=== PATIENT | female | born 1985 | race Caucasian/White ===

== ENCOUNTER 2018-06-17 18:39 | Outpatient (REF) | payer MEDICAID, SELFPAY ==
[2018-06-17 20:00] LABS: Bilirubin Small (Negative); Blood Trace-lysed (Negative); Clarity Cloudy; Glucose Negative (Negative); Ketones 15 mg/dL (Negative); Leukocyte Esterase Negative (Negative); Nitrite Positive (Negative)
[2018-06-17 20:15] LABS: Bacteria Many HPF (Negative); C & S Indicated? Yes; Casts Negative LPF (Negative); Crystals Negative HPF (Negative); Epithelial Cells Few HPF (Negative); Mucus Heavy (Negative); Other Cells Negative (Negative)
== END 2018-06-17 18:59 ==
LOC: NCHCN 18:39
PROVIDERS: PCP Nurse Practitioner Family; Visit Provider Nurse Practitioner Family
DX: R10.9 Unspecified abdominal pain (principal)
CPT/HCPCS: 87077; 81003; 81015; 87086; 87186

== ENCOUNTER 2018-08-18 10:01 | Emergency (ER) | payer MEDICAID, SELFPAY ==
--- NOTE | 2018-08-18 10:04 | W.ED.GENAD ---
Discharge Plan Disposition Patient Disposition: HOME Condition: Stable Discharge Details Chief Complaint: EarProblem Clinical Impression: Bilateral otitis externa Primary Care Provider: Petra Riley ED Provider: Kaleb Pino Home Meds and New Rx's Prescriptions: No Action ranitidine HCl 75 mg tablet 75 mg PO DAILY RF: 0 Lyrica 100 mg capsule 100 mg PO TID RF: 0 psyllium husk 0.52 gram capsule 0.52 gm PO DAILY RF: 0 cyclobenzaprine 10 mg tablet 10 mg PO ONCE PRNRF: 0 Discharge Instructions Instructions: Otitis Externa (ED) Medical Decision Making 32 yo female comes in with bilateral ear pain since yesterday, denies any trauma or swimming or fevers. HAs normal tm's bilateral and exsternal mastoid exam but both ear canals are swollen and inflammed on exam, no discharge on exam. Suspect otitis externa, will start abx drop and advised f/u with pcp Differential Diagnosis aom, otitis externa HPI General Mode of arrival: ambulatory. Date/Time Provider Initiated Documentation: 08/18/18 10:03. Limitations to Documentation: no limitations. Information obtained by: patient. History of Present Illness 32 year old F presents to the emergency department with the chief complaint of bilateral ear pain, described as moderate, with intensity rated at 5. Quality is described as aching, Patient reports no radiation. Patient started experiencing this day(s) (1) and it has been constant. No relieving factors improve symptom(s), No exacerbating factors reported . Patient did receive the following treatments prior to arrival, none Related Data Home Medications Medication Instructions Recorded Confirmed cyclobenzaprine 10 mg tablet 10 mg PO ONCE PRN tab 08/11/18 08/11/18 pregabalin 100 mg capsule 100 mg PO TID 08/11/18 08/11/18 psyllium husk 0.52 gram capsule 0.52 gm PO DAILY 08/11/18 08/11/18 ranitidine 75 mg tablet 75 mg PO DAILY tab 08/11/18 08/18/18 Allergies Allergy/AdvReac Type Severity Reaction Status Date / Time lidocaine Allergy Intermediate Swelling/Ed Verified 08/18/18 10:16 rome procaine HCl [From Novocain] Allergy Intermediate Swelling/Ed Verified 08/18/18 10:16 rome Penicillins AdvReac Unknown Nausea Verified 08/18/18 10:16 control pills Allergy Severe hospitalize Uncoded 08/18/18 10:16 d Review of Systems Review of Systems All systems reviewed & are unremarkable except as noted in HPI and below Constitutional Denies chills and Denies fever(s) ENT Denies change in voice Cardiovascular Denies chest pain and Denies dyspnea Respiratory Denies dyspnea Gastrointestinal Denies abdominal pain, Denies nausea and Denies vomiting Psychiatric Denies depression PFS Medical History IV drug abuse (Acute) Polysubstance abuse (Acute) Substance abuse (Acute) Chronic back pain Chronic pelvic pain in female GERD (gastroesophageal reflux disease) Irritable bowel syndrome SVT (supraventricular tachycardia) Tobacco user Surgical History section Cholecystectomy (03/30/15) Colonoscopy - MAC (01/29/17) Diagnostic Laproscopy (09/14/13) Endoscopy (12/14/13) Excision, Cervicle Lymph Nodes Hysterectomy, Laproscopic (04/15/13) Pacemaker Tonsillectomy and adenoidectomy (07/05/11) Family History Father Neoplasm Social History Smoking/Tobacco Use Status: Current every day Exam Const General: no acute distress Orientation: alert HENMT Head: normal to inspection Ears: external ears normal General nose exam: external nose normal Mouth: moist mucous membranes Eyes General: appearance normal, both eyes and all related structures Neck Neck: normal visual inspection Resp Effort & Inspection: normal respiratory effort and able to speak in complete sentences Cardio Rate: regular rate Skin General skin exam: no rashes or lesions noted Neuro General: alert and oriented x3 Extrem General: normal to inspection Psych Mental Status: mental status grossly normal
[2018-08-18 10:08] VITALS: BP 106/69; PULSE 71; RESP 14; TEMP 37.5; O2SAT 96
--- NOTE | 2018-08-18 10:21 | ED.GENADUL_ITS ---
Discharge Plan Disposition Patient Disposition: HOME Condition: Stable Discharge Details Chief Complaint: EarProblem Clinical Impression: Bilateral otitis externa Primary Care Provider: Petra Riley ED Provider: Kaleb Pino Home Meds and New Rx's Prescriptions: No Action ranitidine HCl 75 mg tablet 75 mg PO DAILY RF: 0 Lyrica 100 mg capsule 100 mg PO TID RF: 0 psyllium husk 0.52 gram capsule 0.52 gm PO DAILY RF: 0 cyclobenzaprine 10 mg tablet 10 mg PO ONCE PRNRF: 0 Discharge Instructions Instructions: Otitis Externa (ED) Medical Decision Making 32 yo female comes in with bilateral ear pain since yesterday, denies any trauma or swimming or fevers. HAs normal tm's bilateral and exsternal mastoid exam but both ear canals are swollen and inflammed on exam, no discharge on exam. Suspect otitis externa, will start abx drop and advised f/u with pcp Differential Diagnosis aom, otitis externa HPI General Mode of arrival: ambulatory . Date/Time Provider Initiated Documentation: 08/18/18 10:03 . Limitations to Documentation: no limitations . Information obtained by: patient . History of Present Illness 32 year old F presents to the emergency department with the chief complaint of bilateral ear pain, described as moderate, with intensity rated at 5. Quality is described as aching, Patient reports no radiation. Patient started experiencing this day(s) (1) and it has been constant. No relieving factors improve symptom(s), No exacerbating factors reported . Patient did receive the following treatments prior to arrival, none Related Data Home Medications Medication Instructions Recorded Confirmed cyclobenzaprine 10 mg tablet 10 mg PO ONCE PRN tab 08/11/18 08/11/18 pregabalin 100 mg capsule 100 mg PO TID 08/11/18 08/11/18 psyllium husk 0.52 gram capsule 0.52 gm PO DAILY 08/11/18 08/11/18 ranitidine 75 mg tablet 75 mg PO DAILY tab 08/11/18 08/18/18 Allergies Allergy/AdvReac Type Severity Reaction Status Date / Time lidocaine Allergy Intermediate Swelling/Ed Verified 08/18/18 10:16 rome procaine HCl [From Novocain] Allergy Intermediate Swelling/Ed Verified 08/18/18 10:16 rome Penicillins AdvReac Unknown Nausea Verified 08/18/18 10:16 control pills Allergy Severe hospitalize Uncoded 08/18/18 10:16 d Review of Systems Review of Systems All systems reviewed & are unremarkable except as noted in HPI and below Constitutional Denies chills and Denies fever(s) ENT Denies change in voice Cardiovascular Denies chest pain and Denies dyspnea Respiratory Denies dyspnea Gastrointestinal Denies abdominal pain, Denies nausea and Denies vomiting Psychiatric Denies depression PFS Medical History IV drug abuse (Acute) Polysubstance abuse (Acute) Substance abuse (Acute) Chronic back pain Chronic pelvic pain in female GERD (gastroesophageal reflux disease) Irritable bowel syndrome SVT (supraventricular tachycardia) Tobacco user Surgical History section Cholecystectomy (03/30/15) Colonoscopy - MAC (01/29/17) Diagnostic Laproscopy (09/14/13) Endoscopy (12/14/13) Excision, Cervicle Lymph Nodes Hysterectomy, Laproscopic (04/15/13) Pacemaker Tonsillectomy and adenoidectomy (07/05/11) Family History Father Neoplasm Social History Smoking/Tobacco Use Status: Current every day Exam Const General: no acute distress Orientation: alert HENMT Head: normal to inspection Ears: external ears normal General nose exam: external nose normal Mouth: moist mucous membranes Eyes General: appearance normal, both eyes and all related structures Neck Neck: normal visual inspection Resp Effort & Inspection: normal respiratory effort and able to speak in complete sentences Cardio Rate: regular rate Skin General skin exam: no rashes or lesions noted Neuro General: alert and oriented x3 Extrem General: normal to inspection Psych Mental Status: mental status grossly normal
[2018-08-18] MEDS: Ciprofloxacin/Dexameth. 7.5 ML BTL AU (10:45)
== END 2018-08-18 10:46 | disposition home or self-care (01) ==
PROVIDERS: Emergency Provider Emergency Medicine; PCP Nurse Practitioner Family
DX: H60.503 Unspecified acute noninfective otitis externa, bilateral (principal)
CPT/HCPCS: 99283

== ENCOUNTER 2018-09-07 07:41 | Emergency (ER) | payer MEDICAID, SELFPAY ==
[2018-09-07 07:54] VITALS: BP 112/77; PULSE 103; RESP 16; TEMP 36.7; O2SAT 97
--- NOTE | 2018-09-07 08:03 | W.ED.GENAD ---
Discharge Plan Disposition Patient Disposition: HOME Condition: Stable Discharge Details Chief Complaint: Orthopedic Clinical Impression: Chronic pain in right foot Primary Care Provider: Petra Riley ED Provider: Jesús Pang Home Meds and New Rx's Prescriptions: Continued ranitidine HCl 75 mg tablet 75 mg PO DAILY RF: 0 Lyrica 100 mg capsule 100 mg PO TID RF: 0 psyllium husk 0.52 gram capsule 0.52 gm PO DAILY RF: 0 cyclobenzaprine 10 mg tablet 10 mg PO ONCE PRNRF: 0 Discharge Instructions Additional Instructions: Follow-up with [facility] as planned. Return for any acute concerns or if you develop a fever, redness, worsening of the discomfort in your foot. Medical Decision Making 32-year-old female with chronic right foot pain for which she is to see a specialist at [facility] in 2 weeks for repair which she says is bone and tendon injury. No recurrent injury. She is not had a fever, warmth, rash. She states she lost her walking boot and needs another boot. Vital signs stable although mild anxiety and slightly high pulse. Exam of the foot is reassuring. She declines x-ray. I do not appreciate any evidence of osteomyelitis. She is given a walking boot stable for discharge to home. Follow-up with [facility] as planned. Return for any concerns HPI General Mode of arrival: ambulatory. Date/Time Provider Initiated Documentation: 09/07/18 07:58. Limitations to Documentation: no limitations. Information obtained by: patient. History of Present Illness 32 year old F presents to the emergency department with the chief complaint of Right foot swelling and pain, [facility] follow-up in 2 weeks. Needs boot, described as moderate, Quality is described as aching, and is localized to the right and lower extremity. Patient reports no radiation. Patient started experiencing this week(s) and it has been constant. Rest improves symptom(s), Movement worsens symptoms . Patient notes no other symptoms.. Patient did receive the following treatments prior to arrival, none Related Data Home Medications Medication Instructions Recorded Confirmed cyclobenzaprine 10 mg tablet 10 mg PO ONCE PRN tab 08/11/18 08/18/18 pregabalin 100 mg capsule 100 mg PO TID 08/11/18 08/18/18 psyllium husk 0.52 gram capsule 0.52 gm PO DAILY 08/11/18 08/18/18 ranitidine 75 mg tablet 75 mg PO DAILY tab 08/11/18 08/18/18 Allergies Allergy/AdvReac Type Severity Reaction Status Date / Time lidocaine Allergy Intermediate Swelling/Ed Verified 08/18/18 10:16 rome procaine HCl [From Novocain] Allergy Intermediate Swelling/Ed Verified 08/18/18 10:16 rome Penicillins AdvReac Unknown Nausea Verified 08/18/18 10:16 control pills Allergy Severe hospitalize Uncoded 08/18/18 10:16 d General Stated Complaint: Orthopedic THONG: 4 Review of Systems Review of Systems For systems reviewed and otherwise neg [facility] Medical History IV drug abuse (Acute) Polysubstance abuse (Acute) Substance abuse (Acute) Chronic back pain Chronic pelvic pain in female GERD (gastroesophageal reflux disease) Irritable bowel syndrome SVT (supraventricular tachycardia) Tobacco user Surgical History section Cholecystectomy (03/30/15) Colonoscopy - MAC (01/29/17) Diagnostic Laproscopy (09/14/13) Endoscopy (12/14/13) Excision, Cervicle Lymph Nodes Hysterectomy, Laproscopic (04/15/13) Pacemaker Tonsillectomy and adenoidectomy (07/05/11) Family History Father Neoplasm Social History Smoking/Tobacco Use Status: Current every day Exam Narrative Exam Narrative: GEN: awake, alert, oriented 3. Pleasant, well groomed, interactive. HEAD: Normocephalic, atraumatic ENT: Mucous membranes moist, oropharynx unremarkable, External ear exam unremarkable EYES: PERRL, EOMI NECK: Full ROM, no AVERY, no menigismus EXT: Full ROM, trace edema right lateral dorsum of foot, no rash/erythema/warmth. 2+ DP bilaterally. Motor 5 out of 5. Sensation intact throughout Neuro: Grossly normal neurologic exam, conversant, interactive. Psych: Speech fluent, thoughts congruent, affect anxious Course Vital Signs Temperature 36.7 C 09/07/18 07:54 Pulse 103 H 09/07/18 07:54 Respiratory Rate 16 09/07/18 07:54 Blood Pressure 112/77 09/07/18 07:54 Pulse Oximetry 97 09/07/18 07:54 Temperature 36.7 C 09/07/18 07:54 Temperature Source Temporal Artery Scan 09/07/18 07:54 Pulse 103 H 09/07/18 07:54 Respiratory Rate 16 09/07/18 07:54 Respiratory Effort 09/07/18 08:01 Blood Pressure 112/77 09/07/18 07:54 Pulse Oximetry 97 09/07/18 07:54 Oxygen Delivery Method Room Air 09/07/18 07:54 Oxygen Flow Rate 0 09/07/18 07:54 Pain Level 7 09/07/18 07:54
--- NOTE | 2018-09-07 08:06 | ED.GENADUL_ITS ---
Discharge Plan Disposition Patient Disposition: HOME Condition: Stable Discharge Details Chief Complaint: Orthopedic Clinical Impression: Chronic pain in right foot Primary Care Provider: Petra Riley ED Provider: Jesús Pang Home Meds and New Rx's Prescriptions: Continued ranitidine HCl 75 mg tablet 75 mg PO DAILY RF: 0 Lyrica 100 mg capsule 100 mg PO TID RF: 0 psyllium husk 0.52 gram capsule 0.52 gm PO DAILY RF: 0 cyclobenzaprine 10 mg tablet 10 mg PO ONCE PRNRF: 0 Discharge Instructions Additional Instructions: Follow-up with [facility] as planned. Return for any acute concerns or if you develop a fever, redness, worsening of the discomfort in your foot. Medical Decision Making 32-year-old female with chronic right foot pain for which she is to see a specialist at [facility] in 2 weeks for repair which she says is bone and tendon injury. No recurrent injury. She is not had a fever, warmth, rash. She states she lost her walking boot and needs another boot. Vital signs stable although mild anxiety and slightly high pulse. Exam of the foot is reassuring. She declines x-ray. I do not appreciate any evidence of osteomyelitis. She is given a walking boot stable for discharge to home. Follow-up with [facility] as planned. Return for any concerns HPI General Mode of arrival: ambulatory . Date/Time Provider Initiated Documentation: 09/07/18 07:58 . Limitations to Documentation: no limitations . Information obtained by: patient . History of Present Illness 32 year old F presents to the emergency department with the chief complaint of Right foot swelling and pain, [facility] follow-up in 2 weeks. Needs boot, described as moderate, Quality is described as aching, and is localized to the right and lower extremity. Patient reports no radiation. Patient started experiencing this week(s) and it has been constant. Rest improves symptom(s), Movement worsens symptoms . Patient notes no other symptoms.. Patient did receive the following treatments prior to arrival, none Related Data Home Medications Medication Instructions Recorded Confirmed cyclobenzaprine 10 mg tablet 10 mg PO ONCE PRN tab 08/11/18 08/18/18 pregabalin 100 mg capsule 100 mg PO TID 08/11/18 08/18/18 psyllium husk 0.52 gram capsule 0.52 gm PO DAILY 08/11/18 08/18/18 ranitidine 75 mg tablet 75 mg PO DAILY tab 08/11/18 08/18/18 Allergies Allergy/AdvReac Type Severity Reaction Status Date / Time lidocaine Allergy Intermediate Swelling/Ed Verified 08/18/18 10:16 rome procaine HCl [From Novocain] Allergy Intermediate Swelling/Ed Verified 08/18/18 10:16 rome Penicillins AdvReac Unknown Nausea Verified 08/18/18 10:16 control pills Allergy Severe hospitalize Uncoded 08/18/18 10:16 d General Stated Complaint: Orthopedic THONG: 4 Review of Systems Review of Systems For systems reviewed and otherwise neg [facility] Medical History IV drug abuse (Acute) Polysubstance abuse (Acute) Substance abuse (Acute) Chronic back pain Chronic pelvic pain in female GERD (gastroesophageal reflux disease) Irritable bowel syndrome SVT (supraventricular tachycardia) Tobacco user Surgical History section Cholecystectomy (03/30/15) Colonoscopy - MAC (01/29/17) Diagnostic Laproscopy (09/14/13) Endoscopy (12/14/13) Excision, Cervicle Lymph Nodes Hysterectomy, Laproscopic (04/15/13) Pacemaker Tonsillectomy and adenoidectomy (07/05/11) Family History Father Neoplasm Social History Smoking/Tobacco Use Status: Current every day Exam Narrative Exam Narrative: GEN: awake, alert, oriented 3. Pleasant, well groomed, interactive. HEAD: Normocephalic, atraumatic ENT: Mucous membranes moist, oropharynx unremarkable, External ear exam unremarkable EYES: PERRL, EOMI NECK: Full ROM, no AVERY, no menigismus EXT: Full ROM, trace edema right lateral dorsum of foot, no rash/erythema/warmth. 2+ DP bilaterally. Motor 5 out of 5. Sensation intact throughout Neuro: Grossly normal neurologic exam, conversant, interactive. Psych: Speech fluent, thoughts congruent, affect anxious Course Vital Signs Temperature 36.7 C 09/07/18 07:54 Pulse 103 H 09/07/18 07:54 Respiratory Rate 16 09/07/18 07:54 Blood Pressure 112/77 09/07/18 07:54 Pulse Oximetry 97 09/07/18 07:54 Temperature 36.7 C 09/07/18 07:54 Temperature Source Temporal Artery Scan 09/07/18 07:54 Pulse 103 H 09/07/18 07:54 Respiratory Rate 16 09/07/18 07:54 Respiratory Effort 09/07/18 08:01 Blood Pressure 112/77 09/07/18 07:54 Pulse Oximetry 97 09/07/18 07:54 Oxygen Delivery Method Room Air 09/07/18 07:54 Oxygen Flow Rate 0 09/07/18 07:54 Pain Level 7 09/07/18 07:54
[2018-09-07 18:14] VITALS: BP 112/77; PULSE 103; RESP 16; TEMP 36.7; O2SAT 97
== END 2018-09-07 08:50 | disposition home or self-care (01) ==
PROVIDERS: Emergency Provider Emergency Medicine; PCP Nurse Practitioner Family
DX: M79.671 Pain in right foot (principal); G89.29 Other chronic pain; Z46.89 Encounter for fitting and adjustment of other specified devices
CPT/HCPCS: 29515; 99283; 99281; L4361

== ENCOUNTER 2018-10-14 13:18 | Outpatient (CLI) | payer MEDICAID, SELFPAY ==
--- NOTE | 2018-10-14 10:49 | DI.RAD_ITS ---
SYMPTOMS/DIAGNOSIS: RT ANKLE PAIN RIGHT ANKLE: Three views. No bone or joint abnormality is identified. If there is concern for internal derangement, an MRI should be considered for further evaluation.
== END 2018-10-14 13:38 ==
PROVIDERS: PCP Nurse Practitioner Family; Visit Provider Orthopaedic Surgery
DX: M25.571 Pain in right ankle and joints of right foot (principal); G89.29 Other chronic pain
CPT/HCPCS: 73610

== ENCOUNTER 2018-11-03 08:53 | Emergency (ER) | payer MEDICAID, SELFPAY ==
[2018-11-03 08:55] VITALS: BP 99/66; PULSE 88; RESP 16; TEMP 37; O2SAT 100
[2018-11-03 09:09] VITALS: RESP 16
--- NOTE | 2018-11-03 09:41 | ED.GENADUL_ITS ---
Discharge Plan Disposition Patient Disposition: HOME Condition: Stable Discharge Details Chief Complaint: Vascular Clinical Impression: Peripheral edema, Elevated brain natriuretic peptide (BNP) level Primary Care Provider: Petra Riley ED Provider: Lou Valdes Home Meds and New Rx's Prescriptions: Continued albuterol sulfate [ProAir HFA] 90 mcg/actuation HFA aerosol inhaler 2 puff IH Q6H PRNRF: 0 bupropion HCl [Wellbutrin XL] 150 mg tablet extended release 24 hr 150 mg PO QAM RF: 0 trazodone 50 mg tablet 50 mg PO QHS PRNRF: 0 ondansetron HCl [Zofran] 4 mg tablet 4 mg PO QID PRNRF: 0 omeprazole 40 mg capsule,delayed release(DR/EC) 40 mg PO DAILY RF: 0 ketorolac 10 mg tablet 10 mg PO Q6H PRNRF: 0 hydroxyzine HCl 25 mg tablet 25 mg PO TID-QID PRNRF: 0 Flovent HFA 110 mcg/actuation HFA aerosol inhaler 1 puff IH Q12H RF: 0 clonidine HCl 0.1 mg tablet 0.1 mg PO TID RF: 0 citalopram 40 mg tablet 40 mg PO DAILY RF: 0 ranitidine HCl 75 mg tablet 75 mg PO DAILY RF: 0 Lyrica 100 mg capsule 100 mg PO TID RF: 0 psyllium husk 0.52 gram capsule 0.52 gm PO DAILY RF: 0 cyclobenzaprine 10 mg tablet 10 mg PO ONCE PRNRF: 0 methadone [Methadose] 10 mg/mL Concentrate 105 mg PO DAILY RF: 0 Discharge Instructions Instructions: Leg Edema (ED) Additional Instructions: Please return immediately to the emergency department if you develop any new or worsening symptoms or if you become otherwise concerned. It is extremely important that you make an appointment to be seen in follow-up this visit as soon as possible by your primary care doctor. Referrals: Petra Riley [Primary Care Provider] - Discharge Data Discharge Date/Time-TO BE ENTERED AT DEPARTURE: 11/03/18 15:55 Medical Decision Making Ludy Trinidad is a 33-year-old woman with history of IV drug use now on methadone, asthma, GERD, SVT who presented to the emergency department with 5 days of bilateral leg swelling without pain or rash, worse in the evenings. On exam patient is well and nontoxic appearing. She has symmetric +1 pitting edema to bilateral feet, ankles to mid calf. DP pulses are intact and symmetric. No skin changes. No posterior calf tenderness. Concern for likely venous insufficiency, possible metabolic/light disturbance. Doubt cardiac etiology, low risk for DVT. Exam/history is not consistent with sepsis, fracture, PE, cellulitis, other acute emergent life-threatening process. Plan for screening labs. Patient with mildly elevated BNP, concerning given patient's history of IV drug use. Patient without respiratory symptoms, no chest pain. Plan for echo for further evaluation. We will send troponin x2 and obtain EKG with repeat at time of the repeat troponin. Troponin and EKG negative x2. Awaiting echo results. Patient continues to have no change in her symptoms. Patient reports that she needs to leave to catch the bus. She has capacity and verbalizes the risks of leaving prior to echo results. Plan for compression stockings. I had a lengthy discussion with the patient regarding return to emergency department precautions, risks of leaving prior to full evaluation, and importance of outpatient follow-up with her PCP. Patient verbalizes understanding of the plan and is amenable. All questions were answered. Medical Records Medical records reviewed: Yes I reviewed the patient's medical records. Lab Data Lab results reviewed: Yes I reviewed the patient's lab results. Laboratory Tests Range/Units 11/03/18 11/03/18 11/03/18 10:15 10:15 10:15 D-Dimer (<500) ng/mlFEU 235 Sodium (136-145) mmol/L 140 Potassium (3.5-5.1) mmol/L 4.3 Chloride (98-107) mmol/L 103 Carbon Dioxide (21.0-32.0) mmol/L 27.0 Anion Gap (3-11) mmol/L 10.0 BUN (7-18) mg/dL 11 Creatinine (0.55-1.02) mg/dL 0.63 Estimated GFR/1.73 m2 (mL/min/1.73m2) >= 60.00 Glucose (70-100) mg/dL 112 H Calcium (8.5-10.1) mg/dL 8.8 Total Bilirubin (0.2-1.0) mg/dL 0.2 AST (15-37) U/L 89 H ALT (12-78) U/L 160 H Alkaline Phosphatase (46-116) U/L 152 H Troponin I (0.00-0.06) ng/mL < 0.02 NT-Pro-B Natriuret Pep ( - 299) pg/mL 444 H Total Protein (6.4-8.2) g/dL 7.4 Albumin (3.4-5.0) g/dL 3.6 TSH (0.358-3.74) uIU/mL 1.49 Range/Units 11/03/18 14:07 D-Dimer (<500) ng/mlFEU Sodium (136-145) mmol/L Potassium (3.5-5.1) mmol/L Chloride (98-107) mmol/L Carbon Dioxide (21.0-32.0) mmol/L Anion Gap (3-11) mmol/L BUN (7-18) mg/dL Creatinine (0.55-1.02) mg/dL Estimated GFR/1.73 m2 (mL/min/1.73m2) Glucose (70-100) mg/dL Calcium (8.5-10.1) mg/dL Total Bilirubin (0.2-1.0) mg/dL AST (15-37) U/L ALT (12-78) U/L Alkaline Phosphatase (46-116) U/L Troponin I (0.00-0.06) ng/mL < 0.02 NT-Pro-B Natriuret Pep ( - 299) pg/mL Total Protein (6.4-8.2) g/dL Albumin (3.4-5.0) g/dL TSH (0.358-3.74) uIU/mL ECG Data Attestation: I personally reviewed and interpreted this ECG (s) as follows: Interpretation: EKG shows normal sinus rhythm at 68, normal axis, T wave flattening V3, no ST elevation or ST depression. Nondiagnostic EKG Repeat EKG shows sinus rhythm at 66, unchanged from prior, nondiagnostic EKG HPI General Mode of arrival: ambulatory . Date/Time Provider Initiated Documentation: 11/03/18 09:17 . Limitations to Documentation: no limitations . Information obtained by: patient, RN notes reviewed and old records reviewed . HPI Narrative: Ludy Allen is a 33-year-old woman with history of IV drug use in the past now on methadone, GERD, SVT presenting to the emergency department with bilateral leg swelling. Patient reports that she has had mild chronic intermittent swelling of her feet over the past few years. Patient reports that in the past 5 days she has noticed worsening of the swelling in both of her feet and lower legs, more severe than she has ever had in the past. Patient feels that her right leg has been somewhat more swollen than the left. She has had no pain, fevers, shortness of breath, cough, vomiting, diarrhea, skin rash, weakness, numbness/tingling. No medication changes. No recent travel. Has been eating and drinking as usual. Patient reports that swelling seems to be mild or not present in the morning, and is much worse at the end of the day. Patient is not currently employed, and spends her days traveling to multiple appointments and walking quite a bit. No prolonged immobilization. Last IV drug use 1 year ago. Related Data Home Medications Medication Instructions Recorded Confirmed cyclobenzaprine 10 mg tablet 10 mg PO ONCE PRN tab 08/11/18 11/03/18 pregabalin 100 mg capsule 100 mg PO TID 08/11/18 11/03/18 psyllium husk 0.52 gram capsule 0.52 gm PO DAILY 08/11/18 11/03/18 ranitidine 75 mg tablet 75 mg PO DAILY tab 08/11/18 11/03/18 albuterol sulfate HFA 90 2 puff IH Q6H PRN 10/14/18 10/14/18 mcg/actuation aerosol inhaler bupropion HCl XL 150 mg 24 hr 150 mg PO QAM 10/14/18 11/03/18 tablet, extended release citalopram 40 mg tablet 40 mg PO DAILY 10/14/18 11/03/18 clonidine HCl 0.1 mg tablet 0.1 mg PO TID 10/14/18 11/03/18 fluticasone propionate 110 1 puff IH Q12H 10/14/18 11/03/18 mcg/actuation HFA aerosol inhaler hydroxyzine HCl 25 mg tablet 25 mg PO TID-QID PRN 10/14/18 11/03/18 ketorolac 10 mg tablet 10 mg PO Q6H PRN 10/14/18 10/14/18 omeprazole 40 mg capsule,delayed 40 mg PO DAILY 10/14/18 11/03/18 release ondansetron HCl 4 mg tablet 4 mg PO QID PRN 10/14/18 11/03/18 trazodone 50 mg tablet 50 mg PO QHS PRN 10/14/18 11/03/18 methadone [Methadose] 105 mg PO DAILY 11/03/18 11/03/18 Allergies Allergy/AdvReac Type Severity Reaction Status Date / Time lidocaine Allergy Intermediate Swelling/Ed Verified 11/03/18 09:02 rome procaine HCl [From Novocain] Allergy Intermediate Swelling/Ed Verified 11/03/18 09:02 rome Penicillins AdvReac Unknown Nausea Verified 11/03/18 09:02 control pills Allergy Severe hospitalize Uncoded 11/03/18 09:02 d General Stated Complaint: Vascular THONG: 3 Review of Systems Review of Systems Constitutional: denies fevers Eyes: denies eye pain ENT: denies facial pain, dental pain, sore throat Cardiovascular: denies chest pain, orthopnea, PND, reports edema Respiratory: denies SOB, cough GI: denies abdominal pain, vomiting, diarrhea : denies flank pain MSK: denies back pain, neck pain, arthralgias, myalgias Skin: denies rash Neuro: denies headaches, numbness, weakness PFS Medical History IV drug abuse (Acute) Polysubstance abuse (Acute) Substance abuse (Acute) Chronic back pain Chronic pelvic pain in female GERD (gastroesophageal reflux disease) Irritable bowel syndrome SVT (supraventricular tachycardia) Tobacco user Social History Smoking/Tobacco Use Status: Current every day Tobacco Type: cigarettes Drug use: Occasionally Substance use type: marijuana Do you feel safe at home: Yes Do you feel safe in your relationship?: Yes Exam Narrative Exam Narrative: Constitutional: well and [id number], pleasant, conversing normally HENT: head atraumatic/normocephalic/normal inspection, mucous membranes moist Eyes: conjunctiva normal, sclera normal, pupils 3mm b/l Neck: no stridor, normal ROM, trachea midline Chest: normal inspection Resp: normal work of breathing, LCTAB Cardio: normal rate, normal rhythm, no murmur appreciated Back: normal inspection, no rash Skin: warm, dry, normal color, no rash Neuro: alert, not altered, grossly non-focal, normal tone Ext: 1+ bilateral pitting edema feet to mid calf without apparent asymmetry, no posterior calf tenderness, no erythema or overlying skin changes. DP pulses intact and symmetric. Psych: normal mood, normal affect, normal behavior Course Vital Signs Temperature 37 C 11/03/18 08:55 Pulse 88 11/03/18 08:55 Respiratory Rate 16 11/03/18 08:55 Blood Pressure 99/66 L 11/03/18 08:55 Pulse Oximetry 100 11/03/18 08:55 Temperature 37 C 11/03/18 08:55 Temperature Source Temporal Artery Scan 11/03/18 08:55 Pulse 88 11/03/18 08:55 Respiratory Rate 16 11/03/18 09:09 Respiratory Effort Non-Labored 11/03/18 09:09 Respiratory Depth Normal 11/03/18 09:09 Respiratory Pattern Normal 11/03/18 09:09 Blood Pressure 99/66 L 11/03/18 08:55 Blood Pressure Position Sitting 11/03/18 08:55 Pulse Oximetry 100 11/03/18 08:55 Oxygen Delivery Method Room Air 11/03/18 08:55 Oxygen Flow Rate 0 11/03/18 08:55 Pain Level 8 11/03/18 08:55
[2018-11-03 10:42] LABS: ALT 160 U/L (12-78); AST 89 U/L (15-37); Albumin 3.6 g/dL (3.4-5.0); Alkaline Phosphatase 152 U/L (46-116); BUN 11 mg/dL (7-18); Bilirubin, Total 0.2 mg/dL (0.2-1.0); CREATININE 0.63 mg/dL (0.55-1.02); Calcium 8.8 mg/dL (8.5-10.1); Chloride 103 mmol/L (98-107); Glucose 112 mg/dL (70-100); NT-proBNP 444 pg/mL; Potassium 4.3 mmol/L (3.5-5.1); Sodium 140 mmol/L (136-145); TSH (W/Ref FT4) 1.49 uIU/mL (0.358-3.74); Total Protein 7.4 g/dL (6.4-8.2)
[2018-11-03 10:51] LABS: D-Dimer 235 ng/mlFEU (<500)
[2018-11-03 11:59] LABS: Troponin I < 0.02 ng/mL (0.00-0.06)
--- NOTE | 2018-11-03 12:25 | MERGE_ITS ---
*[facility]* *[facility]* [address] [place] [address] Date of study: 11/03/2018 Transthoracic Echocardiography M-mode, complete 2D, complete spectral Doppler, and color Doppler *STUDY CONCLUSIONS* Summary: 1. Left ventricle: The cavity size was normal. Systolic function was normal. The estimated ejection fraction was 60-65%. Diastolic parameters were normal. There was no evidence of elevated ventricular filling pressure by Doppler parameters. 2. Mitral valve: There was mild regurgitation. 3. Left atrium: The atrium was mildly dilated. 4. Right ventricle: The cavity size was normal. Wall thickness was normal. Systolic function was normal. 5. Atrial septum: No defect or patent foramen ovale was identified. 6. Pulmonary arteries: Pulmonary systolic pressure was in the range of 25mm Hg to 35mm Hg. 7. Inferior vena cava: The vessel was normal in size. The respirophasic diameter changes were in the normal range (greater than or equal to 50%), consistent with normal central venous pressure. *PATIENT PRESENTATION* Height: 175.3cm ((69in) ) S/D Pressure: 99 / 66 Weight: 83kg ((182.6lb) ) BSA: 2.03m^2 Test start time: 12:25 PM. Test stop time: 01:30 PM. PERFORMING Unknown PERFORMING [facility] ORDERING Lou Valdes REFERRING Lou Valdes MATERIAL INSPECTOR Jenna Neville RT (R)(CT), RDCS CONSULTING Petra Riley *PROCEDURE DATA* Procedure information: The patient was identified by two identifiers. This study was interpreted by [facility]. Pertinent images and digital data are archived for permanent storage and are available for subsequent review. No prior study was available for comparison. Study status: STAT. Transthoracic echocardiography. M-mode, complete 2D, complete spectral Doppler, and color Doppler. A Transthoracic Echocardiogram was performed. Scanning was performed from the parasternal, apical, subcostal, and suprasternal notch acoustic windows. Images were obtained using an [id number] cardiac ultrasound machine. Image quality was good. Study completion: The patient tolerated the procedure well. History: PMH: B/l lower ext edema. elevated BNP. *CARDIAC ANATOMY* Left ventricle: The cavity size was normal. Systolic function was normal. The estimated ejection fraction was 60-65%. The tissue Doppler parameters were normal. Diastolic parameters were normal. There was no evidence of elevated ventricular filling pressure by Doppler parameters. Aortic valve: Trileaflet. Doppler: There was no stenosis. There was no regurgitation. VTI ratio of LVOT to aortic valve: 0.87. Valve area (VTI): 2.8cm^2. Indexed valve area (VTI): 1.4cm^2/m^2. Peak velocity ratio of LVOT to aortic valve: 0.86. Valve area (Vmax): 2.7cm^2. Indexed valve area (Vmax): 1.3cm^2/m^2. Mean velocity ratio of LVOT to aortic valve: 0.82. Valve area (Vmean): 2.6cm^2. Indexed valve area (Vmean): 1.3cm^2/m^2. Mean gradient (S): 3.9mm Hg. Peak gradient (S): 6.3mm Hg. Aorta: Aortic root: The aortic root was normal in size. Ascending aorta: The ascending aorta was mildly dilated. Mitral valve: Doppler: There was no evidence for stenosis. There was mild regurgitation. Valve area by pressure half-time: 3.8cm^2. Indexed valve area by pressure half-time: 1.9cm^2/m^2. Peak gradient (D): 4mm Hg. Left atrium: The atrium was mildly dilated. Atrial septum: No defect or patent foramen ovale was identified. Right ventricle: The cavity size was normal. Wall thickness was normal. Systolic function was normal. Pulmonic valve: Doppler: There was no evidence for stenosis. There was mild regurgitation. Peak gradient (S): 3mm Hg. Tricuspid valve: Doppler: There was mild regurgitation. Pulmonary artery: Poorly visualized. Pulmonary systolic pressure was in the range of 25mm Hg to 35mm Hg. Right atrium: The atrium was normal in size. Pericardium: There was no pericardial effusion. Systemic veins: Inferior vena cava: The vessel was normal in size. The respirophasic diameter changes were in the normal range (greater than or equal to 50%), consistent with normal central venous pressure. Measurements Left ventricle Value Reference LV ID, ED, PLAX 4.8 cm 3.5 - 6.0 LV ID, ES, PLAX 3.3 cm 2.1 - 4.0 LV PW thickness, ED, PLAX 1.0 cm LV end-diastolic volume, 1-p A2C 146 ml LV ejection fraction, 1-p A2C 67 % LV end-diastolic volume, 1-p A4C 114 ml LV ejection fraction, 1-p A4C 63 % LV e', lateral 0.154 m/sec LV E/e', lateral 6 LV e', medial 0.112 m/sec LV E/e', medial 9 LV e', average 0.133 m/sec LV E/e', average 8 Ventricular septum Value Reference IVS thickness, ED, PLAX 0.7 cm LVOT Value Reference LVOT ID, A-P 2.0 cm LVOT area 3.2 cm^2 LVOT peak velocity, S 1.08 m/sec LVOT mean velocity, S 0.78 m/sec LVOT VTI, S 27.9 cm LVOT peak gradient, S 4.7 mm Hg LVOT mean gradient, S 2.7 mm Hg Stroke volume (SV), LVOT DP 88 ml Stroke index (SV/bsa), LVOT DP 43 ml/m^2 Aortic valve Value Reference Aortic valve peak velocity, S 1.3 m/sec Aortic valve mean velocity, S 0.95 m/sec Aortic valve VTI, S 32.0 cm Aortic mean gradient, S 3.9 mm Hg Aortic peak gradient, S 6.3 mm Hg VTI ratio, LVOT/AV 0.87 Aortic valve area, VTI 2.8 cm^2 Velocity ratio, peak, LVOT/AV 0.86 Aortic valve area, peak velocity 2.7 cm^2 Velocity ratio, mean, LVOT/AV 0.82 Aortic valve area, mean velocity 2.6 cm^2 Aortic valve area/bsa, mean velocity 1.3 cm^2/m^2 Aorta Value Reference Aortic root ID, ED 2.9 cm Ascending aorta ID, A-P, S 3.5 cm Left atrium Value Reference LA ID, A-P, ES 3.1 cm LA ID/bsa, A-P 1.5 cm/m^2 <=2.2 LA area, ES, A4C 20.2 cm^2 8.8 - 23.4 LA area, ES, A2C 23 cm^2 LA volume, ES, 2-p 69 ml LA volume/bsa, ES, 2-p 34 ml/m^2 LA/aortic root ratio 1.07 Mitral valve Value Reference Mitral E-wave peak velocity 1 m/sec Mitral A-wave peak velocity 0.38 m/sec Mitral deceleration time 199 ms 150 - 230 Mitral pressure half-time 58 ms Mitral peak gradient, D 4 mm Hg Mitral E/A ratio, peak 2.63 Mitral valve area, PHT, DP 3.8 cm^2 Pulmonary veins Value Reference Pulmonary vein peak velocity, S 0.56 m/sec Pulmonary vein peak velocity, D 0.64 m/sec Pulmonary vein velocity ratio, peak, 0.87 S/D Pulmonary vein A-wave reversal peak 0.31 m/sec velocity Tricuspid valve Value Reference Tricuspid regurg peak velocity 2.6 m/sec Tricuspid peak RV-RA gradient 26.9 mm Hg Right atrium Value Reference RA area, ES, A4C 17.1 cm^2 8.3 - 19.5 Pulmonic valve Value Reference Pulmonic peak gradient, S 3 mm Hg Legend: (L) and (H) zen values outside specified reference range. I have personally reviewed the images and have reviewed and edited the reported findings. Electronically signed by Kaleb Chicas MD 11/03/2018 18:06
[2018-11-03 13:24] VITALS: BP 125/88; PULSE 66; RESP 16; TEMP 36.7; O2SAT 97
[2018-11-03 14:42] LABS: Troponin I < 0.02 ng/mL (0.00-0.06)
[2018-11-03 15:23] VITALS: BP 106/58; PULSE 67; RESP 15; TEMP 36.7; O2SAT 96
[2018-11-03 15:55] VITALS: BP 125/82; PULSE 68; RESP 16; TEMP 36.7; O2SAT 98
--- NOTE | 2018-11-03 18:51 | NUR.NOTE ---
compression stockings given to pt.Nursing Note:
== END 2018-11-03 15:55 | disposition home or self-care (01) ==
PROVIDERS: Emergency Provider Student in an Organized Health Care Education/Training Program; PCP Nurse Practitioner Family
DX: R60.9 Edema, unspecified (principal); R79.89 Other specified abnormal findings of blood chemistry
CPT/HCPCS: 36415; 80053; 93005; 99284; 83880; 84443; 84484; 85379; 93010; 93306

== ENCOUNTER 2018-11-06 18:21 | Outpatient (REF) | payer MEDICAID, SELFPAY ==
[2018-11-06 19:00] LABS: HCT 42.2 % (36.0-46.0); HGB 14.2 g/dL (12.0-15.5); Mean Corp. HGB Concentration 33.6 g/dL (32.0-36.0); Mean Corpuscular Hemoglobin 29.5 pg (27.0-33.0); Mean Corpuscular Volume 87.7 fL (80-95); Mean Platelet Volume 12.7 fL (8.0-11.0); Platelet Count 169 x1000/uL (130-400); RBC 4.81 m/cumm (4.00-5.20); RBC Distribution Width 13.6 % (11.7-14.6); White Blood Cell Count 5.49 k/cumm (4.4-10.8)
[2018-11-08 10:27] LABS: Hepatitis C Ab w Rflx HCV PCR Reactive (NEGAT)
== END 2018-11-06 18:41 ==
LOC: NCHCN 18:21
PROVIDERS: PCP Nurse Practitioner Family; Visit Provider Nurse Practitioner Family
DX: R79.89 Other specified abnormal findings of blood chemistry (principal); Z11.59 Encounter for screening for other viral diseases
CPT/HCPCS: 85027; 86803

== ENCOUNTER 2018-11-07 12:43 | Outpatient (REF) | payer MEDICAID, SELFPAY ==
[2018-11-07 21:35] LABS: Ferritin 50 ng/mL (8-388)
[2018-11-10 10:11] LABS: HBs Antibody, Quant 120.6 mIU/mL; HIV-1/2 Ag & Ab Screen Negative (NEGAT); Hep A Total Ab w Rflx IgM Negative (NEGAT); Hep B Core Antibody Negative (NEGAT); Hepatitis B Surface Ab Positive; Hepatitis B Surface Ag Negative (NEGAT)
[2018-11-10 23:08] LABS: HCV Genotype 3 (Undetected)
[2018-11-11 10:43] LABS: ALT 143 U/L (7-45); ActiTest Grade A3; ActiTest Interpretation severe activity; ActiTest Score 0.74; Alpha-2-Macroglobulin 323 mg/dL (100 - 280); Apoliprotein A1 132 mg/dL (>=140); Bilirubin, Total 0.3 mg/dL (<=1.2); FibroTest Interpretation minimal fibrosis; FibroTest Score 0.43; FibroTest Stage F1-F2; GGT 90 U/L (5 - 36); Haptoglobin 47 mg/dL (30 - 200)
== END 2018-11-07 13:03 ==
LOC: NCHCN 12:43
PROVIDERS: PCP Nurse Practitioner Family; Visit Provider Family Medicine
DX: B19.20 Unspecified viral hepatitis C without hepatic coma (principal); R79.89 Other specified abnormal findings of blood chemistry; Z11.4 Encounter for screening for human immunodeficiency virus [HIV]
CPT/HCPCS: 82172; 82247; 82977; 83010; 83883; 84460; 86704; 86706; 86709; 87340; 87389; 82728; 87521; 87522

== ENCOUNTER 2018-11-23 16:06 | Emergency (ER) | payer MEDICAID, SELFPAY ==
[2018-11-23 16:27] VITALS: BP 121/72; PULSE 74; RESP 16; TEMP 36.8; O2SAT 100
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
[2018-11-23] MEDS: Omeprazole 20 MG CAPCR PO (17:38)
[2018-11-23] MEDS: Citalopram 20 MG TAB 40 MG PO (18:06)
[2018-11-23] MEDS: Pregabalin 100 MG CAP PO (18:06)
[2018-11-23] MEDS: Ondansetron 4 MG TAB PO ×3 (18:07)
== END 2018-11-23 18:19 | disposition home or self-care (01) ==
PROVIDERS: Emergency Provider Nurse Practitioner Family; PCP Nurse Practitioner Family
DX: F11.23 Opioid dependence with withdrawal (principal)
CPT/HCPCS: 99283; J8597

== ENCOUNTER 2018-12-18 12:11 | Outpatient (REF) | payer MEDICAID, SELFPAY ==
[2018-12-22 10:20] LABS: Prolactin 8.7 ng/ml
== END 2018-12-18 12:31 ==
LOC: NCHCN 12:11
PROVIDERS: PCP Nurse Practitioner Family; Visit Provider Nurse Practitioner Family
DX: O92.6 Galactorrhea (principal)
CPT/HCPCS: 84146

== ENCOUNTER 2019-01-23 12:12 | Outpatient (CLI) | payer MEDICAID, SELFPAY ==
[2019-01-26 13:52] LABS: Chlamydia Result Negative; GC Result Negative; Specimen Description CERVIX
== END 2019-01-23 12:32 ==
PROVIDERS: PCP Nurse Practitioner Family; Visit Provider Obstetrics & Gynecology
DX: R30.0 Dysuria (principal); N89.8 Other specified noninflammatory disorders of vagina
CPT/HCPCS: 87077; 87491; 87591; 87086; 87186

== ENCOUNTER 2019-02-10 07:19 | Emergency (ER) | payer MEDICAID, SELFPAY ==
[2019-02-10 07:24] VITALS: BP 119/67; PULSE 75; RESP 18; TEMP 36.6; O2SAT 97
[2019-02-10] MEDS: Bupivacaine 0.5% Pres-Free 30 ML VIAL (07:35)
--- NOTE | 2019-02-10 07:36 | ED.GENADUL_ITS ---
Discharge Plan Disposition Patient Disposition: HOME Condition: Good Discharge Details Chief Complaint: DentalOral Clinical Impression: Pain, dental Primary Care Provider: Petra Riley ED Provider: Miguel Nash Home Meds and New Rx's Prescriptions: New clindamycin HCl 150 mg capsule 450 mg PO TID 7 Days Qty: 63 RF: 0 acetaminophen [Mapap Extra Strength] 500 MG tablet 1,000 mg PO Q6H 5 Days Qty: 60 RF: 0 ibuprofen [Motrin IB] 200 MG tablet 600 mg PO Q6H 5 Days Qty: 60 RF: 0 No Action albuterol sulfate [ProAir HFA] 90 mcg/actuation HFA aerosol inhaler 2 puff IH Q6H PRNRF: 0 bupropion HCl [Wellbutrin XL] 150 mg tablet extended release 24 hr 150 mg PO QAM RF: 0 trazodone 50 mg tablet 50 mg PO QHS PRNRF: 0 ondansetron HCl [Zofran] 4 mg tablet 4 mg PO QID PRNRF: 0 omeprazole 40 mg capsule,delayed release(DR/EC) 40 mg PO DAILY RF: 0 ketorolac 10 mg tablet 10 mg PO Q6H PRNRF: 0 hydroxyzine HCl 25 mg tablet 25 mg PO TID-QID PRNRF: 0 Flovent HFA 110 mcg/actuation HFA aerosol inhaler 1 puff IH Q12H RF: 0 clonidine HCl 0.1 mg tablet 0.1 mg PO TID RF: 0 citalopram 40 mg tablet 40 mg PO DAILY RF: 0 aripiprazole 5 mg tablet 5 mg PO DAILY RF: 0 ranitidine HCl 75 mg tablet 75 mg PO DAILY RF: 0 Lyrica 100 mg capsule 100 mg PO TID RF: 0 psyllium husk 0.52 gram capsule 0.52 gm PO DAILY RF: 0 cyclobenzaprine 10 mg tablet 10 mg PO ONCE PRNRF: 0 methadone [Methadose] 10 mg/mL Concentrate 105 mg PO DAILY RF: 0 Discharge Instructions Instructions: Toothache (ED) Additional Instructions: Please take to the antibiotic as directed. Please take 800 mg of ibuprofen every 6 hours and 1000 mg of Tylenol every 6 hours. Please follow-up with your dentist as soon as possible for reassessment. If you notice any worsening of your symptoms, or any new symptoms such as vomiting, diarrhea, fever, chills, sh ortness of breath, chest pain, numbness, weakness, or fainting , please return immediately to the emergency department for reevaluation. Please follow up with your primary care provider as soon as possible for reassessment and reevaluation. As always, it was a pleasure participating in your medical care today. Referrals: Petra Riley [Primary Care Provider] - Medical Decision Making This is a 33-year-old female with severe dental caries, who is been pulling out her own teeth at home over the last few days secondary to inability to get in with the dentist. She presents for uncontrolled dental pain in general. She has been taking Tylenol or Motrin but this is not been helping her symptoms. Exam demonstrates severe dental caries, no evidence of dental abscess. I do suspect pulpitis in conjunction with her old fractured teeth. We did discuss dental block, she has a history of an allergy to lidocaine and procaine, however she is tolerated this multiple times in the past without incidence. We discussed the risks and benefits of utilizing this, she states that she is often fine with this, and would like to proceed with the dental block. Understanding and accepting the risks. We will give clindamycin, as well as place a care management referral to help with dental referral. Additionally we will give 50 of Benadryl prophylactically due to her history as an added safety precaution. Prolonged observation. Was had here in the emergency department, the patient demonstrates no evidence of allergic reaction, rash, or other significant abnormality. She will be discharged home with continued recommendation for clindamycin, Tylenol, Motrin, and dental follow-up. I have extensively reviewed the treatment plan and discharge instructions with the patient. I have addressed all patient concerns at this time. The patient was made aware of what symptoms to monitor for that would warrant a return to the emergency department. Discussed the plan with the patient, they demonstrate verbal understanding and agreement with our assessment and plan at this time. Time out was taken to identify the correct patient, procedure, and site. Risks and benefits were discussed with the patient and consent was obtained. Direct pressure was held over the area prior to the procedure to reduce painful injection. 5 cc?s of Lidocaine 1% and Bupivacaine 0.25% was instilled into the right posterior alveolar space, 5 cc in the left superior alveolar space over the frontal incisor, and 5 cc in the posterior upper alveolar space on the left, With a 27 gauge needle.Complete analgesia was obtained. The patient tolerated the procedure. There were no complications. HPI General Date/Time Provider Initiated Documentation: 02/10/19 07:21 . HPI Narrative: This is a 33-year-old female with a past medical history of methadone use and drug use in the past, with notably poor dentition who presents today for evaluation of dental pain. Patient states that for the last few weeks she has had worsening dental health and has been unable to get her teeth removed by dentist, it is increased to the point where she is actually pulling some of her teeth out herself. Particularly over the last 2 to 3 days she has broken off and pulled off 3 teeth, one from her upper left molar, one from her upper front incisor, and her lower right posterior molar. She denies any fever chills or discharge from her mouth. She has been taking Tylenol and Motrin this is not been improving her symptoms. She has not seen a dentist yet, and she has been having difficulty getting into see the dentist. Patient denies any other complaints modifying factors at this time. Of note she has an allergy to lidocaine and procaine in her chart, however she states that she is tolerated this multiple times in the past without incident. Her symptoms are related to mild swelling and itchiness, no history of angioedema or anaphylaxis. Related Data Home Medications Medication Instructions Recorded Confirmed cyclobenzaprine 10 mg tablet 10 mg PO ONCE PRN tab 08/11/18 02/10/19 pregabalin 100 mg capsule 100 mg PO TID 08/11/18 02/10/19 psyllium husk 0.52 gram capsule 0.52 gm PO DAILY 08/11/18 02/10/19 ranitidine 75 mg tablet 75 mg PO DAILY tab 08/11/18 02/10/19 albuterol sulfate HFA 90 2 puff IH Q6H PRN 10/14/18 02/10/19 mcg/actuation aerosol inhaler bupropion HCl XL 150 mg 24 hr 150 mg PO QAM 10/14/18 02/10/19 tablet, extended release citalopram 40 mg tablet 40 mg PO DAILY 10/14/18 02/10/19 clonidine HCl 0.1 mg tablet 0.1 mg PO TID 10/14/18 02/10/19 fluticasone propionate 110 1 puff IH Q12H 10/14/18 02/10/19 mcg/actuation HFA aerosol inhaler hydroxyzine HCl 25 mg tablet 25 mg PO TID-QID PRN 10/14/18 02/10/19 ketorolac 10 mg tablet 10 mg PO Q6H PRN 10/14/18 02/10/19 omeprazole 40 mg capsule,delayed 40 mg PO DAILY 10/14/18 02/10/19 release ondansetron HCl 4 mg tablet 4 mg PO QID PRN 10/14/18 02/10/19 trazodone 50 mg tablet 50 mg PO QHS PRN 10/14/18 02/10/19 methadone [Methadose] 105 mg PO DAILY 11/03/18 02/10/19 aripiprazole 5 mg tablet 5 mg PO DAILY 01/23/19 02/10/19 acetaminophen [Mapap Extra 1,000 mg PO Q6H 5 Days #60 tab 02/10/19 Strength] clindamycin HCl 450 mg PO TID 7 Days #63 cap 02/10/19 ibuprofen [Motrin Ib] 600 mg PO Q6H 5 Days #60 tab 02/10/19 Previous Rx's Medication Instructions Recorded acetaminophen [Mapap Extra 1,000 mg PO Q6H 5 Days #60 tab 02/10/19 Strength] clindamycin HCl 450 mg PO TID 7 Days #63 cap 02/10/19 ibuprofen [Motrin Ib] 600 mg PO Q6H 5 Days #60 tab 02/10/19 Allergies Allergy/AdvReac Type Severity Reaction Status Date / Time lidocaine Allergy Intermediate Swelling/Ed Verified 02/10/19 07:38 rome procaine HCl [From Novocain] Allergy Intermediate Swelling/Ed Verified 02/10/19 07:38 rome Penicillins AdvReac Unknown Nausea Verified 02/10/19 07:38 control pills Allergy Severe hospitalize Uncoded 02/10/19 07:38 d General Stated Complaint: DentalOral THONG: 4 Review of Systems Review of Systems All systems reviewed & are unremarkable except as noted in HPI and below PFSH Social History Smoking/Tobacco Use Status: Current every day Tobacco Type: cigarettes Drug use: Occasionally Substance use type: marijuana Details: Methadone program Do you feel safe at home: Yes Do you feel safe in your relationship?: Yes Exam Narrative Exam Narrative: 1.Const: Well-nourished, Well-developed, appearing stated age 2.Eyes: PERRL, no conjunctival injection, and symmetrical lids. 3.ENT: Atraumatic external nose and ears. Moist MM. Neck: Symmetric, trachea midline, No thyromegaly. Notably poor dentition throughout, multiple fractured teeth and severe dental caries. No evidence of dental abscess. Old fractured teeth in the posterior upper left molar, left front incisor on the upper component, and right lower molar. Patient demonstrates good movement of cervical neck. There is no nuchal rigidity, no nuchal tenderness. Patient is able to flex the neck without any difficulty or significant pain. Negative Kernig's and Brudzinski sign. 4.CVS: +S1/S2, No murmurs or gallops. Peripheral pulses 2+ and equal in all extremities. Brisk capillary refill in all extremities. 5.RESP: Unlabored respiratory effort. Clear to auscultation bilaterally. No wheezes rales or rhonchi 6.GI: Soft, Nontender/Nondistended, No hepatosplenomegaly. No guarding or rebound. 7.MSK: Normocephalic/Atraumatic, Extremities w/o deformity or ttp No cyanosis or clubbing, Normal movement of all extremities 8.Skin: Warm, Dry. No rashes or lesions. 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 Sensation grossly intact, no focal neurologic deficits. 10.Psych: (AAO) x3. Appropriate mood and affect Course Vital Signs Temperature 36.6 C 02/10/19 07:24 Pulse 75 02/10/19 07:24 Respiratory Rate 18 02/10/19 07:24 Blood Pressure 119/67 02/10/19 07:24 Pulse Oximetry 97 02/10/19 07:24 Temperature 36.6 C 02/10/19 07:24 Temperature Source Temporal Artery Scan 02/10/19 07:24 Pulse 75 02/10/19 07:24 Respiratory Rate 18 02/10/19 07:24 Blood Pressure 119/67 02/10/19 07:24 Blood Pressure Position Sitting 02/10/19 07:24 Pulse Oximetry 97 02/10/19 07:24 Oxygen Delivery Method Room Air 02/10/19 07:24 Oxygen Flow Rate 0 02/10/19 07:24 Pain Level 10 02/10/19 07:24
[2019-02-10] MEDS: diphenhydrAMINE 25 MG CAP 50 MG PO (07:45)
[2019-02-10] MEDS: Clindamycin 150 MG CAP 450 MG PO (08:00)
[2019-02-10 08:34] VITALS: BP 97/53; PULSE 71; RESP 15; TEMP 36.6; O2SAT 94
[2019-02-10 08:40] VITALS: BP 97/53; PULSE 71; RESP 15; TEMP 36.6; O2SAT 94
== END 2019-02-10 08:40 | disposition home or self-care (01) ==
PROVIDERS: Emergency Provider Student in an Organized Health Care Education/Training Program; PCP Nurse Practitioner Family
DX: K08.89 Other specified disorders of teeth and supporting structures (principal); K02.9 Dental caries, unspecified
CPT/HCPCS: 64450

== ENCOUNTER 2019-02-26 14:51 | Emergency (ER) | payer MEDICAID, SELFPAY ==
[2019-02-26 14:56] VITALS: BP 117/74; PULSE 84; RESP 16; TEMP 36.3; O2SAT 96
--- NOTE | 2019-02-26 15:54 | ED.GENADUL_ITS ---
Discharge Plan Disposition Patient Disposition: HOME Condition: Stable Discharge Details Chief Complaint: GenMedical Clinical Impression: Bilateral leg edema Primary Care Provider: Petra Riley ED Provider: Solange Dumont Home Meds and New Rx's Prescriptions: Continued albuterol sulfate [ProAir HFA] 90 mcg/actuation HFA aerosol inhaler 2 puff IH Q6H PRNRF: 0 bupropion HCl [Wellbutrin XL] 150 mg tablet extended release 24 hr 150 mg PO QAM RF: 0 trazodone 50 mg tablet 50 mg PO QHS PRNRF: 0 ondansetron HCl [Zofran] 4 mg tablet 4 mg PO QID PRNRF: 0 omeprazole 40 mg capsule,delayed release(DR/EC) 40 mg PO DAILY RF: 0 ketorolac 10 mg tablet 10 mg PO Q6H PRNRF: 0 hydroxyzine HCl 25 mg tablet 25 mg PO TID-QID PRNRF: 0 Flovent HFA 110 mcg/actuation HFA aerosol inhaler 1 puff IH Q12H RF: 0 clonidine HCl 0.1 mg tablet 0.1 mg PO TID RF: 0 citalopram 40 mg tablet 40 mg PO DAILY RF: 0 aripiprazole 5 mg tablet 5 mg PO DAILY RF: 0 nicotine 14 mg/24 hr patch 24 hour 1 patch TD DAILY RF: 0 Mavyret 100-40 mg tablet 3 tab PO DAILY RF: 0 Ciprodex 0.3-0.1 % drops,suspension 4 drp OT BID RF: 0 psyllium husk 0.52 gram capsule 0.52 gm PO DAILY RF: 0 ranitidine HCl 75 mg tablet 150 mg PO BID RF: 0 Lyrica 100 mg capsule 150 mg PO BID RF: 0 cyclobenzaprine 10 mg tablet 10 mg PO TID PRNRF: 0 methadone [Methadose] 10 mg/mL Concentrate 105 mg PO DAILY RF: 0 Discharge Instructions Instructions: Edema (ED) Additional Instructions: Please begin using compression hose once again. Elevate your lower extremities as much as possible. Please restrict the amount of salt you have in your diet. Please follow-up with primary care next week for reevaluation. If you develop increased shortness of breath, difficulty breathing, chest pain or the new/worsening symptoms please seek care urgently once again Referrals: Petra Riley [Primary Care Provider] - Discharge Data Discharge Date/Time-TO BE ENTERED AT DEPARTURE: 02/26/19 18:00 Medical Decision Making <Roger Burrell NP - Last Filed: 02/28/19 14:31> Patient presenting the emergency department for chief complaint of bilateral pedal edema. She states that this been going on the past couple days. Patient denies any injury trauma, long travel, fever chills, pain or discomfort. She states that she has been here in the past for pedal edema and was told she had a heart condition . Patient denies any chest pain, shortness of breath, difficulty breathing. Physical exam shows bilateral 1+ nonpitting edema below the ankles only. Exam is otherwise unremarkable. Given patient's history plan to check labs. <JAYME Jones - Last Filed: 02/26/19 22:53> Care was transitioned to myself from Roger Burrell NP with laboratory evaluation pending. Patient reports that she has had exacerbation of her chronic bilateral lower extremity edema over the past 2 days. Denies any increased shortness of breath or chest pain. Denies any recent travel. No change in the skin color. Patient states that she did wear compression hose yesterday but is not wearing them currently. She is unemployed and has not been standing on her feet recently. Reexamined the patient, she appears nontoxic, breathing comfortably. She is sleeping on my initial entrance to the room. She does have nonpitting edema to the bilateral lower extremities. Skin is without evidence to suggest infection. Calves are soft and nontender. Patient does have a history of IV drug use, has been for this historically. There was concern for possible mitral valve regurgitation, patient did undergo an echocardiogram which reviewed by myself. This does show borderline mitral valve prolapse but no evidence of mitral stenosis, trace mitral regurgitation present. Echo is otherwise without abnormality. She was evaluated by cardiology at [facility]. At that point, they had discussed lifestyle management changes including wearing compression hose, elevation and salt restriction. At that time, they held off on prescribing any diuretics. Patient is not hypertensive here today. Labs reviewed by myself, BMP is noted to be slightly elevated but not so from the patient's baseline. Patient slightly anemic with a hemoglobin of 11. Potassium is 3.4. BNP of 576. Otherwise without abnormality. Discussed these findings with the patient. I encouraged that she use the compression hose routinely and elevate as much as possible. Advised salt restriction. Advised prompt follow-up with primary care physician. She reports that she is currently trying to establish with family, I will ensure that our care according to help with prompt follow-up. We discussed new/worsening symptoms when to seek care urgently once again. All the concerns were addressed and she is in agreement this plan. HPI <Roger Burrell NP - Last Filed: 02/28/19 14:31> General Mode of arrival: ambulatory . Date/Time Provider Initiated Documentation: 02/26/19 14:57 . Limitations to Documentation: no limitations . Information obtained by: patient and RN notes reviewed . History of Present Illness 33 year old F presents to the emergency department with the chief complaint of Lower extremity swelling, described as similar to prior episodes, Quality is described as other (Denies pain or discomfort), and is localized to the lower extremity. Patient started experiencing this day(s) (2) and it has been constant. No relieving factors improve symptom(s), No exacerbating factors reported . Patient notes no other symptoms.. Patient did receive the following treatments prior to arrival, none Related Data Home Medications Medication Instructions Recorded Confirmed psyllium husk 0.52 gram capsule 0.52 gm PO DAILY 08/11/18 02/10/19 albuterol sulfate 90 mcg/actuation 2 puff IH Q6H PRN 10/14/18 02/11/19 aerosol inhaler bupropion HCl 150 mg 24 hr tablet, 150 mg PO QAM 10/14/18 02/11/19 extended release citalopram 40 mg tablet 40 mg PO DAILY 10/14/18 02/11/19 clonidine HCl 0.1 mg tablet 0.1 mg PO TID 10/14/18 02/11/19 fluticasone propionate 110 1 puff IH Q12H 10/14/18 02/11/19 mcg/actuation HFA aerosol inhaler hydroxyzine HCl 25 mg tablet 25 mg PO TID-QID PRN 10/14/18 02/11/19 ketorolac 10 mg tablet 10 mg PO Q6H PRN 10/14/18 02/11/19 omeprazole 40 mg capsule,delayed 40 mg PO DAILY 10/14/18 02/10/19 release ondansetron HCl 4 mg tablet 4 mg PO QID PRN 10/14/18 02/11/19 trazodone 50 mg tablet 50 mg PO QHS PRN 10/14/18 02/11/19 methadone [Methadose] 105 mg PO DAILY 11/03/18 02/11/19 aripiprazole 5 mg tablet 5 mg PO DAILY 01/23/19 02/10/19 ciprofloxacin 0.3 %-dexamethasone 4 drp OT BID 02/11/19 02/11/19 0.1 % ear drops,suspension cyclobenzaprine 10 mg tablet 10 mg PO TID PRN tab 02/11/19 02/11/19 glecaprevir 100 mg-pibrentasvir 40 3 tab PO DAILY 02/11/19 02/11/19 mg tablet nicotine 14 mg/24 hr daily 1 patch TD DAILY 02/11/19 02/11/19 transdermal patch pregabalin 100 mg capsule 150 mg PO BID cap 02/11/19 02/11/19 ranitidine HCl 75 mg tablet 150 mg PO BID tab 02/11/19 02/11/19 Allergies Allergy/AdvReac Type Severity Reaction Status Date / Time lidocaine Allergy Intermediate Swelling/Ed Verified 02/26/19 15:02 rome procaine HCl [From Novocain] Allergy Intermediate Swelling/Ed Verified 02/26/19 15:02 rome Penicillins AdvReac Unknown Nausea Verified 02/26/19 15:02 control pills Allergy Severe hospitalize Uncoded 02/26/19 15:02 d General Stated Complaint: GenMedical THONG: 3 Review of Systems <Roger Burrell NP - Last Filed: 02/28/19 14:31> Constitutional Denies fever(s) Cardiovascular Reports as per HPI, Denies chest pain, Reports pedal edema, Denies lightheadedness, Denies palpitations, Denies dyspnea, Denies dyspnea on exertion and Denies orthopnea Respiratory Denies dyspnea and Denies dyspnea on exertion Musculoskeletal Denies numbness and Denies tingling Integumentary/Breasts Denies rash and Denies wounds Neurologic Denies numbness and Denies tingling Endocrine Denies palpitations PFSH <Roger Burrell NP - Last Filed: 02/28/19 14:31> Medical History Abdominal rigidity (Acute) Anxiety (Chronic) Asthma (Chronic) 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) Cervical intraepithelial neoplasia grade 2 (Acute) Chronic back pain Chronic pelvic pain in female Daily headache (Acute) Depression (Chronic) Elevated LFTs (Acute) Galactorrhea (Acute) GERD (gastroesophageal reflux disease) H/O: hysterectomy (Chronic) Hepatitis C (Chronic) History of substance abuse (Acute) Insomnia (Acute) Irritable bowel syndrome IV drug abuse (Acute) Leg edema (Acute) Memory loss (Acute) Pelvic pain (Acute) Polysubstance abuse (Acute) Psychoactive substance abuse (Acute) Substance abuse (Acute) SVT (supraventricular tachycardia) Tobacco abuse (Acute) Tobacco user Surgical History section Cholecystectomy (03/30/15) Colonoscopy - MAC (01/29/17) Diagnostic Laproscopy (09/14/13) Endoscopy (12/14/13) Excision, Cervicle Lymph Nodes Hysterectomy, Laproscopic (04/15/13) Pacemaker Tonsillectomy and adenoidectomy (07/05/11) Family History Father Neoplasm Social History Smoking/Tobacco Use Status: Current every day Tobacco Type: cigarettes Drug use: Occasionally Substance use type: marijuana Details: Methadone program Do you feel safe at home: Yes Do you feel safe in your relationship?: Yes Exam <Roger Burrell NP - Last Filed: 02/28/19 14:31> Const General: cooperative, healthy appearing, comfortable, no acute distress, not diaphoretic and not ill appearing Nutritional Appearance: average body habitus Orientation: alert, awake and oriented x3 Limitations: mental status not altered Neck Neck: normal visual inspection, full ROM, trachea midline, supple and no anterior neck swelling Resp Effort & Inspection: normal respiratory effort and able to speak in complete sentences Auscultation: clear to auscultation bilaterally Cardio Jugular venous pressure: no JVD Palpation: normal PMI Rate: regular rate Rhythm: regular rhythm Heart Sounds: S1 normal, S2 normal, no click, no gallops, no murmurs and no rubs Bruits: no abdominal aortic bruits and no carotid bruits Pulses: radial pulses present bilaterally 2+ and dorsalis pedis pulses present bilaterally 2+ Skin General skin exam: no rashes or lesions noted Extrem General: normal exam except as noted and edema Laterality: bilateral (Only below the ankles) Course <Roger Burrell NP - Last Filed: 02/28/19 14:31> Vital Signs Temperature 36.3 C L 02/26/19 14:56 Pulse 84 02/26/19 14:56 Respiratory Rate 16 02/26/19 14:56 Blood Pressure 117/74 02/26/19 14:56 Pulse Oximetry 96 02/26/19 14:56 Temperature 36.3 C L 02/26/19 14:56 Temperature Source Skin 02/26/19 14:56 Pulse 84 02/26/19 14:56 Respiratory Rate 16 02/26/19 14:56 Respiratory Effort Non-Labored 02/26/19 15:02 Blood Pressure 117/74 02/26/19 14:56 Blood Pressure Position Sitting 02/26/19 14:56 Pulse Oximetry 96 02/26/19 14:56
[2019-02-26 15:55] VITALS: RESP 16
[2019-02-26 15:55] LABS: Absolute Basophil Count 0.01 k/cumm (0.0-0.2); Absolute Eosinophil Count 0.06 k/cumm (0.0-0.7); Absolute Lymphocyte Count 2.78 k/cumm (1.2-3.4); Absolute Monocyte Count 0.32 k/cumm (0.11-0.7); Absolute Neutrophil Count 1.92 k/cumm (1.2-6.7); Basophils % 0.2; Eosinophils % 1.2; HCT 33.3 % (36.0-46.0); HGB 11.1 g/dL (12.0-15.5); Lymphocytes % 54.6; Mean Corp. HGB Concentration 33.3 g/dL (32.0-36.0); Mean Corpuscular Hemoglobin 30.1 pg (27.0-33.0); Mean Corpuscular Volume 90.2 fL (80-95); Mean Platelet Volume 11.5 fL (8.0-11.0); Monocytes % 6.3; Neutrophils % 37.7; Platelet Count 140 x1000/uL (130-400); RBC 3.69 m/cumm (4.00-5.20); RBC Distribution Width 13.6 % (11.7-14.6); White Blood Cell Count 5.09 k/cumm (4.4-10.8)
[2019-02-26 16:24] LABS: ALT 44 U/L (12-78); AST 21 U/L (15-37); Albumin 3.6 g/dL (3.4-5.0); Alkaline Phosphatase 101 U/L (46-116); Anion Gap 7.3 mmol/L (3-11); BUN 13 mg/dL (7-18); Bilirubin, Total 0.3 mg/dL (0.2-1.0); CO2 28.7 mmol/L (21.0-32.0); CREATININE 0.58 mg/dL (0.55-1.02); Calcium 8.8 mg/dL (8.5-10.1); Chloride 107 mmol/L (98-107); Glucose 99 mg/dL (70-100); NT-proBNP 576 pg/mL; Potassium 3.4 mmol/L (3.5-5.1); Sodium 143 mmol/L (136-145); Total Protein 7.2 g/dL (6.4-8.2)
[2019-02-26 17:59] VITALS: BP 111/79; PULSE 73; RESP 16; TEMP 36.7; O2SAT 96
== END 2019-02-26 18:00 | disposition home or self-care (01) ==
PROVIDERS: Nurse Practitioner Family; Emergency Provider Physician Assistant; PCP Nurse Practitioner Family
DX: R60.0 Localized edema (principal)
CPT/HCPCS: 36415; 80053; 99283; 83880; 85025

== ENCOUNTER 2019-03-18 07:29 | Emergency (ER) | payer MEDICAID, SELFPAY ==
[2019-03-18 07:35] VITALS: BP 117/87; PULSE 78; RESP 12; TEMP 37.3; O2SAT 97
--- NOTE | 2019-03-18 07:48 | DI.CT_ITS ---
SYMPTOMS/DIAGNOSIS: CHEST PAIN, SHORTNESS OF BREATH CHEST CTA FOR PULMONARY EMBOLISM: CT angiography was performed with multi slice acquisition and multi planar and 3D reconstruction. The pulmonary arteries and aorta are well opacified with IV contrast and no pulmonary emboli or aortic dissection is seen. The heart size is normal. No pleural or pericardial effusions, mass or adenopathy is seen. The lungs are expiratory and show mild motion. There is no gross evidence of an infiltrate. No pneumothorax or thoracic spine fracture is seen. There is mild scoliosis. The patient is status post cholecystectomy. The visualized portions of the upper abdominal organs are unremarkable. IMPRESSION: Negative chest CT. No evidence of pulmonary emboli or other acute abnormality.
--- NOTE | 2019-03-18 08:06 | ED.GENADUL_ITS ---
Discharge Plan Disposition Patient Disposition: HOME Condition: Stable Discharge Details Chief Complaint: Chest Pain Clinical Impression: Chest pain Primary Care Provider: Zeyad Hall ED Provider: Kaleb Pino Home Meds and New Rx's Prescriptions: No Action albuterol sulfate [ProAir HFA] 90 mcg/actuation HFA aerosol inhaler 2 puff IH Q6H PRNRF: 0 bupropion HCl [Wellbutrin XL] 150 mg tablet extended release 24 hr 150 mg PO QAM RF: 0 trazodone 50 mg tablet 50 mg PO QHS PRNRF: 0 ondansetron HCl [Zofran] 4 mg tablet 4 mg PO QID PRNRF: 0 omeprazole 40 mg capsule,delayed release(DR/EC) 40 mg PO DAILY RF: 0 ketorolac 10 mg tablet 10 mg PO Q6H PRNRF: 0 Flovent HFA 110 mcg/actuation HFA aerosol inhaler 1 puff IH Q12H RF: 0 clonidine HCl 0.1 mg tablet 0.1 mg PO TID RF: 0 citalopram 40 mg tablet 40 mg PO DAILY RF: 0 aripiprazole 5 mg tablet 5 mg PO DAILY RF: 0 nicotine 14 mg/24 hr patch 24 hour 1 patch TD DAILY RF: 0 Mavyret 100-40 mg tablet 3 tab PO DAILY RF: 0 psyllium husk 0.52 gram capsule 0.52 gm PO DAILY RF: 0 ranitidine HCl 75 mg tablet 150 mg PO BID RF: 0 Lyrica 100 mg capsule 150 mg PO BID RF: 0 cyclobenzaprine 10 mg tablet 10 mg PO TID PRNRF: 0 methadone [Methadose] 10 mg/mL Concentrate 100 mg PO DAILY RF: 0 Discharge Instructions Instructions: Chest Pain (ED) Additional Instructions: follow up with your primary care provider within 1 week if you have severe worsening of pain or difficulty breathing return to the emergency department Medical Decision Making 33 yo female with prior hx of ivdu and states clean for over a year comes in with chest discomfort. She states for a day or two has had a discomfort in the middle chest described as a bubble sensation and worse with eating. Seems like gastritis but she also notes some shortness of breath and does have some leg swelling for over a month, wells score is moderate given PE just as likely dx so will obtain CTA. No tearing back pain so doubt dissection and normal vascular exam. Heart score is 1, ekg unchanged, will send troponin. No abdominal tenderness on exam no ruq pain or mccray's sign so doubt pancreatitis or cholecystitis or other surgical abdominal pathology. She has known mitral prolapse and murmur on exam that seems unchanged, no stigmata of endocarditis and no infectious symptoms so doubt endocarditis and pt is clear that she hasn't used in over a year. ct shows no acute findings and labs unremarkble, given days of pain do not feel delta troponin would be of benefit. Will d/c and advised f/u with pcp and return precautions given Differential Diagnosis acs, gerd, gastritis Imaging Data Radiologic Study: Attestation: I personally reviewed and interpreted this imaging study as follows: Imaging: CT Scan Radiologist's impression: no acute findings Lab Data Lab results reviewed: Yes I reviewed the patient's lab results. ECG Data Attestation: I personally reviewed and interpreted this ECG (s) as follows: Prior ECG tracings: available for review Interpretation: sinus rhythm, rate of 80, pr 140, no acute st twave ischemic changes HPI General Mode of arrival: ambulatory . Date/Time Provider Initiated Documentation: 03/18/19 07:46 . Limitations to Documentation: no limitations . Information obtained by: patient . History of Present Illness 33 year old F presents to the emergency department with the chief complaint of chest pain, described as moderate, and is localized to the chest. Patient started experiencing this day(s) (2) and it has been constant. No relieving factors improve symptom(s), Patient did receive the following treatments prior to arrival, none Related Data Home Medications Medication Instructions Recorded Confirmed psyllium husk 0.52 gram capsule 0.52 gm PO DAILY 08/11/18 03/18/19 albuterol sulfate 90 mcg/actuation 2 puff IH Q6H PRN 10/14/18 03/18/19 aerosol inhaler bupropion HCl 150 mg 24 hr tablet, 150 mg PO QAM 10/14/18 03/18/19 extended release citalopram 40 mg tablet 40 mg PO DAILY 10/14/18 03/18/19 clonidine HCl 0.1 mg tablet 0.1 mg PO TID 10/14/18 03/18/19 fluticasone propionate 110 1 puff IH Q12H 10/14/18 03/18/19 mcg/actuation HFA aerosol inhaler ketorolac 10 mg tablet 10 mg PO Q6H PRN 10/14/18 03/18/19 omeprazole 40 mg capsule,delayed 40 mg PO DAILY 10/14/18 03/18/19 release ondansetron HCl 4 mg tablet 4 mg PO QID PRN 10/14/18 03/18/19 trazodone 50 mg tablet 50 mg PO QHS PRN 10/14/18 03/18/19 methadone [Methadose] 100 mg PO DAILY 11/03/18 03/18/19 aripiprazole 5 mg tablet 5 mg PO DAILY 01/23/19 03/18/19 cyclobenzaprine 10 mg tablet 10 mg PO TID PRN tab 02/11/19 03/18/19 glecaprevir 100 mg-pibrentasvir 40 3 tab PO DAILY 02/11/19 03/18/19 mg tablet nicotine 14 mg/24 hr daily 1 patch TD DAILY 02/11/19 03/18/19 transdermal patch pregabalin 100 mg capsule 150 mg PO BID cap 02/11/19 03/18/19 ranitidine HCl 75 mg tablet 150 mg PO BID tab 02/11/19 03/18/19 Allergies Allergy/AdvReac Type Severity Reaction Status Date / Time lidocaine Allergy Intermediate Swelling/Ed Verified 03/18/19 07:40 rome procaine HCl [From Novocain] Allergy Intermediate Swelling/Ed Verified 03/18/19 07:40 rome Penicillins AdvReac Unknown Nausea Verified 03/18/19 07:40 control pills Allergy Severe hospitalize Uncoded 03/18/19 07:40 d General Stated Complaint: Chest Pain THONG: 3 Review of Systems Review of Systems All systems reviewed & are unremarkable except as noted in HPI and below Constitutional Denies chills, Denies fever(s) and Denies weakness Cardiovascular Denies dyspnea Respiratory Denies cough and Denies dyspnea Gastrointestinal Denies abdominal pain, Denies nausea and Denies vomiting Genitourinary Denies dysuria Musculoskeletal Denies joint swelling Integumentary/Breasts Denies rash Neurologic Denies weakness Psychiatric Denies depression [facility] Family History (Updated 03/02/19 @ 10:39 by Carmen Moncada) Father Hypertension Alcohol abuse Substance abuse Colon cancer Liver cancer Throat cancer Depression Diabetes Heart disease Mother Asthma Breast cancer Cervical cancer Depression Hypertension Alcohol abuse Substance abuse Sister Alcohol abuse Substance abuse Depression Sister Alcohol abuse Substance abuse Depression Sister Alcohol abuse Substance abuse Depression Social History (Updated 03/06/19 @ 09:23 by Lizette Pena LPN) Smoking/Tobacco Use Status: Current every day Tobacco Type: cigarettes Tobacco: How many years used: 25 Alcohol Intake: former Drug use: Current Sobriety Substance use type: marijuana, crack/cocaine, heroin and opiates Details: Methadone program History of IV Drug Use. Current Sobriety, 1 year 2 Months Household members: none Housing: apartment Number of Children: 3 Communication Needs: None current occupation: unemployed What type of physical activity do you participate in: none Working smoke detector in home: Yes Carbon monox detector in home: Yes Do you feel safe at home: Yes Do you feel safe in your relationship?: Yes Victim of physical abuse: No Victim of emotional abuse: No Victim of sexual abuse: No Would you like helpful sources: No Additional Social history: Goes to [facility] 2x week, counseling and womens group Exam Const General: no acute distress Orientation: alert HENMT Head: normal to inspection Ears: external ears normal General nose exam: external nose normal Mouth: moist mucous membranes Eyes General: appearance normal, both eyes and all related structures Neck Neck: normal visual inspection Resp Effort & Inspection: normal respiratory effort and able to speak in complete sentences Cardio Rate: regular rate Skin General skin exam: no rashes or lesions noted Neuro General: alert and oriented x3 Extrem General: normal to inspection Psych Mental Status: mental status grossly normal Course Vital Signs Temperature 37.3 C 03/18/19 07:35 Pulse 78 03/18/19 07:35 Respiratory Rate 12 03/18/19 07:35 Blood Pressure 117/87 03/18/19 07:35 Pulse Oximetry 97 03/18/19 07:35 Temperature 37.3 C 03/18/19 07:35 Temperature Source Temporal Artery Scan 03/18/19 07:35 Pulse 78 03/18/19 07:35 Respiratory Rate 12 03/18/19 07:35 Blood Pressure 117/87 03/18/19 07:35 Blood Pressure Position Sitting 03/18/19 07:35 Pulse Oximetry 97 03/18/19 07:35 Oxygen Delivery Method Room Air 03/18/19 07:35 Oxygen Flow Rate 0 03/18/19 07:35 Pain Level 8 03/18/19 07:35
[2019-03-18 08:16] VITALS: RESP 20
[2019-03-18 08:32] LABS: Abs Immature Grans 0.01 k/cumm (0.0-0.09); Absolute Basophil Count 0.01 k/cumm (0.0-0.2); Absolute Eosinophil Count 0.06 k/cumm (0.0-0.7); Absolute Lymphocyte Count 2.98 k/cumm (1.2-3.4); Absolute Monocyte Count 0.54 k/cumm (0.11-0.7); Absolute Neutrophil Count 3.54 k/cumm (1.2-6.7); Basophils % 0.1; Eosinophils % 0.8; HCT 34.3 % (36.0-46.0); HGB 11.5 g/dL (12.0-15.5); Immature Grans % 0.1; Lymphocytes % 41.7; Mean Corp. HGB Concentration 33.5 g/dL (32.0-36.0); Mean Corpuscular Hemoglobin 30.3 pg (27.0-33.0); Mean Corpuscular Volume 90.3 fL (80-95); Mean Platelet Volume 10.8 fL (8.0-11.0); Monocytes % 7.6; Neutrophils % 49.7; Platelet Count 197 x1000/uL (130-400); White Blood Cell Count 7.14 k/cumm (4.4-10.8)
[2019-03-18] MEDS: Omnipaque 350 MG/ML 100 ML BTL IV (08:37)
[2019-03-18 08:43] LABS: Prothrombin Time 9.9 sec (9.3-11.0)
[2019-03-18] MEDS: Normal Saline 1,000 ML 1000 ML IV (08:48)
[2019-03-18 08:53] LABS: ALT 26 U/L (12-78); AST 12 U/L (15-37); Albumin 3.5 g/dL (3.4-5.0); Alkaline Phosphatase 116 U/L (46-116); Anion Gap 7.1 mmol/L (3-11); BUN 13 mg/dL (7-18); Bilirubin, Total 0.1 mg/dL (0.2-1.0); CO2 28.9 mmol/L (21.0-32.0); Calcium 8.7 mg/dL (8.5-10.1); Chloride 105 mmol/L (98-107); Glucose 101 mg/dL (70-100); Potassium 4.1 mmol/L (3.5-5.1); Sodium 141 mmol/L (136-145); Total Protein 7.5 g/dL (6.4-8.2); Troponin I < 0.05 ng/mL (0.00-0.06)
[2019-03-18 10:01] VITALS: BP 103/63; PULSE 70; RESP 18; TEMP 37
--- NOTE | 2019-03-18 17:36 | NUR.NOTE ---
Nursing Note: Faxed referral to PCP for follow up. Vanessa Wren.
== END 2019-03-18 10:41 | disposition home or self-care (01) ==
PROVIDERS: Emergency Provider Emergency Medicine; PCP Family Medicine
DX: R07.9 Chest pain, unspecified (principal)
CPT/HCPCS: 36410; 36415; 71275; 80053; 87040; 93005; 96360; 99285; 84484; 85025; 85610; 85730; 93010; J3490

== ENCOUNTER 2019-05-01 09:20 | Emergency (ER) | payer MEDICAID, SELFPAY ==
[2019-05-01 09:25] VITALS: BP 115/46; PULSE 95; RESP 18; TEMP 36.4; O2SAT 96
--- NOTE | 2019-05-01 10:28 | DI.RAD_ITS ---
EXAM: XR KNEE RT 4V AP,LAT,ANA,PAT INDICATION: pain. COMPARISON: RIGHT KNEE 3 VIEWS from 10/02/2014 TECHNIQUE: 2D digital imaging was performed. FINDINGS: Four views were obtained. No bony or soft tissue abnormality seen. IMPRESSION:
[2019-05-01] MEDS: Acetaminophen 500 MG TAB (10:32)
--- NOTE | 2019-05-01 16:37 | W.ED.GENAD ---
Discharge Plan Disposition Patient Disposition: HOME Condition: Good Discharge Details Chief Complaint: Orthopedic Clinical Impression: Knee sprain Primary Care Provider: Zeyad Hall ED Provider: Melia Flores Home Meds and New Rx's Prescriptions: No Action albuterol sulfate [ProAir HFA] 90 mcg/actuation HFA aerosol inhaler 2 puff IH Q6H PRNRF: 0 ketorolac 10 mg tablet 10 mg PO Q6H PRNRF: 0 Flovent HFA 110 mcg/actuation HFA aerosol inhaler 1 puff IH Q12H RF: 0 aripiprazole 5 mg tablet 5 mg PO DAILY RF: 0 psyllium husk 0.52 gram capsule 0.52 gm PO DAILY RF: 0 ranitidine HCl 75 mg tablet 150 mg PO BID RF: 0 nicotine 21 mg/24 hr patch 24 hour 1 patch TD Q24H Qty: 14 RF: 0 furosemide 20 mg tablet 20 mg PO DAILY PRN (Reason: edema) Qty: 90 RF: 3 ondansetron HCl [Zofran] 4 mg tablet 4 mg PO DAILY PRN (Reason: nausea and vomiting) Qty: 30 RF: 3 Mavyret 100-40 mg tablet 3 tab PO DAILY Qty: 90 RF: 3 omeprazole 40 mg capsule,delayed release(DR/EC) 40 mg PO DAILY Qty: 90 RF: 3 citalopram 40 mg tablet 40 mg PO DAILY Qty: 90 RF: 1 bupropion HCl [Wellbutrin XL] 150 mg tablet extended release 24 hr 150 mg PO QAM Qty: 90 RF: 1 clonidine HCl 0.1 mg tablet 0.1 mg PO TID Qty: 90 RF: 2 trazodone 50 mg tablet 50 mg PO QHS Qty: 90 RF: 1 cyclobenzaprine 10 mg tablet 10 mg PO TID PRN (Reason: muscle spasm) Qty: 90 RF: 3 pregabalin 200 mg capsule 200 mg PO BID Qty: 180 RF: 3 dexmethylphenidate [Focalin XR] 20 mg capsule,ER biphasic 50-50 20 mg PO QAM MDD 20 mg Qty: 14 RF: 0 prednisone 20 mg tablet 20 mg PO DAILY Qty: 3 RF: 0 methadone [Methadose] 10 mg/mL concentrate 80 mg PO DAILY RF: 0 Discharge Instructions Instructions: Knee Sprain (ED) Additional Instructions: Crutches for 1 week. Knee brace for 1 week. Rest activities as tolerated. Ice to the knee. Tylenol for soreness if needed. Follow-up with orthopedic doctor for any persistence of pain lasting greater than 1 week. Return for any worsening or concerns sooner if needed Referrals: Ty Miramontes MD [ [facility] STAFF PHYSICIAN] - Discharge Data Discharge Date/Time-TO BE ENTERED AT DEPARTURE: 05/01/19 12:01 Medical Decision Making 33-year-old patient who injured her knee when falling in a pothole. Ultimately her x-ray reveals no obvious fracture. Patient request crutches and was provided a knee brace, hinged for support. Rice encouraged. Patient does request discharge home at this time. Usual precautions for which patient should return were discussed, instructions regarding appropriate care and management were discussed. Referral for orthopedic doctor was provided if not improved in 1 week as expected. Patient agrees with plan of care. HPI General Date/Time Provider Initiated Documentation: 05/01/19 10:28. HPI Narrative: 33-year-old patient presents to the ER for a knee injury which occurred 5 days ago when she fell in a pothole. Patient complaining of right knee pain. Patient reports worse with ambulation, mildly improved when resting. Patient is concerned due to the persistence of pain. Patient does report a knee injury several years ago which required splinting. Patient reports when she fell in the pot hole felt a pop in her right knee. She denies any locking, cracking at this time. Denies any radiating pain beyond the knee. Denies any numbness, tingling or weakness. Has tried [id number] medication and icing without relief. No other concerns or complaints reported. Denies any other sites of pain or injury. Related Data Home Medications Medication Instructions Recorded Confirmed psyllium husk 0.52 gram capsule 0.52 gm PO DAILY 08/11/18 04/13/19 albuterol sulfate 90 mcg/actuation 2 puff IH Q6H PRN 10/14/18 04/13/19 aerosol inhaler fluticasone propionate 110 1 puff IH Q12H 10/14/18 04/13/19 mcg/actuation HFA aerosol inhaler ketorolac 10 mg tablet 10 mg PO Q6H PRN 10/14/18 04/13/19 aripiprazole 5 mg tablet 5 mg PO DAILY 01/23/19 04/13/19 ranitidine HCl 75 mg tablet 150 mg PO BID tab 02/11/19 03/24/19 furosemide 20 mg tablet 20 mg PO DAILY PRN #90 tab 03/20/19 04/13/19 nicotine 21 mg/24 hr daily 1 patch TD Q24H #14 each 03/20/19 04/13/19 transdermal patch ondansetron HCl 4 mg tablet 4 mg PO DAILY PRN #30 tab 03/24/19 04/13/19 bupropion HCl 150 mg 24 hr tablet, 150 mg PO QAM #90 tab 04/13/19 04/13/19 extended release citalopram 40 mg tablet 40 mg PO DAILY #90 tab 04/13/19 04/13/19 clonidine HCl 0.1 mg tablet 0.1 mg PO TID #90 tab 04/13/19 04/13/19 cyclobenzaprine 10 mg tablet 10 mg PO TID PRN #90 tab 04/13/19 04/13/19 glecaprevir 100 mg-pibrentasvir 40 3 tab PO DAILY #90 tab 04/13/19 04/13/19 mg tablet methadone 10 mg/mL oral concentrate 80 mg PO DAILY ml 04/13/19 04/13/19 omeprazole 40 mg capsule,delayed 40 mg PO DAILY #90 cap 04/13/19 04/13/19 release pregabalin 200 mg capsule 200 mg PO BID #180 cap 04/13/19 04/13/19 trazodone 50 mg tablet 50 mg PO QHS #90 tab 04/13/19 04/13/19 dexmethylphenidate 20 mg 20 mg PO QAM #14 cap MDD 20 mg 04/27/19 04/27/19 capsule,extended release [id number] prednisone 20 mg tablet 20 mg PO DAILY #3 tab 04/27/19 04/27/19 Previous Rx's Medication Instructions Recorded furosemide 20 mg tablet 20 mg PO DAILY PRN #90 tab 03/20/19 nicotine 21 mg/24 hr daily 1 patch TD Q24H #14 each 03/20/19 transdermal patch ondansetron HCl 4 mg tablet 4 mg PO DAILY PRN #30 tab 03/24/19 bupropion HCl 150 mg 24 hr tablet, 150 mg PO QAM #90 tab 04/13/19 extended release citalopram 40 mg tablet 40 mg PO DAILY #90 tab 04/13/19 clonidine HCl 0.1 mg tablet 0.1 mg PO TID #90 tab 04/13/19 cyclobenzaprine 10 mg tablet 10 mg PO TID PRN #90 tab 04/13/19 glecaprevir 100 mg-pibrentasvir 40 3 tab PO DAILY #90 tab 04/13/19 mg tablet omeprazole 40 mg capsule,delayed 40 mg PO DAILY #90 cap 04/13/19 release pregabalin 200 mg capsule 200 mg PO BID #180 cap 04/13/19 trazodone 50 mg tablet 50 mg PO QHS #90 tab 04/13/19 dexmethylphenidate 20 mg 20 mg PO QAM #14 cap MDD 20 mg 04/27/19 capsule,extended release [id number] prednisone 20 mg tablet 20 mg PO DAILY #3 tab 04/27/19 Allergies Allergy/AdvReac Type Severity Reaction Status Date / Time lidocaine Allergy Intermediate Swelling/Ed Verified 05/01/19 09:56 rome procaine HCl [From Novocain] Allergy Intermediate Swelling/Ed Verified 05/01/19 09:56 rome Penicillins AdvReac Unknown Nausea Verified 05/01/19 09:56 control pills Allergy Severe hospitalize Uncoded 05/01/19 09:56 d General Stated Complaint: Orthopedic THONG: 4 Review of Systems Review of Systems ROS Unobtainable: All systems reviewed & are unremarkable except as noted in HPI and below Constitutional Constitutional: Denies weakness Musculoskeletal Musculoskeletal: Denies back pain, Denies deformity, Denies joint swelling, Reports limited range of motion, Denies muscle weakness, Denies numbness and Denies radiating pain into limb Integumentary/Breasts Skin/Breast: Denies erythema, Denies rash and Denies unusual bruising Neurologic Neurologic: Denies numbness, Denies paresthesias and Denies weakness [facility] Medical History Abdominal rigidity (Acute) ADHD (Acute) Anxiety (Chronic) Asthma (Chronic) 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 Pt reports chronic pelvic pain since that surgery. Daily headache (Acute) Depression (Chronic) from previous record ? bipolar Elevated LFTs (Acute) Family history of breast cancer in first degree relative (Acute) Family history of colon cancer (Acute) Family history of [place] (myocardial infarction) (Acute) Family history of ovarian cancer (Acute) Galactorrhea (Acute) Gastroesophageal reflux disease without esophagitis (Acute 11/23/16) GERD (gastroesophageal reflux disease) Hepatic cirrhosis due to chronic hepatitis C infection (Acute) Hepatitis C (Chronic) Hx of supraventricular tachycardia (Acute 11/23/16) Insomnia (Acute) Irritable bowel syndrome Manifested as constipation Q3d. With meds has improved daily functioning. IV drug abuse (Resolved) Leg edema (Acute) Memory loss (Acute) Pelvic pain (Acute) Plantar fasciitis, bilateral (Acute) Polysubstance abuse (Acute) Psychoactive substance abuse (Acute) Substance abuse (Acute) Seen in October 2017, cocaine abuse Tobacco use (Acute 11/23/16) Surgical History Colonoscopy - MAC (01/29/17) Endoscopy (12/14/13) Dx Esophagitis. Excision, Cervicle Lymph Nodes H/O laparoscopy (Chronic ~09/14/13) for LLQ pain. Has PDS suture removed (from previous hysterectomy with USLS. Nl pelvis. Pt mentions second laparoscopy for pelvic pain. [facility]. History of section (Chronic) History of cholecystectomy (Chronic) History of pacemaker (Acute) History of tonsillectomy and adenoidectomy (Acute ~07/05/11) S/P hysterectomy (Inactive 09/27/15) Status post laparoscopic hysterectomy (Acute ~04/15/13) Total laparoscopic hysterectomy & laparoscopic UteroSacral Vaginal Vault suspensionfor uterine prolapse Family History Father Alcohol abuse Substance abuse Colon cancer Liver cancer Throat cancer Depression Diabetes Heart disease Hypertension Mother Asthma Breast cancer Cervical cancer Depression Hypertension Alcohol abuse Substance abuse Sister Alcohol abuse Substance abuse Depression Sister Alcohol abuse Substance abuse Depression Sister Alcohol abuse Substance abuse Depression Social History Smoking/Tobacco Use Status: Current every day Tobacco Type: cigarettes Smoking packs per day: 2 Smoking cigarettes per day: 40.0 Years smoked: 13 Smoking pack-years: 26.00 Tobacco: How many years used: 25 Alcohol Intake: former Drug use: Current Sobriety Substance use type: marijuana, crack/cocaine, heroin and opiates Details: Methadone program History of IV Drug Use. 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 Well hydrated. Alert and alert. NECK: Normal visual inspection. FROM. Trachea midline. No Midline tenderness. MUSCULOSKELETAL: Limping gait. Patient with no hip pain with palpation, internal/external rotation of the hip intact. Patient with anterior and proximal medial knee pain with palpation. Smooth range of motion of the patella. No pain with patella shifting. Patient does have pain with mild valgus stress of the meniscus. No obvious laxity although exam is mildly limited by patient's pain. Mild pain with hyperextension. No pain beyond the knee. No pain in the tib-fib, ankle or foot. Flexion intact. Straight leg raise intact. No obvious effusion or bruising. SKIN: Normal. Dry. No rashes. NEURO: Alert and awake. Speech clear. PSYCH: Normal affect. Cooperative. Course Vital Signs Vital signs: Vital Signs Temperature 36.4 C L 05/01/19 09:25 Pulse 95 H 05/01/19 09:25 Respiratory Rate 18 05/01/19 09:25 Blood Pressure 115/46 L 05/01/19 09:25 Pulse Oximetry 96 05/01/19 09:25 Temperature 36.4 C L 05/01/19 09:25 Temperature Source Skin 05/01/19 09:25 Pulse 95 H 05/01/19 09:25 Respiratory Rate 18 05/01/19 09:25 Respiratory Effort 05/01/19 09:56 Blood Pressure 115/46 L 05/01/19 09:25 Blood Pressure Position Sitting 05/01/19 09:25 Pulse Oximetry 96 05/01/19 09:25 Oxygen Delivery Method Room Air 05/01/19 09:25 Oxygen Flow Rate 0 05/01/19 09:25 Pain Level 7 05/01/19 11:52
== END 2019-05-01 12:01 | disposition home or self-care (01) ==
PROVIDERS: Emergency Provider Physician Assistant; PCP Family Medicine
DX: S83.91XA Sprain of unspecified site of right knee, initial encounter (principal); W18.42XA Slipping, tripping and stumbling without falling due to stepping into hole or opening, initial encounter
CPT/HCPCS: 29505; 99283; 73564; 99282; E0114; L1810

== ENCOUNTER 2019-05-11 09:11 | Outpatient (REF) | payer MEDICAID, SELFPAY | END 2019-05-11 09:31 | LOC: LBN 09:11 | PROVIDERS: PCP Family Medicine; Visit Provider Family Medicine | DX: N39.0 Urinary tract infection, site not specified (principal) | CPT/HCPCS: 87077; 87086; 87186 ==

== ENCOUNTER 2019-09-23 12:09 | Emergency (ER) | payer MEDICAID, SELFPAY ==
[2019-09-23 12:14] VITALS: BP 108/59; PULSE 60; RESP 18; TEMP 36.6; O2SAT 96
--- NOTE | 2019-09-23 12:26 | W.ED.GENAD ---
Discharge Plan Disposition Patient Disposition: HOME Condition: Stable Discharge Details Chief Complaint: DentalOral Clinical Impression: Dental caries Primary Care Provider: Zeyad Hall ED Provider: Kaleb Pino [employer] [facility] Meds and New Rx's Prescriptions: New clindamycin HCl 150 mg capsule 450 mg PO TID 7 Days Qty: 63 RF: 0 Continued aripiprazole 5 mg tablet 5 mg PO DAILY RF: 0 cyclobenzaprine 10 mg tablet 10 mg PO TID PRN (Reason: muscle spasm) Qty: 90 RF: 3 nicotine 21 mg/24 hr patch 24 hour 1 patch TD Q24H Qty: 14 RF: 0 (DME) BreatheRite MDI Spacer Spacer See Rx Instructions .ROUTE .MEDSUPPLY Qty: 1 RF: 0 fluticasone propion-salmeterol [Advair Diskus] 250-50 mcg/dose blister with device 1 inh IH Q12H Qty: 60 RF: 3 Spiriva with HandiHaler 18 mcg capsule, w/inhalation device 1 cap IH DAILY Qty: 90 RF: 3 dexmethylphenidate [Focalin XR] 20 mg capsule,ER biphasic 50-50 20 mg PO BID MDD 20 mg Qty: 56 RF: 0 psyllium husk 0.52 gram capsule 0.52 gm PO DAILY RF: 0 Mavyret 100-40 mg tablet 3 tab PO DAILY Qty: 90 RF: 3 omeprazole 40 mg capsule,delayed release(DR/EC) 40 mg PO DAILY Qty: 90 RF: 3 pregabalin [Lyrica] 225 mg capsule 225 mg PO BID Qty: 180 RF: 3 clonidine HCl 0.1 mg tablet 0.1 mg PO TID Qty: 90 RF: 2 furosemide 20 mg tablet 20 mg PO DAILY PRN (Reason: edema) Qty: 90 RF: 3 citalopram 40 mg tablet 40 mg PO DAILY Qty: 90 RF: 1 meloxicam 7.5 mg tablet 7.5 mg PO DAILY RF: 0 ranitidine HCl 75 mg tablet 150 mg PO DAILY RF: 0 albuterol sulfate [ProAir HFA] 90 mcg/actuation HFA aerosol inhaler 2 puff IH Q6H PRN (Reason: shortness of breath or wheezing) Qty: 18 RF: 6 ondansetron HCl [Zofran] 4 mg tablet 4 mg PO DAILY PRN (Reason: nausea and vomiting) Qty: 30 RF: 3 hydroxyzine HCl 25 mg tablet 25 mg PO TID-QID PRN (Reason: itching) Qty: 90 RF: 3 methadone [Methadose] 10 mg/mL concentrate 20 mg PO DAILY RF: 0 No Action trazodone 50 mg tablet 50 mg PO QHS Qty: 90 RF: 1 Discharge Instructions Instructions: Dental Caries (ED) Additional Instructions: follow up with a dentist within 2 weeks if you have difficulty breathing high fevers or difficulty swallowing liquids return to the emergency department Medical Decision Making 33 yo female comes in with 2 weeks of left upper posterior molar pain. Denies any fevers, dyspnea, difficulty swallowing. Has numerous dental caries and the left posterior molar is eroded and has pain with percussion of the tooth, no abscesson exam, no evidence of ludwigs. Will start on abx and advised f/u with dentist and return precautions given Differential Diagnosis Differential Diagnosis: pulpitis, caries, abscess HPI General Mode of arrival: ambulatory. Date/Time Provider Initiated Documentation: 09/23/19 12:10. Limitations to Documentation: no limitations. Information obtained by: patient. History of Present Illness 33 year old F presents to the emergency department with the chief complaint of dental pain, described as moderate, Patient started experiencing this week(s) (2) and it has been constant. No relieving factors improve symptom(s), No exacerbating factors reported . Patient notes no other symptoms.. Related Data Home Medications Medication Instructions Recorded Confirmed psyllium husk 0.52 gram capsule 0.52 gm PO DAILY 08/11/18 08/28/19 aripiprazole 5 mg tablet 5 mg PO DAILY 01/23/19 08/28/19 glecaprevir 100 mg-pibrentasvir 40 3 tab PO DAILY #90 tab 04/13/19 08/28/19 mg tablet omeprazole 40 mg capsule,delayed 40 mg PO DAILY #90 cap 04/13/19 08/28/19 release trazodone 50 mg tablet 50 mg PO QHS #90 tab 04/13/19 09/23/19 citalopram 40 mg tablet 40 mg PO DAILY #90 tab 05/04/19 08/28/19 clonidine HCl 0.1 mg tablet 0.1 mg PO TID #90 tab 05/04/19 08/28/19 furosemide 20 mg tablet 20 mg PO DAILY PRN #90 tab 05/04/19 08/28/19 pregabalin 225 mg capsule 225 mg PO BID #180 cap 05/25/19 08/28/19 meloxicam 7.5 mg tablet 7.5 mg PO DAILY 06/03/19 08/28/19 cyclobenzaprine 10 mg tablet 10 mg PO TID PRN #90 tab 06/30/19 08/28/19 inhalational spacing device #1 each 06/30/19 08/28/19 methadone 10 mg/mL oral concentrate 20 mg PO DAILY ml 06/30/19 08/28/19 nicotine 21 mg/24 hr daily 1 patch TD Q24H #14 each 06/30/19 08/28/19 transdermal patch ranitidine HCl 75 mg tablet 150 mg PO DAILY tab 08/12/19 08/28/19 albuterol sulfate 90 mcg/actuation 2 puff IH Q6H PRN #18 gm 08/13/19 08/28/19 aerosol inhaler hydroxyzine HCl 25 mg tablet 25 mg PO TID-QID PRN #90 tab 08/13/19 08/28/19 ondansetron HCl 4 mg tablet 4 mg PO DAILY PRN #30 tab 08/13/19 08/28/19 dexmethylphenidate 20 mg 20 mg PO BID #56 cap MDD 20 mg 08/28/19 08/28/19 capsule,extended release [id number] fluticasone 250 mcg-salmeterol 50 1 inh IH Q12H #60 each 08/28/19 08/28/19 mcg/dose blistr powdr for inhalation tiotropium bromide 18 mcg capsule 1 cap IH DAILY #90 inh 08/28/19 08/28/19 with inhalation device clindamycin HCl 450 mg PO TID 7 Days #63 cap 09/23/19 Previous Rx's Medication Instructions Recorded glecaprevir 100 mg-pibrentasvir 40 3 tab PO DAILY #90 tab 04/13/19 mg tablet omeprazole 40 mg capsule,delayed 40 mg PO DAILY #90 cap 04/13/19 release trazodone 50 mg tablet 50 mg PO QHS #90 tab 04/13/19 citalopram 40 mg tablet 40 mg PO DAILY #90 tab 05/04/19 clonidine HCl 0.1 mg tablet 0.1 mg PO TID #90 tab 05/04/19 furosemide 20 mg tablet 20 mg PO DAILY PRN #90 tab 05/04/19 pregabalin 225 mg capsule 225 mg PO BID #180 cap 05/25/19 cyclobenzaprine 10 mg tablet 10 mg PO TID PRN #90 tab 06/30/19 inhalational spacing device #1 each 06/30/19 nicotine 21 mg/24 hr daily 1 patch TD Q24H #14 each 06/30/19 transdermal patch albuterol sulfate 90 mcg/actuation 2 puff IH Q6H PRN #18 gm 08/13/19 aerosol inhaler hydroxyzine HCl 25 mg tablet 25 mg PO TID-QID PRN #90 tab 08/13/19 ondansetron HCl 4 mg tablet 4 mg PO DAILY PRN #30 tab 08/13/19 dexmethylphenidate 20 mg 20 mg PO BID #56 cap MDD 20 mg 08/28/19 capsule,extended release [id number] fluticasone 250 mcg-salmeterol 50 1 inh IH Q12H #60 each 08/28/19 mcg/dose blistr powdr for inhalation tiotropium bromide 18 mcg capsule 1 cap IH DAILY #90 inh 08/28/19 with inhalation device clindamycin HCl 450 mg PO TID 7 Days #63 cap 09/23/19 Allergies Allergy/AdvReac Type Severity Reaction Status Date / Time lidocaine Allergy Intermediate Swelling/Ed Verified 09/23/19 12:17 rome procaine HCl [From Novocain] Allergy Intermediate Swelling/Ed Verified 09/23/19 12:17 rome Penicillins AdvReac Unknown Nausea Verified 09/23/19 12:17 control pills Allergy Severe hospitalize Uncoded 09/23/19 12:17 d General Stated Complaint: DentalOral THONG: 4 Review of Systems All systems reviewed & are unremarkable except as noted in HPI and below Constitutional Constitutional: Denies chills and Denies fever(s) Cardiovascular Cardiovascular: Denies chest pain and Denies dyspnea Respiratory Respiratory: Denies cough and Denies dyspnea Gastrointestinal Gastrointestinal: Denies abdominal pain, Denies nausea and Denies vomiting Musculoskeletal Musculoskeletal: Denies joint swelling Psychiatric Psychiatric: Denies depression PFSH Medical History Abdominal rigidity (Acute) ADHD (Acute) Anxiety (Chronic) Asthma (Chronic) 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 Pt reports chronic pelvic pain since that surgery. Daily headache (Acute) Depression (Chronic) from previous record ? bipolar Elevated LFTs (Acute) Family history of breast cancer in first degree relative (Acute) Family history of colon cancer (Acute) Family history of [place] (myocardial infarction) (Acute) Family history of ovarian cancer (Acute) Galactorrhea (Acute) Gastroesophageal reflux disease without esophagitis (Acute 11/23/16) GERD (gastroesophageal reflux disease) Hepatic cirrhosis due to chronic hepatitis C infection (Acute) Hepatitis C (Chronic) Hx of supraventricular tachycardia (Acute 11/23/16) Insomnia (Acute) Irritable bowel syndrome Manifested as constipation Q3d. With meds has improved daily functioning. IV drug abuse (Resolved) Leg edema (Acute) Memory loss (Acute) Pelvic pain (Acute) Plantar fasciitis, bilateral (Acute) Polysubstance abuse (Acute) Psychoactive substance abuse (Acute) Substance abuse (Acute) Seen in October 2017, cocaine abuse Tobacco use (Acute 11/23/16) Surgical History (Updated 06/16/19 @ 15:30 by Federica Appiah RN) Colonoscopy - MAC (01/29/17) Endoscopy (12/14/13) Dx Esophagitis. Excision, Cervicle Lymph Nodes H/O endoscopy (Acute) 06/11/19 [facility] Endoscopy Z line abnl 37 cm from incisors,Grade A reflux esophagitis. Normal stomach and Duodenum. H/O laparoscopy (Chronic ~09/14/13) for LLQ pain. Has PDS suture removed (from previous hysterectomy with USLS. Nl pelvis. Pt mentions second laparoscopy for pelvic pain. Not in [facility] records. History of section (Chronic) History of cholecystectomy (Chronic) History of pacemaker (Acute) History of tonsillectomy and adenoidectomy (Acute ~07/05/11) S/P hysterectomy (Inactive 09/27/15) Status post laparoscopic hysterectomy (Acute ~04/15/13) Total laparoscopic hysterectomy & laparoscopic UteroSacral Vaginal Vault suspensionfor uterine prolapse Social History (Updated 06/08/19 @ 09:22 by Lizette Pena LPN) Smoking/Tobacco Use Status: Current every day Tobacco Type: cigarettes Smoking packs per day: 2 Smoking cigarettes per day: 40.0 Years smoked: 13 Smoking pack-years: 26.00 Tobacco: How many years used: 25 Alcohol Intake: former Drug use: Current Sobriety Substance use type: marijuana, crack/cocaine, heroin and opiates Details: Methadone program History of IV Drug Use. 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 Working smoke detector in home: Yes Carbon monox detector in home: Yes Do you feel safe at home: Yes Do you feel safe in your relationship?: Yes Victim of physical abuse: No Victim of emotional abuse: No Victim of sexual abuse: No Would you like helpful sources: No Additional Social history: Goes to [facility] 2x week, counseling and womens group Exam Const General: no acute distress Orientation: alert HENMT Head: normal to inspection Ears: external ears normal General nose exam: external nose normal Mouth: moist mucous membranes Eyes General: appearance normal, both eyes and all related structures Neck Neck: normal visual inspection Resp Effort & Inspection: normal respiratory effort and able to speak in complete sentences Cardio Rate: regular rate Skin General skin exam: no rashes or lesions noted Neuro General: alert and oriented x3 Extrem General: normal to inspection Psych Mental Status: mental status grossly normal Course Vital Signs Vital signs: Vital Signs Temperature 36.6 C 09/23/19 12:14 Pulse 60 09/23/19 12:14 Respiratory Rate 18 09/23/19 12:14 Blood Pressure 108/59 L 09/23/19 12:14 Pulse Oximetry 96 09/23/19 12:14 Temperature 36.6 C 09/23/19 12:14 Temperature Source Skin 09/23/19 12:14 Pulse 60 09/23/19 12:14 Respiratory Rate 18 09/23/19 12:14 Respiratory Effort Non-Labored 09/23/19 12:16 Blood Pressure 108/59 L 09/23/19 12:14 Pulse Oximetry 96 09/23/19 12:14 Oxygen Delivery Method Room Air 09/23/19 12:14 Oxygen Flow Rate 0 09/23/19 12:14 Pain Level 5 09/23/19 12:14
== END 2019-09-23 12:36 | disposition home or self-care (01) ==
PROVIDERS: Emergency Provider Emergency Medicine; PCP Family Medicine
DX: R68.84 Jaw pain (principal); K02.9 Dental caries, unspecified
CPT/HCPCS: 99283

== ENCOUNTER 2019-09-25 18:29 | Outpatient (REF) | payer MEDICAID, SELFPAY ==
[2019-10-03 11:57] LABS: Methylphenidate NEGATIVE; Ritalinic Acid 407 ng/mL
== END 2019-09-25 18:49 ==
LOC: LBN 18:29
PROVIDERS: PCP Family Medicine; Visit Provider Family Medicine
DX: F98.8 Other specified behavioral and emotional disorders with onset usually occurring in childhood and adolescence (principal); Z51.81 Encounter for therapeutic drug level monitoring
CPT/HCPCS: 80360

== ENCOUNTER 2019-10-04 09:09 | Emergency (ER) | payer MEDICAID, SELFPAY ==
[2019-10-04 09:15] VITALS: BP 137/87; PULSE 69; RESP 16; TEMP 36.8; O2SAT 97
--- NOTE | 2019-10-04 09:47 | ED.GENADUL_ITS ---
Discharge Plan Disposition Patient Disposition: HOME Condition: Stable Discharge Details Chief Complaint: DentalOral Clinical Impression: Dental infection Primary Care Provider: Zeyad Hall ED Provider: Guille Treviño Home Meds and New Rx's Prescriptions: New ibuprofen 800 mg tablet 800 mg PO TID PRN (Reason: pain) Qty: 20 RF: 0 erythromycin 500 mg tablet 500 mg PO TID 10 Days Qty: 30 RF: 0 Continued aripiprazole 5 mg tablet 5 mg PO DAILY RF: 0 cyclobenzaprine 10 mg tablet 10 mg PO TID PRN (Reason: muscle spasm) Qty: 90 RF: 3 (DME) BreatheRite MDI Spacer Spacer See Rx Instructions .ROUTE .MEDSUPPLY Qty: 1 RF: 0 fluticasone propion-salmeterol [Advair Diskus] 250-50 mcg/dose blister with device 1 inh IH Q12H Qty: 60 RF: 3 Spiriva with HandiHaler 18 mcg capsule, w/inhalation device 1 cap IH DAILY Qty: 90 RF: 3 dexmethylphenidate [Focalin XR] 20 mg capsule,ER biphasic 50-50 20 mg PO BID MDD 20 mg Qty: 56 RF: 0 ondansetron HCl [Zofran] 4 mg tablet 4 mg PO Q8H PRN (Reason: nausea and vomiting) Qty: 90 RF: 3 psyllium husk 0.52 gram capsule 0.52 gm PO DAILY RF: 0 omeprazole 40 mg capsule,delayed release(DR/EC) 40 mg PO DAILY Qty: 90 RF: 3 trazodone 50 mg tablet 50 mg PO QHS Qty: 90 RF: 1 pregabalin [Lyrica] 225 mg capsule 225 mg PO BID Qty: 180 RF: 3 clonidine HCl 0.1 mg tablet 0.1 mg PO TID Qty: 90 RF: 2 furosemide 20 mg tablet 20 mg PO DAILY PRN (Reason: edema) Qty: 90 RF: 3 citalopram 40 mg tablet 40 mg PO DAILY Qty: 90 RF: 1 meloxicam 7.5 mg tablet 7.5 mg PO DAILY RF: 0 ranitidine HCl 75 mg tablet 150 mg PO DAILY RF: 0 albuterol sulfate [ProAir HFA] 90 mcg/actuation HFA aerosol inhaler 2 puff IH Q6H PRN (Reason: shortness of breath or wheezing) Qty: 18 RF: 6 hydroxyzine HCl 25 mg tablet 25 mg PO TID-QID PRN (Reason: itching) Qty: 90 RF: 3 methadone [Methadose] 10 mg/mL concentrate 30 mg PO DAILY RF: 0 Discharge Instructions Instructions: Dental Abscess (ED) Additional Instructions: Erythromycin and ibuprofen as directed. Warm compresses every 2 hours for 20 minutes. Please watch for new or worsening symptoms and return to the ER for any concerns. I have provided you with a list of all local dentist, I cannot stress the importance of contacting them tomorrow for next available appointment to further your outpatient dental care. Medical Decision Making 34-year-old female with overall poor dentition, no outpatient dental care. Symptoms have been going on nearly 2 weeks, improved on clindamycin but now returned after the antibiotics have been completed. She appears well, nontoxic. She is afebrile. There is no obvious pointing abscess or airway compromise. Given her penicillin allergy and recent clindamycin treatment, will give p.o. erythromycin. Will also provide prescription for ibuprofen at the request of the patient. She was given the local dental list and I explained the importance of contacting a dentist tomorrow for prompt outpatient reevaluation. Patient has no additional questions or concerns and is comfortable with this plan Medical Records Medical records reviewed: Yes I reviewed the patient's medical records. HPI General Mode of arrival: ambulatory . Date/Time Provider Initiated Documentation: 10/04/19 09:18 . Limitations to Documentation: no limitations . Information obtained by: patient . HPI Narrative: 34-year-old female who reports roughly 2-week history of intermittent dental pain on both upper aspe cts. She was seen in the ER, provided a prescription of clindamycin, has finished that prescription. Symptoms did almost completely resolved but after stopping the antibiotics symptoms returned. She does report that she continues to smoke although is trying to quit. She is attempting to be seen by a dentist but believes that she needs a referral to an oral surgeon. She denies any fever, sore throat, ear pain, difficulty speaking, breathing, swallowing. Today she has no other current questions or concerns. She reports the pain is moderate in nature. She does have an allergy to lidocaine, Novocain, and penicillins. Cannot have dental block performed Related Data Home Medications Medication Instructions Recorded Confirmed psyllium husk 0.52 gram capsule 0.52 gm PO DAILY 08/11/18 10/04/19 aripiprazole 5 mg tablet 5 mg PO DAILY 01/23/19 10/04/19 omeprazole 40 mg capsule,delayed 40 mg PO DAILY #90 cap 04/13/19 10/04/19 release trazodone 50 mg tablet 50 mg PO QHS #90 tab 04/13/19 10/04/19 citalopram 40 mg tablet 40 mg PO DAILY #90 tab 05/04/19 10/04/19 clonidine HCl 0.1 mg tablet 0.1 mg PO TID #90 tab 05/04/19 10/04/19 furosemide 20 mg tablet 20 mg PO DAILY PRN #90 tab 05/04/19 10/04/19 pregabalin 225 mg capsule 225 mg PO BID #180 cap 05/25/19 10/04/19 meloxicam 7.5 mg tablet 7.5 mg PO DAILY 06/03/19 10/04/19 cyclobenzaprine 10 mg tablet 10 mg PO TID PRN #90 tab 06/30/19 10/04/19 inhalational spacing device #1 each 06/30/19 10/04/19 ranitidine HCl 75 mg tablet 150 mg PO DAILY tab 08/12/19 10/04/19 albuterol sulfate 90 mcg/actuation 2 puff IH Q6H PRN #18 gm 08/13/19 10/04/19 aerosol inhaler hydroxyzine HCl 25 mg tablet 25 mg PO TID-QID PRN #90 tab 08/13/19 10/04/19 fluticasone 250 mcg-salmeterol 50 1 inh IH Q12H #60 each 08/28/19 10/04/19 mcg/dose blistr powdr for inhalation tiotropium bromide 18 mcg capsule 1 cap IH DAILY #90 inh 08/28/19 10/04/19 with inhalation device dexmethylphenidate 20 mg 20 mg PO BID #56 cap MDD 20 mg 09/25/19 10/04/19 capsule,extended release [id number] methadone 10 mg/mL oral concentrate 30 mg PO DAILY ml 09/25/19 10/04/19 ondansetron HCl 4 mg tablet 4 mg PO Q8H PRN #90 tab 09/25/19 10/04/19 erythromycin 500 mg PO TID 10 Days #30 tab 10/04/19 ibuprofen 800 mg PO TID PRN #20 tab 10/04/19 Previous Rx's Medication Instructions Recorded omeprazole 40 mg capsule,delayed 40 mg PO DAILY #90 cap 04/13/19 release trazodone 50 mg tablet 50 mg PO QHS #90 tab 04/13/19 citalopram 40 mg tablet 40 mg PO DAILY #90 tab 05/04/19 clonidine HCl 0.1 mg tablet 0.1 mg PO TID #90 tab 05/04/19 furosemide 20 mg tablet 20 mg PO DAILY PRN #90 tab 05/04/19 pregabalin 225 mg capsule 225 mg PO BID #180 cap 05/25/19 cyclobenzaprine 10 mg tablet 10 mg PO TID PRN #90 tab 06/30/19 inhalational spacing device #1 each 06/30/19 albuterol sulfate 90 mcg/actuation 2 puff IH Q6H PRN #18 gm 08/13/19 aerosol inhaler hydroxyzine HCl 25 mg tablet 25 mg PO TID-QID PRN #90 tab 08/13/19 fluticasone 250 mcg-salmeterol 50 1 inh IH Q12H #60 each 08/28/19 mcg/dose blistr powdr for inhalation tiotropium bromide 18 mcg capsule 1 cap IH DAILY #90 inh 08/28/19 with inhalation device dexmethylphenidate 20 mg 20 mg PO BID #56 cap MDD 20 mg 09/25/19 capsule,extended release [id number] ondansetron HCl 4 mg tablet 4 mg PO Q8H PRN #90 tab 09/25/19 erythromycin 500 mg PO TID 10 Days #30 tab 10/04/19 ibuprofen 800 mg PO TID PRN #20 tab 10/04/19 Allergies Allergy/AdvReac Type Severity Reaction Status Date / Time lidocaine Allergy Intermediate Swelling/Ed Verified 09/23/19 12:17 rome procaine HCl [From Novocain] Allergy Intermediate Swelling/Ed Verified 09/23/19 12:17 rome Penicillins AdvReac Unknown Nausea Verified 09/23/19 12:17 control pills Allergy Severe hospitalize Uncoded 09/23/19 12:17 d General Stated Complaint: DentalOral THONG: 4 Review of Systems Constitutional Constitutional: Denies fever(s) and Denies headache(s) ENT Ears, Nose, Mouth, and Throat: Denies headache(s) and Denies sore throat Respiratory Respiratory: Denies cough Gastrointestinal Gastrointestinal: Denies nausea and Denies vomiting Integumentary/Breasts Skin/Breast: Denies rash Neurologic Neurologic: Denies headache(s) [facility] Medical History Abdominal rigidity (Acute) ADHD (Acute) Anxiety (Chronic) Asthma (Chronic) 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 Pt reports chronic pelvic pain since that surgery. Daily headache (Acute) Depression (Chronic) from previous record ? bipolar Elevated LFTs (Acute) Family history of breast cancer in first degree relative (Acute) Family history of colon cancer (Acute) Family history of OK (myocardial infarction) (Acute) Family history of ovarian cancer (Acute) Galactorrhea (Acute) Gastroesophageal reflux disease without esophagitis (Acute 11/23/16) GERD (gastroesophageal reflux disease) Hepatic cirrhosis due to chronic hepatitis C infection (Acute) Hepatitis C (Chronic) Hx of supraventricular tachycardia (Acute 11/23/16) Insomnia (Acute) Irritable bowel syndrome Manifested as constipation Q3d. With meds has improved daily functioning. IV drug abuse (Resolved) Leg edema (Acute) Memory loss (Acute) Pelvic pain (Acute) Plantar fasciitis, bilateral (Acute) Polysubstance abuse (Acute) Psychoactive substance abuse (Acute) Substance abuse (Acute) Seen in October 2017, cocaine abuse Tobacco use (Acute 11/23/16) Surgical History Colonoscopy - MAC (01/29/17) Endoscopy (12/14/13) Dx Esophagitis. Excision, Cervicle Lymph Nodes H/O endoscopy (Acute) [place] [facility] [place] line abnl 37 cm from incisors,Grade A reflux esophagitis. Normal stomach and Duodenum. H/O laparoscopy (Chronic ~09/14/13) for LLQ pain. Has PDS suture removed (from previous hysterectomy with USLS. Nl pelvis. Pt mentions second laparoscopy for pelvic pain. [facility]. History of section (Chronic) History of cholecystectomy (Chronic) History of pacemaker (Acute) History of tonsillectomy and adenoidectomy (Acute ~07/05/11) S/P hysterectomy (Inactive 09/27/15) Status post laparoscopic hysterectomy (Acute ~04/15/13) Total laparoscopic hysterectomy & laparoscopic UteroSacral Vaginal Vault suspensionfor uterine prolapse Family History Father Alcohol abuse Substance abuse Colon cancer Liver cancer Throat cancer Depression Diabetes Heart disease Hypertension Mother Asthma Breast cancer Cervical cancer Depression Hypertension Alcohol abuse Substance abuse Sister Alcohol abuse Substance abuse Depression Sister Alcohol abuse Substance abuse Depression Sister Alcohol abuse Substance abuse Depression Social History Smoking/Tobacco Use Status: Current every day Tobacco Type: cigarettes Smoking packs per day: 2 Smoking cigarettes per day: 40.0 Years smoked: 13 Smoking pack- years: 26.00 Tobacco: How many years used: 25 Alcohol Intake: former Drug use: Current Sobriety Substance use type: marijuana, crack/cocaine, heroin and opiates Details: Methadone program History of IV Drug Use. Current Sobriety, 1 year 2 Months PT denies current use of cocaine, heroin, and opiates. 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 Working smoke detector in home: Yes Carbon monox detector in home: Yes Do you feel safe at home: Yes Do you feel safe in your relationship?: Yes Victim of physical abuse: No Victim of emotional abuse: No Victim of sexual abuse: No Would you like helpful sources: No Additional Social history: Goes to [facility] 2x week, counseling and womens group Exam Const General: cooperative, healthy appearing, comfortable and no acute distress Orientation: alert and awake [facility] Head: normal to inspection, normocephalic and atraumatic Ears: external ears normal, TM's normal bilaterally and EAC's normal Face and sinus: tenderness bilaterally maxilla Mouth: oral mucosae normal and moist mucous membranes Teeth and gingiva: poor dentition (Throughout, the right upper canine is decayed nearly to the gumline.) and other (No pointing abscess) Throat: posterior oropharynx normal Eyes Conjunctivae: conjunctivae normal Neck Neck: normal visual inspection, full ROM, no lymphadenopathy, trachea midline and supple Resp Effort & Inspection: normal respiratory effort and able to speak in complete sentences Auscultation: clear to auscultation bilaterally Cardio Rate: regular rate Rhythm: regular rhythm Skin General skin exam: no rashes or lesions noted Neuro General: alert, awake, moves all extremities and no focal motor deficits Sensory Exam: no sensory deficits noted Psych Appearance: grossly normal Mental Status: mental status grossly normal Course Vital Signs Vital signs: Vital Signs Temperature 36.8 C 10/04/19 09:15 Pulse 69 10/04/19 09:15 Respiratory Rate 16 10/04/19 09:15 Blood Pressure 137/87 10/04/19 09:15 Pulse Oximetry 97 10/04/19 09:15 Temperature 36.8 C 10/04/19 09:15 Temperature Source Tympanic 10/04/19 09:15 Pulse 69 10/04/19 09:15 Respiratory Rate 16 10/04/19 09:15 Respiratory Effort Non-Labored 10/04/19 09:19 Blood Pressure 137/87 10/04/19 09:15 Blood Pressure Position Sitting 10/04/19 09:15 Pulse Oximetry 97 10/04/19 09:15 Oxygen Delivery Method Room Air 10/04/19 09:15 Oxygen Flow Rate 0 10/04/19 09:15 Pain Level 6 10/04/19 09:22
== END 2019-10-04 10:13 | disposition home or self-care (01) ==
PROVIDERS: Emergency Provider Physician Assistant; PCP Family Medicine
DX: K04.7 Periapical abscess without sinus (principal)
CPT/HCPCS: 99283

== ENCOUNTER 2020-01-17 15:21 | Emergency (ER) | payer MEDICAID, SELFPAY ==
[2020-01-17 15:24] VITALS: BP 112/67; PULSE 74; RESP 16; TEMP 36.3; O2SAT 98
--- NOTE | 2020-01-17 15:42 | ED.GENADUL_ITS ---
Discharge Plan Disposition Patient Disposition: HOME Condition: Stable Discharge Details Chief Complaint: DentalOral Clinical Impression: Dental abscess, Dental caries Primary Care Provider: Zeyad Hall ED Provider: Thao Santos Home Meds and New Rx's Prescriptions: New clindamycin HCl 150 mg capsule 450 mg PO TID 7 Days Qty: 63 RF: 0 Continued aripiprazole 5 mg tablet 5 mg PO DAILY RF: 0 cyclobenzaprine 10 mg tablet 10 mg PO TID PRN (Reason: muscle spasm) Qty: 90 RF: 3 (DME) Breathe[employer] MDI Spacer Spacer See Rx Instructions .ROUTE .MEDSUPPLY Qty: 1 RF: 0 fluticasone propion-salmeterol [Advair Diskus] 250-50 mcg/dose blister with device 1 inh IH Q12H Qty: 60 RF: 3 Spiriva with HandiHaler 18 mcg capsule, w/inhalation device 1 cap IH DAILY Qty: 90 RF: 3 ondansetron HCl [Zofran] 4 mg tablet 4 mg PO Q8H PRN (Reason: nausea and vomiting) Qty: 90 RF: 3 pregabalin 300 mg capsule 300 mg PO BID Qty: 56 RF: 5 psyllium husk 0.52 gram capsule 0.52 gm PO DAILY RF: 0 omeprazole 40 mg capsule,delayed release(DR/EC) 40 mg PO DAILY Qty: 90 RF: 3 trazodone 50 mg tablet 50 mg PO QHS Qty: 90 RF: 1 dexmethylphenidate [Focalin XR] 20 mg capsule,ER biphasic 50-50 20 mg PO BID MDD 20 mg Qty: 56 RF: 0 clonidine HCl 0.1 mg tablet 0.1 mg PO TID Qty: 90 RF: 2 furosemide 20 mg tablet 20 mg PO DAILY PRN (Reason: edema) Qty: 90 RF: 3 citalopram 40 mg tablet 40 mg PO DAILY Qty: 90 RF: 1 meloxicam 7.5 mg tablet 7.5 mg PO DAILY RF: 0 ranitidine HCl 75 mg tablet 150 mg PO DAILY RF: 0 albuterol sulfate [ProAir HFA] 90 mcg/actuation HFA aerosol inhaler 2 puff IH Q6H PRN (Reason: shortness of breath or wheezing) Qty: 18 RF: 6 hydroxyzine HCl 25 mg tablet 25 mg PO TID-QID PRN (Reason: itching) Qty: 90 RF: 3 pregabalin [Lyrica] 225 mg capsule 225 mg PO BID Qty: 60 RF: 5 methadone [Methadose] 10 mg/mL concentrate 30 mg PO DAILY RF: 0 ibuprofen 800 mg tablet 800 mg PO TID PRN (Reason: pain) Qty: 20 RF: 0 Discharge Instructions Instructions: Dental Abscess (ED), Dental Caries (ED) Additional Instructions: Call your dentist at [facility] to schedule a follow-up appointment for reeva luation as soon as possible. Gargle with salt water several times daily. Drink plenty of water. Alternate tylenol and motrin as needed and directed for pain. Return to the emergency department if you develop any worsening or new concerning symptoms such as fever, worsening pain, difficulty swallowing or any other concerns. Discharge Data Discharge Date/Time-TO BE ENTERED AT DEPARTURE: 01/17/20 16:00 Discharge Physician: Thao Santos Medical Decision Making 34-year-old female with history of chronic methadone dependence and dental caries presents with multiple areas of dental pain and concern for dental abscess. She has poor dentition and multiple areas of dental caries and missing teeth throughout. There is a very small fluctuant purulent 2 x 3 mm area above #12 and 13 teeth. This may not even be a minimal to incision due to the small size, but discussed possibly puncturing with hollow needle but patient declines stating she does not want any incision or drainage and would rather start with oral antibiotics. No trismus, drooling, submandibular swelling. She has an allergy to penicillin which causes a rash. A dose of clindamycin was given here as well as tabs for home and prescription. She has a history of hysterectomy. She was advised to call her dentist at [facility] for follow-up. She was advised to return here with any worsening symptoms such as fever, worsening swelling, redness, pain, difficulty swallowing or any other concerns. Medical Records Medical records reviewed: Yes I reviewed the patient's medical records. HPI General Mode of arrival: ambulatory . Date/Time Provider Initiated Documentation: 01/17/20 15:34 . Limitations to Documentation: no limitations . Information obtained by: patient . HPI Narrative: Patient is a 34-year-old female with a history of chronic methadone dependence and dental caries who presents for dental pain over the past few days. She denies any known fever. She states she is in the process of finding a dentist at [facility] who can do oral surgery with patients on methadone. Related Data Home Medications Medication Instructions Recorded Confirmed psyllium husk 0.52 gram capsule 0.52 gm PO DAILY 08/11/18 01/17/20 aripiprazole 5 mg tablet 5 mg PO DAILY 01/23/19 01/17/20 omeprazole 40 mg capsule,delayed 40 mg PO DAILY #90 cap 04/13/19 01/17/20 release trazodone 50 mg tablet 50 mg PO QHS #90 tab 04/13/19 01/17/20 citalopram 40 mg tablet 40 mg PO DAILY #90 tab 05/04/19 01/17/20 clonidine HCl 0.1 mg tablet 0.1 mg PO TID #90 tab 05/04/19 01/17/20 furosemide 20 mg tablet 20 mg PO DAILY PRN #90 tab 05/04/19 01/17/20 meloxicam 7.5 mg tablet 7.5 mg PO DAILY 06/03/19 01/17/20 cyclobenzaprine 10 mg tablet 10 mg PO TID PRN #90 tab 06/30/19 01/17/20 inhalational spacing device #1 each 06/30/19 01/17/20 ranitidine HCl 75 mg tablet 150 mg PO DAILY tab 08/12/19 01/17/20 albuterol sulfate 90 mcg/actuation 2 puff IH Q6H PRN #18 gm 08/13/19 01/17/20 aerosol inhaler hydroxyzine HCl 25 mg tablet 25 mg PO TID-QID PRN #90 tab 08/13/19 01/17/20 fluticasone 250 mcg-salmeterol 50 1 inh IH Q12H #60 each 08/28/19 01/17/20 mcg/dose blistr powdr for inhalation tiotropium bromide 18 mcg capsule 1 cap IH DAILY #90 inh 08/28/19 01/17/20 with inhalation device ondansetron HCl 4 mg tablet 4 mg PO Q8H PRN #90 tab 09/25/19 01/17/20 ibuprofen 800 mg PO TID PRN #20 tab 10/04/19 01/17/20 pregabalin 225 mg capsule 225 mg PO BID #60 cap 11/06/19 01/17/20 pregabalin 300 mg capsule 300 mg PO BID #56 cap 12/15/19 01/17/20 methadone 10 mg/mL oral concentrate 30 mg PO DAILY ml 12/31/19 01/17/20 dexmethylphenidate 20 mg 20 mg PO BID #56 cap MDD 20 mg 01/15/20 01/17/20 capsule,extended release [id number] clindamycin HCl 450 mg PO TID 7 Days #63 cap 01/17/20 Previous Rx's Medication Instructions Recorded omeprazole 40 mg capsule,delayed 40 mg PO DAILY #90 cap 04/13/19 release trazodone 50 mg tablet 50 mg PO QHS #90 tab 04/13/19 citalopram 40 mg tablet 40 mg PO DAILY #90 tab 05/04/19 clonidine HCl 0.1 mg tablet 0.1 mg PO TID #90 tab 05/04/19 furosemide 20 mg tablet 20 mg PO DAILY PRN #90 tab 05/04/19 cyclobenzaprine 10 mg tablet 10 mg PO TID PRN #90 tab 06/30/19 inhalational spacing device #1 each 06/30/19 albuterol sulfate 90 mcg/actuation 2 puff IH Q6H PRN #18 gm 08/13/19 aerosol inhaler hydroxyzine HCl 25 mg tablet 25 mg PO TID-QID PRN #90 tab 08/13/19 fluticasone 250 mcg-salmeterol 50 1 inh IH Q12H #60 each 08/28/19 mcg/dose blistr powdr for inhalation tiotropium bromide 18 mcg capsule 1 cap IH DAILY #90 inh 08/28/19 with inhalation device ondansetron HCl 4 mg tablet 4 mg PO Q8H PRN #90 tab 09/25/19 ibuprofen 800 mg PO TID PRN #20 tab 10/04/19 pregabalin 225 mg capsule 225 mg PO BID #60 cap 11/06/19 pregabalin 300 mg capsule 300 mg PO BID #56 cap 12/15/19 dexmethylphenidate 20 mg 20 mg PO BID #56 cap MDD 20 mg 01/15/20 capsule,extended release [id number] clindamycin HCl 450 mg PO TID 7 Days #63 cap 01/17/20 Allergies Allergy/AdvReac Type Severity Reaction Status Date / Time lidocaine Allergy Intermediate Swelling/Ed Verified 01/17/20 15:30 rome procaine HCl [From Novocain] Allergy Intermediate Swelling/Ed Verified 01/17/20 15:30 rome Penicillins AdvReac Unknown Nausea Verified 01/17/20 15:30 control pills Allergy Severe hospitalize Uncoded 01/17/20 15:30 d General Stated Complaint: DentalOral THONG: 4 Review of Systems All systems reviewed & are unremarkable except as noted in HPI and below Constitutional Constitutional: Reports as per HPI, Denies chills and Denies fever(s) Eyes Eyes: Denies blurry vision ENT Ears, Nose, Mouth, and Throat: Denies dizziness, Denies sore throat and Denies throat swelling Cardiovascular Cardiovascular: Denies chest pain and Denies dyspnea Respiratory Respiratory: Denies cough and Denies dyspnea Gastrointestinal Gastrointestinal: Denies abdominal pain, Denies diarrhea and Denies vomiting Genitourinary Genitourinary: Denies hematuria and Denies dysuria Musculoskeletal Musculoskeletal: Denies back pain and Denies numbness Integumentary/Breasts Skin/Breast: Denies lesions and Denies rash Neurologic Neurologic: Denies dizziness, Denies localized weakness and Denies numbness Allergic/Immunologic Allergic/Immunologic: Denies throat swelling PFSH Medical History Abdominal rigidity (Acute) ADHD (Acute) Anxiety (Chronic) Asthma (Chronic) 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 Pt reports chronic pelvic pain since that surgery. Daily headache (Acute) Depression (Chronic) from previous record ? bipolar Elevated LFTs (Acute) Family history of breast cancer in first degree relative (Acute) Family history of colon cancer (Acute) Family history of AK (myocardial infarction) (Acute) Family history of ovarian cancer (Acute) Galactorrhea (Acute) Gastroesophageal reflux disease without esophagitis (Acute 11/23/16) GERD (gastroesophageal reflux disease) Hepatic cirrhosis due to chronic hepatitis C infection (Acute) Hepatitis C (Resolved) Hx of supraventricular tachycardia (Acute 11/23/16) Insomnia (Acute) Irritable bowel syndrome Manifested as constipation Q3d. With meds has improved daily functioning. IV drug abuse (Resolved) Leg edema (Acute) Memory loss (Acute) Pelvic pain (Acute) Plantar fasciitis, bilateral (Acute) Polysubstance abuse (Acute) Psychoactive substance abuse (Acute) Substance abuse (Acute) Seen in October 2017, cocaine abuse Tobacco use (Acute 11/23/16) Surgical History Colonoscopy - MAC (01/29/17) Endoscopy (12/14/13) Dx Esophagitis. Excision, Cervicle Lymph Nodes H/O endoscopy (Acute) [place] [facility] [place] line abnl 37 cm from incisors,Grade A reflux esophagitis. Normal stomach and Duodenum. H/O laparoscopy (Chronic ~09/14/13) for LLQ pain. Has PDS suture removed (from previous hysterectomy with USLS. Nl pelvis. Pt mentions second laparoscopy for pelvic pain. Not in [facility] records. History of section (Chronic) History of cholecystectomy (Chronic) History of pacemaker (Acute) History of tonsillectomy and adenoidectomy (Acute ~07/05/11) S/P hysterectomy (Inactive 09/27/15) Status post laparoscopic hysterectomy (Acute ~04/15/13) Total laparoscopic hysterectomy & laparoscopic UteroSacral Vaginal Vault suspensionfor uterine prolapse Social History Smoking/Tobacco Use Status: Current every day Tobacco Type: cigarettes Smoking packs per day: 2 Smoking cigarettes per day: 40.0 Years smoked: 13 Smoking pack- years: 26.00 Tobacco: How many years used: 25 Alcohol Intake: former Drug use: Current Sobriety Substance use type: marijuana, crack/cocaine, heroin and opiates Details: Methadone program History of IV Drug Use. Current Sobriety, 1 year 2 Months PT denies current use of cocaine, heroin, and opiates. Household members: none Housing: apartment Number of Children: 3 Communication Needs: None current occupation: unemployed What is your relationship status?: How often do you talk on the phone with friends or family?: three or more times per week Panel score (0-1 are the most socially isolated patients): 1 What type of physical activity do you participate in: none Seatbelt use: always Drive intox or ride w/intox driver license technician: No Working smoke detector in home: Yes Carbon monox detector in home: Yes Do you feel safe at home: Yes Do you feel safe in your relationship?: Yes Victim of physical abuse: No Victim of emotional abuse: No Victim of sexual abuse: No Would you like helpful sources: No Additional Social history: Goes to [facility] 2x week, counseling and womens group Exam Const General: cooperative, healthy appearing and no acute distress HENOR Head: normal to inspection Ears: hearing grossly normal bilaterally, external ears normal and TM's normal bilaterally General nose exam: external nose normal Face and sinus: no crepitus Mouth: oral mucosae normal, no drooling and no trismus Teeth and gingiva: caries, poor dentition and other Teeth image: 1. 2x3mm tiny fluctuant abscess noted to area above teeth # 12-13. Eyes General: appearance normal, both eyes and all related structures Neck Neck: normal visual inspection, no lymphadenopathy, no meningeal signs, trachea midline, supple and No submandibular swelling Resp Effort & Inspection: normal respiratory effort and able to speak in complete sentences Cardio Rate: regular rate Skin General skin exam: no rashes or lesions noted Neuro General: patient alert, patient awake and patient oriented x3 Motor: muscle tone normal throughout Extrem General: normal to inspection and full ROM Psych Appearance: grossly normal Affect: normal affect Course Vital Signs Vital signs: Vital Signs Temperature 97.3 F L 01/17/20 15:24 Pulse 74 01/17/20 15:24 Respiratory Rate 16 01/17/20 15:24 Blood Pressure 112/67 01/17/20 15:24 Pulse Oximetry 98 01/17/20 15:24 Temperature 97.3 F L 01/17/20 15:24 Pulse 74 01/17/20 15:24 Respiratory Rate 16 01/17/20 15:24 Respiratory Effort Non-Labored 01/17/20 15:28 Blood Pressure 112/67 01/17/20 15:24 Blood Pressure Position Sitting 01/17/20 15:24 Pulse Oximetry 98 01/17/20 15:24 Oxygen Delivery Method Room Air 01/17/20 15:24 Oxygen Flow Rate 0 01/17/20 15:24 Pain Level 5 01/17/20 15:24
[2020-01-17] MEDS: Clindamycin 150 MG CAP 450 MG PO (16:02)
[2020-01-17] MEDS: Clindamycin 150 MG CAP, 12 CAPS/BTL 450 MG PO (16:02)
[2020-01-17 16:03] VITALS: BP 112/67; PULSE 74; RESP 16; TEMP 36.5; O2SAT 98
== END 2020-01-17 16:00 | disposition home or self-care (01) ==
LOC: ER 16:09
PROVIDERS: Emergency Provider Physician Assistant; PCP Family Medicine
DX: R68.84 Jaw pain (principal); K04.7 Periapical abscess without sinus; F11.20 Opioid dependence, uncomplicated
CPT/HCPCS: 99283

== ENCOUNTER 2020-05-29 15:42 | Emergency (ER) | payer MEDICAID, SELFPAY ==
[2020-05-29 15:49] VITALS: BP 112/94; PULSE 106; TEMP 36.7; O2SAT 97
--- NOTE | 2020-05-29 16:00 | ED.GENADUL_ITS ---
Discharge Plan Disposition Patient Disposition: HOME Condition: Stable Discharge Details Clinical Impression: Pain, dental Primary Care Provider: Zeyad Hall ED Provider: Kaleb Pino Home Meds and New Rx's Prescriptions: New clindamycin HCl 150 mg capsule 450 mg PO TID 7 Days Qty: 63 RF: 1 ibuprofen 800 mg tablet 800 mg PO Q8H PRN (Reason: pain) Qty: 30 RF: 0 Continued aripiprazole 5 mg tablet 5 mg PO DAILY RF: 0 (DME) BreatheRite MDI Spacer Spacer See Rx Instructions .ROUTE .MEDSUPPLY Qty: 1 RF: 0 fluticasone propion-salmeterol [Advair Diskus] 250-50 mcg/dose blister with device 1 inh IH Q12H Qty: 60 RF: 3 Spiriva with HandiHaler 18 mcg capsule, w/inhalation device 1 cap IH DAILY Qty: 90 RF: 3 ondansetron HCl [Zofran] 4 mg tablet 4 mg PO Q8H PRN (Reason: nausea and vomiting) Qty: 90 RF: 3 pregabalin 300 mg capsule 300 mg PO BID Qty: 56 RF: 5 dexmethylphenidate [Focalin XR] 20 mg capsule,ER biphasic 50-50 20 mg PO BID MDD 40 mg Qty: 56 RF: 0 cyclobenzaprine 10 mg tablet 10 mg PO TID PRN (Reason: muscle spasm) Qty: 90 RF: 3 trazodone 50 mg tablet 50 mg PO QHS Qty: 90 RF: 3 psyllium husk 0.52 gram capsule 0.52 gm PO DAILY RF: 0 omeprazole 40 mg capsule,delayed release(DR/EC) 40 mg PO DAILY Qty: 90 RF: 3 clonidine HCl 0.1 mg tablet 0.1 mg PO TID Qty: 90 RF: 2 citalopram 40 mg tablet 40 mg PO DAILY Qty: 90 RF: 1 ranitidine HCl 75 mg tablet 150 mg PO DAILY RF: 0 albuterol sulfate [ProAir HFA] 90 mcg/actuation HFA aerosol inhaler 2 puff IH Q6H PRN (Reason: shortness of breath or wheezing) Qty: 18 RF: 6 hydroxyzine HCl 25 mg tablet 25 mg PO TID-QID PRN (Reason: itching) Qty: 90 RF: 3 methadone [Methadose] 10 mg/mL concentrate 30 mg PO DAILY RF: 0 ibuprofen 800 mg tablet 800 mg PO TID PRN (Reason: pain) Qty: 20 RF: 0 furosemide 20 mg tablet 20 mg PO DAILY RF: 0 Discharge Instructions Instructions: Toothache (ED) Additional Instructions: follow up with your dentist as scheduled if pain continues in a week restart the clindamycin if you have severe worsening of pain, difficulty swallowing or breathing return to the emergency department Medical Decision Making 34 yo female with hx of poor dentition who is scheduled to have her teeth pulled in 2 weeks per pt comes in with 2 weeks of increasing pain in right upper and lower molars. Denies fevers, chills, cough, difficulty breathing or swallowing. On exam has no submandibular swelling, no pain over hyoid or restricted neck movements, normal posterior oropharynx, midline uvula, no findings to suggest ludwigs, rpa, motor equipment captain, epiglotitis. Has numerous dental caries, no visible drainable abscess at bedside. Suspect caries vs pulpitis. Will tx with antibiotics to cover for pulpitis vs early abscess and have her f/u with dentist, return precautions given Differential Diagnosis Differential Diagnosis: pulpitis, abscess, caries HPI General Mode of arrival: ambulatory . Date/Time Provider Initiated Documentation: 05/29/20 15:54 . Limitations to Documentation: no limitations . Information obtained by: patient . History of Present Illness 34 year old F presents to the emergency department with the chief complaint of dental pain, described as moderate, and it has been constant. No relieving factors improve symptom(s), No exacerbating factors reported . Patient did receive the following treatments prior to arrival, none Related Data Home Medications Medication Instructions Recorded Confirmed psyllium husk 0.52 gram capsule 0.52 gm PO DAILY 08/11/18 05/29/20 aripiprazole 5 mg tablet 5 mg PO DAILY 01/23/19 05/29/20 omeprazole 40 mg capsule,delayed 40 mg PO DAILY #90 cap 04/13/19 05/29/20 release citalopram 40 mg tablet 40 mg PO DAILY #90 tab 05/04/19 05/29/20 clonidine HCl 0.1 mg tablet 0.1 mg PO TID #90 tab 05/04/19 05/29/20 inhalational spacing device #1 each 06/30/19 02/12/20 ranitidine HCl 75 mg tablet 150 mg PO DAILY tab 08/12/19 05/29/20 albuterol sulfate 90 mcg/actuation 2 puff IH Q6H PRN #18 gm 08/13/19 05/29/20 aerosol inhaler hydroxyzine HCl 25 mg tablet 25 mg PO TID-QID PRN #90 tab 08/13/19 05/29/20 fluticasone 250 mcg-salmeterol 50 1 inh IH Q12H #60 each 08/28/19 05/29/20 mcg/dose blistr powdr for inhalation tiotropium bromide 18 mcg capsule 1 cap IH DAILY #90 inh 08/28/19 05/29/20 with inhalation device ondansetron HCl 4 mg tablet 4 mg PO Q8H PRN #90 tab 09/25/19 05/29/20 ibuprofen 800 mg PO TID PRN #20 tab 10/04/19 05/29/20 pregabalin 300 mg capsule 300 mg PO BID #56 cap 12/15/19 05/29/20 cyclobenzaprine 10 mg tablet 10 mg PO TID PRN #90 tab 04/08/20 05/29/20 dexmethylphenidate 20 mg 20 mg PO BID #56 cap MDD 40 mg 04/08/20 05/29/20 capsule,extended release [id number] trazodone 50 mg tablet 50 mg PO QHS #90 tab 04/08/20 05/29/20 methadone 10 mg/mL oral concentrate 30 mg PO DAILY ml 05/27/20 05/29/20 clindamycin HCl 450 mg PO TID 7 Days #63 cap 05/29/20 furosemide 20 mg PO DAILY 05/29/20 05/29/20 ibuprofen 800 mg PO Q8H PRN #30 tab 05/29/20 Previous Rx's Medication Instructions Recorded omeprazole 40 mg capsule,delayed 40 mg PO DAILY #90 cap 04/13/19 release citalopram 40 mg tablet 40 mg PO DAILY #90 tab 05/04/19 clonidine HCl 0.1 mg tablet 0.1 mg PO TID #90 tab 05/04/19 inhalational spacing device #1 each 06/30/19 albuterol sulfate 90 mcg/actuation 2 puff IH Q6H PRN #18 gm 08/13/19 aerosol inhaler hydroxyzine HCl 25 mg tablet 25 mg PO TID-QID PRN #90 tab 08/13/19 fluticasone 250 mcg-salmeterol 50 1 inh IH Q12H #60 each 08/28/19 mcg/dose blistr powdr for inhalation tiotropium bromide 18 mcg capsule 1 cap IH DAILY #90 inh 08/28/19 with inhalation device ondansetron HCl 4 mg tablet 4 mg PO Q8H PRN #90 tab 09/25/19 ibuprofen 800 mg PO TID PRN #20 tab 10/04/19 pregabalin 300 mg capsule 300 mg PO BID #56 cap 12/15/19 cyclobenzaprine 10 mg tablet 10 mg PO TID PRN #90 tab 04/08/20 dexmethylphenidate 20 mg 20 mg PO BID #56 cap MDD 40 mg 04/08/20 capsule,extended release [id number] trazodone 50 mg tablet 50 mg PO QHS #90 tab 04/08/20 clindamycin HCl 450 mg PO TID 7 Days #63 cap 05/29/20 ibuprofen 800 mg PO Q8H PRN #30 tab 05/29/20 Allergies Allergy/AdvReac Type Severity Reaction Status Date / Time lidocaine Allergy Intermediate Swelling/Ed Verified 05/29/20 15:56 rome procaine HCl [From Novocain] Allergy Intermediate Swelling/Ed Verified 05/29/20 15:56 rome Penicillins AdvReac Unknown Nausea Verified 05/29/20 15:56 control pills Allergy Severe hospitalize Uncoded 05/29/20 15:56 d General Stated Complaint: DentalOral THONG: 4 Review of Systems All systems reviewed & are unremarkable except as noted in HPI and below Constitutional Constitutional: Denies chills, Denies fever(s) and Denies weakness Cardiovascular Cardiovascular: Denies chest pain and Denies dyspnea Respiratory Respiratory: Denies cough and Denies dyspnea Gastrointestinal Gastrointestinal: Denies abdominal pain, Denies nausea and Denies vomiting Musculoskeletal Musculoskeletal: Denies joint swelling Neurologic Neurologic: Denies weakness PFSH Medical History Abdominal rigidity ADHD Anxiety Asthma Carcinoma in situ of uterine cervix Carpal tunnel syndrome of right wrist Cervical intraepithelial neoplasia grade 2 Chronic back pain greater than 3 months duration (11/23/16) Chronic pelvic pain in female s/p hyst 2012 for cervical dysplasia. Pt reports chronic pelvic pain since that surgery. Daily headache Depression from previous record ? bipolar Elevated LFTs Family history of breast cancer in first degree relative Family history of colon cancer Family history of HI (myocardial infarction) Family history of ovarian cancer Galactorrhea Gastroesophageal reflux disease without esophagitis (11/23/16) GERD (gastroesophageal reflux disease) Hepatic cirrhosis due to chronic hepatitis C infection Hepatitis C Hx of supraventricular tachycardia (11/23/16) Insomnia Irritable bowel syndrome Manifested as constipation Q3d. With meds has improved daily functioning. IV drug abuse Leg edema Memory loss Pelvic pain Plantar fasciitis, bilateral Polysubstance abuse Psychoactive substance abuse Substance abuse Seen in October 2017, cocaine abuse Tobacco use (11/23/16) Surgical History Colonoscopy - MAC (01/29/17) Endoscopy (12/14/13) Dx Esophagitis. Excision, Cervicle Lymph Nodes [place] [facility] [place] Z line abnl 37 cm from incisors,Grade A reflux esophagitis. Normal stomach and Duodenum. H/O laparoscopy (~09/14/13) for LLQ pain. Has PDS suture removed (from previous hysterectomy with USLS. Nl pelvis. Pt mentions second laparoscopy for pelvic pain. Not in [facility] records. History of section History of cholecystectomy History of pacemaker History of tonsillectomy and adenoidectomy (~07/05/11) S/P hysterectomy (09/27/15) Status post laparoscopic hysterectomy (~04/15/13) Total laparoscopic hysterectomy & laparoscopic UteroSacral Vaginal Vault suspensionfor uterine prolapse Family History Father Alcohol abuse Substance abuse Colon cancer Liver cancer Throat cancer Depression Diabetes Heart disease Hypertension Mother Asthma Breast cancer Cervical cancer Depression Hypertension Alcohol abuse Substance abuse Sister Alcohol abuse Substance abuse Depression Sister Alcohol abuse Substance abuse Depression Sister Alcohol abuse Substance abuse Depression Social History Smoking/Tobacco Use Status: Current every day Tobacco Type: cigarettes Smoking packs per day: 2 Smoking cigarettes per day: 40.0 Years smoked: 13 Smoking pack- years: 26.00 Tobacco: How many years used: 25 Alcohol Intake: former Drug use: Current Sobriety Substance use type: marijuana, crack/cocaine, heroin and opiates Details: Methadone program History of IV Drug Use. Current Sobriety, 1 year 2 Months PT denies current use of cocaine, heroin, and opiates. 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 2x week, counseling and womens group Exam Const General: no acute distress Orientation: alert HENFL Head: normal to inspection Ears: external ears normal General nose exam: external nose normal Mouth: moist mucous membranes Eyes General: appearance normal, both eyes and all related structures Neck Neck: normal visual inspection Resp Effort & Inspection: normal respiratory effort and able to speak in complete sentences Cardio Rate: regular rate Skin General skin exam: no rashes or lesions noted Neuro General: patient alert and patient oriented x3 Extrem General: normal to inspection Psych Mental Status: mental status grossly normal Course Vital Signs Vital signs: Vital Signs Temperature 36.7 C 05/29/20 15:49 Pulse 106 H 05/29/20 15:49 Blood Pressure 112/94 H 05/29/20 15:49 Pulse Oximetry 97 05/29/20 15:49 Temperature 36.7 C 05/29/20 15:49 Temperature Source Temporal Artery Scan 05/29/20 15:49 Pulse 106 H 05/29/20 15:49 Respiratory Effort Non-Labored 05/29/20 15:53 Blood Pressure 112/94 H 05/29/20 15:49 Blood Pressure Position Sitting 05/29/20 15:49 Pulse Oximetry 97 05/29/20 15:49 Oxygen Delivery Method Room Air 05/29/20 15:49 Oxygen Flow Rate 0 05/29/20 15:49 Pain Level 8 05/29/20 15:49
== END 2020-05-29 16:11 | disposition home or self-care (01) ==
PROVIDERS: Emergency Provider Emergency Medicine; PCP Family Medicine
DX: K08.89 Other specified disorders of teeth and supporting structures (principal)
CPT/HCPCS: 99283

== ENCOUNTER 2020-08-09 09:29 | Emergency (ER) | payer MEDICAID, SELFPAY ==
--- NOTE | 2020-08-09 09:31 | ED.GENADUL_ITS ---
Discharge Plan Disposition Patient Disposition: HOME Condition: Stable Discharge Details Clinical Impression: Dental infection Primary Care Provider: Zeyad Hall ED Provider: Guille Treviño Home Meds and New Rx's Prescriptions: New clindamycin HCl 300 mg capsule 300 mg PO TID 10 Days Qty: 30 RF: 0 Continued aripiprazole 5 mg tablet 5 mg PO DAILY RF: 0 (DME) BreatheRite MDI Spacer Spacer See Rx Instructions .ROUTE .MEDSUPPLY Qty: 1 RF: 0 fluticasone propion-salmeterol [Advair Diskus] 250-50 mcg/dose blister with device 1 inh IH Q12H Qty: 60 RF: 3 Spiriva with HandiHaler 18 mcg capsule, w/inhalation device 1 cap IH DAILY Qty: 90 RF: 3 ondansetron HCl [Zofran] 4 mg tablet 4 mg PO Q8H PRN (Reason: nausea and vomiting) Qty: 90 RF: 3 cyclobenzaprine 10 mg tablet 10 mg PO TID PRN (Reason: muscle spasm) Qty: 90 RF: 3 trazodone 50 mg tablet 50 mg PO QHS Qty: 90 RF: 3 dexmethylphenidate [Focalin XR] 20 mg capsule,ER biphasic 50-50 20 mg PO BID MDD 40 mg Qty: 56 RF: 0 dexmethylphenidate [Focalin XR] 20 mg capsule,ER biphasic 50-50 20 mg PO BID MDD 40 mg Qty: 56 RF: 0 psyllium husk 0.52 gram capsule 0.52 gm PO DAILY RF: 0 omeprazole 40 mg capsule,delayed release(DR/EC) 40 mg PO DAILY Qty: 90 RF: 3 clonidine HCl 0.1 mg tablet 0.1 mg PO TID Qty: 90 RF: 2 citalopram 40 mg tablet 40 mg PO DAILY Qty: 90 RF: 1 ranitidine HCl 75 mg tablet 150 mg PO DAILY RF: 0 albuterol sulfate [ProAir HFA] 90 mcg/actuation HFA aerosol inhaler 2 puff IH Q6H PRN (Reason: shortness of breath or wheezing) Qty: 18 RF: 6 hydroxyzine HCl 25 mg tablet 25 mg PO TID-QID PRN (Reason: itching) Qty: 90 RF: 3 methadone [Methadose] 10 mg/mL concentrate 30 mg PO DAILY RF: 0 pregabalin 300 mg capsule 300 mg PO BID Qty: 56 RF: 5 ibuprofen 800 mg tablet 800 mg PO TID PRN (Reason: pain) Qty: 20 RF: 0 furosemide 20 mg tablet 20 mg PO DAILY RF: 0 ibuprofen 800 mg tablet 800 mg PO Q8H PRN (Reason: pain) Qty: 30 RF: 0 Discontinued clindamycin HCl 150 mg capsule 450 mg PO TID 7 Days Qty: 63 RF: 1 Discharge Instructions Instructions: Dental Abscess (ED) Additional Instructions: Clindamycin as directed. Cool and/or warm compresses every 2 hours for 20 minutes. Ouhc-[id number] Tylenol and/or Motrin as directed for discomfort. Salt water swish and spit as tolerated. Zijp-vpm-sufaxpn Orajel as directed. Please watch for new or worsening symptoms and return to the ER for any concerns. Otherwise I recommend contacting your oral surgeon later today or tomorrow to inquire about being seen sooner than your scheduled appointment on September 06. Medical Decision Making 34-year-old female, current smoker, poor dentition at baseline. She is presenting today with worsening discomfort over the past few weeks, no facial swelling. No trismus. No fever. Clinically she appears well, nontoxic. No pointing abscess, no indication for I&D today. Given her allergies to penicillin, will provide prescription for clindamycin. Recommend [id number]-pfikbch Tylenol and/or Motrin, salt water swishes and spits, cool and/or warm compresses as tolerated. I also recommend contacting her oral benavides rgeon to be seen sooner if at all possible. Encouraged to return to the ER for new or worsening symptoms. Medical Records Medical records reviewed: Yes I reviewed the patient's medical records. HPI General Mode of arrival: ambulatory . Date/Time Provider Initiated Documentation: 08/09/20 09:30 . Limitations to Documentation: no limitations . Information obtained by: patient . HPI Narrative: This is a 34-year-old female, current smoker, history of ADHD, anxiety, asthma, history of drug abuse, presen ts to the ER for exacerbation of chronic dental pain. She states right sided upper and lower dental pain over the past few weeks, worse over the past few days. Denies headache, fever, ear pain, sore throat, difficulty speaking or swallowing. No other concerns or complaints. Ossw-njb-iipecck medication is not helping with her symptoms. She is scheduled to be seen by her dental surgeon on September 06. Related Data Home Medications Medication Instructions Recorded Confirmed psyllium husk 0.52 gram capsule 0.52 gm PO DAILY 08/11/18 08/09/20 aripiprazole 5 mg tablet 5 mg PO DAILY 01/23/19 08/09/20 omeprazole 40 mg capsule,delayed 40 mg PO DAILY #90 cap 04/13/19 08/09/20 release citalopram 40 mg tablet 40 mg PO DAILY #90 tab 05/04/19 08/09/20 clonidine HCl 0.1 mg tablet 0.1 mg PO TID #90 tab 05/04/19 08/09/20 inhalational spacing device #1 each 06/30/19 02/12/20 ranitidine HCl 75 mg tablet 150 mg PO DAILY tab 08/12/19 08/09/20 albuterol sulfate 90 mcg/actuation 2 puff IH Q6H PRN #18 gm 08/13/19 08/09/20 aerosol inhaler hydroxyzine HCl 25 mg tablet 25 mg PO TID-QID PRN #90 tab 08/13/19 08/09/20 fluticasone 250 mcg-salmeterol 50 1 inh IH Q12H #60 each 08/28/19 08/09/20 mcg/dose blistr powdr for inhalation tiotropium bromide 18 mcg capsule 1 cap IH DAILY #90 inh 08/28/19 08/09/20 with inhalation device ondansetron HCl 4 mg tablet 4 mg PO Q8H PRN #90 tab 09/25/19 08/09/20 ibuprofen 800 mg PO TID PRN #20 tab 10/04/19 08/09/20 cyclobenzaprine 10 mg tablet 10 mg PO TID PRN #90 tab 04/08/20 08/09/20 trazodone 50 mg tablet 50 mg PO QHS #90 tab 04/08/20 08/09/20 methadone 10 mg/mL oral concentrate 30 mg PO DAILY ml 05/27/20 08/09/20 furosemide 20 mg PO DAILY 05/29/20 08/09/20 ibuprofen 800 mg PO Q8H PRN #30 tab 05/29/20 08/09/20 pregabalin 300 mg capsule 300 mg PO BID #56 cap 06/07/20 08/09/20 dexmethylphenidate 20 mg 20 mg PO BID #56 cap MDD 40 mg 07/26/20 08/09/20 capsule,extended release [id number] dexmethylphenidate 20 mg 20 mg PO BID #56 cap MDD 40 mg 07/26/20 08/09/20 capsule,extended release -27 clindamycin HCl 300 mg PO TID 10 Days #30 cap 08/09/20 Previous Rx's Medication Instructions Recorded omeprazole 40 mg capsule,delayed 40 mg PO DAILY #90 cap 04/13/19 release citalopram 40 mg tablet 40 mg PO DAILY #90 tab 05/04/19 clonidine HCl 0.1 mg tablet 0.1 mg PO TID #90 tab 05/04/19 inhalational spacing device #1 each 06/30/19 albuterol sulfate 90 mcg/actuation 2 puff IH Q6H PRN #18 gm 08/13/19 aerosol inhaler hydroxyzine HCl 25 mg tablet 25 mg PO TID-QID PRN #90 tab 08/13/19 fluticasone 250 mcg-salmeterol 50 1 inh IH Q12H #60 each 08/28/19 mcg/dose blistr powdr for inhalation tiotropium bromide 18 mcg capsule 1 cap IH DAILY #90 inh 08/28/19 with inhalation device ondansetron HCl 4 mg tablet 4 mg PO Q8H PRN #90 tab 09/25/19 ibuprofen 800 mg PO TID PRN #20 tab 10/04/19 cyclobenzaprine 10 mg tablet 10 mg PO TID PRN #90 tab 04/08/20 trazodone 50 mg tablet 50 mg PO QHS #90 tab 04/08/20 ibuprofen 800 mg PO Q8H PRN #30 tab 05/29/20 pregabalin 300 mg capsule 300 mg PO BID #56 cap 06/07/20 dexmethylphenidate 20 mg 20 mg PO BID #56 cap MDD 40 mg 07/26/20 capsule,extended release [id number] dexmethylphenidate 20 mg 20 mg PO BID #56 cap MDD 40 mg 07/26/20 capsule,extended release [id number] clindamycin HCl 300 mg PO TID 10 Days #30 cap 08/09/20 Allergies Allergy/AdvReac Type Severity Reaction Status Date / Time lidocaine Allergy Intermediate Swelling/Ed Verified 08/09/20 09:37 rome procaine HCl [From Novocain] Allergy Intermediate Swelling/Ed Verified 08/09/20 09:37 rome Penicillins AdvReac Unknown Nausea Verified 08/09/20 09:37 control pills Allergy Severe hospitalize Uncoded 08/09/20 09:37 d General THONG: 4 Review of Systems Constitutional Constitutional: Denies fever(s) and Denies headache(s) Eyes Eyes: Denies eye discharge ENT Ears, Nose, Mouth, and Throat: Denies ear discharge, Reports facial pain, Denies headache(s) and Denies neck pain Musculoskeletal Musculoskeletal: Denies neck pain Integumentary/Breasts Skin/Breast: Denies erythema Neurologic Neurologic: Denies headache(s) [facility] Medical History Abdominal rigidity ADHD Anxiety Asthma Carcinoma in situ of uterine cervix Carpal tunnel syndrome of right wrist Cervical intraepithelial neoplasia grade 2 Chronic back pain greater than 3 months duration (11/23/16) Chronic pelvic pain in female s/p hyst 2012 for cervical dysplasia. Pt reports chronic pelvic pain since that surgery. Daily headache Depression from previous record ? bipolar Elevated LFTs Family history of breast cancer in first degree relative Family history of colon cancer Family history of [place] (myocardial infarction) Family history of ovarian cancer Galactorrhea Gastroesophageal reflux disease without esophagitis (11/23/16) GERD (gastroesophageal reflux disease) Hepatic cirrhosis due to chronic hepatitis C infection Hepatitis C Hx of supraventricular tachycardia (11/23/16) Insomnia Irritable bowel syndrome Manifested as constipation Q3d. With meds has improved daily functioning. IV drug abuse Leg edema Memory loss Pelvic pain Plantar fasciitis, bilateral Polysubstance abuse Psychoactive substance abuse Substance abuse Seen in October 2017, cocaine abuse Tobacco use (11/23/16) Surgical History Colonoscopy - MAC (01/29/17) Endoscopy (12/14/13) Dx Esophagitis. Excision, Cervicle Lymph Nodes H/O endoscopy 06/11/19 [facility] [place]oscopy Z line abnl 37 cm from incisors,Grade A reflux esophagitis. Normal stomach and Duodenum. H/O laparoscopy (~09/14/13) for LLQ pain. Has PDS suture removed (from previous hysterectomy with USLS. Nl pelvis. Pt mentions second laparoscopy for pelvic pain. Not in [facility] records. History of section History of cholecystectomy History of pacemaker History of tonsillectomy and adenoidectomy (~07/05/11) S/P hysterectomy (09/27/15) Status post laparoscopic hysterectomy (~04/15/13) Total laparoscopic hysterectomy & laparoscopic UteroSacral Vaginal Vault suspensionfor uterine prolapse Family History Father Alcohol abuse Substance abuse Colon cancer Liver cancer Throat cancer Depression Diabetes Heart disease Hypertension Mother Asthma Breast cancer Cervical cancer Depression Hypertension Alcohol abuse Substance abuse Sister Alcohol abuse Substance abuse Depression Sister Alcohol abuse Substance abuse Depression Sister Alcohol abuse Substance abuse Depression Social History Smoking/Tobacco Use Status: Current every day Tobacco Type: cigarettes Smoking packs per day: 2 Smoking cigarettes per day: 40.0 Years smoked: 13 Smoking pack- years: 26.00 Tobacco: How many years used: 25 Smoking risk assessment performed?: Yes Alcohol Intake: former Drug use: Current Sobriety Substance use type: marijuana, crack/cocaine, heroin and opiates Details: Methadone program History of IV Drug Use. Current Sobriety, 1 year 2 Months PT denies current use of cocaine, heroin, and opiates. 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 Working smoke detector in home: Yes Carbon monox detector in home: Yes Do you feel safe at home: Yes Do you feel safe in your relationship?: Yes Victim of physical abuse: No Victim of emotional abuse: No Victim of sexual abuse: No Would you like helpful sources: No Additional Social history: Goes to [facility] 2x week, counseling and womens group Exam Const General: cooperative, healthy appearing, comfortable and no acute distress Orientation: alert, awake and oriented x3 HENMT Head: normal to inspection, normocephalic and atraumatic Ears: external ears normal, TM's normal bilaterally and EAC's normal General nose exam: external nose normal Face and sinus: normal facial exam Mouth: moist mucous membranes Teeth and gingiva: poor dentition Teeth image: 1. Tenderness, no pointing abscess 2. Tenderness, no pointing abscess 3. Tenderness, no pointing abscess Throat: posterior oropharynx normal and uvula midline Eyes General: appearance normal, both eyes and all related structures Conjunctivae: conjunctivae normal Sclera: sclerae normal Neck Neck: normal visual inspection, full ROM, no lymphadenopathy, no meningeal signs, trachea midline, supple and nontender Resp Effort & Inspection: normal respiratory effort and able to speak in complete sentences Cardio Rate: regular rate Rhythm: regular rhythm Skin General skin exam: no rashes or lesions noted Neuro General: patient alert, patient awake, moves all extremities and no focal motor deficits Speech: speech normal Sensory Exam: no sensory deficits noted Psych Appearance: grossly normal Mental Status: mental status grossly normal
[2020-08-09 09:33] VITALS: BP 124/49; PULSE 105; RESP 16; TEMP 36.3; O2SAT 99
== END 2020-08-09 10:25 | disposition home or self-care (01) ==
LOC: ER 10:25
PROVIDERS: Emergency Provider Physician Assistant; PCP Family Medicine
DX: R68.84 Jaw pain (principal); K04.7 Periapical abscess without sinus
CPT/HCPCS: 99283

== ENCOUNTER 2020-09-02 06:24 | Emergency (ER) | payer MEDICAID, SELFPAY ==
[2020-09-02 06:27] VITALS: BP 102/75; PULSE 85; RESP 18; TEMP 36.6; O2SAT 99
[2020-09-02 06:38] VITALS: RESP 18
--- NOTE | 2020-09-02 06:40 | ED.GENADUL_ITS ---
Discharge Plan Disposition Patient Disposition: HOME Condition: Good Discharge Details Clinical Impression: Bleeding hemorrhoids Primary Care Provider: Zeyad Hall ED Provider: Shaun Valente Meds and New Rx's Prescriptions: New hydrocortisone [Proctosol HC] 2.5 % cream with perineal applicator 1 applic DE QD-BID PRNQty: 30 RF: 0 Continued aripiprazole 5 mg tablet 5 mg PO DAILY RF: 0 (DME) BreatheRite MDI Spacer Spacer See Rx Instructions .ROUTE .MEDSUPPLY Qty: 1 RF: 0 fluticasone propion-salmeterol [Advair Diskus] 250-50 mcg/dose blister with device 1 inh IH Q12H Qty: 60 RF: 3 Spiriva with HandiHaler 18 mcg capsule, w/inhalation device 1 cap IH DAILY Qty: 90 RF: 3 ondansetron HCl [Zofran] 4 mg tablet 4 mg PO Q8H PRN (Reason: nausea and vomiting) Qty: 90 RF: 3 cyclobenzaprine 10 mg tablet 10 mg PO TID PRN (Reason: muscle spasm) Qty: 90 RF: 3 trazodone 50 mg tablet 50 mg PO QHS Qty: 90 RF: 3 dexmethylphenidate [Focalin XR] 20 mg capsule,ER biphasic 50-50 20 mg PO BID MDD 40 mg Qty: 56 RF: 0 psyllium husk 0.52 gram capsule 0.52 gm PO DAILY RF: 0 omeprazole 40 mg capsule,delayed release(DR/EC) 40 mg PO DAILY Qty: 90 RF: 3 citalopram 40 mg tablet 40 mg PO DAILY Qty: 90 RF: 1 ranitidine HCl 75 mg tablet 150 mg PO DAILY RF: 0 albuterol sulfate [ProAir HFA] 90 mcg/actuation HFA aerosol inhaler 2 puff IH Q6H PRN (Reason: shortness of breath or wheezing) Qty: 18 RF: 6 hydroxyzine HCl 25 mg tablet 25 mg PO TID-QID PRN (Reason: itching) Qty: 90 RF: 3 methadone [Methadose] 10 mg/mL concentrate 30 mg PO DAILY RF: 0 pregabalin 300 mg capsule 300 mg PO BID Qty: 56 RF: 5 clonidine HCl 0.1 mg tablet 0.1 mg PO TID Qty: 90 RF: 3 furosemide 20 mg tablet 20 mg PO DAILY RF: 0 ibuprofen 800 mg tablet 800 mg PO Q8H PRN (Reason: pain) Qty: 30 RF: 0 Discharge Instructions Instructions: Hemorrhoids (ED) Additional Instructions: Begin using cream as directed to see if improvement. If continued bleeding, rectal pain, other problems you would need follow up with surgery. Return to ED for abdominal pain, fainting, other concerns. Referrals: [facility] [Provider Group] Medical Decision Making Patient with internal hemorrhoids with evidence of bleeding from one right at the anal verge. No active bleeding now. JB deferred. Will start patient on Proctosol HC. Already using Miralax for constipation. Refer to surgery if continued problems. HPI General Mode of arrival: ambulatory . Date/Time Provider Initiated Documentation: 09/02/20 06:38 . Limitations to Documentation: no limitations . Information obtained by: patient and RN notes reviewed . HPI Narrative: Patient presents to ED with rectal bleeding. She reports having this problem on and off for a year or so. Usually associated with bowel movements. Last night just started bleeding from rectum spontaneously. Had to wear a pad overnight because of the bleeding. Stool itself is normal. No rectal pain. No abdominal pain. Uses Miralax regularly for constipation. Related Data Home Medications Medication Instructions Recorded Confirmed psyllium husk 0.52 gram capsule 0.52 gm PO DAILY 08/11/18 09/02/20 aripiprazole 5 mg tablet 5 mg PO DAILY 01/23/19 09/02/20 omeprazole 40 mg capsule,delayed 40 mg PO DAILY #90 cap 04/13/19 09/02/20 release citalopram 40 mg tablet 40 mg PO DAILY #90 tab 05/04/19 09/02/20 inhalational spacing device #1 each 06/30/19 02/12/20 ranitidine HCl 75 mg tablet 150 mg PO DAILY tab 08/12/19 09/02/20 albuterol sulfate 90 mcg/actuation 2 puff IH Q6H PRN #18 gm 08/13/19 09/02/20 aerosol inhaler hydroxyzine HCl 25 mg tablet 25 mg PO TID-QID PRN #90 tab 08/13/19 09/02/20 fluticasone 250 mcg-salmeterol 50 1 inh IH Q12H #60 each 08/28/19 09/02/20 mcg/dose blistr powdr for inhalation tiotropium bromide 18 mcg capsule 1 cap IH DAILY #90 inh 08/28/19 09/02/20 with inhalation device ondansetron HCl 4 mg tablet 4 mg PO Q8H PRN #90 tab 09/25/19 09/02/20 cyclobenzaprine 10 mg tablet 10 mg PO TID PRN #90 tab 04/08/20 09/02/20 trazodone 50 mg tablet 50 mg PO QHS #90 tab 04/08/20 09/02/20 methadone 10 mg/mL oral concentrate 30 mg PO DAILY ml 05/27/20 09/02/20 furosemide 20 mg PO DAILY 05/29/20 09/02/20 ibuprofen 800 mg PO Q8H PRN #30 tab 05/29/20 09/02/20 pregabalin 300 mg capsule 300 mg PO BID #56 cap 06/07/20 09/02/20 dexmethylphenidate 20 mg 20 mg PO BID #56 cap MDD 40 mg 07/26/20 09/02/20 capsule,extended release [id number] clonidine HCl 0.1 mg tablet 0.1 mg PO TID #90 tab 08/15/20 09/02/20 hydrocortisone [Proctosol HC] 1 applic DE QD-BID PRN #30 g 09/02/20 Previous Rx's Medication Instructions Recorded omeprazole 40 mg capsule,delayed 40 mg PO DAILY #90 cap 04/13/19 release citalopram 40 mg tablet 40 mg PO DAILY #90 tab 05/04/19 inhalational spacing device #1 each 06/30/19 albuterol sulfate 90 mcg/actuation 2 puff IH Q6H PRN #18 gm 08/13/19 aerosol inhaler hydroxyzine HCl 25 mg tablet 25 mg PO TID-QID PRN #90 tab 08/13/19 fluticasone 250 mcg-salmeterol 50 1 inh IH Q12H #60 each 08/28/19 mcg/dose blistr powdr for inhalation tiotropium bromide 18 mcg capsule 1 cap IH DAILY #90 inh 08/28/19 with inhalation device ondansetron HCl 4 mg tablet 4 mg PO Q8H PRN #90 tab 09/25/19 cyclobenzaprine 10 mg tablet 10 mg PO TID PRN #90 tab 04/08/20 trazodone 50 mg tablet 50 mg PO QHS #90 tab 04/08/20 ibuprofen 800 mg PO Q8H PRN #30 tab 05/29/20 pregabalin 300 mg capsule 300 mg PO BID #56 cap 06/07/20 dexmethylphenidate 20 mg 20 mg PO BID #56 cap MDD 40 mg 07/26/20 capsule,extended release [id number] clonidine HCl 0.1 mg tablet 0.1 mg PO TID #90 tab 08/15/20 hydrocortisone [Proctosol HC] 1 applic DE QD-BID PRN #30 g 09/02/20 Allergies Allergy/AdvReac Type Severity Reaction Status Date / Time lidocaine Allergy Intermediate Swelling/Ed Verified 09/02/20 06:36 rome procaine HCl [From Novocain] Allergy Intermediate Swelling/Ed Verified 09/02/20 06:36 rome Penicillins AdvReac Unknown Nausea Verified 09/02/20 06:36 control pills Allergy Severe hospitalize Uncoded 09/02/20 06:36 d General Stated Complaint: GenMedical THONG: 4 Review of Systems Narrative: As documented in HPI otherwise negative as below. Const: no fever, chills, weakness Resp: no cough, SOB, pleuritic pain CV: no CP, diaphoresis, edema, syncope GI: no abdominal pain, nausea, vomiting, diarrhea Neuro: no headache, numbness, focal weakness, confusion PFSH Medical History Abdominal rigidity ADHD Anxiety Asthma Carcinoma in situ of uterine cervix Carpal tunnel syndrome of right wrist Cervical intraepithelial neoplasia grade 2 Chronic back pain greater than 3 months duration (11/23/16) Chronic pelvic pain in female s/p hyst 2012 for cervical dysplasia. Pt reports chronic pelvic pain since that surgery. Daily headache Depression from previous record ? bipolar Elevated LFTs Family history of breast cancer in first degree relative Family history of colon cancer Family history of [place] (myocardial infarction) Family history of ovarian cancer Galactorrhea Gastroesophageal reflux disease without esophagitis (11/23/16) GERD (gastroesophageal reflux disease) Hepatic cirrhosis due to chronic hepatitis C infection Hepatitis C Hx of supraventricular tachycardia (11/23/16) Insomnia Irritable bowel syndrome Manifested as constipation Q3d. With meds has improved daily functioning. IV drug abuse Leg edema Memory loss Pelvic pain Plantar fasciitis, bilateral Polysubstance abuse Psychoactive substance abuse Substance abuse Seen in October 2017, cocaine abuse Tobacco use (11/23/16) Surgical History Colonoscopy - MAC (01/29/17) Endoscopy (12/14/13) Dx Esophagitis. Excision, Cervicle Lymph Nodes [place] [facility] [place] Z line abnl 37 cm from incisors,Grade A reflux esophagitis. Normal stomach and Duodenum. H/O laparoscopy (~09/14/13) for LLQ pain. Has PDS suture removed (from previous hysterectomy with USLS. Nl pelvis. Pt mentions second laparoscopy for pelvic pain. Not in [facility] records. History of section History of cholecystectomy History of pacemaker History of tonsillectomy and adenoidectomy (~07/05/11) S/P hysterectomy (09/27/15) Status post laparoscopic hysterectomy (~04/15/13) Total laparoscopic hysterectomy & laparoscopic UteroSacral Vaginal Vault suspensionfor uterine prolapse Family History Father Alcohol abuse Substance abuse Colon cancer Liver cancer Throat cancer Depression Diabetes Heart disease Hypertension Mother Asthma Breast cancer Cervical cancer Depression Hypertension Alcohol abuse Substance abuse Sister Alcohol abuse Substance abuse Depression Sister Alcohol abuse Substance abuse Depression Sister Alcohol abuse Substance abuse Depression Social History Smoking/Tobacco Use Status: Current every day Tobacco Type: cigarettes Smoking packs per day: 2 Smoking cigarettes per day: 40.0 Years smoked: 13 Smoking pack- years: 26.00 Tobacco: How many years used: 25 Smoking risk assessment performed?: Yes Alcohol Intake: current Alcohol Intake frequency: holidays/special occasions only Drug use: Current Sobriety Substance use type: marijuana, crack/cocaine, heroin and opiates Details: Methadone program History of IV Drug Use. Reports heroin use 4 days ago 08/29/2020. PT denies current use of cocaine, heroin, and opiates. 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 Working smoke detector in home: Yes Carbon monox detector in home: Yes Do you feel safe at home: Yes Do you feel safe in your relationship?: Yes Victim of physical abuse: No Victim of emotional abuse: No Victim of sexual abuse: No Would you like helpful sources: No Additional Social history: Goes to [facility] 2x week, counseling and womens group Exam Const General: cooperative and comfortable Orientation: alert and oriented x3 HENMT Head: normocephalic and atraumatic Resp Effort & Inspection: normal respiratory effort GI Rectal Exam - female: hemorrhoids and visual inspection abnormal visual inspection abnormal: hemorrhoids (with evidence of prior bleeding) Other: Exam done with female nurse present. Neuro General: patient alert, patient oriented x3, gait normal and no focal motor deficits Course Vital Signs Vital signs: Vital Signs Temperature 97.9 F 09/02/20 06:27 Pulse 85 09/02/20 06:27 Respiratory Rate 18 09/02/20 06:27 Blood Pressure 102/75 09/02/20 06:27 Pulse Oximetry 99 09/02/20 06:27 Temperature 97.9 F 09/02/20 06:27 Temperature Source Skin 09/02/20 06:27 Pulse 85 09/02/20 06:27 Respiratory Rate 18 09/02/20 06:38 Respiratory Effort Non-Labored 09/02/20 06:38 Respiratory Depth Normal 09/02/20 06:38 Respiratory Pattern Normal 09/02/20 06:38 Blood Pressure 102/75 09/02/20 06:27 Blood Pressure Position Sitting 09/02/20 06:27 Pulse Oximetry 99 09/02/20 06:27 Oxygen Delivery Method Room Air 09/02/20 06:27 Oxygen Flow Rate 0 09/02/20 06:27 Pain Level 4 09/02/20 06:27
== END 2020-09-02 07:03 | disposition home or self-care (01) ==
PROVIDERS: Emergency Provider Emergency Medicine; PCP Family Medicine
DX: K64.8 Other hemorrhoids (principal)
CPT/HCPCS: 99283

== ENCOUNTER 2020-11-27 09:38 | Emergency (ER) | payer MEDICAID, SELFPAY ==
--- NOTE | 2020-11-27 09:45 | DI.RAD_ITS ---
EXAM: XR ANKLE RT COMPLETE CLINICAL HISTORY: twist injury 3 days ago. TECHNIQUE: 2D digital imaging was performed. COMPARISON: CR XR ANKLE RT COMPLETE from 10/14/2018 FINDINGS: There is mild soft tissue swelling laterally. No fracture or widening of the mortise. Talar dome ap pears unremarkable. No obvious osseous tarsal coalition. IMPRESSION: DATA REPOSITORY: RADIATION DOSE DELIVERED:
[2020-11-27 09:46] VITALS: BP 111/76; PULSE 93; RESP 18; TEMP 36.6; O2SAT 95
--- NOTE | 2020-11-27 10:48 | W.ED.GENAD ---
Discharge Plan Disposition Patient Disposition: HOME Condition: Stable Discharge Details Clinical Impression: Right ankle pain Primary Care Provider: Zeyad Hall ED Provider: Guille Treviño Home Meds and New Rx's Prescriptions: Continued aripiprazole 5 mg tablet 5 mg PO DAILY RF: 0 (DME) BreatheRite MDI Spacer Spacer See Rx Instructions .ROUTE .MEDSUPPLY Qty: 1 RF: 0 fluticasone propion-salmeterol [Advair Diskus] 250-50 mcg/dose blister with device 1 inh IH Q12H Qty: 60 RF: 3 Spiriva with HandiHaler 18 mcg capsule, w/inhalation device 1 cap IH DAILY Qty: 90 RF: 3 cyclobenzaprine 10 mg tablet 10 mg PO TID PRN (Reason: muscle spasm) Qty: 90 RF: 3 trazodone 50 mg tablet 50 mg PO QHS Qty: 90 RF: 3 omeprazole 40 mg capsule,delayed release(DR/EC) 40 mg PO DAILY Qty: 90 RF: 3 psyllium husk 0.52 gram capsule 0.52 gm PO DAILY RF: 0 dexmethylphenidate [Focalin XR] 20 mg capsule,ER biphasic 50-50 20 mg PO BID MDD 40 mg Qty: 56 RF: 0 dexmethylphenidate [Focalin XR] 20 mg capsule,ER biphasic 50-50 20 mg PO BID MDD 40 mg Qty: 56 RF: 0 citalopram 40 mg tablet 40 mg PO DAILY Qty: 90 RF: 1 ranitidine HCl 75 mg tablet 150 mg PO DAILY RF: 0 albuterol sulfate [ProAir HFA] 90 mcg/actuation HFA aerosol inhaler 2 puff IH Q6H PRN (Reason: shortness of breath or wheezing) Qty: 18 RF: 6 hydroxyzine HCl 25 mg tablet 25 mg PO TID-QID PRN (Reason: itching) Qty: 90 RF: 3 clonidine HCl 0.1 mg tablet 0.1 mg PO TID Qty: 90 RF: 3 ondansetron HCl [Zofran] 4 mg tablet 4 mg PO Q8H PRN (Reason: nausea and vomiting) Qty: 90 RF: 3 pregabalin 300 mg capsule 300 mg PO BID Qty: 56 RF: 5 furosemide 20 mg tablet 20 mg PO DAILY RF: 0 ibuprofen 800 mg tablet 800 mg PO Q8H PRN (Reason: pain) Qty: 30 RF: 0 hydrocortisone [Proctosol HC] 2.5 % cream with perineal applicator 1 applic DE QD-BID PRNQty: 30 RF: 0 Discharge Instructions Instructions: Ankle Sprain (ED) Additional Instructions: X-ray reveals soft tissue swelling but no obvious fracture or dislocation. Rest, elevate, cool compresses every 2 hours for 20 minutes. Rstn-hfu-[id number] Tylenol and/or Motrin as directed for discomfort. Wear walking boot and use crutches as needed, advance activity as tolerated. Please watch for new or worsening symptoms and return to the ER for any concerns. Otherwise I recommend reaching out your orthopedic team tomorrow who is following your chronic ankle injuries to discuss outpatient reevaluation Medical Decision Making 37-year-old female presents for evaluation of ankle sprain 3 or 4 days ago. Reports history of the same. Clinically examination appears to be ankle sprain, low suspicion for acute bony abnormality. Given her multiple injuries and concerns will obtain x-ray X-ray read by radiology is unremarkable for acute bony pathology. There is lateral soft tissue swelling. MRI recommended and follow-up if symptoms have not improved Discussed x-ray findings with patient. Discussed disposition. Patient given a tall walking boot, crutches, and will follow up with orthopedics. Recommended resting, elevation, cool compresses. Fwsq-bdc-ctzrivq Tylenol and/or Motrin. Patient comfortable with this plan and has no additional questions or concerns. Standard discharge and return precautions given Medical Records Medical records reviewed: Yes I reviewed the patient's medical records. Imaging Data Radiologic Study: Attestation: I personally reviewed and interpreted this imaging study as follows: Imaging: X-Ray Radiologist's impression: Mild lateral soft tissue swelling without acute fracture or dislocation. Make consider follow-up in 7 to 10 days to correlate with MRI if symptoms persist HPI General Mode of arrival: ambulatory. Date/Time Provider Initiated Documentation: 11/27/20 09:53. Limitations to Documentation: no limitations. Information obtained by: patient. HPI Narrative: This is a 35-year-old female with past medical history of ADHD, anxiety, asthma, chronic back pain, headaches, depression, GERD, history of drug use, current smoker, multiple right ankle sprains. She states 3 or 4 days ago she was walking, stepped awkwardly twisting her ankle. She denies any other injuries. Reports the pain is moderate at rest, worse with movement or bearing weight. She is able to bear weight but this does cause her increased pain. She reports baseline nerve damage in that foot from previous ankle sprain, reports this is unchanged. Denies any numbness or weakness. Reports baseline tingling. She has not taken any fjck-hjs-iehnljq medication for her symptoms. At the time of the injury she was wearing an ankle brace given to her by her orthopedic team. Given her multiple previous ankle injuries and her symptoms not improving over the past few days she decided to come to the ER for evaluation Related Data Home Medications Medication Instructions Recorded Confirmed psyllium husk 0.52 gram capsule 0.52 gm PO DAILY 08/11/18 11/27/20 aripiprazole 5 mg tablet 5 mg PO DAILY 01/23/19 11/27/20 citalopram 40 mg tablet 40 mg PO DAILY #90 tab 05/04/19 11/27/20 inhalational spacing device #1 each 06/30/19 11/27/20 ranitidine HCl 75 mg tablet 150 mg PO DAILY tab 08/12/19 11/27/20 albuterol sulfate 90 mcg/actuation 2 puff IH Q6H PRN #18 gm 08/13/19 11/27/20 aerosol inhaler hydroxyzine HCl 25 mg tablet 25 mg PO TID-QID PRN #90 tab 08/13/19 11/27/20 fluticasone 250 mcg-salmeterol 50 1 inh IH Q12H #60 each 08/28/19 11/27/20 mcg/dose blistr powdr for inhalation tiotropium bromide 18 mcg capsule 1 cap IH DAILY #90 inh 08/28/19 11/27/20 with inhalation device cyclobenzaprine 10 mg tablet 10 mg PO TID PRN #90 tab 04/08/20 11/27/20 trazodone 50 mg tablet 50 mg PO QHS #90 tab 04/08/20 11/27/20 furosemide 20 mg PO DAILY 05/29/20 11/27/20 ibuprofen 800 mg PO Q8H PRN #30 tab 05/29/20 11/27/20 clonidine HCl 0.1 mg tablet 0.1 mg PO TID #90 tab 08/15/20 11/27/20 hydrocortisone [Proctosol HC] 1 applic DE QD-BID PRN #30 g 09/02/20 11/27/20 omeprazole 40 mg capsule,delayed 40 mg PO DAILY #90 cap 09/20/20 11/27/20 release dexmethylphenidate 20 mg 20 mg PO BID #56 cap MDD 40 mg 11/15/20 11/27/20 capsule,extended release [id number] dexmethylphenidate 20 mg 20 mg PO BID #56 cap MDD 40 mg 11/15/20 11/27/20 capsule,extended release [id number] ondansetron HCl 4 mg tablet 4 mg PO Q8H PRN #90 tab 11/22/20 11/27/20 pregabalin 300 mg capsule 300 mg PO BID #56 cap 11/22/20 11/27/20 Previous Rx's Medication Instructions Recorded citalopram 40 mg tablet 40 mg PO DAILY #90 tab 05/04/19 inhalational spacing device #1 each 06/30/19 albuterol sulfate 90 mcg/actuation 2 puff IH Q6H PRN #18 gm 08/13/19 aerosol inhaler hydroxyzine HCl 25 mg tablet 25 mg PO TID-QID PRN #90 tab 08/13/19 fluticasone 250 mcg-salmeterol 50 1 inh IH Q12H #60 each 08/28/19 mcg/dose blistr powdr for inhalation tiotropium bromide 18 mcg capsule 1 cap IH DAILY #90 inh 08/28/19 with inhalation device cyclobenzaprine 10 mg tablet 10 mg PO TID PRN #90 tab 04/08/20 trazodone 50 mg tablet 50 mg PO QHS #90 tab 04/08/20 ibuprofen 800 mg PO Q8H PRN #30 tab 05/29/20 clonidine HCl 0.1 mg tablet 0.1 mg PO TID #90 tab 08/15/20 hydrocortisone [Proctosol HC] 1 applic DE QD-BID PRN #30 g 09/02/20 omeprazole 40 mg capsule,delayed 40 mg PO DAILY #90 cap 09/20/20 release dexmethylphenidate 20 mg 20 mg PO BID #56 cap MDD 40 mg 11/15/20 capsule,extended release [id number] dexmethylphenidate 20 mg 20 mg PO BID #56 cap MDD 40 mg 11/15/20 capsule,extended release [id number] ondansetron HCl 4 mg tablet 4 mg PO Q8H PRN #90 tab 11/22/20 pregabalin 300 mg capsule 300 mg PO BID #56 cap 11/22/20 Allergies Allergy/AdvReac Type Severity Reaction Status Date / Time lidocaine Allergy Intermediate Swelling/Ed Verified 11/15/20 10:40 rome procaine HCl [From Novocain] Allergy Intermediate Swelling/Ed Verified 11/15/20 10:40 rome Penicillins AdvReac Unknown Nausea Verified 11/15/20 10:40 control pills Allergy Severe hospitalize Uncoded 11/15/20 10:40 d General Stated Complaint: Orthopedic THONG: 4 Review of Systems Constitutional Constitutional: Denies fever(s) Musculoskeletal Musculoskeletal: Reports arthralgias, Reports joint swelling, Denies numbness and Reports stiffness Integumentary/Breasts Skin/Breast: Denies erythema and Denies rash Neurologic Neurologic: Denies numbness PFSH Medical History Abdominal rigidity ADHD Anxiety Asthma Carcinoma in situ of uterine cervix Carpal tunnel syndrome of right wrist Cervical intraepithelial neoplasia grade 2 Chronic back pain greater than 3 months duration (11/23/16) Chronic pelvic pain in female s/p hyst 2012 for cervical dysplasia. Pt reports chronic pelvic pain since that surgery. Daily headache Depression from previous record ? bipolar Elevated LFTs Family history of breast cancer in first degree relative Family history of colon cancer Family history of AL (myocardial infarction) Family history of ovarian cancer Galactorrhea Gastroesophageal reflux disease without esophagitis (11/23/16) GERD (gastroesophageal reflux disease) Hepatic cirrhosis due to chronic hepatitis C infection Hepatitis C Hx of supraventricular tachycardia (11/23/16) Insomnia Irritable bowel syndrome Manifested as constipation Q3d. With meds has improved daily functioning. IV drug abuse Leg edema Memory loss Pelvic pain Plantar fasciitis, bilateral Polysubstance abuse Psychoactive substance abuse Substance abuse Seen in October 2017, cocaine abuse Tobacco use (11/23/16) Surgical History Colonoscopy - MAC (01/29/17) Endoscopy (12/14/13) Dx Esophagitis. Excision, Cervicle Lymph Nodes H/O endoscopy 06/11/[address] [facility] [place] Endoscopy Z line abnl 37 cm from incisors,Grade A reflux esophagitis. Normal stomach and Duodenum. H/O laparoscopy (~09/14/13) for LLQ pain. Has PDS suture removed (from previous hysterectomy with USLS. Nl pelvis. Pt mentions second laparoscopy for pelvic pain. Not in [facility] records. History of section History of cholecystectomy History of pacemaker History of tonsillectomy and adenoidectomy (~07/05/11) S/P hysterectomy (09/27/15) Status post laparoscopic hysterectomy (~04/15/13) Total laparoscopic hysterectomy & laparoscopic UteroSacral Vaginal Vault suspensionfor uterine prolapse Family History Father Alcohol abuse Substance abuse Colon cancer Liver cancer Throat cancer Depression Diabetes Heart disease Hypertension Mother Asthma Breast cancer Cervical cancer Depression Hypertension Alcohol abuse Substance abuse Sister Alcohol abuse Substance abuse Depression Sister Alcohol abuse Substance abuse Depression Sister Alcohol abuse Substance abuse Depression Social History Smoking/Tobacco Use Status: Current every day Tobacco Type: cigarettes Smoking packs per day: 2 Smoking cigarettes per day: 40.0 Years smoked: 13 Smoking pack-years: 26.00 Tobacco: How many years used: 25 Smoking risk assessment performed?: Yes Alcohol Intake: current Alcohol Intake frequency: holidays/special occasions only Drug use: Current Sobriety Substance use type: marijuana, crack/cocaine, heroin and opiates Details: Methadone program 11/27/20 report getting off methadone program. History of IV Drug Use. Reports heroin use 4 days ago 08/29/2020. PT denies current use of cocaine, heroin, and opiates. Household members: none Housing: apartment Number of Children: 3 Communication Needs: None current occupation: unemployed What is your relationship status?: How often do you talk on the phone with friends or family?: three or more times per week Panel score (0-1 are the most socially isolated patients): 1 What type of physical activity do you participate in: none Seatbelt use: always Drive intox or ride w/intox school bus driver/mechanic: No Working smoke detector in home: Yes Carbon monox detector in home: Yes Do you feel safe at home: Yes Do you feel safe in your relationship?: Yes Victim of physical abuse: No Victim of emotional abuse: No Victim of sexual abuse: No Would you like helpful sources: No Additional Social history: Goes to [facility] 2x week, counseling and womens group Exam Const General: cooperative, healthy appearing, comfortable and no acute distress Orientation: alert and awake [facility] Head: normal to inspection, normocephalic and atraumatic Eyes General: appearance normal, both eyes and all related structures Conjunctivae: conjunctivae normal Neck Neck: normal visual inspection, trachea midline and supple Resp Effort & Inspection: normal respiratory effort and able to speak in complete sentences Cardio Rate: regular rate Rhythm: regular rhythm Skin General skin exam: no rashes or lesions noted Neuro General: patient alert, patient awake, moves all extremities and no focal motor deficits Cognition: normal cognition Speech: speech normal Gait: antalgic Motor: muscle tone normal throughout Sensory Exam: no sensory deficits noted Extrem General: full ROM and capillary refill normal Other: Right lower extremity, hip, knee unremarkable. Calf unremarkable. Right ankle lateral aspect diffuse mild swelling and discomfort. There is no bony point tenderness, erythema, warmth or ecchymosis. Patient is able to fully dorsi and plantar flex. Patient able to wiggle all toes. Normal pedal pulse and capillary refills. Neuro, vascular, tendon intact. There is no discomfort over the base of the fifth metatarsal Psych Appearance: grossly normal Mental Status: mental status grossly normal Course Vital Signs Vital signs: Vital Signs Temperature 36.6 C 11/27/20 09:46 Pulse 93 H 11/27/20 09:46 Respiratory Rate 18 11/27/20 09:46 Blood Pressure 111/76 11/27/20 09:46 Pulse Oximetry 95 11/27/20 09:46 Temperature 36.6 C 11/27/20 09:46 Temperature Source Skin 11/27/20 09:46 Pulse 93 H 11/27/20 09:46 Respiratory Rate 18 11/27/20 09:46 Respiratory Effort Non-Labored 11/27/20 09:48 Blood Pressure 111/76 11/27/20 09:46 Blood Pressure Position Sitting 11/27/20 09:46 Pulse Oximetry 95 11/27/20 09:46 Oxygen Delivery Method Room Air 11/27/20 09:46 Oxygen Flow Rate 0 11/27/20 09:46 Pain Level 6 11/27/20 09:48
--- NOTE | 2020-11-27 11:13 | DI.VRAD_ITS ---
PROCEDURE INFORMATION: Exam: XR Right Ankle Exam date and time: 11/27/2020 10:51 AM Age: 35 years old Clinical indication: Other: Twist injury 3 days ago TECHNIQUE: Imaging protocol: XR Right ankle. Views: 3 or more views. COMPARISON: CR XR ANKLE RT COMPLETE 10/14/2018 11:08 AM FINDINGS: Bones/joints: No acute fracture or dislocation is identified. The ankle mortise is preserved on these nonstressed views. Soft tissues: There is mild soft tissue swelling laterally. IMPRESSION: Mild lateral soft tissue swelling without acute fracture or dislocation identified. May consider follow-up in 7 to 10 days or correlation with MRI if symptoms persist. Dictated and Authenticated by: Kaleb Sanchez MD. Ordering:[id number] Han MD
== END 2020-11-27 11:37 | disposition home or self-care (01) ==
PROVIDERS: Emergency Provider Physician Assistant; PCP Family Medicine
DX: S93.491A Sprain of other ligament of right ankle, initial encounter (principal); X58.XXXA Exposure to other specified factors, initial encounter
CPT/HCPCS: 29515; 99283; 73610

== ENCOUNTER 2020-12-28 13:56 | Emergency (ER) | payer MEDICAID, SELFPAY ==
[2020-12-28 13:56] VITALS: BP 118/79; PULSE 98; RESP 18; TEMP 36.9; O2SAT 96
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
[2020-12-28 14:43] LABS: Bilirubin Negative (Negative); Blood Large (Negative); Clarity Cloudy (Clear); Glucose Negative (Negative); Ketones Trace mg/dL (Negative); Leukocyte Esterase Negative (Negative); Nitrite Positive (Negative); Specific Gravity >= 1.030 (1.005-1.025); pH 6.5 (5-8)
[2020-12-28 14:52] LABS: *AMPHETAMINES SCREEN URINE Negative (Negative); *BARBITURATES SCREEN URINE Negative (Negative); *BENZODIAZEPINES SCREEN URINE Negative (Negative); Cannabinoids THC Negative (Negative); Cocaine Screen,Urine Negative (Negative); METHADONE URINE SCREEN Negative (Negative); OPIATES URINE SCREEN Negative (Negative)
[2020-12-28 14:53] LABS: Bacteria Many HPF (Negative); Crystals Negative HPF (Negative); Epithelial Cells Few HPF (Negative); Mucus Negative (Negative); Tricyclic Antidepressants Negative (Negative)
[2020-12-28 14:54] LABS: C & S Indicated? Yes; RBC >50 HPF (0-2)
--- NOTE | 2020-12-28 15:31 | NUR.NOTE ---
labs sent. patient sent back to waiting room. Nursing Note:
[2020-12-28 15:37] LABS: Abs Immature Grans 0.02 10^3/uL (0.0-0.06); Absolute Basophil Count 0.03 10^3/uL (0.0-0.2); Absolute Eosinophil Count 0.02 10^3/uL (0.0-0.7); Absolute Lymphocyte Count 3.93 10^3/uL (1.2-3.4); Absolute Monocyte Count 0.67 10^3/uL (0.1-0.8); Absolute Neutrophil Count 4.28 10^3/uL (1.2-6.7); Basophils % 0.3; Eosinophils % 0.2; HCT 42.7 % (36.0-46.0); HGB 14.6 g/dL (11.2-15.7); Immature Grans % 0.2; Lymphocytes % 43.9; MCH 29.4 pg (27.0-33.0); MCHC 34.2 % (32.0-36.0); MCV 85.9 fL (80-95); MPV 10.5 fL (8.0-11.0); Monocytes % 7.5; Neutrophils % 47.9; Nucleated RBC 0 %; Platelet Count 284 10^3/uL (130-400); RBC 4.97 10^6/uL (3.93-5.22); RDW 13.4 % (11.7-14.6); WBC 8.95 10^3/uL (4.4-10.8)
[2020-12-28 15:55] LABS: ALT 41 U/L (14-59); AST 27 U/L (15-37); Albumin 4.2 g/dL (3.4-5.0); Alkaline Phosphatase 160 U/L (46-116); Anion Gap 14.1 mmol/L (3-11); BUN 12 mg/dL (7-18); Bilirubin, Total 0.5 mg/dL (0.2-1.0); CO2 22.9 mmol/L (21.0-32.0); CREATININE 0.7 mg/dL (0.55-1.02); Calcium 9.7 mg/dL (8.5-10.1); Chloride 102 mmol/L (98-107); Glucose 122 mg/dL (74-106); Sodium 139 mmol/L (136-145); Total Protein 9.8 g/dL (6.4-8.2)
[2020-12-28] MEDS: Sulfameth/Trimeth DS TAB 1 TAB PO (17:07)
[2020-12-28 18:24] LABS: Acetaminophen < 2 ug/mL (10-30)
[2020-12-28 18:33] LABS: Salicylate 6.6 mg/dL (<2.8)
--- NOTE | 2020-12-28 20:12 | NUR.NOTE ---
stool samples not collected Nursing Note:
== END 2020-12-28 17:50 | disposition home or self-care (01) ==
PROVIDERS: Registered Nurse Emergency; Emergency Provider Physician Assistant; PCP Family Medicine
DX: N39.0 Urinary tract infection, site not specified (principal); B96.20 Unspecified Escherichia coli [E. coli] as the cause of diseases classified elsewhere; F11.10 Opioid abuse, uncomplicated
CPT/HCPCS: 80053; 80307; 87077; 99283; 80329; 81003; 81015; 85025; 87086; 87186

== ENCOUNTER 2021-05-27 08:40 | Emergency (ER) | payer MEDICAID, SELFPAY ==
[2021-05-27 08:42] VITALS: BP 110/79; PULSE 100; RESP 18; TEMP 36.8; O2SAT 96
--- NOTE | 2021-05-27 09:03 | ED.GENADUL_ITS ---
Discharge Plan Disposition Patient Disposition: HOME Condition: Improving Discharge Details Clinical Impression: Acute thoracic myofascial strain, Acute lumbar myofascial strain Primary Care Provider: Zeyad Hall ED Provider: Thao Santos Home Meds and New Rx's Prescriptions: New prednisone 20 mg tablet See Rx Instructions .ROUTE .COMPLEX Qty: 18 RF: 0 methocarbamol 500 mg tablet 500 mg PO Q6H PRN (Reason: muscle spasm) Qty: 14 RF: 0 Continued trazodone 50 mg tablet 50 mg PO QHS Qty: 90 RF: 3 psyllium husk 0.52 gram capsule 0.52 gm PO DAILY RF: 0 citalopram 40 mg tablet 40 mg PO DAILY Qty: 90 RF: 3 aripiprazole 5 mg tablet 5 mg PO DAILY Qty: 90 RF: 3 Spiriva with HandiHaler 18 mcg capsule, w/inhalation device 1 cap IH DAILY Qty: 90 RF: 3 hydroxyzine HCl 25 mg tablet 25 mg PO TID-QID PRN (Reason: itching) Qty: 90 RF: 3 furosemide 20 mg tablet 20 mg PO DAILY Qty: 90 RF: 3 hydrocortisone [Proctosol HC] 2.5 % cream with perineal applicator 1 applic [place] QD-BID PRN (Reason: itching) Qty: 30 RF: 6 pregabalin 300 mg capsule 300 mg PO BID Qty: 56 RF: 5 ranitidine HCl 75 mg tablet 150 mg PO DAILY RF: 0 ondansetron HCl [Zofran] 4 mg tablet 4 mg PO Q8H PRN (Reason: nausea and vomiting) Qty: 90 RF: 3 albuterol sulfate [ProAir HFA] 90 mcg/actuation HFA aerosol inhaler 2 puff IH Q6H PRN (Reason: shortness of breath or wheezing) Qty: 18 RF: 6 cyclobenzaprine 10 mg tablet 10 mg PO TID PRN (Reason: muscle spasm) Qty: 90 RF: 3 fluticasone propion-salmeterol [Advair Diskus] 250-50 mcg/dose blister with device 1 inh IH Q12H Qty: 60 RF: 3 ibuprofen 800 mg tablet 800 mg PO Q8H PRN (Reason: pain) Qty: 30 RF: 0 (DME) BreatheRite MDI Spacer Spacer See Rx Instructions .ROUTE .MEDSUPPLY Qty: 1 RF: 0 omeprazole 40 mg capsule,delayed release(DR/EC) 40 mg PO DAILY Qty: 90 RF: 3 clindamycin HCl 300 mg capsule 300 mg PO TID RF: 0 atomoxetine [Strattera] 40 mg capsule 40 mg PO DAILY Qty: 30 RF: 1 clonidine HCl 0.1 mg tablet 0.1 mg PO TID Qty: 90 RF: 1 Discharge Instructions Instructions: Low Back Strain (ED), Thoracic Back Strain (ED) Additional Instructions: Apply ice to the affected area several times daily for 20 minutes at a time. Alternate tylenol and motrin as needed and directed for pain. Prescriptions for the steroid prednisone and the muscle relaxer methocarbamol have been sent electronically to your pharmacy. Follow-up with your primary care doctor in 1 week. Return to the emergency department with any worsening or new concerning symptoms. Discharge Data Discharge Physician: Thao Santos Medical Decision Making 0850 -- 35yo F w/ a h/o IV drug abuse in remission, ADHD, anxiety, depression, gerd, cervical cancer with h/o hysterectomy presents for 6 days of back pain after carrying heavy groceries days before. No cauda equina symptoms. No radiculopathy. Pt is crying and appears uncomfortable. Pain is reproducible with movement and palpation. No cellulitis or trauma to back. No focal deficits. Abd soft and nontender. Appears c/w muscle strain, exacerbation of chronic back/DDD. Will give a dose of PO steroids and muscle relaxers and reassess. 1025 -- patient reassessed and she is still crying and denies any relief in pain. Will give a dose of Toradol and Norflex IM and oxycodone p.o. and reassess. 1300 --delay in disposition due to high volume and acuity in the ED. Patient feels much better and feels good to go home. She appears much more comfortable. Prescriptions for steroids and muscle axis and electronically to her pharmacy. Advised to follow up with the primary care doctor for re-evaluation. Usual and customary return precautions given prior to discharge. Medical Records Medical records reviewed: Yes I reviewed the patient's medical records. HPI General Mode of arrival: ambulatory . Date/Time Provider Initiated Documentation: 05/27/21 10:22 . Limitations to Documentation: no limitations . Information obtained by: patient . HPI Narrative: Pt is a 35yo F w/ a h/o IV drug abuse in remission, ADHD, anxiety, depression, gerd, cervical cancer with h/o hysterectomy presents for 6 days of back pain. She states she was carrying heavy groceries prior to onset of pain. Pt states the pain started as left sided neck pain and then radiated down the left side of her upper back and now the pain is resolved in her neck and has radiated down from her b/l upper back down to her b/l lower back. She states the pain is worse with movement. She has been taking tylenol and ibuprofen without relief. She states she last took tylenol and ibuprofen 1 hour ago. She denies fever, chest pain, difficulty breathing, bowel or bladder incontinence, urinary symptoms, saddle anesthesia, leg pain, numbness or weakness. Pt states she has lyrica at home which she takes for her fibromyaglia but hasn't taken her meds for a few days because she was at her boyfriend's house. Related Data Home Medications Medication Instructions Recorded Confirmed psyllium husk 0.52 gram capsule 0.52 gm PO DAILY 08/11/18 05/27/21 ranitidine HCl 75 mg tablet 150 mg PO DAILY tab 08/12/19 05/27/21 trazodone 50 mg tablet 50 mg PO QHS #90 tab 04/08/20 05/27/21 ondansetron HCl 4 mg tablet 4 mg PO Q8H PRN #90 tab 11/22/20 05/27/21 albuterol sulfate 90 mcg/actuation 2 puff IH Q6H PRN #18 gm 12/29/20 05/27/21 aerosol inhaler cyclobenzaprine 10 mg tablet 10 mg PO TID PRN #90 tab 12/29/20 05/27/21 fluticasone 250 mcg-salmeterol 50 1 inh IH Q12H #60 each 12/29/20 05/27/21 mcg/dose blistr powdr for inhalation ibuprofen 800 mg tablet 800 mg PO Q8H PRN #30 tab 12/29/20 05/27/21 inhalational spacing device #1 each 12/29/20 omeprazole 40 mg capsule,delayed 40 mg PO DAILY #90 cap 12/29/20 05/27/21 release aripiprazole 5 mg tablet 5 mg PO DAILY #90 tab 01/06/21 05/27/21 citalopram 40 mg tablet 40 mg PO DAILY #90 tab 01/06/21 05/27/21 furosemide 20 mg tablet 20 mg PO DAILY #90 tab 01/06/21 05/27/21 hydrocortisone 2.5 % topical cream 1 applic AZ QD-BID PRN #30 g 01/06/21 05/27/21 with perineal applicator hydroxyzine HCl 25 mg tablet 25 mg PO TID-QID PRN #90 tab 01/06/21 05/27/21 pregabalin 300 mg capsule 300 mg PO BID #56 cap 01/06/21 05/27/21 tiotropium bromide 18 mcg capsule 1 cap IH DAILY #90 inh 01/06/21 05/27/21 with inhalation device clindamycin HCl 300 mg capsule 300 mg PO TID 03/23/21 atomoxetine 40 mg capsule 40 mg PO DAILY #30 cap 05/11/21 05/27/21 clonidine HCl 0.1 mg tablet 0.1 mg PO TID #90 tab 05/11/21 05/27/21 methocarbamol 500 mg PO Q6H PRN #14 tab 05/27/21 prednisone See Rx Instructions .ROUTE 05/27/21 .COMPLEX #18 tab Previous Rx's Medication Instructions Recorded trazodone 50 mg tablet 50 mg PO QHS #90 tab 04/08/20 ondansetron HCl 4 mg tablet 4 mg PO Q8H PRN #90 tab 11/22/20 albuterol sulfate 90 mcg/actuation 2 puff IH Q6H PRN #18 gm 12/29/20 aerosol inhaler cyclobenzaprine 10 mg tablet 10 mg PO TID PRN #90 tab 12/29/20 fluticasone 250 mcg-salmeterol 50 1 inh IH Q12H #60 each 12/29/20 mcg/dose blistr powdr for inhalation ibuprofen 800 mg tablet 800 mg PO Q8H PRN #30 tab 12/29/20 inhalational spacing device #1 each 12/29/20 omeprazole 40 mg capsule,delayed 40 mg PO DAILY #90 cap 12/29/20 release aripiprazole 5 mg tablet 5 mg PO DAILY #90 tab 01/06/21 citalopram 40 mg tablet 40 mg PO DAILY #90 tab 01/06/21 furosemide 20 mg tablet 20 mg PO DAILY #90 tab 01/06/21 hydrocortisone 2.5 % topical cream 1 applic AZ QD-BID PRN #30 g 01/06/21 with perineal applicator hydroxyzine HCl 25 mg tablet 25 mg PO TID-QID PRN #90 tab 01/06/21 pregabalin 300 mg capsule 300 mg PO BID #56 cap 01/06/21 tiotropium bromide 18 mcg capsule 1 cap IH DAILY #90 inh 01/06/21 with inhalation device atomoxetine 40 mg capsule 40 mg PO DAILY #30 cap 05/11/21 clonidine HCl 0.1 mg tablet 0.1 mg PO TID #90 tab 05/11/21 methocarbamol 500 mg PO Q6H PRN #14 tab 05/27/21 prednisone See Rx Instructions .ROUTE 05/27/21 .COMPLEX #18 tab Allergies Allergy/AdvReac Type Severity Reaction Status Date / Time lidocaine Allergy Intermediate Swelling/Ed Verified 05/27/21 08:45 rome procaine HCl [From Novocain] Allergy Intermediate Swelling/Ed Verified 05/27/21 08:45 rome Penicillins AdvReac Unknown Nausea Verified 05/27/21 08:45 control pills Allergy Severe hospitalize Uncoded 05/27/21 08:45 d General Stated Complaint: Nk/Back Pain THONG: 4 Review of Systems All systems reviewed & are unremarkable except as noted in HPI and below Constitutional Constitutional: Reports as per HPI, Denies chills and Denies fever(s) Eyes Eyes: Denies blurry vision ENT Ears, Nose, Mouth, and Throat: Denies dizziness, Denies sore throat and Denies throat swelling Cardiovascular Cardiovascular: Denies chest pain and Denies dyspnea Respiratory Respiratory: Denies cough and Denies dyspnea Gastrointestinal Gastrointestinal: Denies abdominal pain, Denies diarrhea and Denies vomiting Genitourinary Genitourinary: Denies hematuria and Denies dysuria Musculoskeletal Musculoskeletal: Reports back pain and Denies numbness Integumentary/Breasts Skin/Breast: Denies lesions and Denies rash Neurologic Neurologic: Denies dizziness, Denies localized weakness and Denies numbness Allergic/Immunologic Allergic/Immunologic: Denies throat swelling PFSH Medical History Abdominal rigidity ADHD Anxiety Asthma Carcinoma in situ of uterine cervix Carpal tunnel syndrome of right wrist Cervical intraepithelial neoplasia grade 2 Chronic back pain greater than 3 months duration (11/23/16) Chronic pelvic pain in female s/p hyst 2012 for cervical dysplasia. Pt reports chronic pelvic pain since that surgery. Daily headache Depression from previous record ? bipolar Elevated LFTs Family history of breast cancer in first degree relative Family history of colon cancer Family history of GA (myocardial infarction) Family history of ovarian cancer Galactorrhea Gastroesophageal reflux disease without esophagitis (11/23/16) GERD (gastroesophageal reflux disease) Hepatic cirrhosis due to chronic hepatitis C infection Hepatitis C Hx of supraventricular tachycardia (11/23/16) Insomnia Irritable bowel syndrome Manifested as constipation Q3d. With meds has improved daily functioning. IV drug abuse Leg edema Memory loss Pelvic pain Plantar fasciitis, bilateral Polysubstance abuse Psychoactive substance abuse Substance abuse Seen in October 2017, cocaine abuse Tobacco use (11/23/16) Surgical History Colonoscopy - MAC (01/29/17) Endoscopy (12/14/13) Dx Esophagitis. Excision, Cervicle Lymph Nodes H/O endoscopy 06/11/19 [facility] [place] Endoscopy Z line abnl 37 cm from incisors,Grade A reflux esophagitis. Normal stomach and Duodenum. H/O laparoscopy (~09/14/13) for LLQ pain. Has PDS suture removed (from previous hysterectomy with USLS. Nl pelvis. Pt mentions second laparoscopy for pelvic pain. Not in [facility] records. History of section History of cholecystectomy History of pacemaker History of tonsillectomy and adenoidectomy (~07/05/11) S/P hysterectomy (09/27/15) Status post laparoscopic hysterectomy (~04/15/13) Total laparoscopic hysterectomy & laparoscopic UteroSacral Vaginal Vault suspensionfor uterine prolapse Family History Father Alcohol abuse Substance abuse Colon cancer Liver cancer Throat cancer Depression Diabetes Heart disease Hypertension Mother Asthma Breast cancer Cervical cancer Depression Hypertension Alcohol abuse Substance abuse Sister Alcohol abuse Substance abuse Depression Sister Alcohol abuse Substance abuse Depression Sister Alcohol abuse Substance abuse Depression Social History (Updated 01/06/21 @ 14:42 by Britt Kinney RN) Smoking/Tobacco Use Status: Current every day Tobacco Type: cigarettes Smoking packs per day: 2 Smoking cigarettes per day: 40.0 Years smoked: 13 Smoking pack- years: 26.00 Tobacco: How many years used: 25 Smoking risk assessment performed?: Yes Alcohol Intake: current Alcohol Intake frequency: holidays/special occasions only Drug use: Current Sobriety Substance use type: marijuana Details: Methadone program 11/27/20 report getting off methadone program. History of IV Drug Use. Reports heroin use 4 days ago 08/29/2020. PT denies current use of cocaine, heroin, and opiates. Household members: none Housing: apartment Number of Children: 3 Communication Needs: None current occupation: unemployed What is your relationship status?: How often do you talk on the phone with friends or family?: three or more times per week Panel score (0-1 are the most socially isolated patients): 1 What type of physical activity do you participate in: none Seatbelt use: always Drive intox or ride w/intox skidder driver: No Working smoke detector in home: Yes Carbon monox detector in home: Yes Do you feel safe at home: Yes Do you feel safe in your relationship?: Yes Victim of physical abuse: No Victim of emotional abuse: No Victim of sexual abuse: No Would you like helpful sources: No Additional Social history: Goes to [facility] 2x week, counseling and womens group Exam Const General: cooperative, healthy appearing, uncomfortable and no acute distress Orientation: alert, awake and oriented x3 HENMT Head: normal to inspection Face and sinus: normal facial exam Eyes General: appearance normal, both eyes and all related structures EOM: EOM intact bilaterally Neck Neck: normal visual inspection and No submandibular swelling Lymphatic: no lymphadenopathy noted Chest Chest: normal inspection of the chest and no tenderness Resp Effort & Inspection: normal respiratory effort and able to speak in complete sentences Auscultation: clear to auscultation bilaterally Cardio Rate: regular rate Rhythm: regular rhythm GI Inspection: normal to inspection Palpation: soft, not firm, not rigid and nontender Auscultation: normal bowel sounds Back/Spine/Pelvis Thoracic/Lumbar Spine: thoracic and lumbar spine normal to inspection and paraspinal tenderness (b/l thoracic and lumbar) Pelvis: no pain with anterior-posterior compression Skin General skin exam: no rashes or lesions noted Neuro General: patient alert, patient awake and patient oriented x3 Cognition: normal cognition Speech: speech normal Motor: muscle tone normal throughout and strength 5/5 throughout Sensory Exam: no sensory deficits noted DTR's: Rt Patellar: 0, Lt Patellar: 0, Rt Ankle: 0 and Lt Ankle: 0 Plantar Reflexes: Equivocal: bilateral (negative babinski b/l ) Extrem General: normal to inspection, full ROM, capillary refill normal, no calf tenderness bilaterally and no edema Psych Appearance: grossly normal Mental Status: mental status grossly normal Speech and Movement: speech and movement normal Affect: normal affect Course Vital Signs Vital signs: Vital Signs Temperature 98.2 F 05/27/21 08:42 Pulse 100 H 05/27/21 08:42 Respiratory Rate 18 05/27/21 08:42 Blood Pressure 110/79 05/27/21 08:42 Pulse Oximetry 96 05/27/21 08:42 Temperature 98.2 F 05/27/21 08:42 Temperature Source Temporal Artery Scan 05/27/21 08:42 Pulse 100 H 05/27/21 08:42 Respiratory Rate 18 05/27/21 08:42 Respiratory Effort Non-Labored 05/27/21 08:50 Blood Pressure 110/79 05/27/21 08:42 Pulse Oximetry 96 05/27/21 08:42 Oxygen Delivery Method Room Air 05/27/21 08:42 Oxygen Flow Rate 0 05/27/21 08:42 Pain Level 9 05/27/21 08:42 PAWSS Have you Been Recently Intoxicated or Drunk Within the Last 30 days?: No Have you Ever Experienced Previous Episodes of Alcohol Withdrawal?: Yes Have you ever Experienced Withdrawal Seizures?: Yes Have you ever Experienced Delirium Tremens(DT)s?: Yes Have you ever undergone Alcohol Rehabilitation Treatment (i.e, inpt ot outpatient treatment programs)?: Yes Have you ever Experienced Blackouts?: Yes Have you ever Combined Alcohol with other Downers within the last 90 days?: Yes Have you ever Combined Alcohol with any other Substance of Abuse during the last 90 days?: Yes Positive Blood Alcohol level on Presentation? [PCS.BAL]: No Evidence of Increased Autonomic Activity (i.e. HR>120, tremor, sweating, agitation, nausea)?: No Result: 7
[2021-05-27] MEDS: diazePAM 5 MG TAB PO (09:09)
[2021-05-27] MEDS: predniSONE 20 MG TAB 60 MG PO (09:09)
[2021-05-27] MEDS: Ketorolac 30 MG/ML VIAL IVP (10:39)
[2021-05-27] MEDS: Orphenadrine 60 MG/2 ML VIAL IM (10:40)
[2021-05-27] MEDS: oxyCODONE 5 MG TAB PO (10:51)
[2021-05-27] MEDS: Promethazine 25 MG TAB PO (11:07)
[2021-05-27 11:51] VITALS: RESP 17
[2021-05-27 13:24] VITALS: BP 104/56; PULSE 75; RESP 18; TEMP 36.5; O2SAT 98
== END 2021-05-27 13:28 | disposition home or self-care (01) ==
PROVIDERS: Emergency Provider Physician Assistant; PCP Family Medicine
DX: S29.012A Strain of muscle and tendon of back wall of thorax, initial encounter (principal); S39.012A Strain of muscle, fascia and tendon of lower back, initial encounter; X50.0XXA Overexertion from strenuous movement or load, initial encounter
CPT/HCPCS: 96372; 96374; 99284; J2360; 99283; J1885; J7512

== ENCOUNTER 2021-08-24 01:11 | Outpatient (CLI) | payer MEDICAID, SELFPAY ==
--- OUTSIDE RECORDS SUMMARY | 2021-08-16 01:13 | XMS_ITS ---
:1985 Author Care Team Providers Name Role Phone Kimberly Robles Primary Care Provider Unavailable Allergies Code Code System Name Reaction Severity Status Onset 6387 RxNorm Lidocaine ? ? Active ? Penicillins ? ? Active ? Notes: control pills Medications Name Status Start Date Stop Date ? ? Advair Diskus Active 03/27/2021 Not available albuterol sulfate Active 03/27/2021 Not available clonidine Active 03/27/2021 Not available hydroxyzine HCl Active 03/27/2021 Not available Lyrica Active 03/27/2021 Not available Suboxone 2 mg-0.5 mg sublingual film Active ? Not available Place 1 film every day by sublingual route for 7 days. Suboxone 8 mg-2 mg sublingual film Active ? Not available Place 1 film every day by sublingual route for 7 days. Problems Name Status Onset Date Source ? Anxiety Active 03/27/2021 History Alcoholism Active 03/27/2021 History Opioid Dependence Active 03/27/2021 History Nicotine Dependence Active 03/27/2021 History Cocaine Abuse Active 03/27/2021 History Depressive Disorder Active 03/27/2021 History Attention Deficit Hyperactivity Active 03/27/2021 History Disorder Chronic Pain Active 03/27/2021 History Asthma Active 03/27/2021 History Degeneration of Intervertebral Disc Active 03/27/2021 History Fibromyalgia Active 03/27/2021 History Procedures None recorded. Results Lab Results None recorded. Past Encounters 03/27/2021 JAYME Villalta: [id number] [facility], [place] [address], Ph. Social History None recorded. Vaccine List Notes: Counseling: none at this time Plan of Care Reminders Provider Appointments None ? ? recorded. Lab None ? ? recorded. Referral None ? ? recorded. Procedures None ? ? recorded. Surgeries None ? ? recorded. Imaging None ? ? recorded. Vitals Weight Blood Pressure 166 lbs 118/68 mm[Hg]
--- OUTSIDE RECORDS SUMMARY | 2021-08-16 01:13 | XMS_ITS ---
:1985 Author Care Team Providers Name Role Phone Kimberly Robles Primary Care Provider Unavailable Allergies Code Code System Name Reaction Severity Status Onset 6370 RxNorm Lidocaine ? ? Active ? Penicillins ? ? Active ? Notes: control pills Medications Name Status Start Date Stop Date ? ? Advair Diskus Active ? Not available albuterol sulfate Active ? Not available clonidine Active ? Not available hydroxyzine HCl Active ? Not available Lyrica Active ? Not available Suboxone 2 mg-0.5 mg sublingual film Active ? Not available Place 1 film every day by sublingual route for 7 days. Suboxone 8 mg-2 mg sublingual film Active ? Not available Place 1 film every day by sublingual route for 7 days. Problems Name Status Onset Date Source ? Anxiety Active 03/27/2021 ? Alcoholism Active 03/27/2021 ? Opioid Dependence Active 03/27/2021 ? Nicotine Dependence Active 03/27/2021 ? Cocaine Abuse Active 03/27/2021 ? Depressive Disorder Active 03/27/2021 ? Attention Deficit Hyperactivity Disorder Active 021 ? Chronic Pain Active 03/27/2021 ? Asthma Active 03/27/2021 ? Degeneration of Intervertebral Disc Active 03/27/2021 ? Fibromyalgia Active 03/27/2021 ? Procedures Date Name Performed by ? ? Excision of Lymph Node Information not a vailable ? Cholecystectomy Information not avai lable ? Partial Hysterectomy Information not jessica ilable Results Lab Results Date Name Specimen Result Interpretation Description Value Range Status Address ? 03/27/2021 Drug UR ? Amphetamines negative NG/mL 1,000 Final [place] Screen, NG/mL Health: Urine [address], [place] ? ? UR ? Benzodiazapines negative NG/mL 200 Final [place] NG/mL Health: [address], [place] ? ? UR ? Buprenorphine positive NG/mL 5 F inal [place] NG/mL Health: [address], [place] ? ? UR ABNORMAL Cocaine positive NG/mL 150 Final [place] Metabolite NG/mL Health : [address], [place] ? ? UR ? Opiates negative NG/mL 300 Final [place] NG/mL Health: [address], [place] ? ? UR ? Oxycodone negative NG/mL 300 Final [place] NG/mL Health: [address], [place] ? ? UR ABNORMAL Fentanyl positive NG/mL 2 Lexie l [place] NG/mL Health: [address], [place] ? ? UR ? Ethyl Alcohol negative mg/dL 10 F inal [place] mg/dL Health: [address], [place] ? ? UR ? Methadone negative NG/mL 300 Final [place] Metabolite NG/mL Health : [address], [place] ? ? UR ? Urine Creatinine 196.2 mg/dL >20 F inal [place] mg/dL Health: [address], [place] ? ? UR ? Urine pH 6.40 4.5-9. Final [place] 0 Health: [address], [place] ? ? UR ? Specific [place] 1.015 1.003- Final [place] 1.035 Health: [address] 03/27/2021 Drug UR ? Buprenorphine 75.6 NG/mL 20 F inal [facility] Confirma NG/mL Health: tion, 12 [address], [place] ? ? UR ? Norbuprenorphine 145.3 NG/mL 50 F inal [place] NG/mL Health: [address], [place] ? ? UR ? 6-Acetylmorphine negative NG/mL 10 Final [place] NG/mL Health: [address], [place] ? ? UR ? Codeine negative NG/mL 50 Final [place] NG/mL Health: [address], [place] ? ? UR ? Hydrocodone negative NG/mL 50 Fin al [place] NG/mL Health: [address], [place] ? ? UR ? Hydromorphone negative NG/mL 50 F inal [place] NG/mL Health: [address], [place] ? ? UR ? Morphine negative NG/mL 50 Final [place] NG/mL Health: [address], [place] ? ? UR ? Norhydrocodone negative NG/mL 100 Final [place] NG/mL Health: [address], [place] ? ? UR ? Noroxycodone negative NG/mL 50 Fi nal [place] NG/mL Health: [address], [place] ? ? UR ? Oxycodone negative NG/mL 25 Final [place] NG/mL Health: [address], [place] ? ? UR ? Oxymorphone negative NG/mL 100 Fin al [place] NG/mL Health: [address], [place] ? ? UR High Fentanyl 42.2 NG/mL 20 Final [place] khris NG/mL Health: [address], [place] ? ? UR High Norfentanyl 502.4 NG/mL 20 Final [place] NG/mL Health: [address], [place] ? ? UR High Benzoylecgonine olr(>2000) 100 Fin al [place] NG/mL NG/mL Health: [address], [place] ? ? UR ? Amphetamine negative NG/mL 250 Fin al [place] NG/mL Health: [address], [place] ? ? UR ? Methamphetamine negative NG/mL 250 Final [place] NG/mL Health: [address], [place] ? ? UR ? Mda negative NG/mL 250 Final Sa saritha NG/mL Health: [address], [place] ? ? UR ? Alpha-hydroxyalp negative NG/mL 25 Final [place] razolam NG/mL Health: [address], [place] ? ? UR ? 7-Aminoclonazepa negative NG/mL 40 Final [facility] m NG/mL Health: [address], [place] ? ? UR ? Diazepam negative NG/mL 50 Final [place] NG/mL Health: [address], [place] ? ? UR ? Lorazepam negative NG/mL 50 Final [place] NG/mL Health: [address], [place] ? ? UR ? Nordiazepam negative NG/mL 50 Fin al [place] NG/mL Health: [address], [place] ? ? UR ? Temazepam negative NG/mL 50 Final [place] NG/mL Health: [address], [place] ? ? UR ? Methadone negative NG/mL 250 Final [place] NG/mL Health: [address], [place] ? ? UR ? Eddp negative NG/mL 100 Final Sa saritha NG/mL Health: [address], [place] ? ? UR ? Normeperidine negative NG/mL 100 F inal [place] NG/mL Health: [address], [place] ? ? UR ? Tramadol negative NG/mL 100 Final [place] NG/mL Health: [address], [place] ? ? UR ? Legend abbreviations ? Final Sa saritha Health: [address] Past Encounters 03/27/2021 Opioid Dependence; Nicotine Dependence JAYME Villalta: [address] [place] [phone], Ph. Social History Tobacco Smoking Status Heavy Tobacco Smoker (1 pack per day) Vaccine List Notes: Counseling: none at this time Plan of Care Patient Instructions Abstain from opiates for 24 hours unless directed by provider; > If already taking buprenorphine, do not take a dose the day of the induction until you are in the office with your provider; &g t; Comfort medications were recommended. If accepted, please take as prescribed to support your ability to abstain from opiates until your buprenorphine induction; > Keep your buprenorphine RX packa ge closed until you are seen by your pro vider for induction unless otherwise directed; If you have problems abstaining from opiates, please call the office. As part of your individualized treatmen t plan and program requirement, you will need to bring your correct prescription bottle and all used and unused medication and counseling verification to each magdy ointment; > Agree to participate in cou nseling and bring counseling verification to each appointment; > Agree to present for random visits; > Agree to not falsify your urine specimens. Reminders Provider Appointments None recorded. ? ? Lab None recorded. ? ? Referral None recorded. ? ? Procedures None recorded. ? ? Surgeries None recorded. ? ? Imaging None recorded. ? ? Vitals Weight Blood Pressure 166 lbs 118/68 mm[Hg]
--- OUTSIDE RECORDS SUMMARY | 2021-08-21 00:32 | XMS_ITS ---
[...] recorded. Past Encounters 03/27/2021 JAYME Villalta: [address] [facility], [place] [phone], Ph. Social History None recorded. Vaccine List Notes: Counseling: none at this time Plan of Care Reminders Provider Appointments None ? ? recorded. Lab None ? ? recorded. Referral None ? ? recorded. Procedures None ? ? recorded. Surgeries None ? ? recorded. Imaging None ? ? recorded. Vitals Weight Blood Pressure 166 lbs 118/68 mm[Hg]
--- OUTSIDE RECORDS SUMMARY | 2021-08-21 00:32 | XMS_ITS ---
:1985 Author Care Team Providers Name Role Phone Kimberly Robles Primary Care Provider Unavailable Allergies Code Code System Name Reaction Severity Status Onset 6393 RxNorm Lidocaine ? ? Active ? Penicillins [...] Screen, NG/mL Health: Urine [address], [place] ? ? UR ? Benzodiazapines negative NG/mL 200 Final [place] NG/mL Health: [address], [place] ? ? UR ? Buprenorphine positive NG/mL 5 F inal [place] NG/mL Health: [address], [place] ? ? UR ABNORMAL Cocaine positive NG/mL 150 Final [place] Metabolite NG/mL Health : [address], [place] ? ? UR ? Opiates negative NG/mL 300 Final [place] NG/mL Health: [address], [place] ? ? UR ? Oxycodone negative NG/mL 300 Final [place] NG/mL Health: [address], [place] ? ? UR ABNORMAL Fentanyl positive NG/mL 2 Lexie l [place] NG/mL Health: [address], [place] ? ? UR ? Ethyl Alcohol negative mg/dL 10 F inal [place] mg/dL Health: [address], [place] ? ? UR ? Methadone negative NG/mL 300 Final [place] Metabolite NG/mL Health : [address], [place] ? ? UR ? Urine Creatinine 196.2 mg/dL >20 F inal [place] mg/dL Health: [address], [place] ? ? UR ? Urine pH 6.40 4.5-9. Final [place] 0 Health: [address], [place] ? ? UR ? Specific [place] 1.015 1.003- Final [place] 1.035 Health: [address] 03/27/2021 Drug UR ? Buprenorphine 75.6 NG/mL 20 F inal [place] Confirma NG/mL Health: tion, 12 [address], [place] ? ? UR ? Norbuprenorphine 145.3 NG/mL 50 F inal [place] NG/mL Health: [address], [place] ? ? UR ? 6-Acetylmorphine negative NG/mL 10 Final [place] NG/mL Health: [address], [place] ? ? UR ? Codeine negative NG/mL 50 Final [place] NG/mL Health: [address], [place] ? ? UR ? Hydrocodone negative NG/mL 50 Fin al [place] NG/mL Health: [address], [place] ? ? UR ? Hydromorphone negative NG/mL 50 F inal [place] NG/mL Health: [address], [place] ? ? UR ? Morphine negative NG/mL 50 Final [place] NG/mL Health: [address], [place] ? ? UR ? Norhydrocodone negative NG/mL 100 Final [place] NG/mL Health: [address], [place] ? ? UR ? Noroxycodone negative NG/mL 50 Fi nal [place] NG/mL Health: [address], [place] ? ? UR ? Oxycodone negative NG/mL 25 Final [place] NG/mL Health: [address], [place] ? ? UR ? Oxymorphone negative NG/mL 100 Fin al [place] NG/mL Health: [address], [place] ? ? UR High Fentanyl 42.2 NG/mL 20 Final Alfa khris NG/mL Health: [address], [place] ? ? UR High Norfentanyl 502.4 NG/mL 20 Final [place] NG/mL Health: [address], [place] ? ? UR High Benzoylecgonine olr(>2000) 100 Fin al [place] NG/mL NG/mL Health: [address], [place] ? ? UR ? Amphetamine negative NG/mL 250 Fin al [place] NG/mL Health: [address], [place] ? ? UR ? Methamphetamine negative NG/mL 250 Final [place] NG/mL Health: [address], [place] ? ? UR ? Mda negative NG/mL 250 Final Sa saritha NG/mL Health: [address], [place] ? ? UR ? Alpha-hydroxyalp negative NG/mL 25 Final [place] razolam NG/mL Health: [address], [place] ? ? UR ? 7-Aminoclonazepa negative NG/mL 40 Final [place] m NG/mL Health: [address], [place] ? ? UR ? Diazepam negative NG/mL 50 Final [place] NG/mL Health: [address], [place] ? ? UR ? Lorazepam negative NG/mL 50 Final [place] NG/mL Health: [address], [place] ? ? UR ? Nordiazepam negative NG/mL 50 Fin al [place] NG/mL Health: [address], [place] ? ? UR ? Temazepam negative NG/mL 50 Final [place] NG/mL Health: [address], [place] ? ? UR ? Methadone negative NG/mL 250 Final [place] NG/mL Health: [address], [place] ? ? UR ? Eddp negative NG/mL 100 Final Sa saritha NG/mL Health: [address], [place] ? ? UR ? Normeperidine negative NG/mL 100 F inal [place] NG/mL Health: [address], [place] ? ? UR ? Tramadol negative NG/mL 100 Final [place] NG/mL Health: [address], [place] ? ? UR ? Legend abbreviations ? Final Sa saritha Health: [address] Past Encounters 03/27/2021 Opioid Dependence; Nicotine Dependence JAYME Villalta: [address] [place] [phone], Ph. Social History Tobacco Smoking Status Heavy [...]
--- NOTE | 2021-08-24 13:45 | DI.RAD_ITS ---
Exam(s) XR FOOT RT COMPLETE EXAM: XR FOOT RT COMPLETE CLINICAL HISTORY: r/o fx,rt ankle and foot pain, m25.571,m79.671. TECHNIQUE: 2D digital imaging was performed. COMPARISON: No exams were available for comparison FINDINGS: There is no evidence of fracture or diastasis of the Lisfranc joint. Bone density normal. No osseous lesions. No pes planus. No osseous tarsal coalition. No erosions. No degenerative changes. IMPRESSION: No significant radiographic findings. DATA REPOSITORY: RADIATION DOSE DELIVERED:
--- NOTE | 2021-08-24 13:50 | DI.RAD_ITS ---
Exam(s) XR ANKLE RT COMPLETE EXAM: XR ANKLE RT COMPLETE CLINICAL HISTORY: r/o fx,rt foot and ankle pain, m79.671,m25.571. TECHNIQUE: 2D digital imaging was performed. COMPARISON: CR,XR XR ANKLE RT COMPLETE from 11/27/2020 FINDINGS: There is mild soft tissue swelling laterally but no evidence of fracture or widening of the mortise. Talar dome appears unremarkable. Bone density is normal. No osseous lesions. No osteochondral def ects. No osseous tarsal coalition. IMPRESSION: No fracture. No osteochondral defects. DATA REPOSITORY: RADIATION DOSE DELIVERED:
== END 2021-08-24 01:31 ==
PROVIDERS: PCP Family Medicine; Visit Provider Nurse Practitioner Family
DX: M79.671 Pain in right foot (principal); M25.571 Pain in right ankle and joints of right foot; M79.89 Other specified soft tissue disorders; G89.29 Other chronic pain
CPT/HCPCS: 73610; 73630

== ENCOUNTER 2021-09-05 14:44 | Emergency (ER) | payer MEDICAID, SELFPAY ==
[2021-09-05] VITALS (16 sets, daily range): BP systolic 76–113; BP diastolic 50–86; PULSE 68–104; RESP 8–20; TEMP 36.7; O2SAT 93–100
--- NOTE | 2021-09-05 14:56 | W.ED.GENAD ---
Discharge Plan Disposition Patient Disposition: AGAINST MEDICAL ADVICE Condition: Serious Discharge Details Clinical Impression: Accidental heroin overdose Primary Care Provider: Zeyad Hall ED Provider: Wilmar Valdes Home Meds and New Rx's Prescriptions: No Action psyllium husk 0.52 gram capsule 0.52 gm PO DAILY RF: 0 citalopram 40 mg tablet 40 mg PO DAILY Qty: 90 RF: 3 aripiprazole 5 mg tablet 5 mg PO DAILY Qty: 90 RF: 3 Spiriva with HandiHaler 18 mcg capsule, w/inhalation device 1 cap IH DAILY Qty: 90 RF: 3 hydroxyzine HCl 25 mg tablet 25 mg PO TID-QID PRN (Reason: itching) Qty: 90 RF: 3 furosemide 20 mg tablet 20 mg PO DAILY Qty: 90 RF: 3 hydrocortisone [Proctosol HC] 2.5 % cream with perineal applicator 1 applic OR QD-BID PRN (Reason: itching) Qty: 30 RF: 6 ranitidine HCl 75 mg tablet 150 mg PO DAILY RF: 0 ondansetron HCl [Zofran] 4 mg tablet 4 mg PO Q8H PRN (Reason: nausea and vomiting) Qty: 90 RF: 3 ibuprofen 800 mg tablet 800 mg PO Q8H PRN (Reason: pain) Qty: 30 RF: 0 omeprazole 40 mg capsule,delayed release(DR/EC) 40 mg PO DAILY Qty: 90 RF: 3 atomoxetine [Strattera] 40 mg capsule 40 mg PO DAILY Qty: 30 RF: 1 clonidine HCl 0.1 mg tablet 0.1 mg PO TID Qty: 90 RF: 1 albuterol sulfate [ProAir HFA] 90 mcg/actuation HFA aerosol inhaler 2 puff IH Q6H PRN (Reason: shortness of breath or wheezing) Qty: 18 RF: 1 cyclobenzaprine 10 mg tablet 10 mg PO TID PRN (Reason: muscle spasm) Qty: 90 RF: 1 fluticasone propion-salmeterol [Advair Diskus] 250-50 mcg/dose blister with device 1 inh IH Q12H Qty: 60 RF: 1 (DME) B[employer]he[employer] MDI Spacer Spacer See Rx Instructions .ROUTE .MEDSUPPLY Qty: 1 RF: 0 pregabalin 300 mg capsule 300 mg PO BID Qty: 56 RF: 1 trazodone 50 mg tablet 50 mg PO QHS Qty: 90 RF: 1 methocarbamol 500 mg tablet 500 mg PO Q6H PRN (Reason: muscle spasm) Qty: 14 RF: 0 Discharge Instructions Instructions: Against Medical Advice (ED), Opioid Use Disorder (ED) Additional Instructions: You are leaving AGAINST MEDICAL ADVICE and may have life-threatening or lifestyle modifying disease that would go untreated. Please return at any time for treatment as recommended. Please follow-up with your doctor. Please stop using heroin and cocaine. Referrals: [facility] [Outside] Zeyad Hall DO [Primary Care Provider] - Discharge Data Discharge Date/Time-TO BE ENTERED AT DEPARTURE: 09/05/21 16:27 Medical Decision Making 35-year-old female with history of opioid use disorder, here after accidental overdose on heroin, having received rescue breathing and naloxone by EMS, now fully responsive and mentating well. Patient has no complaint and is requesting discharge. Plan for observation for 2 hours to allow for naloxone to be fully metabolized and ensure no persistent opioid effect. Patient not willing to stay in the ED as recommended. I had a discussion with the patient about my diagnostic/treatment plan. Patient declines plan and wishes to leave against medical advise. I reiterated my concerns to the patient and explained the risks of leaving prior to completion of workup and treatment. I specifically emphasized the possibility of life-threatening or lifestyle modifying disease that would not be appropriately treated if they leave. Patient verbalized understanding of my concerns and the potential for life threatening or lifestyle modifying disease. Patient has capacity to make informed decision. I again explained my concerns and urged the patient to stay for treatment as outlined. Patient continued to refuse. I then discussed potential less ideal alternatives to diagnostic/treatment plan as outlines and patient refused. I recommended that the patient follow-up with primary care physician EVITA or return to the Emergency Department at any time for further treatment. HPI General Mode of arrival: EMS. Date/Time Provider Initiated Documentation: 09/05/21 14:55. Limitations to Documentation: no limitations. Information obtained by: patient and EMS. HPI Narrative: 35-year-old female with history of opioid use disorder, here after accidental overdose on heroin. Patient was found to be in respiratory arrest and was administered oxygen by diagnostic mask and naloxone by EMS. Patient responded after about 5 minutes of rescue breathing. Now mentating well without complaint, requesting discharge. Patient denies pain. Overdose was severe. Related Data Home Medications Medication Instructions Recorded Confirmed psyllium husk 0.52 gram capsule 0.52 gm PO DAILY 08/11/18 09/05/21 ranitidine HCl 75 mg tablet 150 mg PO DAILY tab 08/12/19 09/05/21 ondansetron HCl 4 mg tablet 4 mg PO Q8H PRN #90 tab 11/22/20 09/05/21 ibuprofen 800 mg tablet 800 mg PO Q8H PRN #30 tab 12/29/20 09/05/21 omeprazole 40 mg capsule,delayed 40 mg PO DAILY #90 cap 12/29/20 09/05/21 release aripiprazole 5 mg tablet 5 mg PO DAILY #90 tab 01/06/21 09/05/21 citalopram 40 mg tablet 40 mg PO DAILY #90 tab 01/06/21 09/05/21 furosemide 20 mg tablet 20 mg PO DAILY #90 tab 01/06/21 09/05/21 hydrocortisone 2.5 % topical cream 1 applic OR QD-BID PRN #30 g 01/06/21 09/05/21 with perineal applicator hydroxyzine HCl 25 mg tablet 25 mg PO TID-QID PRN #90 tab 01/06/21 09/05/21 tiotropium bromide 18 mcg capsule 1 cap IH DAILY #90 inh 01/06/21 09/05/21 with inhalation device atomoxetine 40 mg capsule 40 mg PO DAILY #30 cap 05/11/21 09/05/21 clonidine HCl 0.1 mg tablet 0.1 mg PO TID #90 tab 05/11/21 09/05/21 methocarbamol 500 mg PO Q6H PRN #14 tab 05/27/21 09/05/21 albuterol sulfate 90 mcg/actuation 2 puff IH Q6H PRN #18 gm 07/25/21 09/05/21 aerosol inhaler cyclobenzaprine 10 mg tablet 10 mg PO TID PRN #90 tab 07/25/21 09/05/21 fluticasone 250 mcg-salmeterol 50 1 inh IH Q12H #60 each 07/25/21 09/05/21 mcg/dose blistr powdr for inhalation inhalational spacing device #1 each 07/25/21 09/05/21 pregabalin 300 mg capsule 300 mg PO BID #56 cap 07/25/21 09/05/21 trazodone 50 mg tablet 50 mg PO QHS #90 tab 07/25/21 09/05/21 Previous Rx's Medication Instructions Recorded ondansetron HCl 4 mg tablet 4 mg PO Q8H PRN #90 tab 11/22/20 ibuprofen 800 mg tablet 800 mg PO Q8H PRN #30 tab 12/29/20 omeprazole 40 mg capsule,delayed 40 mg PO DAILY #90 cap 12/29/20 release aripiprazole 5 mg tablet 5 mg PO DAILY #90 tab 01/06/21 citalopram 40 mg tablet 40 mg PO DAILY #90 tab 01/06/21 furosemide 20 mg tablet 20 mg PO DAILY #90 tab 01/06/21 hydrocortisone 2.5 % topical cream 1 applic OR QD-BID PRN #30 g 01/06/21 with perineal applicator hydroxyzine HCl 25 mg tablet 25 mg PO TID-QID PRN #90 tab 01/06/21 tiotropium bromide 18 mcg capsule 1 cap IH DAILY #90 inh 01/06/21 with inhalation device atomoxetine 40 mg capsule 40 mg PO DAILY #30 cap 05/11/21 clonidine HCl 0.1 mg tablet 0.1 mg PO TID #90 tab 05/11/21 methocarbamol 500 mg PO Q6H PRN #14 tab 05/27/21 albuterol sulfate 90 mcg/actuation 2 puff IH Q6H PRN #18 gm 07/25/21 aerosol inhaler cyclobenzaprine 10 mg tablet 10 mg PO TID PRN #90 tab 07/25/21 fluticasone 250 mcg-salmeterol 50 1 inh IH Q12H #60 each 07/25/21 mcg/dose blistr powdr for inhalation inhalational spacing device #1 each 07/25/21 pregabalin 300 mg capsule 300 mg PO BID #56 cap 07/25/21 trazodone 50 mg tablet 50 mg PO QHS #90 tab 07/25/21 Allergies Allergy/AdvReac Type Severity Reaction Status Date / Time lidocaine Allergy Intermediate Swelling/Ed Verified 09/05/21 15:02 rome procaine HCl [From Novocain] Allergy Intermediate Swelling/Ed Verified 09/05/21 15:02 rome red dye Allergy Mild Swelling/Ed Unverified 09/05/21 15:02 rome Penicillins AdvReac Unknown Nausea Verified 09/05/21 15:02 control pills Allergy Severe hospitalize Uncoded 09/05/21 15:02 d General THONG: 4 Review of Systems All systems reviewed & are unremarkable except as noted in HPI and below Constitutional Constitutional: Denies fever(s) Cardiovascular Cardiovascular: Denies chest pain PFSH All Active Problems Acute thoracic myofascial strain (Acute) Acute lumbar myofascial strain (Acute) Accidental heroin overdose (Acute) UTI (urinary tract infection) (Acute) Dental caries (Acute) H/O endoscopy (Acute) [place] [facility] [place] ab[place] 37 cm from incisors,Grade A reflux esophagitis. Normal stomach and Duodenum. Chronic hepatitis C without hepatic coma (Acute) 05/27/19- [facility] [place]. Katelynmandeep Abbott, [employer] 05/12/20 HCV viral load undetected 2020- Viral load detected again Carpal tunnel syndrome of right wrist (Acute) Plantar fasciitis, bilateral (Acute) ADHD (Acute) Family history of ovarian cancer (Acute) Family history of breast cancer in first degree relative (Acute) Family history of colon cancer (Acute) Family history of IL (myocardial infarction) (Acute) Gastroesophageal reflux disease without esophagitis (Acute 11/23/16) Hx of supraventricular tachycardia (Acute 11/23/16) Chronic back pain greater than 3 months duration (Acute 11/23/16) Tobacco use (Acute 11/23/16) Depression (Chronic) from previous record ? bipolar Anxiety (Chronic) Asthma (Chronic) Right ankle pain (Chronic) Polysubstance abuse (Acute) Substance abuse (Acute) Seen in October 2017, cocaine abuse Medical History Abdominal rigidity Carcinoma in situ of uterine cervix Cervical intraepithelial neoplasia grade 2 Chronic pelvic pain in female s/p hyst 2012 for cervical dysplasia. Pt reports chronic pelvic pain since that surgery. Daily headache Elevated LFTs Galactorrhea Hepatic cirrhosis due to chronic hepatitis C infection Hepatitis C Insomnia Irritable bowel syndrome Manifested as constipation Q3d. With meds has improved daily functioning. Leg edema Memory loss Pelvic pain Psychoactive substance abuse Surgical History Colonoscopy - MAC (01/29/17) Endoscopy (12/14/13) Dx Esophagitis. Excision, Cervicle Lymph Nodes H/O laparoscopy (~09/14/13) for LLQ pain. Has PDS suture removed (from previous hysterectomy with USLS. Nl pelvis. Pt mentions second laparoscopy for pelvic pain. Not in [facility] records. History of section History of cholecystectomy History of pacemaker History of tonsillectomy and adenoidectomy (~07/05/11) S/P hysterectomy (09/27/15) Status post laparoscopic hysterectomy (~04/15/13) Total laparoscopic hysterectomy & laparoscopic UteroSacral Vaginal Vault suspensionfor uterine prolapse Family History Father Alcohol abuse Substance abuse Colon cancer Liver cancer Throat cancer Depression Diabetes Heart disease Hypertension Mother Asthma Breast cancer Cervical cancer Depression Hypertension Alcohol abuse Substance abuse Sister Alcohol abuse Substance abuse Depression Sister Alcohol abuse Substance abuse Depression Sister Alcohol abuse Substance abuse Depression Social History Smoking/Tobacco Use Status: Current every day Tobacco Type: cigarettes Smoking packs per day: 2 Smoking cigarettes per day: 40.0 Years smoked: 13 Smoking pack-years: 26.00 Tobacco: How many years used: 25 Smoking risk assessment performed?: Yes Alcohol Intake: current Alcohol Intake frequency: holidays/special occasions only Drug use: Occasionally Substance use type: marijuana, crack/cocaine and heroin Details: was using 2-3 times a day (Heroin) now down to 1-2 times a day 09-05-21 no longer in Methadone program, ended 10-03-20 History of IV Drug Use. Got first script for suboxone today 09-05-21 Household members: none Housing: apartment Number of Children: 3 Communication Needs: None current occupation: unemployed What is your relationship status?: How often do you talk on the phone with friends or family?: three or more times per week Panel score (0-1 are the most socially isolated patients): 1 What type of physical activity do you participate in: none Seatbelt use: always Drive intox or ride w/intox lumber stacker driver: No Working smoke detector in home: Yes Carbon monox detector in home: Yes Do you feel safe at home: Yes Do you feel safe in your relationship?: Yes Victim of physical abuse: No Victim of emotional abuse: No Victim of sexual abuse: No Would you like helpful sources: No Additional Social history: Goes to [facility] 2x week, counseling and womens group Exam Const General: cooperative and no acute distress HENMT Mouth: moist mucous membranes Eyes Pupils: PERRL Resp Auscultation: clear to auscultation bilaterally, no rales, no rhonchi and no wheezes Cardio Rate: regular rate and not tachycardic Rhythm: regular rhythm GI Palpation: soft, not firm, no guarding, no masses, not rigid and nontender Skin General skin exam: no rashes or lesions noted Neuro General: patient alert, patient awake, patient oriented x3 and tone normal Extrem General: no edema Psych Appearance: grossly normal Mental Status: mental status grossly normal Speech and Movement: speech and movement normal Course Vital Signs Vital signs: Vital Signs Pulse 91 H 09/05/21 14:50 Respiratory Rate 13 09/05/21 14:50 Blood Pressure 113/78 09/05/21 14:50 Pulse Oximetry 98 09/05/21 14:50 Pulse 91 H 09/05/21 14:50 Pulse 101 H 09/05/21 14:50 Respiratory Rate 13 09/05/21 14:50 Blood Pressure 113/78 09/05/21 14:50 Blood Pressure Mean 86 09/05/21 14:50 Pulse Oximetry 98 09/05/21 14:50
== END 2021-09-05 16:27 | disposition left against medical advice (07) ==
LOC: ER 15:36
PROVIDERS: Emergency Provider Student in an Organized Health Care Education/Training Program; PCP Family Medicine
DX: T40.1X1A Poisoning by heroin, accidental (unintentional), initial encounter (principal); Z53.29 Procedure and treatment not carried out because of patient's decision for other reasons; R09.2 Respiratory arrest
CPT/HCPCS: 99283

== ENCOUNTER 2021-12-22 13:23 | Emergency (ER) | payer MEDICAID, SELFPAY ==
[2021-12-22 13:27] VITALS: BP 103/65; PULSE 78; RESP 16; TEMP 36.3
--- NOTE | 2021-12-22 13:50 | W.ED.GENAD ---
Discharge Plan Disposition Patient Disposition: HOME Condition: Stable Discharge Details Clinical Impression: Pain, dental Primary Care Provider: eZyad Hall ED Provider: Quita Oconnor Home Meds and New Rx's Prescriptions: New clindamycin HCl 150 mg capsule 450 mg PO TID 7 Days Qty: 63 0RF No Action psyllium husk 0.52 gram capsule 0.52 gm PO DAILY citalopram 40 mg tablet 40 mg PO DAILY Qty: 90 3RF aripiprazole 5 mg tablet 5 mg PO DAILY Qty: 90 3RF Spiriva with HandiHaler 18 mcg capsule, w/inhalation device 1 cap IH DAILY Qty: 90 3RF hydroxyzine HCl 25 mg tablet 25 mg PO TID-QID PRN (Reason: itching) Qty: 90 3RF furosemide 20 mg tablet 20 mg PO DAILY Qty: 90 3RF hydrocortisone [Proctosol HC] 2.5 % cream with perineal applicator 1 applic OR QD-BID PRN (Reason: itching) Qty: 30 6RF ranitidine HCl 75 mg tablet 150 mg PO DAILY Rx Instructions: note dated 08/12/19 Bel Abbott APRN [facility] ondansetron HCl [Zofran] 4 mg tablet 4 mg PO Q8H PRN (Reason: nausea and vomiting) Qty: 90 3RF ibuprofen 800 mg tablet 800 mg PO Q8H PRN (Reason: pain) Qty: 30 0RF omeprazole 40 mg capsule,delayed release(DR/EC) 40 mg PO DAILY Qty: 90 3RF atomoxetine [Strattera] 40 mg capsule 40 mg PO DAILY Qty: 30 1RF clonidine HCl 0.1 mg tablet 0.1 mg PO TID Qty: 90 1RF albuterol sulfate [ProAir HFA] 90 mcg/actuation HFA aerosol inhaler 2 puff IH Q6H PRN (Reason: shortness of breath or wheezing) Qty: 18 1RF cyclobenzaprine 10 mg tablet 10 mg PO TID PRN (Reason: muscle spasm) Qty: 90 1RF fluticasone propion-salmeterol [Advair Diskus] 250-50 mcg/dose blister with device 1 inh IH Q12H Qty: 60 1RF (DME) BreatheRite MDI Spacer Spacer See Rx Instructions .ROUTE .MEDSUPPLY Qty: 1 0RF Rx Instructions: As directed pregabalin 300 mg capsule 300 mg PO BID Qty: 56 1RF trazodone 50 mg tablet 50 mg PO QHS Qty: 90 1RF methocarbamol 500 mg tablet 500 mg PO Q6H PRN (Reason: muscle spasm) Qty: 14 0RF Discharge Instructions Instructions: Toothache (ED) Additional Instructions: Take the antibiotic as directed 3 capsules 3 times a day x7 days. Practice good oral hygiene with brushing teeth twice daily. Rinse your mouth after eating or drinking anything. Please take Tylenol or Ibuprofen with food every 4-6 hours as needed for pain and swelling. You do still need to see a dentist as soon as possible please make an appointment. Follow up with primary care provider in 3-5 days. Return to ED sooner if any worsening or concerns. Increase oral fluids. Referrals: Zeyad Hall DO [Primary Care Provider] - 1 week Discharge Data Discharge Date/Time-TO BE ENTERED AT DEPARTURE: 12/22/21 14:22 Medical Decision Making 36-year-old female presents to the ER with chief complaint of right lower tooth pain which has been ongoing for approximately a week she reported swelling began 3 days ago. She does have poor dentition and multiple dental caries and broken teeth. No evidence for drainable abscess at this time no area of fluctuance noted. Patient prescribed clindamycin instructed on home care and follow-up with dentist. Patient verbalized understanding. This text was generated using [facility] dictation system, please disregard any oddities of phrase or misspellings. HPI General Mode of arrival: ambulatory. Date/Time Provider Initiated Documentation: 12/22/21 13:24. Limitations to Documentation: no limitations. Information obtained by: patient, RN notes reviewed and old records reviewed. HPI Narrative: 36-year-old female presents to the ER with chief complaint of right lower tooth pain which has been ongoing for approximately a week she reported swelling began 3 days ago. She does have poor dentition and multiple dental caries and broken teeth. She reports that she had a appointment approximately a month and a half ago and [facility] [place] which she missed. She is a smoker. She denies any drainage fever problems swallowing or no area of fluctuance or abscess noted. She does not take any medications prior to arrival. Does have a past medical history of hepatitis C, GERD, SVT, ADHD Related Data Home Medications Medication Instructions Recorded Confirmed psyllium husk 0.52 gram capsule 0.52 gm PO DAILY 08/11/18 12/22/21 ranitidine HCl 75 mg tablet 150 mg PO DAILY 08/12/19 12/22/21 ondansetron HCl 4 mg tablet 4 mg PO Q8H PRN nausea and 11/22/20 12/22/21 (Zofran) vomiting #90 tabs ibuprofen 800 mg tablet 800 mg PO Q8H PRN pain #30 tabs 12/29/20 12/22/21 omeprazole 40 mg capsule,delayed 40 mg PO DAILY #90 caps 12/29/20 12/22/21 release aripiprazole 5 mg tablet 5 mg PO DAILY #90 tabs 01/06/21 12/22/21 citalopram 40 mg tablet 40 mg PO DAILY #90 tabs 01/06/21 12/22/21 furosemide 20 mg tablet 20 mg PO DAILY #90 tabs 01/06/21 12/22/21 hydrocortisone 2.5 % topical cream 1 applic OR QD-BID PRN itching #30 01/06/21 12/22/21 with perineal applicator grams (Proctosol HC) hydroxyzine HCl 25 mg tablet 25 mg PO TID-QID PRN itching #90 01/06/21 12/22/21 tabs tiotropium bromide 18 mcg capsule 1 cap inhalation DAILY #90 01/06/21 12/22/21 with inhalation device (Spiriva inhalations with HandiHaler) atomoxetine 40 mg capsule 40 mg PO DAILY #30 caps 05/11/21 12/22/21 (Strattera) clonidine HCl 0.1 mg tablet 0.1 mg PO TID #90 tabs 05/11/21 12/22/21 methocarbamol 500 mg tablet 500 mg PO Q6H PRN muscle spasm #14 05/27/21 12/22/21 tabs albuterol sulfate 90 mcg/actuation 2 puff inhalation Q6H PRN 07/25/21 12/22/21 aerosol inhaler (ProAir HFA) shortness of breath or wheezing #18 grams cyclobenzaprine 10 mg tablet 10 mg PO TID PRN muscle spasm #90 07/25/21 12/22/21 tabs fluticasone 250 mcg-salmeterol 50 1 inh inhalation Q12H #60 ea 07/25/21 12/22/21 mcg/dose blistr powdr for inhalation (Advair Diskus) inhalational spacing device #1 ea 07/25/21 09/05/21 (BreatheRite MDI Spacer) pregabalin 300 mg capsule 300 mg PO BID #56 caps 07/25/21 12/22/21 trazodone 50 mg tablet 50 mg PO QHS #90 tabs 07/25/21 12/22/21 clindamycin HCl 150 mg capsule 450 mg PO TID 7 days #63 caps 12/22/21 Previous Rx's Medication Instructions Recorded ondansetron HCl 4 mg tablet 4 mg PO Q8H PRN nausea and 11/22/20 (Zofran) vomiting #90 tabs ibuprofen 800 mg tablet 800 mg PO Q8H PRN pain #30 tabs 12/29/20 omeprazole 40 mg capsule,delayed 40 mg PO DAILY #90 caps 12/29/20 release aripiprazole 5 mg tablet 5 mg PO DAILY #90 tabs 01/06/21 citalopram 40 mg tablet 40 mg PO DAILY #90 tabs 01/06/21 furosemide 20 mg tablet 20 mg PO DAILY #90 tabs 01/06/21 hydrocortisone 2.5 % topical cream 1 applic OR QD-BID PRN itching #30 01/06/21 with perineal applicator grams (Proctosol HC) hydroxyzine HCl 25 mg tablet 25 mg PO TID-QID PRN itching #90 01/06/21 tabs tiotropium bromide 18 mcg capsule 1 cap inhalation DAILY #90 01/06/21 with inhalation device (Spiriva inhalations with HandiHaler) atomoxetine 40 mg capsule 40 mg PO DAILY #30 caps 05/11/21 (Strattera) clonidine HCl 0.1 mg tablet 0.1 mg PO TID #90 tabs 05/11/21 methocarbamol 500 mg tablet 500 mg PO Q6H PRN muscle spasm #14 05/27/21 tabs albuterol sulfate 90 mcg/actuation 2 puff inhalation Q6H PRN 07/25/21 aerosol inhaler (ProAir HFA) shortness of breath or wheezing #18 grams cyclobenzaprine 10 mg tablet 10 mg PO TID PRN muscle spasm #90 07/25/21 tabs fluticasone 250 mcg-salmeterol 50 1 inh inhalation Q12H #60 ea 07/25/21 mcg/dose blistr powdr for inhalation (Advair Diskus) inhalational spacing device #1 ea 07/25/21 (BreatheRite MDI Spacer) pregabalin 300 mg capsule 300 mg PO BID #56 caps 07/25/21 trazodone 50 mg tablet 50 mg PO QHS #90 tabs 07/25/21 clindamycin HCl 150 mg capsule 450 mg PO TID 7 days #63 caps 12/22/21 Allergies Allergy/AdvReac Type Severity Reaction Status Date / Time lidocaine Allergy Intermediate Swelling/Ed Verified 12/22/21 13:31 rome procaine HCl [From Novocain] Allergy Intermediate Swelling/Ed Verified 12/22/21 13:31 rome red dye Allergy Mild Swelling/Ed Unverified 12/22/21 13:31 rome Penicillins AdvReac Unknown Nausea Verified 12/22/21 13:31 control pills Allergy Severe hospitalize Uncoded 12/22/21 13:31 d General Stated Complaint: DentalOral THONG: 4 Review of Systems All systems reviewed & are unremarkable except as noted in HPI and below ENT Ears, Nose, Mouth, and Throat: Reports dental pain and Reports mouth pain PFSH All Active Problems (Updated 12/22/21 @ 13:56 by Quita Oconnor) Acute thoracic myofascial strain (Acute) Acute lumbar myofascial strain (Acute) Pain, dental (Acute) UTI (urinary tract infection) (Acute) Dental caries (Acute) H/O endoscopy (Acute) 06/11/19 [facility] [place] Z line abnl 37 cm from incisors,Grade A reflux esophagitis. Normal stomach and Duodenum. Chronic hepatitis C without hepatic coma (Acute) 05/27/19[place] [facility] [place]. Katelyn Abbott, ANDREW 05/12/20 HCV viral load undetected 2020- Viral load detected again Carpal tunnel syndrome of right wrist (Acute) Plantar fasciitis, bilateral (Acute) ADHD (Acute) Family history of ovarian cancer (Acute) Family history of breast cancer in first degree relative (Acute) Family history of colon cancer (Acute) Family history of DE (myocardial infarction) (Acute) Gastroesophageal reflux disease without esophagitis (Acute 11/23/16) Hx of supraventricular tachycardia (Acute 11/23/16) Chronic back pain greater than 3 months duration (Acute 11/23/16) Tobacco use (Acute 11/23/16) Depression (Chronic) from previous record ? bipolar Anxiety (Chronic) Asthma (Chronic) Right ankle pain (Chronic) Polysubstance abuse (Acute) Substance abuse (Acute) Seen in October 2017, cocaine abuse Medical History Abdominal rigidity Carcinoma in situ of uterine cervix Cervical intraepithelial neoplasia grade 2 Chronic pelvic pain in female s/p hyst 2012 for cervical dysplasia. Pt reports chronic pelvic pain since that surgery. Daily headache Elevated LFTs Galactorrhea Hepatic cirrhosis due to chronic hepatitis C infection Hepatitis C Insomnia Irritable bowel syndrome Manifested as constipation Q3d. With meds has improved daily functioning. Leg edema Memory loss Pelvic pain Psychoactive substance abuse Surgical History Colonoscopy - MAC (01/29/17) Endoscopy (12/14/13) Dx Esophagitis. Excision, Cervicle Lymph Nodes H/O laparoscopy (~09/14/13) for LLQ pain. Has PDS suture removed (from previous hysterectomy with USLS. Nl pelvis. Pt mentions second laparoscopy for pelvic pain. Not in [facility] records. History of section History of cholecystectomy History of pacemaker History of tonsillectomy and adenoidectomy (~07/05/11) S/P hysterectomy (09/27/15) Status post laparoscopic hysterectomy (~04/15/13) Total laparoscopic hysterectomy & laparoscopic UteroSacral Vaginal Vault suspensionfor uterine prolapse Family History Father Alcohol abuse Substance abuse Colon cancer Liver cancer Throat cancer Depression Diabetes Heart disease Hypertension Mother Asthma Breast cancer Cervical cancer Depression Hypertension Alcohol abuse Substance abuse Sister Alcohol abuse Substance abuse Depression Sister Alcohol abuse Substance abuse Depression Sister Alcohol abuse Substance abuse Depression Social History Smoking/Tobacco Use Status: Current every day Tobacco Type: cigarettes Smoking packs per day: 2 Smoking cigarettes per day: 40.0 Years smoked: 13 Smoking pack-years: 26.00 Tobacco: How many years used: 25 Smoking risk assessment performed?: Yes Alcohol Intake: current Alcohol Intake frequency: holidays/special occasions only Drug use: Occasionally Substance use type: marijuana Details: was using 2-3 times a day (Heroin) now down to 1-2 times a day 09-05-21 no longer in Methadone program, ended 10-03-20 History of IV Drug Use. 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 Right lower jaw swelling Teeth and gingiva: caries and poor dentition Teeth image: 1. Dental caries noted surrounding gingiva swelling tenderness with palpation. No area of induration or fluctuance no drainable abscess noted. Throat: posterior oropharynx normal Course Vital Signs Vital signs: Vital Signs Temperature 36.3 C L 12/22/21 13:27 Pulse 78 12/22/21 13:27 Respiratory Rate 16 12/22/21 13:27 Blood Pressure 103/65 12/22/21 13:27 Temperature 36.3 C L 12/22/21 13:27 Temperature Source Skin 12/22/21 13:27 Pulse 78 12/22/21 13:27 Respiratory Rate 16 12/22/21 13:27 Respiratory Effort 12/22/21 13:33 Blood Pressure 103/65 12/22/21 13:27 Blood Pressure Position Sitting 12/22/21 13:27 Oxygen Delivery Method Room Air 12/22/21 13:27 Oxygen Flow Rate 0 12/22/21 13:27 Pain Level 5 12/22/21 13:27
[2021-12-22] MEDS: Clindamycin 150 MG CAP 450 MG PO (14:02)
[2021-12-22] MEDS: Ibuprofen 800 MG TAB PO (14:02)
[2021-12-22] MEDS: Clindamycin 150 MG CAP, 12 CAPS/BTL 450 MG PO (14:04)
--- NOTE | 2021-12-24 11:22 | NUR.NOTE ---
Called Cristobal saunders in [facility] for Clindomycin HCL. Previous prescription written by Quita Oconnor was to [facility]
== END 2021-12-22 14:22 | disposition home or self-care (01) ==
PROVIDERS: Emergency Provider Registered Nurse Emergency; PCP Family Medicine
DX: K08.89 Other specified disorders of teeth and supporting structures (principal)
CPT/HCPCS: 99283

== ENCOUNTER 2022-02-16 23:48 | Emergency (ER) | payer MEDICAID, SELFPAY ==
--- NOTE | 2022-02-16 23:45 | DI.RAD_ITS ---
Exam(s) XR SHOULDER LT COMPLETE 2+V EXAM: XR SHOULDER LT COMPLETE 2+V CLINICAL HISTORY: left shoulder/prox hum. pain. TECHNIQUE: 2D digital imaging was performed. COMPARISON: No exams were available for comparison FINDINGS: 3 views No evidence of obvious fracture or dislocation no abnormal soft tissue calcifications. Subacromial s pace appears unremarkable. There is, however, subtle oblique nondisplaced line in the anterior aspect of the osseous glenoid, po ssibly significant. Cannot exclude subtle Bankart fracture. IMPRESSION: DATA REPOSITORY: RADIATION DOSE DELIVERED:
[2022-02-16 23:55] VITALS: BP 104/67; PULSE 88; RESP 16; TEMP 36.6; O2SAT 98
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
[2022-02-17] MEDS: Ketorolac 15 MG/ML VIAL IVP (00:05)
--- NOTE | 2022-02-17 00:53 | DI.VRAD_ITS ---
PROCEDURE INFORMATION: Exam: XR Left Shoulder Exam date and time: 02/17/2022 00:20 Age: 36 years old Clinical indication: Pain; Shoulder; Left; Additional info: Left shoulder pain TECHNIQUE: Imaging protocol: Radiologic exam of the Left shoulder. Views: 2 or more views. COMPARISON: CR CHEST 2 VIEWS PA,LAT 12/12/2017 19:14 FINDINGS: Bones/joints: No acute fracture or subluxation. No significant degenerative changes are seen. Soft tissues: Normal. IMPRESSION: No bony pathology. Dictated and Authenticated by: Tory Crawford MD. Ordering:ROMIE Rivera MD
[2022-02-17 01:47] VITALS: BP 102/78; PULSE 77; RESP 18; O2SAT 97
== END 2022-02-17 01:48 | disposition home or self-care (01) ==
PROVIDERS: Emergency Provider Student in an Organized Health Care Education/Training Program; PCP Family Medicine
DX: S40.012A Contusion of left shoulder, initial encounter (principal); F17.210 Nicotine dependence, cigarettes, uncomplicated; V49.60XA Unspecified car occupant injured in collision with unspecified motor vehicles in traffic accident, initial encounter
CPT/HCPCS: 96372; 99284; 73030; J1885

== ENCOUNTER 2022-08-29 11:59 | Emergency (ER) | payer MEDICAID, SELFPAY ==
[2022-08-29 12:01] VITALS: BP 101/65; PULSE 94; RESP 18; TEMP 36.9; O2SAT 99
--- NOTE | 2022-08-29 12:15 | W.ED.GENAD ---
Discharge Plan Disposition Patient Disposition: Home Condition: Stable Discharge Details Clinical Impression: Pain, dental Primary Care Provider: Zeyad Hall ED Provider: Kaleb Pino [place] Meds and New Rx's Prescriptions: New clindamycin HCl 150 mg capsule 450 mg PO TID 7 Days Qty: 63 0RF Continued psyllium husk 0.52 gram capsule 0.52 gm PO DAILY citalopram 40 mg tablet 40 mg PO DAILY Qty: 90 3RF aripiprazole 5 mg tablet 5 mg PO DAILY Qty: 90 3RF Spiriva with HandiHaler 18 mcg capsule, w/inhalation device 1 cap IH DAILY Qty: 90 3RF hydroxyzine HCl 25 mg tablet 25 mg PO TID-QID PRN (Reason: itching) Qty: 90 3RF furosemide 20 mg tablet 20 mg PO DAILY Qty: 90 3RF hydrocortisone [Proctosol HC] 2.5 % cream with perineal applicator 1 applic MO QD-BID PRN (Reason: itching) Qty: 30 6RF ranitidine HCl 75 mg tablet 150 mg PO DAILY Rx Instructions: note dated 08/12/19 Bel Abbott APRN [facility] ondansetron HCl [Zofran] 4 mg tablet 4 mg PO Q8H PRN (Reason: nausea and vomiting) Qty: 90 3RF ibuprofen 800 mg tablet 800 mg PO Q8H PRN (Reason: pain) Qty: 30 0RF omeprazole 40 mg capsule,delayed release(DR/EC) 40 mg PO DAILY Qty: 90 3RF atomoxetine [Strattera] 40 mg capsule 40 mg PO DAILY Qty: 30 1RF clonidine HCl 0.1 mg tablet 0.1 mg PO TID Qty: 90 1RF albuterol sulfate [ProAir HFA] 90 mcg/actuation HFA aerosol inhaler 2 puff IH Q6H PRN (Reason: shortness of breath or wheezing) Qty: 18 1RF cyclobenzaprine 10 mg tablet 10 mg PO TID PRN (Reason: muscle spasm) Qty: 90 1RF fluticasone propion-salmeterol [Advair Diskus] 250-50 mcg/dose blister with device 1 inh IH Q12H Qty: 60 1RF (DME) BreatheRite MDI Spacer Spacer See Rx Instructions .ROUTE .MEDSUPPLY Qty: 1 0RF Rx Instructions: As directed pregabalin 300 mg capsule 300 mg PO BID Qty: 56 1RF trazodone 50 mg tablet 50 mg PO QHS Qty: 90 1RF methocarbamol 500 mg tablet 500 mg PO Q6H PRN (Reason: muscle spasm) Qty: 14 0RF Discharge Instructions Instructions: Toothache (ED) Additional Instructions: follow up with your dentist or oral surgeon as soon as possible if you feel more ill, can't swallow liquids or fevers return to the emergency department Medical Decision Making 36 yo female with hx of dental caries has supposed to have her teeth pulled but hasn't f/u with her oral surgeon, comes in with cc of dental pain in the right upper molars for 2 days. Denies fevers, dyspnea, difficulty swallowing, or noticeable swelling. She arrives stable speaking in full sentences and swallowing normally. She has severely eroded teeth throughout, has tendernes with percussion of the right upper mid molar. She has no periapicle swelling, normal posterior pharnx, midline uvula. No submandibular or facial swelling, no pain over the hyoid or restricted neck movements. Suspect pulpitis no findings on exam to suggest carol's or more serious pathology. She will f/u with her dentist, will place on clindamycin as she has a pcn sensitivity. She also has noted left wrist and right ankle pain without trauma or falls. She states she has tendonitis from prior injuries that flares. Her left wrist is not swollen nor red, mild tenderness on ulnar surrace without palpable deformity, intact full rom and normal sensation and pulses. Her right ankle is not swollen, red or warm. Mild pain over lateral malleolus with full rom and normal sensation and bearing weight without issues or limp when walking. Given lack of trauma do not feel xrays indicated, no findings on exam to suggest septic joint. Suspect tenoditis vs arthritis, she will use as needed nsaids, will f/u with pcp. STable for d/c, return precautions given Differential Diagnosis Differential Diagnosis: pulpitis, tendonitis HPI General Mode of arrival: ambulatory. Date/Time Provider Initiated Documentation: 08/29/22 12:01. Limitations to Documentation: no limitations. Information obtained by: patient. History of Present Illness 36 year old F presents to the emergency department with the chief complaint of dental pain, described as moderate, Quality is described as aching, and is localized to the mouth. Patient reports no radiation. and it has been constant. No relieving factors improve symptom(s), No exacerbating factors reported . Patient did receive the following treatments prior to arrival, none Related Data Home Medications Medication Instructions Recorded Confirmed psyllium husk 0.52 gram capsule 0.52 gm PO DAILY 08/11/18 02/17/22 ranitidine HCl 75 mg tablet 150 mg PO DAILY 08/12/19 02/17/22 ondansetron HCl 4 mg tablet 4 mg PO Q8H PRN nausea and 11/22/20 02/17/22 (Zofran) vomiting #90 tabs ibuprofen 800 mg tablet 800 mg PO Q8H PRN pain #30 tabs 12/29/20 02/17/22 omeprazole 40 mg capsule,delayed 40 mg PO DAILY #90 caps 12/29/20 02/17/22 release aripiprazole 5 mg tablet 5 mg PO DAILY #90 tabs 01/06/21 02/17/22 citalopram 40 mg tablet 40 mg PO DAILY #90 tabs 01/06/21 02/17/22 furosemide 20 mg tablet 20 mg PO DAILY #90 tabs 01/06/21 02/17/22 hydrocortisone 2.5 % topical cream 1 applic MO QD-BID PRN itching #30 01/06/21 02/17/22 with perineal applicator grams (Proctosol HC) hydroxyzine HCl 25 mg tablet 25 mg PO TID-QID PRN itching #90 01/06/21 02/17/22 tabs tiotropium bromide 18 mcg capsule 1 cap inhalation DAILY #90 01/06/21 02/17/22 with inhalation device (Spiriva inhalations with HandiHaler) atomoxetine 40 mg capsule 40 mg PO DAILY #30 caps 05/11/21 02/17/22 (Strattera) clonidine HCl 0.1 mg tablet 0.1 mg PO TID #90 tabs 05/11/21 02/17/22 methocarbamol 500 mg tablet 500 mg PO Q6H PRN muscle spasm #14 05/27/21 02/17/22 tabs albuterol sulfate 90 mcg/actuation 2 puff inhalation Q6H PRN 07/25/21 02/17/22 aerosol inhaler (ProAir HFA) shortness of breath or wheezing #18 grams cyclobenzaprine 10 mg tablet 10 mg PO TID PRN muscle spasm #90 07/25/21 02/17/22 tabs fluticasone 250 mcg-salmeterol 50 1 inh inhalation Q12H #60 ea 07/25/21 02/17/22 mcg/dose blistr powdr for inhalation (Advair Diskus) inhalational spacing device #1 ea 07/25/21 02/17/22 (BreatheRite MDI Spacer) pregabalin 300 mg capsule 300 mg PO BID #56 caps 07/25/21 02/17/22 trazodone 50 mg tablet 50 mg PO QHS #90 tabs 07/25/21 02/17/22 clindamycin HCl 150 mg capsule 450 mg PO TID 7 days #63 caps 08/29/22 Previous Rx's Medication Instructions Recorded ondansetron HCl 4 mg tablet 4 mg PO Q8H PRN nausea and 11/22/20 (Zofran) vomiting #90 tabs ibuprofen 800 mg tablet 800 mg PO Q8H PRN pain #30 tabs 12/29/20 omeprazole 40 mg capsule,delayed 40 mg PO DAILY #90 caps 12/29/20 release aripiprazole 5 mg tablet 5 mg PO DAILY #90 tabs 01/06/21 citalopram 40 mg tablet 40 mg PO DAILY #90 tabs 01/06/21 furosemide 20 mg tablet 20 mg PO DAILY #90 tabs 01/06/21 hydrocortisone 2.5 % topical cream 1 applic MO QD-BID PRN itching #30 01/06/21 with perineal applicator grams (Proctosol HC) hydroxyzine HCl 25 mg tablet 25 mg PO TID-QID PRN itching #90 01/06/21 tabs tiotropium bromide 18 mcg capsule 1 cap inhalation DAILY #90 01/06/21 with inhalation device (Spiriva inhalations with HandiHaler) atomoxetine 40 mg capsule 40 mg PO DAILY #30 caps 05/11/21 (Strattera) clonidine HCl 0.1 mg tablet 0.1 mg PO TID #90 tabs 05/11/21 methocarbamol 500 mg tablet 500 mg PO Q6H PRN muscle spasm #14 05/27/21 tabs albuterol sulfate 90 mcg/actuation 2 puff inhalation Q6H PRN 07/25/21 aerosol inhaler (ProAir HFA) shortness of breath or wheezing #18 grams cyclobenzaprine 10 mg tablet 10 mg PO TID PRN muscle spasm #90 07/25/21 tabs fluticasone 250 mcg-salmeterol 50 1 inh inhalation Q12H #60 ea 07/25/21 mcg/dose blistr powdr for inhalation (Advair Diskus) inhalational spacing device #1 ea 07/25/21 (BreatheRite MDI Spacer) pregabalin 300 mg capsule 300 mg PO BID #56 caps 07/25/21 trazodone 50 mg tablet 50 mg PO QHS #90 tabs 07/25/21 clindamycin HCl 150 mg capsule 450 mg PO TID 7 days #63 caps 08/29/22 Allergies Allergy/AdvReac Type Severity Reaction Status Date / Time lidocaine Allergy Intermediate Swelling/Ed Verified 02/17/22 00:01 rome procaine HCl [From Novocain] Allergy Intermediate Swelling/Ed Verified 02/17/22 00:01 rome red dye Allergy Mild Swelling/Ed Unverified 02/17/22 00:01 rome Penicillins AdvReac Unknown Nausea Verified 02/17/22 00:01 control pills Allergy Severe hospitalize Uncoded 02/17/22 00:01 d General Stated Complaint: DentalOral THONG: 4 Review of Systems All systems reviewed & are unremarkable except as noted in HPI and below Constitutional Constitutional: Denies chills, Denies fever(s) and Denies weakness Eyes Eyes: Denies loss of vision ENT Ears, Nose, Mouth, and Throat: Denies change in voice Cardiovascular Cardiovascular: Denies chest pain and Denies dyspnea Respiratory Respiratory: Denies cough and Denies dyspnea Gastrointestinal Gastrointestinal: Denies abdominal pain, Denies nausea and Denies vomiting Musculoskeletal Musculoskeletal: Denies joint swelling Integumentary/Breasts Skin/Breast: Denies rash Neurologic Neurologic: Denies loss of vision and Denies weakness PFSH All Active Problems (Updated 08/29/22 @ 12:24 by Klaeb Pino MD) Acute thoracic myofascial strain (Acute) Acute lumbar myofascial strain (Acute) Pain, dental (Acute) UTI (urinary tract infection) (Acute) Dental caries (Acute) H/O endoscopy (Acute) 06/11/19 [facility] [place] Endoscopy Z line abnl 37 cm from incisors,Grade A reflux esophagitis. Normal stomach and Duodenum. Chronic hepatitis C without hepatic coma (Acute) 05/27/19- [facility] Gastro. Katelyn Abbott, ANDREW 05/12/20 HCV viral load undetected 2020- Viral load detected again Carpal tunnel syndrome of right wrist (Acute) Plantar fasciitis, bilateral (Acute) ADHD (Acute) Family history of ovarian cancer (Acute) Family history of breast cancer in first degree relative (Acute) Family history of colon cancer (Acute) Family history of NM (myocardial infarction) (Acute) Gastroesophageal reflux disease without esophagitis (Acute 11/23/16) Hx of supraventricular tachycardia (Acute 11/23/16) Chronic back pain greater than 3 months duration (Acute 11/23/16) Tobacco use (Acute 11/23/16) Depression (Chronic) from previous record ? bipolar Anxiety (Chronic) Asthma (Chronic) Right ankle pain (Chronic) Polysubstance abuse (Acute) Substance abuse (Acute) Seen in October 2017, cocaine abuse Medical History Abdominal rigidity Carcinoma in situ of uterine cervix Cervical intraepithelial neoplasia grade 2 Chronic pelvic pain in female s/p hyst 2012 for cervical dysplasia. Pt reports chronic pelvic pain since that surgery. Daily headache Elevated LFTs Galactorrhea Hepatic cirrhosis due to chronic hepatitis C infection Hepatitis C Insomnia Irritable bowel syndrome Manifested as constipation Q3d. With meds has improved daily functioning. Leg edema Memory loss Pelvic pain Psychoactive substance abuse Surgical History Colonoscopy - MAC (01/29/17) Endoscopy (12/14/13) Dx Esophagitis. Excision, Cervicle Lymph Nodes H/O laparoscopy (~09/14/13) for LLQ pain. Has PDS suture removed (from previous hysterectomy with USLS. Nl pelvis. Pt mentions second laparoscopy for pelvic pain. Not in [facility] records. History of section History of cholecystectomy History of pacemaker History of tonsillectomy and adenoidectomy (~07/05/11) S/P hysterectomy (09/27/15) Status post laparoscopic hysterectomy (~04/15/13) Total laparoscopic hysterectomy & laparoscopic UteroSacral Vaginal Vault suspensionfor uterine prolapse Family History Father Alcohol abuse Substance abuse Colon cancer Liver cancer Throat cancer Depression Diabetes Heart disease Hypertension Mother Asthma Breast cancer Cervical cancer Depression Hypertension Alcohol abuse Substance abuse Sister Alcohol abuse Substance abuse Depression Sister Alcohol abuse Substance abuse Depression Sister Alcohol abuse Substance abuse Depression Social History Smoking/Tobacco Use Status: Current every day Tobacco Type: cigarettes Smoking packs per day: 2 Smoking cigarettes per day: 40.0 Years smoked: 13 Smoking pack-years: 26.00 Tobacco: How many years used: 25 Smoking risk assessment performed?: Yes Alcohol Intake: current Alcohol Intake frequency: holidays/special occasions only Drug use: Occasionally Substance use type: marijuana Details: was using 2-3 times a day (Heroin) now down to 1-2 times a day 09-05-21 no longer in Methadone program, ended 10-03-20 History of IV Drug Use. 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 Working smoke detector in home: Yes Carbon monox detector in home: Yes Do you feel safe at home: Yes Do you feel safe in your relationship?: Yes Victim of physical abuse: No Victim of emotional abuse: No Victim of sexual abuse: No Would you like helpful sources: No Additional Social history: Goes to [facility] 2x week, counseling and womens group Exam Const General: no acute distress Orientation: alert HENMT Head: normal to inspection Ears: external ears normal General nose exam: external nose normal Mouth: moist mucous membranes Eyes General: appearance normal, both eyes and all related structures Neck Neck: normal visual inspection Resp Effort & Inspection: normal respiratory effort and able to speak in complete sentences Cardio Rate: regular rate Skin General skin exam: no rashes or lesions noted Neuro General: patient alert and patient oriented x3 Extrem General: normal to inspection and full ROM Psych Mental Status: mental status grossly normal Course Vital Signs Vital signs: Vital Signs Temperature 36.9 C 08/29/22 12:01 Pulse 94 H 08/29/22 12:01 Respiratory Rate 18 08/29/22 12:01 Blood Pressure 101/65 08/29/22 12:01 Pulse Oximetry 99 08/29/22 12:01 Temperature 36.9 C 08/29/22 12:01 Temperature Source Tympanic 08/29/22 12:01 Pulse 94 H 08/29/22 12:01 Respiratory Rate 18 08/29/22 12:01 Respiratory Effort 08/29/22 12:05 Blood Pressure 101/65 08/29/22 12:01 Pulse Oximetry 99 08/29/22 12:01 Oxygen Delivery Method Room Air 08/29/22 12:01 Oxygen Flow Rate 0 08/29/22 12:01 Pain Level 8 08/29/22 12:01
== END 2022-08-29 12:32 | disposition home or self-care (01) ==
LOC: ER 12:25
PROVIDERS: Emergency Provider Emergency Medicine; PCP Family Medicine
DX: K08.89 Other specified disorders of teeth and supporting structures (principal)
CPT/HCPCS: 99283; 99284

== ENCOUNTER 2022-09-16 00:55 | Emergency (ER) | payer MEDICAID, SELFPAY ==
[2022-09-16 00:59] VITALS: BP 133/76; PULSE 80; RESP 16; TEMP 36.5; O2SAT 99
--- NOTE | 2022-09-16 01:09 | ED.GENADUL_ITS ---
Discharge Plan Disposition Patient Disposition: Home Discharge Details Chief Complaint: Orthopedic Clinical Impression: Chronic foot pain Primary Care Provider: Zeyad Hall ED Provider: Kaleb Pino Home Meds and New Rx's Prescriptions: No Action psyllium husk 0.52 gram capsule 0.52 gm PO DAILY citalopram 40 mg tablet 40 mg PO DAILY Qty: 90 3RF aripiprazole 5 mg tablet 5 mg PO DAILY Qty: 90 3RF Spiriva with HandiHaler 18 mcg capsule, w/inhalation device 1 cap IH DAILY Qty: 90 3RF hydroxyzine HCl 25 mg tablet 25 mg PO TID-QID PRN (Reason: itching) Qty: 90 3RF furosemide 20 mg tablet 20 mg PO DAILY Qty: 90 3RF hydrocortisone [Proctosol HC] 2.5 % cream with perineal applicator 1 applic MA QD-BID PRN (Reason: itching) Qty: 30 6RF ranitidine HCl 75 mg tablet 150 mg PO DAILY Rx Instructions: note dated 08/12/19 Bel Abbott APRN [facility] [place] [facility] ondansetron HCl [Zofran] 4 mg tablet 4 mg PO Q8H PRN (Reason: nausea and vomiting) Qty: 90 3RF ibuprofen 800 mg tablet 800 mg PO Q8H PRN (Reason: pain) Qty: 30 0RF omeprazole 40 mg capsule,delayed release(DR/EC) 40 mg PO DAILY Qty: 90 3RF atomoxetine [Strattera] 40 mg capsule 40 mg PO DAILY Qty: 30 1RF clonidine HCl 0.1 mg tablet 0.1 mg PO TID Qty: 90 1RF albuterol sulfate [ProAir HFA] 90 mcg/actuation HFA aerosol inhaler 2 puff IH Q6H PRN (Reason: shortness of breath or wheezing) Qty: 18 1RF cyclobenzaprine 10 mg tablet 10 mg PO TID PRN (Reason: muscle spasm) Qty: 90 1RF fluticasone propion-salmeterol [Advair Diskus] 250-50 mcg/dose blister with device 1 inh IH Q12H Qty: 60 1RF (DME) BreatheRite MDI Spacer Spacer See Rx Instructions .ROUTE .MEDSUPPLY Qty: 1 0RF Rx Instructions: As directed pregabalin 300 mg capsule 300 mg PO BID Qty: 56 1RF trazodone 50 mg tablet 50 mg PO QHS Qty: 90 1RF methocarbamol 500 mg tablet 500 mg PO Q6H PRN (Reason: muscle spasm) Qty: 14 0RF Discharge Instructions Instructions: Chronic Pain (ED) Additional Instructions: Follow up with your primary care provider within 1-2 weeks if you feel more ill, have high fevers or difficulty breathing return to the emergency department Medical Decision Making 36 yo female with hx of substance abuse, who comes in with complaints of 2 years of right foot and ankle pain. HAs been seen in the past for this and had xrays done in August which did not show acute findings. She denies any new injuries or falls. She is walking without a limp in no distress. She denies fevers, chills, rashes, swelling. She has no visible or palpable deformity of the foot or ankle. She has full of the right ankle, normal sensation and pulses, no swelling anywhere. No erythema or warmth. She localizes the pain to the plantar mid foot and lateral ankle. Unclear etiology for her pain, could have arthritis. No findings on exam to suggest infectious etiology such as septic joint. She has not had any trauma or falls so doubt fracture. Do not feel any labs or imaging indicated. Will provide walking boot to trial, advised to f/u with her pcp, return precautions given Differential Diagnosis Differential Diagnosis: arthritis, fascitis HPI General Mode of arrival: ambulatory . Date/Time Provider Initiated Documentation: 09/16/22 00:56 . Limitations to Documentation: no limitations . Information obtained by: patient . History of Present Illness 36 year old F presents to the emergency department with the chief complaint of right ankle pain, described as moderate, Quality is described as aching, Patient started experiencing this year(s) (2) and it has been constant. No relieving factors improve symptom(s), No exacerbating factors reported . Patient notes no other symptoms.; denies fever/chills. Related Data Home Medications Medication Instructions Recorded Confirmed psyllium husk 0.52 gram capsule 0.52 gm PO DAILY 08/11/18 02/17/22 ranitidine HCl 75 mg tablet 150 mg PO DAILY 08/12/19 02/17/22 ondansetron HCl 4 mg tablet 4 mg PO Q8H PRN nausea and 11/22/20 02/17/22 (Zofran) vomiting #90 tabs ibuprofen 800 mg tablet 800 mg PO Q8H PRN pain #30 tabs 12/29/20 02/17/22 omeprazole 40 mg capsule,delayed 40 mg PO DAILY #90 caps 12/29/20 02/17/22 release aripiprazole 5 mg tablet 5 mg PO DAILY #90 tabs 01/06/21 02/17/22 citalopram 40 mg tablet 40 mg PO DAILY #90 tabs 01/06/21 02/17/22 furosemide 20 mg tablet 20 mg PO DAILY #90 tabs 01/06/21 02/17/22 hydrocortisone 2.5 % topical cream 1 applic MA QD-BID PRN itching #30 01/06/21 02/17/22 with perineal applicator grams (Proctosol HC) hydroxyzine HCl 25 mg tablet 25 mg PO TID-QID PRN itching #90 01/06/21 02/17/22 tabs tiotropium bromide 18 mcg capsule 1 cap inhalation DAILY #90 01/06/21 02/17/22 with inhalation device (Spiriva inhalations with HandiHaler) atomoxetine 40 mg capsule 40 mg PO DAILY #30 caps 05/11/21 02/17/22 (Strattera) clonidine HCl 0.1 mg tablet 0.1 mg PO TID #90 tabs 05/11/21 02/17/22 methocarbamol 500 mg tablet 500 mg PO Q6H PRN muscle spasm #14 05/27/21 02/17/22 tabs albuterol sulfate 90 mcg/actuation 2 puff inhalation Q6H PRN 07/25/21 02/17/22 aerosol inhaler (ProAir HFA) shortness of breath or wheezing #18 grams cyclobenzaprine 10 mg tablet 10 mg PO TID PRN muscle spasm #90 07/25/21 02/17/22 tabs fluticasone 250 mcg-salmeterol 50 1 inh inhalation Q12H #60 ea 07/25/21 02/17/22 mcg/dose blistr powdr for inhalation (Advair Diskus) inhalational spacing device #1 ea 07/25/21 02/17/22 (BreatheRite MDI Spacer) pregabalin 300 mg capsule 300 mg PO BID #56 caps 07/25/21 02/17/22 trazodone 50 mg tablet 50 mg PO QHS #90 tabs 07/25/21 02/17/22 Previous Rx's Medication Instructions Recorded ondansetron HCl 4 mg tablet 4 mg PO Q8H PRN nausea and 11/22/20 (Zofran) vomiting #90 tabs ibuprofen 800 mg tablet 800 mg PO Q8H PRN pain #30 tabs 12/29/20 omeprazole 40 mg capsule,delayed 40 mg PO DAILY #90 caps 12/29/20 release aripiprazole 5 mg tablet 5 mg PO DAILY #90 tabs 01/06/21 citalopram 40 mg tablet 40 mg PO DAILY #90 tabs 01/06/21 furosemide 20 mg tablet 20 mg PO DAILY #90 tabs 01/06/21 hydrocortisone 2.5 % topical cream 1 applic MA QD-BID PRN itching #30 01/06/21 with perineal applicator grams (Proctosol HC) hydroxyzine HCl 25 mg tablet 25 mg PO TID-QID PRN itching #90 01/06/21 tabs tiotropium bromide 18 mcg capsule 1 cap inhalation DAILY #90 01/06/21 with inhalation device (Spiriva inhalations with HandiHaler) atomoxetine 40 mg capsule 40 mg PO DAILY #30 caps 05/11/21 (Strattera) clonidine HCl 0.1 mg tablet 0.1 mg PO TID #90 tabs 05/11/21 methocarbamol 500 mg tablet 500 mg PO Q6H PRN muscle spasm #14 05/27/21 tabs albuterol sulfate 90 mcg/actuation 2 puff inhalation Q6H PRN 07/25/21 aerosol inhaler (ProAir HFA) shortness of breath or wheezing #18 grams cyclobenzaprine 10 mg tablet 10 mg PO TID PRN muscle spasm #90 07/25/21 tabs fluticasone 250 mcg-salmeterol 50 1 inh inhalation Q12H #60 ea 07/25/21 mcg/dose blistr powdr for inhalation (Advair Diskus) inhalational spacing device #1 ea 07/25/21 (BreatheRite MDI Spacer) pregabalin 300 mg capsule 300 mg PO BID #56 caps 07/25/21 trazodone 50 mg tablet 50 mg PO QHS #90 tabs 12/21/21 Allergies Allergy/AdvReac Type Severity Reaction Status Date / Time lidocaine Allergy Intermediate Swelling/Ed Verified 02/17/22 00:01 rome procaine HCl [From Novocain] Allergy Intermediate Swelling/Ed Verified 02/17/22 00:01 rome red dye Allergy Mild Swelling/Ed Unverified 02/17/22 00:01 rome Penicillins AdvReac Unknown Nausea Verified 02/17/22 00:01 control pills Allergy Severe hospitalize Uncoded 02/17/22 00:01 d General Stated Complaint: Orthopedic THONG: 4 Review of Systems All systems reviewed & are unremarkable except as noted in HPI and below Constitutional Constitutional: Denies chills, Denies fever(s) and Denies weakness Cardiovascular Cardiovascular: Denies chest pain and Denies dyspnea Respiratory Respiratory: Denies cough and Denies dyspnea Gastrointestinal Gastrointestinal: Denies abdominal pain, Denies nausea and Denies vomiting Musculoskeletal Musculoskeletal: Denies joint swelling Integumentary/Breasts Skin/Breast: Denies rash Neurologic Neurologic: Denies weakness PFSH All Active Problems (Updated 09/16/22 @ 01:11 by Kaleb Pino MD) Acute thoracic myofascial strain (Acute) Acute lumbar myofascial strain (Acute) Pain, dental (Acute) Chronic foot pain (Acute) UTI (urinary tract infection) (Acute) Dental caries (Acute) H/O endoscopy (Acute) 06/11/19 [facility] Z line abnl 37 cm from incisors,Grade A reflux esophagitis. Normal stomach and Duodenum. Chronic hepatitis C without hepatic coma (Acute) 05/27/19- [facility] [place] Gastro. Katelyn Abbott APRN 05/12/20 HCV viral load undetected 2020- Viral load detected again Carpal tunnel syndrome of right wrist (Acute) Plantar fasciitis, bilateral (Acute) ADHD (Acute) Family history of ovarian cancer (Acute) Family history of breast cancer in first degree relative (Acute) Family history of colon cancer (Acute) Family history of NV (myocardial infarction) (Acute) Gastroesophageal reflux disease without esophagitis (Acute 11/23/16) Hx of supraventricular tachycardia (Acute 11/23/16) Chronic back pain greater than 3 months duration (Acute 11/23/16) Tobacco use (Acute 11/23/16) Depression (Chronic) from previous record ? bipolar Anxiety (Chronic) Asthma (Chronic) Right ankle pain (Chronic) Polysubstance abuse (Acute) Substance abuse (Acute) Seen in October 2017, cocaine abuse Medical History Abdominal rigidity Carcinoma in situ of uterine cervix Cervical intraepithelial neoplasia grade 2 Chronic pelvic pain in female s/p hyst 2012 for cervical dysplasia. Pt reports chronic pelvic pain since that surgery. Daily headache Elevated LFTs Galactorrhea Hepatic cirrhosis due to chronic hepatitis C infection Hepatitis C Insomnia Irritable bowel syndrome Manifested as constipation Q3d. With meds has improved daily functioning. Leg edema Memory loss Pelvic pain Psychoactive substance abuse Surgical History Colonoscopy - MAC (01/29/17) Endoscopy (12/14/13) Dx Esophagitis. Excision, Cervicle Lymph Nodes H/O laparoscopy (~09/14/13) for LLQ pain. Has PDS suture removed (from previous hysterectomy with USLS. Nl pelvis. Pt mentions second laparoscopy for pelvic pain. Not in [facility] records. History of section History of cholecystectomy History of pacemaker History of tonsillectomy and adenoidectomy (~07/05/11) S/P hysterectomy (09/27/15) Status post laparoscopic hysterectomy (~04/15/13) Total laparoscopic hysterectomy & laparoscopic UteroSacral Vaginal Vault suspensionfor uterine prolapse Family History Father Alcohol abuse Substance abuse Colon cancer Liver cancer Throat cancer Depression Diabetes Heart disease Hypertension Mother Asthma Breast cancer Cervical cancer Depression Hypertension Alcohol abuse Substance abuse Sister Alcohol abuse Substance abuse Depression Sister Alcohol abuse Substance abuse Depression Sister Alcohol abuse Substance abuse Depression Social History Smoking/Tobacco Use Status: Current every day Tobacco Type: cigarettes Smoking packs per day: 2 Smoking cigarettes per day: 40.0 Years smoked: 13 Smoking pack- years: 26.00 Tobacco: How many years used: 25 Smoking risk assessment performed?: Yes Alcohol Intake: current Alcohol Intake frequency: holidays/special occasions only Drug use: Occasionally Substance use type: marijuana Details: was using 2-3 times a day (Heroin) now down to 1-2 times a day 09-05-21 no longer in Methadone program, ended 10-03-20 History of IV Drug Use. Got first script for suboxone today 09-05-21 Household members: none Housing: apartment Number of Children: 3 Communication Needs: None current occupation: unemployed What is your relationship status?: How often do you talk on the phone with friends or family?: three or more times per week Panel score (0-1 are the most socially isolated patients): 1 What type of physical activity do you participate in: none Seatbelt use: always Drive intox or ride w/intox automation driver: No Working smoke detector in home: Yes Carbon monox detector in home: Yes Do you feel safe at home: Yes Do you feel safe in your relationship?: Yes Victim of physical abuse: No Victim of emotional abuse: No Victim of sexual abuse: No Would you like helpful sources: No Additional Social history: Goes to [facility] 2x week, counseling and womens group Exam Const General: no acute distress Orientation: alert HENMI Head: normal to inspection Ears: external ears normal General nose exam: external nose normal Mouth: moist mucous membranes Eyes General: appearance normal, both eyes and all related structures Neck Neck: normal visual inspection Resp Effort & Inspection: normal respiratory effort and able to speak in complete sentences Cardio Rate: regular rate Skin General skin exam: no rashes or lesions noted Neuro General: patient alert and patient oriented x3 Extrem General: normal to inspection, full ROM and capillary refill normal Psych Mental Status: mental status grossly normal Course Vital Signs Vital signs: Vital Signs Temperature 36.5 C 09/16/22 00:59 Pulse 80 09/16/22 00:59 Respiratory Rate 16 09/16/22 00:59 Blood Pressure 133/76 09/16/22 00:59 Pulse Oximetry 99 09/16/22 00:59 Temperature 36.5 C 09/16/22 00:59 Temperature Source Oral 09/16/22 00:59 Pulse 80 09/16/22 00:59 Respiratory Rate 16 09/16/22 00:59 Blood Pressure 133/76 09/16/22 00:59 Blood Pressure Position Sitting 09/16/22 00:59 Pulse Oximetry 99 09/16/22 00:59 Oxygen Delivery Method Room Air 09/16/22 00:59 Oxygen Flow Rate 0 09/16/22 00:59 Pain Level 7 09/16/22 00:59
--- NOTE | 2022-09-16 01:41 | NUR.NOTE ---
Nursing Note: Ortho boot applied to pt, pt out of ER ambulatory.
== END 2022-09-16 01:41 | disposition home or self-care (01) ==
LOC: ER 01:25
PROVIDERS: Emergency Provider Emergency Medicine; PCP Family Medicine
DX: M79.671 Pain in right foot (principal); G89.29 Other chronic pain
CPT/HCPCS: 29515; 99283

== ENCOUNTER 2023-02-15 06:59 | Emergency (ER) | payer MEDICAID, SELFPAY ==
[2023-02-15] VITALS (7 sets, daily range): BP systolic 100–131; BP diastolic 65–72; PULSE 74–90; RESP 16–18; TEMP 35.9–37.1; O2SAT 97–100
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
--- NOTE | 2023-02-15 08:00 | DI.CT_ITS ---
Exam(s) CT LUMBAR SPINE W CT THORACIC SPINE W EXAM: CT LUMBAR SPINE W CLINICAL HISTORY: r/o osteo of spine. TECHNIQUE: Imaging Protocol: Axial computed tomography images with coronal and sagittal reformatted images were created and reviewed COMPARISON: CT CT THORACIC SPINE W from 02/15/2023 FINDINGS: Bones: There is destruction of endplates on both sides of L4-5 disc space highly suspicious for disci tis-osteomyelitis. There is enhancing tissue posterior to the disc space at this level subligamentous location which is most probably phlegmon extending up behind L4 and behind L5 vertebral bodies for a cephalocaudal dist ance of 3 cm. Results in an element of moderate spinal canal stenosis. The facet joints at this level appears slightly widened when compared to the other levels. Cannot ex clude septic arthritis although there is no but bone destruction of the facet level evident. IMPRESSION: 1. 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 Subligamentous phlegmon evident posteriorly. MRI recommend ed. 2. Similar findings not seen in the thoracic spinal column. Findings called by myself to ER physician RADIATION DOSE DELIVERED: 771.82 mGy.cm Total DLP DATA REPOSITORY: All CT scans at this facility are submitted to the National Radiology Data Registry (NRDR) Dose Index Registry (DIR) with the [employer] (A[employer]). RADIATION OPTIMIZATION: All CT scans at this facility use at least one of these dose optimization te chniques: automated exposure control; mA and/or kV adjustment per patient size (includes targeted exa ms where dose is matched to clinical indication); or iterative reconstruction.
[2023-02-15 08:16] LABS: Abs Immature Grans 0.05 10^3/uL (0.0-0.06); Absolute Basophil Count 0.01 10^3/uL (0.0-0.2); Absolute Eosinophil Count 0.02 10^3/uL (0.0-0.7); Absolute Lymphocyte Count 1.23 10^3/uL (1.2-3.4); Absolute Monocyte Count 0.71 10^3/uL (0.1-0.8); Absolute Neutrophil Count 4.83 10^3/uL (1.2-6.7); Basophils % 0.1; Eosinophils % 0.3; HCT 31.6 % (36.0-46.0); HGB 9.9 g/dL (11.2-15.7); Immature Grans % 0.7; MCH 27.2 pg (27.0-33.0); MCHC 31.3 % (32.0-36.0); MCV 87 fL (80-95); MPV 9.8 fL (8.0-11.0); Monocytes % 10.4; Neutrophils % 70.5; Platelet Count 253 10^3/uL (130-400); RBC 3.64 10^6/uL (3.93-5.22); RDW 14.1 % (11.7-14.6); RDW-SD 44.9 fL; WBC 6.85 10^3/uL (4.4-10.8)
[2023-02-15 08:23] LABS: ESR 44 mm/hr (0-20)
[2023-02-15 08:30] LABS: ALT 40 U/L (14-59); AST 19 U/L (15-37); Alkaline Phosphatase 338 U/L (46-116); Anion Gap 9.9 mmol/L (3-11); BUN 16 mg/dL (7-18); Bilirubin, Total 0.5 mg/dL (0.2-1.0); C-Reactive Protein 13.52 mg/dL (0.0-0.3); CO2 28.1 mmol/L (21.0-32.0); CREATININE 0.6 mg/dL (0.55-1.02); Calcium 9.1 mg/dL (8.5-10.1); Chloride 100 mmol/L (98-107); Estimated GFR 119.97 (mL/min/1.73m2); Glucose 111 mg/dL (74-106); Potassium 3.5 mmol/L (3.5-5.1); Sodium 138 mmol/L (136-145); Total Protein 9.2 g/dL (6.4-8.2)
[2023-02-15 08:34] LABS: Bilirubin Small (Negative); Blood Negative (Negative); Clarity Clear (Clear); Glucose 100 mg/dL (Negative); Ketones Negative (Negative); Leukocyte Esterase Negative (Negative); Nitrite Negative (Negative); Specific Gravity >= 1.030 (1.005-1.025); pH 5.5 (5-8)
[2023-02-15 09:12] LABS: Bacteria Negative HPF (Negative); C & S Indicated? No; Casts 0-2 Hyaline LPF (Negative); Crystals Negative HPF (Negative); Epithelial Cells Few HPF (Negative); Mucus Moderate (Negative); RBC Negative HPF (0-2); WBC 0-2 HPF (0-5)
[2023-02-15] MEDS: Normal Saline - Diluent 50 ML VIAL IJ (09:47)
[2023-02-15] MEDS: Normal Saline Flush 10 ML SYR IJ (09:47)
[2023-02-15] MEDS: Omnipaque 350 MG/ML 500 ML BTL-Imaging package IJ (09:48)
--- NOTE | 2023-02-15 10:05 | NUR.NOTE ---
Nursing Note: Loader Engineer assumed care of patient at this time
--- NOTE | 2023-02-15 11:05 | ED.PROG_ITS ---
Date of service: 02/15/23 Time of Service: 11:05 Medical Decision Making Patient was signed out to me by my colleague Dr. Pierce, please refer to HPI, physical exam, assessment and plan. At time of signout we are waiting on labs and imaging. Patient is an IV drug user and there is a high concern for potential drug discitis or spinal abscess. Laboratory work-up has returned and shows evidence of no white count or left shift, however ESR is elevated at 44, CRP is mildly elevated at 13, and alk phos is high at 338. Urinalysis is negative for any significant abnormality. CT imaging has returned and radiology shows evidence of discitis and osteomyelitis at L4-L5 as well as some ligamentous phlegmon evident posteriorly. Patient shows no clinical evidence of cauda equina syndrome at this time. Concern for spinal abscess. We will give vancomycin and Cipro secondary to her previous anaphylactic reaction with penicillin. We will treat her pain, reach out to [facility]. 1:54 PM We reached out to [facility] and I spoke with Dr. Florin Espinal of neurosurgery, specifically orthopedics on-call for neuro. They state that currently that this would be a medical admission, and does not need emergent surgical intervention. They do not have any medical beds available. [facility] also states that they are not able to accept the patient at this time secondary to capacity. I did contact [facility] interventional radiology and they state that they could perform the procedure if needed but the earliest time would be Saturday. In the meantime we will continue antibiotics of vancomycin and Cipro, blood cultures have been sent. We will admit to the medicine team here. 3:31 PM I did discuss the case with the hospitalist again, and he has requested that we reach out to [facility] or [facility]. We will reach out to them as options to see if the procedure can be accomplished today. Patient will be signed out to my colleague Dr. Real. FINDINGS: Bones: There is destruction of endplates on both sides of L4-5 disc space highly suspicious for discitis-osteomyelitis. There is enhancing tissue posterior to the disc space at this level subligamentous location which is most probably phlegmon extending up behind L4 and behind L5 vertebral bodies for a cephalocaudal distance of 3 cm. Results in an element of moderate spinal canal stenosis. The facet joints at this level appears slightly widened when compared to the other levels. Cannot exclude septic arthritis although there is no but bone destruction of the facet level evident. IMPRESSION: 1. 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 Subligamentous phlegmon evident posteriorly. MRI recommended. 2. Similar findings not seen in the thoracic spinal column. Sign Out Sign Out Data: Sign Out Comment: This is a 37-year-old female with history of IVDA who presents with signs and symptoms of right sciatica. We are going to review all osteomyelitis of the spine. Last updated by Tea Pierce MD at 02/15/23 08:02 Discharge Plan Discharge Details Chief Complaint: Nk/Back Pain Primary Care Provider: Zeyad Hall ED Provider: Miguel Nash Home Meds and New Rx's Prescriptions: No Action psyllium husk 0.52 gram capsule 0.52 gm PO DAILY citalopram 40 mg tablet 40 mg PO DAILY Qty: 90 3RF aripiprazole 5 mg tablet 5 mg PO DAILY Qty: 90 3RF Spiriva with HandiHaler 18 mcg capsule, w/inhalation device 1 cap IH DAILY Qty: 90 3RF hydroxyzine HCl 25 mg tablet 25 mg PO TID-QID PRN (Reason: itching) Qty: 90 3RF furosemide 20 mg tablet 20 mg PO DAILY Qty: 90 3RF hydrocortisone [Proctosol HC] 2.5 % cream with perineal applicator 1 applic [place] QD-BID PRN (Reason: itching) Qty: 30 6RF ranitidine HCl 75 mg tablet 150 mg PO DAILY Rx Instructions: note dated 08/12/19 Bel Abbott APRN [facility] [place]dansetron HCl [Zofran] 4 mg tablet 4 mg PO Q8H PRN (Reason: nausea and vomiting) Qty: 90 3RF ibuprofen 800 mg tablet 800 mg PO Q8H PRN (Reason: pain) Qty: 30 0RF omeprazole 40 mg capsule,delayed release(DR/EC) 40 mg PO DAILY Qty: 90 3RF atomoxetine [Strattera] 40 mg capsule 40 mg PO DAILY Qty: 30 1RF clonidine HCl 0.1 mg tablet 0.1 mg PO TID Qty: 90 1RF albuterol sulfate [ProAir HFA] 90 mcg/actuation HFA aerosol inhaler 2 puff IH Q6H PRN (Reason: shortness of breath or wheezing) Qty: 18 1RF cyclobenzaprine 10 mg tablet 10 mg PO TID PRN (Reason: muscle spasm) Qty: 90 1RF fluticasone propion-salmeterol [Advair Diskus] 250-50 mcg/dose blister with device 1 inh IH Q12H Qty: 60 1RF (DME) BreatheRite MDI Spacer Spacer See Rx Instructions .ROUTE .MEDSUPPLY Qty: 1 0RF Rx Instructions: As directed pregabalin 300 mg capsule 300 mg PO BID Qty: 56 1RF trazodone 50 mg tablet 50 mg PO QHS Qty: 90 1RF methocarbamol 500 mg tablet 500 mg PO Q6H PRN (Reason: muscle spasm) Qty: 14 0RF
[2023-02-15] MEDS: CIPROFLOXACIN 400 MG/200 ML BAG 200 MG IVPB (11:17)
[2023-02-15] MEDS: MORPHine 4 MG/ML SYR IVP (11:17)
[2023-02-15] MEDS: VANCOMYCIN 1,500 MG in Normal Saline 250 ML 166.6666 MG IVPB (12:26)
[2023-02-15] MEDS: HYDROmorphone 2 MG/ML SYR IVP ×2 (12:32→17:23)
[2023-02-15] MEDS: Nicotine 21 MG/24 HR PATCH TD (12:33)
--- NOTE | 2023-02-15 12:54 | NUR.NOTE ---
Nursing Note: Lab contacted for obtaining blood cultures. aware that ciprofloxacin has already infused and vanco is infusing currently. Vanco paused for blood culture draw by clinical services manager.
[2023-02-15] MEDS: ACETAMINOPHEN 1,000 MG/100 ML BTL 400 MG IVPB (14:22)
--- NOTE | 2023-02-15 17:04 | ED.PROG_ITS ---
Date of service: 02/15/23 Time of Service: 16:00 Medical Decision Making Assumed care of patient at 1600. At that time awaiting return phone call from outside facility. Brief HPI: 37-year-old female presents for evaluation of back pain found to have discitis/osteomyelitis with phlegmon concerning for possible epidural abscess. She has anaphylaxis to penicillins and was started on IV vancomycin and Cipro. She received her dose of IV Cipro at 1117 and IV vancomycin at 1230. She did have an episode of vomiting and was given Zofran as well as Protonix. 1700 -received call back from [facility]. Spoke with Dr. Jain accepts patient in transfer to the ED. Sign Out Sign Out Data: Sign Out Comment: This is a 37-year-old female with history of IVDA who presents with signs and symptoms of right sciatica. We are going to review all osteomyelitis of the spine. Last updated by Tea Pierce MD at 02/15/23 08:02 Sign Out Comment: Pending callback from [place] or [facility] for potential transfer for interventional radiology procedure, otherwise admission here. Last updated by Miguel Nash DO at 02/15/23 15:56 Discharge Plan Disposition Patient Disposition: Transfer-Acute Inpatient Care Specific Acute Inpt Facility: [place] Discharge Details Clinical Impression: Polysubstance abuse, Tobacco use, Osteomyelitis, Discitis of lumbosacral region Primary Care Provider: Zeyad Hall ED Provider: Jessie Carver Home Meds and New Rx's Prescriptions: No Action psyllium husk 0.52 gram capsule 0.52 gm PO DAILY citalopram 40 mg tablet 40 mg PO DAILY Qty: 90 3RF aripiprazole 5 mg tablet 5 mg PO DAILY Qty: 90 3RF Spiriva with HandiHaler 18 mcg capsule, w/inhalation device 1 cap IH DAILY Qty: 90 3RF hydroxyzine HCl 25 mg tablet 25 mg PO TID-QID PRN (Reason: itching) Qty: 90 3RF furosemide 20 mg tablet 20 mg PO DAILY Qty: 90 3RF hydrocortisone [Proctosol HC] 2.5 % cream with perineal applicator 1 applic [place] QD-BID PRN (Reason: itching) Qty: 30 6RF ranitidine HCl 75 mg tablet 150 mg PO DAILY Rx Instructions: note dated 08/12/19 Bel Abbott APRN [facility] [place] ondansetron HCl [Zofran] 4 mg tablet 4 mg PO Q8H PRN (Reason: nausea and vomiting) Qty: 90 3RF ibuprofen 800 mg tablet 800 mg PO Q8H PRN (Reason: pain) Qty: 30 0RF omeprazole 40 mg capsule,delayed release(DR/EC) 40 mg PO DAILY Qty: 90 3RF atomoxetine [Strattera] 40 mg capsule 40 mg PO DAILY Qty: 30 1RF clonidine HCl 0.1 mg tablet 0.1 mg PO TID Qty: 90 1RF albuterol sulfate [ProAir HFA] 90 mcg/actuation HFA aerosol inhaler 2 puff IH Q6H PRN (Reason: shortness of breath or wheezing) Qty: 18 1RF cyclobenzaprine 10 mg tablet 10 mg PO TID PRN (Reason: muscle spasm) Qty: 90 1RF fluticasone propion-salmeterol [Advair Diskus] 250-50 mcg/dose blister with device 1 inh IH Q12H Qty: 60 1RF (DME) BreatheRite MDI Spacer Spacer See Rx Instructions .ROUTE .MEDSUPPLY Qty: 1 0RF Rx Instructions: As directed pregabalin 300 mg capsule 300 mg PO BID Qty: 56 1RF trazodone 50 mg tablet 50 mg PO QHS Qty: 90 1RF methocarbamol 500 mg tablet 500 mg PO Q6H PRN (Reason: muscle spasm) Qty: 14 0RF
[2023-02-15] MEDS: Ondansetron 4 MG/2 ML VIAL IVP (17:23)
--- NOTE | 2023-02-16 05:21 | NUR.NOTE ---
Positive blood culture result faxed to [facility], .Nursing Note:
--- NOTE | 2023-02-16 14:34 | NUR.NOTE ---
Faxed blood culture results to [facility] and spoke to themNursing Note:
--- NOTE | 2023-02-16 14:37 | NUR.NOTE ---
Error on previous note, faxed blood culture results to [place], not [place].Nursing Note:
--- NOTE | 2023-02-19 08:55 | NUR.NOTE ---
Nursing Note: Preliminary blood culture result faxed to [facility] where pt was transferred. . Dr Kaleb Pino aware.
== END 2023-02-15 17:38 | disposition short-term general hospital (02) ==
PROVIDERS: Emergency Medicine Emergency Medical Services; Emergency Provider Emergency Medicine Emergency Medical Services; PCP Family Medicine
DX: M46.47 Discitis, unspecified, lumbosacral region (principal); F19.10 Other psychoactive substance abuse, uncomplicated; M86.9 Osteomyelitis, unspecified; F17.210 Nicotine dependence, cigarettes, uncomplicated
CPT/HCPCS: 36415; 80053; 85652; 86141; 87040; 87077; 96365; 96366; 96367; 96375; 96376; 99285; 72129; 72132; 81003; 81015; 85025; 86140; 87186; J0131; J0744; J1170; J2270; J2405

== ENCOUNTER 2023-02-22 16:56 | Inpatient (IN) | payer MEDICAID, SELFPAY ==
[2023-02-22 17:02] VITALS: BP 101/67; PULSE 52; RESP 15; TEMP 36.5; O2SAT 98
[2023-02-22 18:35] VITALS: RESP 18
[2023-02-22 18:53] LABS: Abs Immature Grans 0.03 10^3/uL (0.0-0.06); Absolute Basophil Count 0.02 10^3/uL (0.0-0.2); Absolute Eosinophil Count 0.13 10^3/uL (0.0-0.7); Absolute Lymphocyte Count 2.85 10^3/uL (1.2-3.4); Absolute Monocyte Count 0.39 10^3/uL (0.1-0.8); Absolute Neutrophil Count 3.35 10^3/uL (1.2-6.7); Basophils % 0.3; Eosinophils % 1.9; HCT 27.7 % (36.0-46.0); HGB 8.8 g/dL (11.2-15.7); Immature Grans % 0.4; Lymphocytes % 42.1; MCH 27.3 pg (27.0-33.0); MCHC 31.8 % (32.0-36.0); MCV 86 fL (80-95); Monocytes % 5.8; Neutrophils % 49.5; Platelet Count 335 10^3/uL (130-400); RBC 3.22 10^6/uL (3.93-5.22); RDW 14.1 % (11.7-14.6); RDW-SD 43.8 fL; WBC 6.77 10^3/uL (4.4-10.8)
[2023-02-22 19:01] LABS: ESR 43 mm/hr (0-20)
[2023-02-22 19:09] LABS: C-Reactive Protein 0.74 mg/dL (0.0-0.3)
[2023-02-22 19:13] LABS: ALT 15 U/L (14-59); AST 11 U/L (15-37); Alkaline Phosphatase 181 U/L (46-116); Anion Gap 8.3 mmol/L (3-11); BUN 20 mg/dL (7-18); Bilirubin, Total 0.1 mg/dL (0.2-1.0); CO2 27.7 mmol/L (21.0-32.0); CREATININE 0.6 mg/dL (0.55-1.02); Chloride 104 mmol/L (98-107); Estimated GFR 119.97 (mL/min/1.73m2); Glucose 113 mg/dL (74-106); Potassium 3.3 mmol/L (3.5-5.1); Sodium 140 mmol/L (136-145); Total Protein 8.3 g/dL (6.4-8.2)
--- NOTE | 2023-02-22 19:14 | ED.GENADUL_ITS ---
Discharge Plan Disposition Patient Disposition: Admit to [facility] Condition: Stable Discharge Details Chief Complaint: GenMedical Clinical Impression: Osteomyelitis, Discitis of lumbosacral region, MRSA bacteremia Primary Care Provider: Zeyad Hall ED Provider: Gracie Becker Home Meds and New Rx's Prescriptions: No Action psyllium husk 0.52 gram capsule 0.52 gm PO DAILY citalopram 40 mg tablet 40 mg PO DAILY Qty: 90 3RF aripiprazole 5 mg tablet 5 mg PO DAILY Qty: 90 3RF Spiriva with HandiHaler 18 mcg capsule, w/inhalation device 1 cap IH DAILY Qty: 90 3RF hydroxyzine HCl 25 mg tablet 25 mg PO TID-QID PRN (Reason: itching) Qty: 90 3RF furosemide 20 mg tablet 20 mg PO DAILY Qty: 90 3RF hydrocortisone [Proctosol HC] 2.5 % cream with perineal applicator 1 applic [place] QD-BID PRN (Reason: itching) Qty: 30 6RF ranitidine HCl 75 mg tablet 150 mg PO DAILY Rx Instructions: note dated 08/12/19 Bel Abbott APRN [facility] [place] ondansetron HCl [Zofran] 4 mg tablet 4 mg PO Q8H PRN (Reason: nausea and vomiting) Qty: 90 3RF ibuprofen 800 mg tablet 800 mg PO Q8H PRN (Reason: pain) Qty: 30 0RF omeprazole 40 mg capsule,delayed release(DR/EC) 40 mg PO DAILY Qty: 90 3RF atomoxetine [Strattera] 40 mg capsule 40 mg PO DAILY Qty: 30 1RF clonidine HCl 0.1 mg tablet 0.1 mg PO TID Qty: 90 1RF albuterol sulfate [ProAir HFA] 90 mcg/actuation HFA aerosol inhaler 2 puff IH Q6H PRN (Reason: shortness of breath or wheezing) Qty: 18 1RF cyclobenzaprine 10 mg tablet 10 mg PO TID PRN (Reason: muscle spasm) Qty: 90 1RF fluticasone propion-salmeterol [Advair Diskus] 250-50 mcg/dose blister with device 1 inh IH Q12H Qty: 60 1RF (DME) BreatheRite MDI Spacer Spacer See Rx Instructions .ROUTE .MEDSUPPLY Qty: 1 0RF Rx Instructions: As directed pregabalin 300 mg capsule 300 mg PO BID Qty: 56 1RF trazodone 50 mg tablet 50 mg PO QHS Qty: 90 1RF methocarbamol 500 mg tablet 500 mg PO Q6H PRN (Reason: muscle spasm) Qty: 14 0RF Medical Decision Making This is a 37-year-old female patient history of drug abuse with discitis/osteomyelitis L4-[address] scan here on February 15 she also had 2 sets of blood cultures positive for MRSA. She was transported to [facility] for further management left there AMA 2 days ago. She has been without antibiotics. She has no symptoms of worsening systemic infection at this time hemodynamically she is stable she has had no fever and no increase in back pain. Will obtain IV check blood cultures CBC CMP sed rate and CRP. We will hold off on imaging at this time MRI is not available records from [facility] have been requested and are pending. She will be started on vancomycin pharmacy to dose. Her case is discussed with Dr. Mcneal from hospitalist services who has accepted her for admission here for IV antibiotics. Admission orders have been placed Medical Records Medical records reviewed: Yes I reviewed the patient's medical records. Lab Data Lab results reviewed: Yes I reviewed the patient's lab results. HPI General Mode of arrival: ambulatory . Date/Time Provider Initiated Documentation: 02/22/23 16:58 . Limitations to Documentation: no limitations . Information obtained by: patient . HPI Narrative: This 37-year-old female patient with history of drug abuse chronic hep C who presented here to the emergency department with back pain on February 15 CAT scan imaging which showed discitis/osteo myelitis of the lower lumbar spine at L4-5. There is also a posterior phlegmon so her case was discussed with IR at [facility] unfortunately they had no capacity so she was transported to [facility] for further evaluation and management. She states 2 days ago she left there AGAINST MEDICAL ADVICE because she has anxiety and did not feel comfortable without her support systems. She states they were trying to arrange transfer back to this facility but it was taking too long for her comfort so she left there. She presents here tonight and initially friend stating that she was homeless and needed food. She denies any fever, new or worsening back pain, nausea vomiting diarrhea or other complaints. She states she has been coming here immediately after leaving here against advice because she needed to visit her children. On exam she is calm cooperative with no evidence of withdrawal or impairment. Related Data Home Medications Medication Instructions Recorded Confirmed psyllium husk 0.52 gram capsule 0.52 gm PO DAILY 08/11/18 02/22/23 ranitidine HCl 75 mg tablet 150 mg PO DAILY 08/12/19 02/22/23 ondansetron HCl 4 mg tablet 4 mg PO Q8H PRN nausea and 11/22/20 02/22/23 (Zofran) vomiting #90 tabs ibuprofen 800 mg tablet 800 mg PO Q8H PRN pain #30 tabs 12/29/20 02/22/23 omeprazole 40 mg capsule,delayed 40 mg PO DAILY #90 caps 12/29/20 02/22/23 release aripiprazole 5 mg tablet 5 mg PO DAILY #90 tabs 01/06/21 02/22/23 citalopram 40 mg tablet 40 mg PO DAILY #90 tabs 01/06/21 02/22/23 furosemide 20 mg tablet 20 mg PO DAILY #90 tabs 01/06/21 02/22/23 hydrocortisone 2.5 % topical cream 1 applic [place] QD-BID PRN itching #30 01/06/21 02/22/23 with perineal applicator grams (Proctosol HC) hydroxyzine HCl 25 mg tablet 25 mg PO TID-QID PRN itching #90 01/06/21 02/22/23 tabs tiotropium bromide 18 mcg capsule 1 cap inhalation DAILY #90 01/06/21 02/22/23 with inhalation device (Spiriva inhalations with HandiHaler) atomoxetine 40 mg capsule 40 mg PO DAILY #30 caps 05/11/21 02/22/23 (Strattera) clonidine HCl 0.1 mg tablet 0.1 mg PO TID #90 tabs 05/11/21 02/22/23 methocarbamol 500 mg tablet 500 mg PO Q6H PRN muscle spasm #14 05/27/21 02/22/23 tabs albuterol sulfate 90 mcg/actuation 2 puff inhalation Q6H PRN 07/25/21 02/22/23 aerosol inhaler (ProAir HFA) shortness of breath or wheezing #18 grams cyclobenzaprine 10 mg tablet 10 mg PO TID PRN muscle spasm #90 07/25/21 02/22/23 tabs fluticasone 250 mcg-salmeterol 50 1 inh inhalation Q12H #60 ea 07/25/21 02/22/23 mcg/dose blistr powdr for inhalation (Advair Diskus) inhalational spacing device #1 ea 07/25/21 02/22/23 (BreatheRite MDI Spacer) pregabalin 300 mg capsule 300 mg PO BID #56 caps 07/25/21 02/22/23 trazodone 50 mg tablet 50 mg PO QHS #90 tabs 07/25/21 02/22/23 Previous Rx's Medication Instructions Recorded ondansetron HCl 4 mg tablet 4 mg PO Q8H PRN nausea and 11/22/20 (Zofran) vomiting #90 tabs ibuprofen 800 mg tablet 800 mg PO Q8H PRN pain #30 tabs 12/29/20 omeprazole 40 mg capsule,delayed 40 mg PO DAILY #90 caps 12/29/20 release aripiprazole 5 mg tablet 5 mg PO DAILY #90 tabs 01/06/21 citalopram 40 mg tablet 40 mg PO DAILY #90 tabs 01/06/21 furosemide 20 mg tablet 20 mg PO DAILY #90 tabs 01/06/21 hydrocortisone 2.5 % topical cream 1 applic [place] QD-BID PRN itching #30 01/06/21 with perineal applicator grams (Proctosol HC) hydroxyzine HCl 25 mg tablet 25 mg PO TID-QID PRN itching #90 01/06/21 tabs tiotropium bromide 18 mcg capsule 1 cap inhalation DAILY #90 01/06/21 with inhalation device (Spiriva inhalations with HandiHaler) atomoxetine 40 mg capsule 40 mg PO DAILY #30 caps 05/11/21 (Strattera) clonidine HCl 0.1 mg tablet 0.1 mg PO TID #90 tabs 05/11/21 methocarbamol 500 mg tablet 500 mg PO Q6H PRN muscle spasm #14 05/27/21 tabs albuterol sulfate 90 mcg/actuation 2 puff inhalation Q6H PRN 07/25/21 aerosol inhaler (ProAir HFA) shortness of breath or wheezing #18 grams cyclobenzaprine 10 mg tablet 10 mg PO TID PRN muscle spasm #90 07/25/21 tabs fluticasone 250 mcg-salmeterol 50 1 inh inhalation Q12H #60 ea 07/25/21 mcg/dose blistr powdr for inhalation (Advair Diskus) inhalational spacing device #1 ea 07/25/21 (BreatheRite MDI Spacer) pregabalin 300 mg capsule 300 mg PO BID #56 caps 07/25/21 trazodone 50 mg tablet 50 mg PO QHS #90 tabs 07/25/21 Allergies Allergy/AdvReac Type Severity Reaction Status Date / Time lidocaine Allergy Intermediate Swelling/Ed Verified 02/22/23 17:09 rome procaine HCl [From Novocain] Allergy Intermediate Swelling/Ed Verified 02/22/23 17:09 rome red dye Allergy Mild Swelling/Ed Unverified 02/22/23 17:09 rome Penicillins AdvReac Unknown Nausea Verified 02/22/23 17:09 control pills Allergy Severe hospitalize Uncoded 02/22/23 17:09 d General Stated Complaint: GenMedical THONG: 3 Review of Systems All systems reviewed & are unremarkable except as noted in HPI and below PFSH All Active Problems (Updated 02/22/23 @ 19:23 by Gracie Becker NP) Acute thoracic myofascial strain (Acute) Acute lumbar myofascial strain (Acute) Osteomyelitis (Acute) Discitis of lumbosacral region (Acute) MRSA bacteremia (Acute) UTI (urinary tract infection) (Acute) Dental caries (Acute) H/O endoscopy (Acute) [place] [facility] [place] line abnl 37 cm from incisors,Grade A reflux esophagitis. Normal stomach and Duodenum. Chronic hepatitis C without hepatic coma (Acute) 05/27/19- [facility] [place] Gastro. Katelyn Abbott, ANDREW 05/12/20 HCV viral load undetected 2020- Viral load detected again Carpal tunnel syndrome of right wrist (Acute) Plantar fasciitis, bilateral (Acute) ADHD (Acute) Family history of ovarian cancer (Acute) Family history of breast cancer in first degree relative (Acute) Family history of colon cancer (Acute) Family history of VT (myocardial infarction) (Acute) Gastroesophageal reflux disease without esophagitis (Acute 11/23/16) Hx of supraventricular tachycardia (Acute 11/23/16) Chronic back pain greater than 3 months duration (Acute 11/23/16) Tobacco use (Acute 11/23/16) Depression (Chronic) from previous record ? bipolar Anxiety (Chronic) Asthma (Chronic) Right ankle pain (Chronic) Polysubstance abuse (Acute) Substance abuse (Acute) Seen in October 2017, cocaine abuse Medical History Abdominal rigidity Carcinoma in situ of uterine cervix Cervical intraepithelial neoplasia grade 2 Chronic pelvic pain in female s/p hyst 2012 for cervical dysplasia. Pt reports chronic pelvic pain since that surgery. Daily headache Elevated LFTs Galactorrhea Hepatic cirrhosis due to chronic hepatitis C infection Hepatitis C Insomnia Irritable bowel syndrome Manifested as constipation Q3d. With meds has improved daily functioning. Leg edema Memory loss Pelvic pain Psychoactive substance abuse Surgical History Colonoscopy - MAC (01/29/17) Endoscopy (12/14/13) Dx Esophagitis. Excision, Cervicle Lymph Nodes H/O laparoscopy (~09/14/13) for LLQ pain. Has PDS suture removed (from previous hysterectomy with USLS. Nl pelvis. Pt mentions second laparoscopy for pelvic pain. Not in [facility] records. History of section History of cholecystectomy History of pacemaker History of tonsillectomy and adenoidectomy (~07/05/11) S/P hysterectomy (09/27/15) Status post laparoscopic hysterectomy (~04/15/13) Total laparoscopic hysterectomy & laparoscopic UteroSacral Vaginal Vault suspensionfor uterine prolapse Family History Father Alcohol abuse Substance abuse Colon cancer Liver cancer Throat cancer Depression Diabetes Heart disease Hypertension Mother Asthma Breast cancer Cervical cancer Depression Hypertension Alcohol abuse Substance abuse Sister Alcohol abuse Substance abuse Depression Sister Alcohol abuse Substance abuse Depression Sister Alcohol abuse Substance abuse Depression Social History Smoking/Tobacco Use Status: Current every day Tobacco Type: cigarettes Years smoked: 13 and e-cigarettes Tobacco: How many years used: 25 Smoking risk assessment performed?: Yes Alcohol Intake: current Alcohol Intake frequency: holidays/special occasions only Drug use: Occasionally Substance use type: marijuana Details: was using 2-3 times a day (Heroin) now down to 1-2 times every other day History of IV Drug Use. was an alcoholic Household members: none Housing: apartment Number of Children: 3 Communication Needs: None current occupation: unemployed What is your relationship status?: How often do you talk on the phone with friends or family?: three or more times per week Panel score (0-1 are the most socially isolated patients): 1 What type of physical activity do you participate in: none Seatbelt use: always Drive intox or ride w/intox starting gate driver: No Working smoke detector in home: Yes Carbon monox detector in home: Yes Do you feel safe at home: Yes Do you feel safe in your relationship?: Yes Victim of physical abuse: No Victim of emotional abuse: No Victim of sexual abuse: No Would you like helpful sources: No Additional Social history: Did use Heroin today at 1300 02/22/23 CT Exam Const General: disheveled, frail appearing and ill appearing (Older appearing than stated age) chronically Nutritional Appearance: average body habitus Orientation: alert, awake and oriented x3 HENMT Head: normal to inspection, normocephalic and atraumatic Eyes General: appearance normal, both eyes and all related structures Sclera: sclerae normal (Nonicteric) Resp Effort & Inspection: normal respiratory effort Auscultation: clear to auscultation bilaterally Cardio Rate: regular rate Rhythm: regular rhythm GI Inspection: normal to inspection Extrem General: abnormal to inspection (Bilateral peripheral edema) Psych Appearance: disheveled Affect: blunted Attitude: cooperative Course Vital Signs Vital signs: Vital Signs Temperature 36.5 C 02/22/23 17:02 Pulse 52 L 02/22/23 17:02 Respiratory Rate 15 02/22/23 17:02 Blood Pressure 101/67 02/22/23 17:02 Pulse Oximetry 98 02/22/23 17:02 Temperature 36.5 C 02/22/23 17:02 Temperature Source Oral 02/22/23 17:02 Pulse 52 L 02/22/23 17:02 Respiratory Rate 18 02/22/23 18:35 Respiratory Effort Normal, Non-Labored 02/22/23 18:35 Respiratory Depth Normal 02/22/23 18:35 Respiratory Pattern Normal 02/22/23 18:35 Blood Pressure 101/67 02/22/23 17:02 Blood Pressure Position Sitting 02/22/23 17:02 Pulse Oximetry 98 02/22/23 17:02 Oxygen Delivery Method Room Air 02/22/23 17:02 Oxygen Flow Rate 0 02/22/23 17:02 Pain Level 3 02/22/23 17:02 Lab/Test Results Lab/Test Results: 02/22/23 18:55 Blood Blood Culture - Pending 02/22/23 18:45 Blood Blood Culture - Pending Laboratory Tests Range/Units 02/22/23 02/22/23 18:45 18:45 WBC (4.4-10.8) 10^3/uL 6.77 RBC (3.93-5.22) 10^6/uL 3.22 L Hgb (11.2-15.7) g/dL 8.8 L Hct (36.0-46.0) % 27.7 L MCV (80-95) fL 86 MCH (27.0-33.0) pg 27.3 MCHC (32.0-36.0) % 31.8 L RDW (11.7-14.6) % 14.1 Plt Count (130-400) 10^3/uL 335 MPV (8.0-11.0) fL 9.0 Immature Gran % 0.4 Neutrophils % 49.5 Lymphocytes % 42.1 Monocytes % 5.8 Eosinophils % 1.9 Basophils % 0.3 Nucleated RBC % (0.0-0.3) % 0.0 Absolute Neutrophils (1.2-6.7) 10^3/uL 3.35 Absolute Lymphocytes (1.2-3.4) 10^3/uL 2.85 Absolute Monocytes (0.1-0.8) 10^3/uL 0.39 Absolute Eosinophils (0.0-0.7) 10^3/uL 0.13 Absolute Basophils (0.0-0.2) 10^3/uL 0.02 ESR (0-20) mm/hr 43 H
[2023-02-22] MEDS: VANCOMYCIN 1,000 MG in Normal Saline 250 ML 166.667 MG IVPB (19:35)
[2023-02-22 20:01] VITALS: BP 99/48; PULSE 55; RESP 16; TEMP 36.4; O2SAT 100
--- NOTE | 2023-02-22 20:05 | HPE_ITS ---
Date of service: 02/22/23 Time of Service: 20:05 Assessment and Plan Assessment and plan (1) MRSA bacteremia: Status: Acute Assessment and plan: Admitted to medical surgical unit Initiate vancomycin per pharmacy dosing Blood cultures from 02/15/23 showed MRSA in both tubes, sensitive to vancomycin. She was treated with vancomycin up until 2 days ago at [facility] but then left AMA. We have repeated blood cultures. Repeat blood cultures at [facility] remained positive. TTE was negative for endocarditis SIMEON was completed but read was not available in the discharge summary. Non-narcotic pain management/modalities (2) Discitis of lumbosacral region: Status: Acute Assessment and plan: As above will repeat MRI on Saturday MRI done at [facility] on admission showed L4-5 erosive osteomyelitis/discitis with adjacent epidural abscess/phelgmon causing mild to moderate canal narrowing as well as bilateral psoas muscle abscesses. She was evaluated by neurosurgery [facility] who recommended medical management only of her epidural abscess and bilateral psoas abscesses. Will follow inflammatory markers (3) Psoas muscle abscess: Status: Acute Assessment and plan: Was evaluated by [facility] and per the records these abscesses were too small to warrant catheter drainage will continue medical management with IV antibiotics (4) Tobacco use: Status: Acute Assessment and plan: Nicotine replacement while hospitalized (5) ADHD: Status: Acute Assessment and plan: No primary care provider and is currently not taking any prescription medications. None will be initiated at this time (6) Anemia: Status: Chronic Assessment and plan: Hemoglobin 8.8 no signs of active bleeding most likely anemia of chronic disease Will monitor (7) Chronic hepatitis C without hepatic coma: Status: Acute Assessment and plan: 05/27/19- [facility] Gastro. Katelyn Abbott, ANDREW 05/12/20 HCV viral load undetected 2020- Viral load detected again (8) IV drug abuse: Status: Acute Assessment and plan: Reportedly uses 2-3 bags of heroin daily last use was yesterday Can have hydroxyzine or clonidine for withdrawal symptoms executive business coach referral (9) Discharge planning issues: Status: Acute Assessment and plan: Case management will be following for discharge planning DVT prophylaxis enoxaparin daily Admission discussed with Dr. Mcneal History of Present Illness History of Present Illness Chief Complaint: IV drug abuse, MRSA bacteremia, discitis Narrative: This is a 37-year-old female patient history of IV heroin use, last used yesterday, who left [facility] AGAINST MEDICAL ADVICE (transferred from here on February 15 for further management of osteomyelitis/discitis) where she was admitted for MRSA bacteremia osteomyelitis/discitis L4-L5, psoas muscle abscesses. Presents here for continued care stating that she wants to get better also reports of homelessness and requesting food.. Work-up in the emergency department included repeat blood cultures CBC CMP and inflammatory markers. Hemodynamically she is stable with no signs of sepsis at this time. She is given a liter of IV fluid and will be started on vancomycin and will admit to hospitalist services for further treatment Review of Systems All systems reviewed & are unremarkable except as noted in HPI and below PFSH All Active Problems (Updated 02/22/23 @ 20:18 by Gracie Becker, CYRUS) Anemia (Chronic) Discharge planning issues (Acute) Psoas muscle abscess (Acute) Acute thoracic myofascial strain (Acute) Acute lumbar myofascial strain (Acute) Osteomyelitis (Acute) Discitis of lumbosacral region (Acute) MRSA bacteremia (Acute) UTI (urinary tract infection) (Acute) Dental caries (Acute) H/O endoscopy (Acute) 06/11/19 [facility] [place] Endoscopy Z line abnl 37 cm from incisors,Grade A reflux esophagitis. Normal stomach and Duodenum. Chronic hepatitis C without hepatic coma (Acute) 05/27/19- [facility] Gastro. Katelyn Abbott, ANDREW 05/12/20 HCV viral load undetected 2020- Viral load detected again Carpal tunnel syndrome of right wrist (Acute) Plantar fasciitis, bilateral (Acute) ADHD (Acute) Family history of ovarian cancer (Acute) Family history of breast cancer in first degree relative (Acute) Family history of colon cancer (Acute) Family history of UT (myocardial infarction) (Acute) Gastroesophageal reflux disease without esophagitis (Acute 11/23/16) Hx of supraventricular tachycardia (Acute 11/23/16) Chronic back pain greater than 3 months duration (Acute 11/23/16) Tobacco use (Acute 11/23/16) Depression (Chronic) from previous record ? bipolar Anxiety (Chronic) Asthma (Chronic) Right ankle pain (Chronic) IV drug abuse (Acute) Polysubstance abuse (Acute) Substance abuse (Acute) Seen in October 2017, cocaine abuse Medical History Abdominal rigidity Carcinoma in situ of uterine cervix Cervical intraepithelial neoplasia grade 2 Chronic pelvic pain in female s/p hyst 2012 for cervical dysplasia. Pt reports chronic pelvic pain since that surgery. Daily headache Elevated LFTs Galactorrhea Hepatic cirrhosis due to chronic hepatitis C infection Hepatitis C Insomnia Irritable bowel syndrome Manifested as constipation Q3d. With meds has improved daily functioning. Leg edema Memory loss Pelvic pain Psychoactive substance abuse Surgical History Colonoscopy - MAC (01/29/17) Endoscopy (12/14/13) Dx Esophagitis. Excision, Cervicle Lymph Nodes H/O laparoscopy (~09/14/13) for LLQ pain. Has PDS suture removed (from previous hysterectomy with USLS. Nl pelvis. Pt mentions second laparoscopy for pelvic pain. Not in [facility] records. History of section History of cholecystectomy History of pacemaker History of tonsillectomy and adenoidectomy (~07/05/11) S/P hysterectomy (09/27/15) Status post laparoscopic hysterectomy (~04/15/13) Total laparoscopic hysterectomy & laparoscopic UteroSacral Vaginal Vault suspensionfor uterine prolapse Family History Father Alcohol abuse Substance abuse Colon cancer Liver cancer Throat cancer Depression Diabetes Heart disease Hypertension Mother Asthma Breast cancer Cervical cancer Depression Hypertension Alcohol abuse Substance abuse Sister Alcohol abuse Substance abuse Depression Sister Alcohol abuse Substance abuse Depression Sister Alcohol abuse Substance abuse Depression Social History Smoking/Tobacco Use Status: Current every day Tobacco Type: cigarettes Years smoked: 13 and e-cigarettes Tobacco: How many years used: 25 Smoking risk assessment performed?: Yes Alcohol Intake: current Alcohol Intake frequency: holidays/special occasions on ly Drug use: Occasionally Substance use type: marijuana Details: was using 2-3 times a day (Heroin) now down to 1-2 times every other day History of IV Drug Use. was an alcoholic Household members: none Housing: apartment Number of Children: 3 Communication Needs: None current occupation: unemployed What is your relationship status?: How often do you talk on the phone with friends or family?: three or more times per week Panel score (0-1 are the most socially isolated patients): 1 What type of physical activity do you participate in: none Seatbelt use: always Drive intox or ride w/intox professional driver: No Working smoke detector in home: Yes Carbon monox detector in home: Yes Do you feel safe at home: Yes Do you feel safe in your relationship?: Yes Victim of physical abuse: No Victim of emotional abuse: No Victim of sexual abuse: No Would you like helpful sources: No Additional Social history: Did use Heroin today at 1300 02/22/[address] CT Meds Allergies and Home Medications Allergies Allergy/AdvReac Type Severity Reaction Status Date / Time lidocaine Allergy Intermediate Swelling/Ed Verified 02/22/23 17:09 rome procaine HCl [From Novocain] Allergy Intermediate Swelling/Ed Verified 02/22/23 17:09 rome red dye Allergy Mild Swelling/Ed Unverified 02/22/23 17:09 rome Penicillins AdvReac Unknown Nausea Verified 02/22/23 17:09 control pills Allergy Severe hospitalize Uncoded 02/22/23 17:09 d Home Medications Medication Instructions Recorded Confirmed Type psyllium husk 0.52 gram capsule 0.52 gm PO DAILY 08/11/18 02/22/23 History ranitidine HCl 75 mg tablet 150 mg PO DAILY 08/12/19 02/22/23 History ondansetron HCl 4 mg tablet 4 mg PO Q8H PRN nausea and 11/22/20 02/22/23 Rx (Zofran) vomiting #90 tabs ibuprofen 800 mg tablet 800 mg PO Q8H PRN pain #30 tabs 12/29/20 02/22/23 Rx omeprazole 40 mg capsule,delayed 40 mg PO DAILY #90 caps 12/29/20 02/22/23 Rx release aripiprazole 5 mg tablet 5 mg PO DAILY #90 tabs 01/06/21 02/22/23 Rx citalopram 40 mg tablet 40 mg PO DAILY #90 tabs 01/06/21 02/22/23 Rx furosemide 20 mg tablet 20 mg PO DAILY #90 tabs 01/06/21 02/22/23 Rx hydrocortisone 2.5 % topical cream 1 applic UT QD-BID PRN itching #30 01/06/21 02/22/23 Rx with perineal applicator grams (Proctosol HC) hydroxyzine HCl 25 mg tablet 25 mg PO TID-QID PRN itching #90 01/06/21 02/22/23 Rx tabs tiotropium bromide 18 mcg capsule 1 cap inhalation DAILY #90 01/06/21 02/22/23 Rx with inhalation device (Spiriva inhalations with HandiHaler) atomoxetine 40 mg capsule 40 mg PO DAILY #30 caps 05/11/21 02/22/23 Rx (Strattera) clonidine HCl 0.1 mg tablet 0.1 mg PO TID #90 tabs 05/11/21 02/22/23 Rx methocarbamol 500 mg tablet 500 mg PO Q6H PRN muscle spasm #14 05/27/21 02/22/23 Rx tabs albuterol sulfate 90 mcg/actuation 2 puff inhalation Q6H PRN 07/25/21 02/22/23 Rx aerosol inhaler (ProAir HFA) shortness of breath or wheezing #18 grams cyclobenzaprine 10 mg tablet 10 mg PO TID PRN muscle spasm #90 07/25/21 02/22/23 Rx tabs fluticasone 250 mcg-salmeterol 50 1 inh inhalation Q12H #60 ea 07/25/21 02/22/23 Rx mcg/dose blistr powdr for inhalation (Advair Diskus) inhalational spacing device #1 ea 07/25/21 02/22/23 Rx (BreatheRite MDI Spacer) pregabalin 300 mg capsule 300 mg PO BID #56 caps 07/25/21 02/22/23 Rx trazodone 50 mg tablet 50 mg PO QHS #90 tabs 07/25/21 02/22/23 Rx Exam Const General: disheveled, frail appearing and ill appearing (Older appearing than stated age) chronically Nutritional Appearance: average body habitus Orientation: alert, awake and oriented x3 HENMT Head: normal to inspection, normocephalic and atraumatic Eyes General: appearance normal, both eyes and all related structures Sclera: sclerae normal (Nonicteric) Resp Effort & Inspection: normal respiratory effort Auscultation: clear to auscultation bilaterally Cardio Rate: regular rate Rhythm: regular rhythm GI Inspection: normal to inspection Extrem General: abnormal to inspection (Bilateral peripheral edema) Psych Appearance: disheveled Affect: blunted Attitude: cooperative Results Labs 02/22/23 18:45 02/22/23 18:45 Labs: Laboratory Results - last 24 hr 02/22/23 02/22/23 02/22/23 18:45 18:45 18:45 WBC 6.77 RBC 3.22 L Hgb 8.8 L Hct 27.7 L MCV 86 MCH 27.3 MCHC 31.8 L RDW 14.1 Plt Count 335 MPV 9.0 Immature Gran % 0.4 Neutrophils % 49.5 Lymphocytes % 42.1 Monocytes % 5.8 Eosinophils % 1.9 Basophils % 0.3 Nucleated RBC % 0.0 Absolute Neutrophils 3.35 Absolute Lymphocytes 2.85 Absolute Monocytes 0.39 Absolute Eosinophils 0.13 Absolute Basophils 0.02 ESR Sodium 140 Potassium 3.3 L Chloride 104 Carbon Dioxide 27.7 Anion Gap 8.3 BUN 20 H Creatinine 0.6 Est GFR (CKD-EPI 2020) 119.97 Glucose 113 H Calcium 9.0 Total Bilirubin 0.1 L AST 11 L ALT 15 Alkaline Phosphatase 181 H C-Reactive Protein 0.74 H Total Protein 8.3 H Albumin 3.0 L 02/22/23 18:45 WBC RBC Hgb Hct MCV MCH MCHC RDW Plt Count MPV Immature Gran % Neutrophils % Lymphocytes % Monocytes % Eosinophils % Basophils % Nucleated RBC % Absolute Neutrophils Absolute Lymphocytes Absolute Monocytes Absolute Eosinophils Absolute Basophils ESR 43 H Sodium Potassium Chloride Carbon Dioxide Anion Gap BUN Creatinine Est GFR (CKD-EPI 2020) Glucose Calcium Total Bilirubin AST ALT Alkaline Phosphatase C-Reactive Protein Total Protein Albumin Last Vital Signs Temp 36.4 C 02/22/23 20:01 Pulse 55 L 02/22/23 20:01 Resp 16 02/22/23 20:01 BP 99/48 L 02/22/23 20:01 Pulse Ox 100 02/22/23 20:01 Time Spent Time spent with Patient: 40-54 minutes Time was spent: preparing to see the patient(eg.review tests), obtaining and/or reviewing separately otained hiistory, ordering medications,tests, procedures, referring, communicating with other health personal care attendant, indepentently interpreting results and counseling the patient
[2023-02-22 20:16] VITALS: BP 99/48; PULSE 55; RESP 16; TEMP 36.4; O2SAT 100
[2023-02-22 20:49] VITALS: BP 122/66; PULSE 59; RESP 16; TEMP 35.5; O2SAT 100
[2023-02-23] MEDS: hydrOXYzine HCL 25 MG TAB PO (02:04)
[2023-02-23] MEDS: Cyclobenzaprine 10 MG TAB PO (02:05)
[2023-02-23] MEDS: Ibuprofen 800 MG TAB PO ×2 (04:14→13:16)
[2023-02-23] MEDS: VANCOMYCIN 750 MG in Normal Saline 250 ML 166.667 MG IVPB (04:17)
[2023-02-23 04:28] VITALS: BP 87/61; PULSE 52; RESP 16; TEMP 36.8; O2SAT 100
[2023-02-23 07:26] VITALS: BP 105/64; PULSE 60; RESP 20; TEMP 36.6; O2SAT 98
[2023-02-23] MEDS: Enoxaparin 40 MG/0.4 ML SYR SC (07:59)
[2023-02-23] MEDS: Omeprazole 20 MG CAPCR 40 MG PO (07:59)
[2023-02-23] MEDS: Nicotine 21 MG/24 HR PATCH TD (07:59)
[2023-02-23 08:25] LABS: Abs Immature Grans 0.01 10^3/uL (0.0-0.06); Absolute Basophil Count 0.04 10^3/uL (0.0-0.2); Absolute Eosinophil Count 0.06 10^3/uL (0.0-0.7); Absolute Lymphocyte Count 2.25 10^3/uL (1.2-3.4); Absolute Monocyte Count 0.39 10^3/uL (0.1-0.8); Basophils % 0.7; Eosinophils % 1.1; HCT 26.8 % (36.0-46.0); HGB 8.6 g/dL (11.2-15.7); Immature Grans % 0.2; Lymphocytes % 39.8; MCH 27.4 pg (27.0-33.0); MCHC 32.1 % (32.0-36.0); MCV 85 fL (80-95); MPV 9.4 fL (8.0-11.0); Monocytes % 6.9; Neutrophils % 51.3; Platelet Count 267 10^3/uL (130-400); RBC 3.14 10^6/uL (3.93-5.22); RDW 14.3 % (11.7-14.6); WBC 5.65 10^3/uL (4.4-10.8)
[2023-02-23 08:45] LABS: Anion Gap 7.6 mmol/L (3-11); BUN 18 mg/dL (7-18); C-Reactive Protein 0.86 mg/dL (0.0-0.3); CO2 28.4 mmol/L (21.0-32.0); CREATININE 0.6 mg/dL (0.55-1.02); Calcium 8.7 mg/dL (8.5-10.1); Chloride 105 mmol/L (98-107); Estimated GFR 119.97 (mL/min/1.73m2); Glucose 102 mg/dL (74-106); Potassium 3.4 mmol/L (3.5-5.1); Sodium 141 mmol/L (136-145)
[2023-02-23 09:20] LABS: Vancomycin, Random 12.1 ug/mL
[2023-02-23 09:32] LABS: Procalcitonin 0.3 ng/mL
--- NOTE | 2023-02-23 09:58 | PDOC.CMIN ---
Date of service: 02/23/23 Time of Service: 09:58 Care Management Initial Assmt Initial Assessment REASON FOR HOSPITALIZATION:: MRSA bacteremia, Discitis of lumbosacral region PREVIOUS FUNCTIONAL STATUS/SOCIAL/FAMILY SUPPORTS:: Ludy is homeless and has been 'couch surfing' since being [place] [address]. Pt reported that she slept under a bridge 1 night a few weeks ago, other than that she's been staying with friends. Ludy has her license but no car, her friends give her rides and she occasionally uses [facility]. She has 4 close friends. She has a cell phone (without minutes) that connects [employer] She is planning on seeking virtual outpatient substance abuse treatment through '[facility] She is not interested in inpatient treatment at this time. CURRENT FUNCTIONAL STATUS:: Ludy was lying in bed when CM met with her. She is awake and talkative today. Ludy reports that she is involved in legal issues and planning on talking to ip paralegal because she feels she was wrongfully evicted from her apartment. Ludy shares that she has been told that she will likely need 6 weeks of IV ABX and is not sure that she would could handle being admitted to the hospital for that length of time. ADVANCE DIRECTIVES:: None on file Has patient been provided with info about the portal/API?: Yes Did the patient sign up for the portal?: No CODE STATUS:: Full Code INSURANCE COVERAGE / FINANCIAL ISSUES:: Medicaid CURRENT HOME/COMMUNITY SERVICES/EQUIPMENT:: None PRIMARY CARE PHYSICIAN:: Dr. Hall POTENTIAL DISCHARGE NEEDS:: [facility] referral; housing, food, transportation F/U with a [facility] PCP Follow up May call 211 PATIENT/FAMILY EDUCATION NEEDS:: Review discharge instructions, limitations, medications and plan to follow up with community providers. Discuss ask me three and goals of self care TRANSPORTATION:: [facility] vs. private vehicle with friend PLAN:: Referrals have been made to [facility] and [facility]. Discharge plan is unknown at this time. Pt may need to remain at [facility] for residential lawn specialist IV ABX. Pt refuses inpatient substance abuse treatment. CM will follow. PFSH All Active Problems (Updated 02/22/23 @ 20:18 by Gracie Becker NP) Anemia (Chronic) Discharge planning issues (Acute) Psoas muscle abscess (Acute) Acute thoracic myofascial strain (Acute) Acute lumbar myofascial strain (Acute) Osteomyelitis (Acute) Discitis of lumbosacral region (Acute) MRSA bacteremia (Acute) UTI (urinary tract infection) (Acute) Dental caries (Acute) H/O endoscopy (Acute) 06/11/19 [facility] [place] Endoscopy Z line abnl 37 cm from incisors,Grade A reflux esophagitis. Normal stomach and Duodenum. Chronic hepatitis C without hepatic coma (Acute) 05/27/19- [facility] [place] Gastro. Katelyn Abbott, MACHINE MADE SHOE UNIT WORKER 05/12/20 HCV viral load undetected 2020- Viral load detected again Carpal tunnel syndrome of right wrist (Acute) Plantar fasciitis, bilateral (Acute) ADHD (Acute) Family history of ovarian cancer (Acute) Family history of breast cancer in first degree relative (Acute) Family history of colon cancer (Acute) Family history of [place] (myocardial infarction) (Acute) Gastroesophageal reflux disease without esophagitis (Acute 11/23/16) Hx of supraventricular tachycardia (Acute 11/23/16) Chronic back pain greater than 3 months duration (Acute 11/23/16) Tobacco use (Acute 11/23/16) Depression (Chronic) from previous record ? bipolar Anxiety (Chronic) Asthma (Chronic) Right ankle pain (Chronic) IV drug abuse (Acute) Polysubstance abuse (Acute) Substance abuse (Acute) Seen in October 2017, cocaine abuse Medical History Abdominal rigidity Carcinoma in situ of uterine cervix Cervical intraepithelial neoplasia grade 2 Chronic pelvic pain in female s/p hyst 2012 for cervical dysplasia. Pt reports chronic pelvic pain since that surgery. Daily headache Elevated LFTs Galactorrhea Hepatic cirrhosis due to chronic hepatitis C infection Hepatitis C Insomnia Irritable bowel syndrome Manifested as constipation Q3d. With meds has improved daily functioning. Leg edema Memory loss Pelvic pain Psychoactive substance abuse Surgical History Colonoscopy - MAC (01/29/17) Endoscopy (12/14/13) Dx Esophagitis. Excision, Cervicle Lymph Nodes H/O laparoscopy (~09/14/13) for LLQ pain. Has PDS suture removed (from previous hysterectomy with USLS. Nl pelvis. Pt mentions second laparoscopy for pelvic pain. Not in [facility] records. History of section History of cholecystectomy History of pacemaker History of tonsillectomy and adenoidectomy (~07/05/11) S/P hysterectomy (09/27/15) Status post laparoscopic hysterectomy (~04/15/13) Total laparoscopic hysterectomy & laparoscopic UteroSacral Vaginal Vault suspensionfor uterine prolapse Family History Father Alcohol abuse Substance abuse Colon cancer Liver cancer Throat cancer Depression Diabetes Heart disease Hypertension Mother Asthma Breast cancer Cervical cancer Depression Hypertension Alcohol abuse Substance abuse Sister Alcohol abuse Substance abuse Depression Sister Alcohol abuse Substance abuse Depression Sister Alcohol abuse Substance abuse Depression Social History Smoking/Tobacco Use Status: Current every day Tobacco Type: cigarettes Years smoked: 13 and e-cigarettes Tobacco: How many years used: 25 Smoking risk assessment performed?: Yes Alcohol Intake: current Alcohol Intake frequency: holidays/special occasions only Drug use: Occasionally Substance use type: marijuana Details: was using 2-3 times a day (Heroin) now down to 1-2 times every other day History of IV Drug Use. was an alcoholic Household members: none Housing: apartment Number of Children: 3 Communication Needs: None current occupation: unemployed What is your relationship status?: How often do you talk on the phone with friends or family?: three or more times per week Panel score (0-1 are the most socially isolated patients): 1 What type of physical activity do you participate in: none Seatbelt use: always Drive intox or ride w/intox belly dump driver: No Working smoke detector in home: Yes Carbon monox detector in home: Yes Do you feel safe at home: Yes Do you feel safe in your relationship?: Yes Victim of physical abuse: No Victim of emotional abuse: No Victim of sexual abuse: No Would you like helpful sources: No Additional Social history: Did use Heroin today at 1300 02/22/[address]
--- NOTE | 2023-02-23 10:07 | PGE_ITS ---
Date of Service Date of service: 02/23/23 Time of Service: 10:07 Assessment and Plan Assessment and plan (1) MRSA bacteremia: Status: Acute Assessment and plan: continue vancomycin while awaiting cultures, pharmacy dosing. vitals have been stable at [place]: TTE was negative for endocarditis SIMEON was completed but read was not available in the discharge summary. will request reading be forwarded here continue Non-narcotic pain management/modalities (2) Discitis of lumbosacral region: Status: Acute Assessment and plan: As above will repeat MRI on Saturday MRI done at [place] on admission showed L4-5 erosive osteomyelitis/discitis with adjacent epidural abscess/phelgmon causing mild to moderate canal narrowing as well as bilateral psoas muscle abscesses. She was evaluated by neurosurgery [place] who recommended medical management only of her epidural abscess and bilateral psoas abscesses. Will follow inflammatory markers (3) Psoas muscle abscess: Status: Acute Assessment and plan: Was evaluated by [facility] and per the records these abscesses were too small to warrant catheter drainage will continue medical management with IV antibiotics (4) Tobacco use: Status: Acute Assessment and plan: Nicotine replacement while hospitalized (5) ADHD: Status: Acute Assessment and plan: No primary care provider and is currently not taking any prescription medications. None will be initiated at this time (6) Anemia: Status: Chronic Assessment and plan: Hemoglobin 8.8 no signs of active bleeding most likely anemia of chronic disease Will monitor (7) Chronic hepatitis C without hepatic coma: Status: Acute Assessment and plan: [place] [facility] [place] Katelyn Abbott APRN 05/12/20 HCV viral load undetected 2020- Viral load detected again (8) IV drug abuse: Status: Acute Assessment and plan: Reportedly uses 2-3 bags of heroin daily last use was yesterday Can have hydroxyzine or clonidine for withdrawal symptoms customer care team coach referral (9) Discharge planning issues: Status: Acute Assessment and plan: Case management will be following for discharge planning DVT prophylaxis enoxaparin daily discussed with Dr Rosa Exam Const General: ill appearing (Older appearing than stated age) chronically Nutritional Appearance: average body habitus Orientation: alert, awake and oriented x3 HENMT Head: normal to inspection, normocephalic and atraumatic Eyes General: appearance normal, both eyes and all related structures Sclera: sclerae normal (Nonicteric) Resp Effort & Inspection: normal respiratory effort Auscultation: clear to auscultation bilaterally Cardio Rate: regular rate Rhythm: regular rhythm GI Inspection: normal to inspection Extrem General: abnormal to inspection (Bilateral peripheral edema) Psych Appearance: disheveled Affect: blunted Attitude: cooperative Objective Last Vital Signs Temp 36.6 C 02/23/23 07:26 Pulse 60 02/23/23 07:26 Resp 20 02/23/23 07:26 BP 105/64 02/23/23 07:26 Pulse Ox 98 02/23/23 07:26 Laboratory Results - last 24 hr 02/22/23 02/22/23 02/22/23 18:45 18:45 18:45 WBC 6.77 RBC 3.22 L Hgb 8.8 L Hct 27.7 L MCV 86 MCH 27.3 MCHC 31.8 L RDW 14.1 Plt Count 335 MPV 9.0 Immature Gran % 0.4 Neutrophils % 49.5 Lymphocytes % 42.1 Monocytes % 5.8 Eosinophils % 1.9 Basophils % 0.3 Nucleated RBC % 0.0 Absolute Neutrophils 3.35 Absolute Lymphocytes 2.85 Absolute Monocytes 0.39 Absolute Eosinophils 0.13 Absolute Basophils 0.02 ESR Sodium 140 Potassium 3.3 L Chloride 104 Carbon Dioxide 27.7 Anion Gap 8.3 BUN 20 H Creatinine 0.6 Est GFR (CKD-EPI 2020) 119.97 Glucose 113 H Calcium 9.0 Magnesium Total Bilirubin 0.1 L AST 11 L ALT 15 Alkaline Phosphatase 181 H C-Reactive Protein 0.74 H Total Protein 8.3 H Albumin 3.0 L Procalcitonin Random Vancomycin 02/22/23 02/23/23 02/23/23 18:45 08:10 08:10 WBC RBC Hgb Hct MCV MCH MCHC RDW Plt Count MPV Immature Gran % Neutrophils % Lymphocytes % Monocytes % Eosinophils % Basophils % Nucleated RBC % Absolute Neutrophils Absolute Lymphocytes Absolute Monocytes Absolute Eosinophils Absolute Basophils ESR 43 H Sodium 141 Potassium 3.4 L Chloride 105 Carbon Dioxide 28.4 Anion Gap 7.6 BUN 18 Creatinine 0.6 Est GFR (CKD-EPI 2020) 119.97 Glucose 102 Calcium 8.7 Magnesium 2.0 Total Bilirubin AST ALT Alkaline Phosphatase C-Reactive Protein 0.86 H Total Protein Albumin Procalcitonin 0.3 Random Vancomycin 02/23/23 02/23/23 08:10 08:10 WBC 5.65 RBC 3.14 L Hgb 8.6 L Hct 26.8 L MCV 85 MCH 27.4 MCHC 32.1 RDW 14.3 Plt Count 267 MPV 9.4 Immature Gran % 0.2 Neutrophils % 51.3 Lymphocytes % 39.8 Monocytes % 6.9 Eosinophils % 1.1 Basophils % 0.7 Nucleated RBC % 0.0 Absolute Neutrophils 2.90 Absolute Lymphocytes 2.25 Absolute Monocytes 0.39 Absolute Eosinophils 0.06 Absolute Basophils 0.04 ESR Sodium Potassium Chloride Carbon Dioxide Anion Gap BUN Creatinine Est GFR (CKD-EPI 2020) Glucose Calcium Magnesium Total Bilirubin AST ALT Alkaline Phosphatase C-Reactive Protein Total Protein Albumin Procalcitonin Random Vancomycin 12.1 Time Spent with Patient Time Spent with Patient: 35-49 minutes Time was spent: preparing to see the patient(eg.review tests), ordering medications,tests, procedures, indepentently interpreting results, counseling the patient and care coordination
[2023-02-23 12:33] LABS: HCG Qual (Urine) Negative
[2023-02-23 15:28] VITALS: BP 127/87; PULSE 55; RESP 20; TEMP 36; O2SAT 99
[2023-02-23] MEDS: VANCOMYCIN/WATER (PEG) 750 MG/150 ML BAG 150 MG IVPB (18:55)
[2023-02-24] MEDS: Ibuprofen 800 MG TAB PO ×2 (00:46→11:00)
[2023-02-24] MEDS: VANCOMYCIN/WATER (PEG) 750 MG/150 ML BAG 150 MG IVPB ×4 (00:46→23:09)
[2023-02-24 07:17] VITALS: BP 90/61; PULSE 56; RESP 16; TEMP 35.9; O2SAT 96
[2023-02-24] MEDS: Omeprazole 20 MG CAPCR 40 MG PO (08:14)
[2023-02-24] MEDS: Enoxaparin 40 MG/0.4 ML SYR SC (08:14)
[2023-02-24] MEDS: Nicotine 21 MG/24 HR PATCH TD (08:14)
[2023-02-24 09:09] LABS: Abs Immature Grans 0.02 10^3/uL (0.0-0.06); Absolute Basophil Count 0.02 10^3/uL (0.0-0.2); Absolute Eosinophil Count 0.05 10^3/uL (0.0-0.7); Absolute Lymphocyte Count 1.92 10^3/uL (1.2-3.4); Absolute Monocyte Count 0.39 10^3/uL (0.1-0.8); Absolute Neutrophil Count 3.24 10^3/uL (1.2-6.7); Basophils % 0.4; Eosinophils % 0.9; HGB 9.1 g/dL (11.2-15.7); Immature Grans % 0.4; MCH 26.9 pg (27.0-33.0); MCHC 31.4 % (32.0-36.0); MCV 86 fL (80-95); MPV 9.8 fL (8.0-11.0); Monocytes % 6.9; Neutrophils % 57.4; Platelet Count 309 10^3/uL (130-400); RBC 3.38 10^6/uL (3.93-5.22); RDW 14.3 % (11.7-14.6); RDW-SD 44.1 fL; WBC 5.64 10^3/uL (4.4-10.8)
[2023-02-24 09:21] LABS: Anion Gap 7.3 mmol/L (3-11); BUN 14 mg/dL (7-18); C-Reactive Protein 0.76 mg/dL (0.0-0.3); CO2 28.7 mmol/L (21.0-32.0); CREATININE 0.6 mg/dL (0.55-1.02); Chloride 105 mmol/L (98-107); Estimated GFR 119.97 (mL/min/1.73m2); Glucose 123 mg/dL (74-106); Magnesium 2.1 mg/dL (1.8-2.4); Potassium 3.8 mmol/L (3.5-5.1); Sodium 141 mmol/L (136-145)
--- NOTE | 2023-02-24 09:30 | PHACLINREV_ITS ---
Pharmacy Admission Review - Admission Clinical Review Discharge planning issues (Acute) Psoas muscle abscess (Acute) Osteomyelitis (Acute) Discitis of lumbosacral region (Acute) MRSA bacteremia (Acute) Chronic hepatitis C without hepatic coma (Acute) ADHD (Acute) Tobacco use (Acute 11/23/16) IV drug abuse (Acute) lidocaine Allergy (Intermediate, Verified 02/22/23 17:09) Swelling/Edema procaine HCl [From Novocain] Allergy (Intermediate, Verified 02/22/23 17:09) Swelling/Edema red dye Allergy (Mild, Unverified 02/22/23 17:09) Swelling/Edema Penicillins Adverse Reaction (Unknown, Verified 02/22/23 17:09) Nausea control pills Allergy (Severe, Uncoded 02/22/23 17:09) hospitalized Resuscitation Status Full Code Height 5 ft 9 in Weight 62.142 kg - Comments Comments/Follow Ups: Left AMA from [facility] where BC were drawn (+ MRSA); our BC are negative x24h, MRSA nare pending. Assume a gap in Anbx coverage from her time in [place] to admission here. Hx Hep-C, MRI in [place] showed Lumbar osteomyelitis with epidural abscess & psoas musle abscess. Recent IVDA. Hospitalist may consider intiating Suboxone therapy, as patient will be her for prison Anbx coverage. - Renal Dosing Renal Dosing: BUN 14 mg/dL (7-18) 02/24/23 08:30 Creatinine 0.6 mg/dL (0.55-1.02) 02/24/23 08:30 Medications needing adjustments: Reviewed (CC~128ml/min) - Anticoagulation Anticoagulation: Hgb 9.1 g/dL (11.2-15.7) L 02/24/23 08:30 Hct 29.0 % (36.0-46.0) L 02/24/23 08:30 Plt Count 309 10^3/uL (130-400) 02/24/23 08:30 Creatinine 0.6 mg/dL (0.55-1.02) 02/24/23 08:30 DVT Prophylaxis: Reviewed Medications: Enoxaparin - Opiate Usage Evaluate Pain Scale/Pains Meds: N/A (IVDA, non-narcotic alternatives; pain 7/10 (Ibuprofen, Cyclobenzaprine, Methocarbamol, Lidocaine patch) - Relevant Labs ESR 43 mm/hr (0-20) H 02/22/23 18:45 Sodium 141 mmol/L (136-145) 02/24/23 08:30 Potassium 3.8 mmol/L (3.5-5.1) 02/24/23 08:30 Chloride 105 mmol/L (98-107) 02/24/23 08:30 Magnesium 2.1 mg/dL (1.8-2.4) 02/24/23 08:30 C-Reactive Protein 0.76 mg/dL (0.0-0.3) H 02/24/23 08:30 Electrolytes, C-Reactive P, ESR: Intervened (Chronic Anemia, C-reactive about the same last 3 days, Procal 0.3, Urine HCG negative) - DM Control DM Control: Glucose 123 mg/dL (74-106) H 02/24/23 08:30 DM Control: N/A - Cardiac Review BP, HR, EF%: Reviewed (TTE negative for Endocarditis @ [facility] per H&P) Antibiotic Activity - Pharmacy Antibiotic Review Pharmacy Antibiotic Activity: Abx regimen adjustment (Vanco per protocol using AUC for +MRSA) - Antibiotic Information Antibiotic Review Info: BC +MRSA @ [facility], on Vanco
[2023-02-24 10:01] VITALS: BP 120/60
--- NOTE | 2023-02-24 14:21 | PGE_ITS ---
Date of Service Date of service: 02/24/23 Time of Service: 14:21 Assessment and Plan Assessment and plan (1) MRSA bacteremia: Status: Acute Assessment and plan: continue vancomycin based on previous cultures while awaiting new cultures, pharmacy dosing. so far negative to date and vitals have been stable at [place]: TTE was negative for endocarditis SIMEON was completed but read was not available in the discharge summary. will request reading be forwarded here continue Non-narcotic pain management/modalities (2) Discitis of lumbosacral region: Status: Acute Assessment and plan: As above will repeat MRI on Saturday MRI done at [place] on admission showed L4-5 erosive osteomyelitis/discitis with adjacent epidural abscess/phelgmon causing mild to moderate canal narrowing as well as bilateral psoas muscle abscesses. She was evaluated by neurosurgery [place] who recommended medical management only of her epidural abscess and bilateral psoas abscesses. Will follow inflammatory markers (3) Psoas muscle abscess: Status: Acute Assessment and plan: Was evaluated by [facility] and per the records these abscesses were too small to warrant catheter drainage will continue medical management with IV antibiotics (4) Tobacco use: Status: Acute Assessment and plan: Nicotine replacement while hospitalized (5) ADHD: Status: Acute Assessment and plan: No primary care provider and is currently not taking any prescription medications. None will be initiated at this time (6) Anemia: Status: Chronic Assessment and plan: Hemoglobin stable 9.1 with no signs of active bleeding most likely anemia of chronic disease Will monitor (7) Chronic hepatitis C without hepatic coma: Status: Acute Assessment and plan: 05/27/19- [facility] [place] Katelyn Abbott APRN 05/12/20 HCV viral load undetected 2020- Viral load detected again (8) IV drug abuse: Status: Acute Assessment and plan: no signs of withdrawal, Can have hydroxyzine or clonidine for withdrawal symptoms seen by catalyst recovery operator (9) Discharge planning issues: Status: Acute Assessment and plan: Case management will be following for discharge planning DVT prophylaxis enoxaparin daily discussed with Dr Rosa Subjective Subjective Patient reports: no new complaints, feels better, tolerating liquids well, tolerating a regular diet, voiding w/o difficulty and afebrile Exam Const General: ill appearing (Older appearing than stated age) chronically Nutritional Appearance: average body habitus Orientation: alert, awake and oriented x3 HENMT Head: normal to inspection, normocephalic and atraumatic Eyes General: appearance normal, both eyes and all related structures Sclera: sclerae normal (Nonicteric) Resp Effort & Inspection: normal respiratory effort Auscultation: clear to auscultation bilaterally Cardio Rate: regular rate Rhythm: regular rhythm GI Inspection: normal to inspection Extrem General: abnormal to inspection (Bilateral peripheral edema) Psych Appearance: disheveled Affect: blunted Attitude: cooperative Objective Last Vital Signs Temp 35.9 C L 02/24/23 07:17 Pulse 56 L 02/24/23 07:17 Resp 16 02/24/23 07:17 BP 120/60 02/24/23 10:01 Pulse Ox 96 02/24/23 07:17 Laboratory Results - last 24 hr 02/24/23 02/24/23 08:30 08:30 WBC 5.64 RBC 3.38 L Hgb 9.1 L Hct 29.0 L MCV 86 MCH 26.9 L MCHC 31.4 L RDW 14.3 Plt Count 309 MPV 9.8 Immature Gran % 0.4 Neutrophils % 57.4 Lymphocytes % 34.0 Monocytes % 6.9 Eosinophils % 0.9 Basophils % 0.4 Nucleated RBC % 0.0 Absolute Neutrophils 3.24 Absolute Lymphocytes 1.92 Absolute Monocytes 0.39 Absolute Eosinophils 0.05 Absolute Basophils 0.02 Sodium 141 Potassium 3.8 Chloride 105 Carbon Dioxide 28.7 Anion Gap 7.3 BUN 14 Creatinine 0.6 Est GFR (CKD-EPI 2020) 119.97 Glucose 123 H Calcium 9.0 Magnesium 2.1 C-Reactive Protein 0.76 H Time Spent with Patient Time Spent with Patient: 25-34 minutes Time was spent: preparing to see the patient(eg.review tests), ordering medications,tests, procedures and counseling the patient
[2023-02-24 19:25] VITALS: BP 96/59; PULSE 81; RESP 20; TEMP 36.1; O2SAT 97
[2023-02-25 06:33] VITALS: BP 108/67; PULSE 65; RESP 20; TEMP 35.1; O2SAT 95
[2023-02-25] MEDS: Ibuprofen 800 MG TAB PO ×2 (06:40→18:12)
[2023-02-25] MEDS: Cyclobenzaprine 10 MG TAB PO ×2 (06:41→18:12)
[2023-02-25 07:32] VITALS: BP 108/67; PULSE 60; RESP 16; TEMP 36.5; O2SAT 98
--- NOTE | 2023-02-25 08:00 | DI.MRI_ITS ---
Exam(s) MR LUMBAR SPINE WO/W EXAM: MR LUMBAR SPINE WO/W CLINICAL HISTORY: L4-5 discitis osteomyelitis. TECHNIQUE: Multiplanar multisequence MRI of the Lumbar Spine was performed. CONTRAST MATERIAL: IV Contrast: 12 mL of Dotarem contrast administered. COMPARISON: CT CT THORACIC SPINE W from 02/15/[address] LUMBAR SPINE W from 02/15/2023 FINDINGS: Bones: The last intervertebral disc space is designated the L5/S1 level for the numbering purpose of this examination. There again seen destructive changes of the inferior L4 and the superior L5 verteb ral bodies. There is hyperintense signal seen on the T2 weighted images and corresponding hypointens e signal seen in the T1 weighted images in the vertebral bodies. Mild abnormal signal extends into t he pedicles. Following contrast administration there is enhancement of these areas. Fluid signal is seen in the L4-L5 disc space. There is peripheral enhancement of this fluid collection on the postc ontrast images. There is a component of this fluid collection or disc which extends into both neural foramen at L4-L5 causing severe left and moderate right neural foraminal stenosis. There is inflamm ation and enhancement in the soft tissues at this disc space. There is a 2 x 1.5 cm peripherally enh ancing fluid collection in the right L5 paraspinous soft tissues. This is consistent with a small ab scess. There is no epidural abscess. The remaining vertebral bodies are unremarkable. Cord: The conus tip ends at the T12 level. It is of normal size and signal intensity. Disc levels except L4-L5: No disc herniations or bulges are present. No central spinal canal or neura l foraminal stenosis. Soft tissues: The visualized SI joints and sacrum are well maintained. IMPRESSION: 1. 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 No epidural abscess. Extension of the disc material into the neural foramen cause s severe left and moderate right neural foraminal stenosis. No significant central spinal canal sten osis. 2. Fluid collection in the right paraspinal soft tissues at L5 consistent with an abscess. It measur es 2 x 1.5 cm. DATA REPOSITORY:
[2023-02-25] MEDS: Enoxaparin 40 MG/0.4 ML SYR SC (08:04)
[2023-02-25] MEDS: Nicotine 21 MG/24 HR PATCH TD (08:04)
[2023-02-25] MEDS: Omeprazole 20 MG CAPCR 40 MG PO (08:05)
[2023-02-25] MEDS: VANCOMYCIN/WATER (PEG) 750 MG/150 ML BAG 150 MG IVPB (08:05)
--- NOTE | 2023-02-25 09:54 | CMPROGNOTE_ITS ---
Date of service: 02/25/23 Time of Service: 09:54 Care Management Progress Note Progress Note Text Progress Note Text: S/O: Ludy may require superintendent terminal IV abx for MRSA bacteremia, cultures are pending. MRI done today. Ludy is unsure if she would be willing to remain at [facility] for LT IV ABX. Discharge plan in undetermined at this time. CM will follow. A: 37 year old female admitted to [facility] on P: Referrals have been made to [facility]. Pt may need to remain at [facility] for nursing home IV ABX. Pt refuses inpatient substance abuse treatment. CM will follow.
--- NOTE | 2023-02-25 09:54 | PDOC.CMPRO ---
Date of service: 02/25/23 Time of Service: 09:54 Care Management Progress Note Progress Note Text Progress Note Text: S/O: Ludy may require long term care pharmacist IV abx for MRSA bacteremia, cultures are pending. MRI done today. Ludy is unsure if she would be willing to remain at [facility] for LT IV ABX. Discharge plan in undetermined at this time. CM will follow. A: 37 year old female admitted to [facility] on P: Referrals have been made to [facility]. Pt may need to remain at [facility] for half-way IV ABX. Pt refuses inpatient substance abuse treatment. CM will follow.
[2023-02-25] MEDS: Acetaminophen 325 MG TAB 650 MG PO (11:20)
[2023-02-25] MEDS: Gadoterate meglumine 20 ML SYRINGE 12 ML IVP (11:50)
[2023-02-25] MEDS: Normal Saline Flush 10 ML SYR IVP (11:50)
--- NOTE | 2023-02-25 12:12 | W.PM.PROGNOT ---
Date of Service Date of service: 02/25/23 Time of Service: 12:12 Assessment and Plan Assessment and plan (1) MRSA bacteremia: Status: Acute Assessment and plan: continue vancomycin based on previous cultures while awaiting new cultures, pharmacy dosing. so far negative to date and vitals have been stable at [place]: TTE was negative for endocarditis SIMEON was completed but read was not available in the discharge summary. will request reading be forwarded here continue Non-narcotic pain management/modalities (2) Discitis of lumbosacral region: Status: Acute Assessment and plan: As above MRI pending today. discussed a ingram MRI but after discussion with DR Rai from radiology and Dr Perez, it was felt reasonable at this time to re-scan LS spine only as she has not other symptoms other than low back pain, Thoracic CT was negative on first ED visit. Plan is unlikely to change if small abscesses are present in other locations. MRI done at [facility] on admission showed L4-5 erosive osteomyelitis/discitis with adjacent epidural abscess/phelgmon causing mild to moderate canal narrowing as well as bilateral psoas muscle abscesses. She was evaluated by neurosurgery [place] who recommended medical management only of her epidural abscess and bilateral psoas abscesses. Will follow inflammatory markers (3) Psoas muscle abscess: Status: Acute Assessment and plan: Was evaluated by [facility] and per the records these abscesses were too small to warrant catheter drainage will continue medical management with IV antibiotics (4) Tobacco use: Status: Acute Assessment and plan: Nicotine replacement while hospitalized (5) ADHD: Status: Acute Assessment and plan: No primary care provider and is currently not taking any prescription medications. None will be initiated at this time (6) Anemia: Status: Chronic Assessment and plan: Hemoglobin stable 9.1 with no signs of active bleeding most likely anemia of chronic disease Will monitor (7) Chronic hepatitis C without hepatic coma: Status: Acute Assessment and plan: 05/27/19- [facility] [place]. Katelyn Abbott APRN 05/12/20 HCV viral load undetected 2020- Viral load detected again (8) IV drug abuse: Status: Acute Assessment and plan: no signs of withdrawal, Can have hydroxyzine or clonidine for withdrawal symptoms seen by recovery room nurse (9) Discharge planning issues: Status: Acute Assessment and plan: Case management will be following for discharge planning, will need 6-8 weeks of treatment DVT prophylaxis enoxaparin daily discussed with Dr Perez Subjective Subjective Patient reports: no new complaints, feels better, pain is less, tolerating liquids well, tolerating a regular diet, voiding w/o difficulty and afebrile; denies shortness of breath Exam Const General: ill appearing (Older appearing than stated age) chronically Nutritional Appearance: average body habitus Orientation: alert, awake and oriented x3 HENMT Head: normal to inspection, normocephalic and atraumatic Eyes General: appearance normal, both eyes and all related structures Sclera: sclerae normal (Nonicteric) Resp Effort & Inspection: normal respiratory effort Auscultation: clear to auscultation bilaterally Cardio Rate: regular rate Rhythm: regular rhythm GI Inspection: normal to inspection Extrem General: abnormal to inspection (Bilateral peripheral edema) Psych Appearance: disheveled Affect: blunted Attitude: cooperative Objective Last Vital Signs Temp 36.5 C 02/25/23 07:32 Pulse 60 02/25/23 07:32 Resp 16 02/25/23 07:32 BP 108/67 02/25/23 07:32 Pulse Ox 98 02/25/23 07:32 Time Spent with Patient Time Spent with Patient: 35-49 minutes Time was spent: preparing to see the patient(eg.review tests), ordering medications,tests, procedures, referring, communicating with other health laboratory animal caretaker and counseling the patient
[2023-02-25 17:14] LABS: Vancomycin, Random 7.6 ug/mL
[2023-02-25] MEDS: VANCOMYCIN/WATER (PEG) 1.75 GM/350 ML BAG IVPB (18:05)
[2023-02-26 00:12] VITALS: BP 80/50; PULSE 57; RESP 16; TEMP 36.1; O2SAT 98
[2023-02-26] MEDS: VANCOMYCIN/WATER (PEG) 1.75 GM/350 ML BAG IVPB ×2 (05:36→18:19)
[2023-02-26 07:32] VITALS: BP 117/76; PULSE 66; RESP 16; TEMP 36.5; O2SAT 99
[2023-02-26] MEDS: Omeprazole 20 MG CAPCR 40 MG PO (07:34)
[2023-02-26] MEDS: Enoxaparin 40 MG/0.4 ML SYR SC (07:34)
[2023-02-26] MEDS: Cyclobenzaprine 10 MG TAB PO ×2 (07:35→15:56)
[2023-02-26] MEDS: Nicotine 21 MG/24 HR PATCH TD (07:35)
[2023-02-26] MEDS: Ibuprofen 800 MG TAB PO ×2 (07:35→15:55)
--- NOTE | 2023-02-26 09:21 | PDOC.CMPRO ---
Date of service: 02/26/23 Time of Service: 09:21 Care Management Progress Note Progress Note Text Progress Note Text: S/O: Ludy was lying on her bed when CM met with her. She was open and friendly and appeared to be in good spirits. Ludy shared that she has been told that she may discharge as soon as tomorrow if she is able to treat her osteomyelitis with oral antibiotics Clinically she is doing well. She is afebrile and her most recent blood cultures from 02/22/23 remain negative. A: 37 year old female admitted to [facility] on P: Referrals have been made to [facility]. Pt may need to remain at [facility] for intermission coordinator IV ABX. Pt refuses inpatient substance abuse treatment. CM will follow.
--- NOTE | 2023-02-26 11:38 | PGE_ITS ---
Date of Service Date of service: 02/26/23 Time of Service: 11:38 Assessment and Plan Assessment and plan (1) MRSA bacteremia: Status: Acute Assessment and plan: continue vancomycin based on previous cultures while awaiting new cultures, pharmacy dosing. so far negative to date and vitals have been stable at [facility]: TTE was negative for endocarditis SIMEON was completed but read was not available in the discharge summary. will request reading be forwarded here continue Non-narcotic pain management/modalities (2) Discitis of lumbosacral region: Status: Acute Assessment and plan: IMPRESSION: 1. 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 No epidural abscess.? Extension of the disc material into the neural foramen causes severe left and moderate right neural foraminal stenosis.? No significant central spinal canal stenosis. 2. Fluid collection in the right paraspinal soft tissues at L5 consistent with an abscess.? It measures 2 x 1.5 cm.? MRI done at [place] on admission showed L4-5 erosive osteomyelitis/discitis with adjacent epidural abscess/phelgmon causing mild to moderate canal narrowing as well as bilateral psoas muscle abscesses. She was evaluated by neurosurgery [facility] who recommended medical management only of her epidural abscess and bilateral psoas abscesses. Will follow inflammatory markers (3) Psoas muscle abscess: Status: Acute Assessment and plan: not mentioned in updated MRI. Was evaluated by [facility] and per the records these abscesses were too small to warrant catheter drainage will continue medical management with IV antibiotics (4) Tobacco use: Status: Acute Assessment and plan: Nicotine replacement while hospitalized (5) ADHD: Status: Acute Assessment and plan: No primary care provider and is currently not taking any prescription medications. None will be initiated at this time (6) Anemia: Status: Chronic Assessment and plan: Hemoglobin stable 9.1 with no signs of active bleeding most likely anemia of chronic disease Will monitor (7) Chronic hepatitis C without hepatic coma: Status: Acute Assessment and plan: 05/27/19- [facility] [place] [facility]. Katelyn Abbott APRN 05/12/20 HCV viral load undetected 2020- Viral load detected again (8) IV drug abuse: Status: Acute Assessment and plan: no signs of withdrawal, Can have hydroxyzine or clonidine for withdrawal symptoms seen by disaster recovery manager (9) Discharge planning issues: Status: Acute Assessment and plan: Case management will be following for discharge planning, will need 6-8 weeks of treatment DVT prophylaxis enoxaparin daily will contact ID after final on blood culture reported for possible step down to linezolid and possibly levaquin to complete outpatient course with oral medication. discussed with Dr Perez Subjective Subjective Patient reports: no new complaints, feels better, tolerating liquids well, tolerating a regular diet and afebrile Exam Const General: ill appearing (Older appearing than stated age) chronically Nutritional Appearance: average body habitus Orientation: alert, awake and oriented x3 HENMT Head: normal to inspection, normocephalic and atraumatic Eyes General: appearance normal, both eyes and all related structures Sclera: sclerae normal (Nonicteric) Resp Effort & Inspection: normal respiratory effort Auscultation: clear to auscultation bilaterally Cardio Rate: regular rate Rhythm: regular rhythm GI Inspection: normal to inspection Extrem General: abnormal to inspection (Bilateral peripheral edema) Psych Appearance: disheveled Affect: blunted Attitude: cooperative Objective Last Vital Signs Temp 36.5 C 02/26/23 07:32 Pulse 66 02/26/23 07:32 Resp 16 02/26/23 07:32 BP 117/76 02/26/23 07:32 Pulse Ox 99 02/26/23 07:32 Laboratory Results - last 24 hr 02/25/23 16:36 Random Vancomycin 7.6 Time Spent with Patient Time Spent with Patient: 25-34 minutes Time was spent: preparing to see the patient(eg.review tests), ordering medications,tests, procedures and counseling the patient
[2023-02-26 23:47] VITALS: BP 109/69; PULSE 57; RESP 18; TEMP 36.1; O2SAT 100
[2023-02-27] MEDS: VANCOMYCIN/WATER (PEG) 1.75 GM/350 ML BAG IVPB ×2 (05:09→17:49)
[2023-02-27] MEDS: Omeprazole 20 MG CAPCR 40 MG PO (07:33)
[2023-02-27 07:40] VITALS: TEMP 36.8
[2023-02-27] MEDS: Acetaminophen 325 MG TAB 650 MG PO (07:40)
[2023-02-27] MEDS: Nicotine 21 MG/24 HR PATCH TD (07:41)
[2023-02-27 07:56] VITALS: BP 119/80; PULSE 58; RESP 14; TEMP 36.8; O2SAT 98
[2023-02-27 07:58] LABS: Abs Immature Grans 0.01 10^3/uL (0.0-0.06); Absolute Basophil Count 0.02 10^3/uL (0.0-0.2); Absolute Eosinophil Count 0.05 10^3/uL (0.0-0.7); Absolute Lymphocyte Count 1.64 10^3/uL (1.2-3.4); Absolute Monocyte Count 0.42 10^3/uL (0.1-0.8); Absolute Neutrophil Count 3.05 10^3/uL (1.2-6.7); Basophils % 0.4; HCT 31.5 % (36.0-46.0); Immature Grans % 0.2; Lymphocytes % 31.6; MCH 26.7 pg (27.0-33.0); MCHC 31.7 % (32.0-36.0); MCV 84 fL (80-95); MPV 9.3 fL (8.0-11.0); Monocytes % 8.1; Neutrophils % 58.7; Platelet Count 337 10^3/uL (130-400); RBC 3.74 10^6/uL (3.93-5.22); RDW 14.6 % (11.7-14.6); RDW-SD 44.3 fL; WBC 5.19 10^3/uL (4.4-10.8)
[2023-02-27 08:13] LABS: ESR > 120 mm/hr (0-20)
[2023-02-27 08:22] LABS: ALT 21 U/L (14-59); AST 13 U/L (15-37); Albumin 3.3 g/dL (3.4-5.0); Alkaline Phosphatase 170 U/L (46-116); Anion Gap 7.2 mmol/L (3-11); BUN 16 mg/dL (7-18); Bilirubin, Total 0.2 mg/dL (0.2-1.0); C-Reactive Protein 0.59 mg/dL (0.0-0.3); CO2 29.8 mmol/L (21.0-32.0); CREATININE 0.5 mg/dL (0.55-1.02); Calcium 9.6 mg/dL (8.5-10.1); Chloride 102 mmol/L (98-107); Estimated GFR 125.36 (mL/min/1.73m2); Glucose 108 mg/dL (74-106); Potassium 4.5 mmol/L (3.5-5.1); Sodium 139 mmol/L (136-145); Total Protein 8.4 g/dL (6.4-8.2)
--- NOTE | 2023-02-27 09:27 | PDOC.CMPRO ---
Date of service: 02/27/23 Time of Service: 09:27 Care Management Progress Note Progress Note Text Progress Note Text: S/O: Ludy was lying on her bed when CM met with her. She was open and friendly and agreeable to conversation. Ludy shared that she is very disappointed that she will not be able to go home today. Although her most recent blood cultures remain negative, her ESR has increased from 43 to >120.The provider plans to contact [facility] [facility] to discuss antibiotic choice and regimen. Bri admitted to being a little bored so CM provided her with an adult coloring book, crayons, colored pencils and puzzle books. A: 37 year old female admitted to [facility] on P: Ludy's discharge plan is unclear at this time. She may need to remain at [facility] for shelter IV ABX if an appropriate oral regimen is not possible. CM will follow and continue to assess for discharge needs..
[2023-02-27] MEDS: Normal Saline Flush 10 ML SYR IVP ×2 (12:06→17:49)
[2023-02-27 12:38] LABS: Vancomycin, Random 19.7 ug/mL
[2023-02-27] MEDS: Cyclobenzaprine 10 MG TAB PO (13:38)
[2023-02-27 16:10] VITALS: BP 121/83; PULSE 78; TEMP 37; O2SAT 99
--- NOTE | 2023-02-27 17:24 | PGE_ITS ---
Date of Service Date of service: 02/27/23 Time of Service: 17:24 Assessment and Plan Assessment and plan (1) MRSA bacteremia: Status: Acute Assessment and plan: marked increase in ESR, other labs stable/improving. clinically feeling better. will repeat in am continue vancomycin based on previous cultures while awaiting final new cultures, pharmacy dosing. so far negative to date and vitals have been stable at [facility]: TTE was negative for endocarditis SIMEON was completed but read was not available in the discharge summary. will request reading be forwarded here continue Non-narcotic pain management/modalities (2) Discitis of lumbosacral region: Status: Acute Assessment and plan: IMPRESSION: 1. 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 No epidural abscess.? Extension of the disc material into the neural foramen causes severe left and moderate right neural foraminal stenosis.? No significant central spinal canal stenosis. 2. Fluid collection in the right paraspinal soft tissues at L5 consistent with an abscess.? It measures 2 x 1.5 cm.? 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 She was evaluated by neurosurgery [facility] who recommended medical management only of her epidural abscess and bilateral psoas abscesses. Will follow inflammatory markers (3) Psoas muscle abscess: Status: Acute Assessment and plan: not mentioned in updated MRI. Was evaluated by [facility] and per the records these abscesses were too small to warrant catheter drainage will continue medical management with IV antibiotics (4) Tobacco use: Status: Acute Assessment and plan: Nicotine replacement while hospitalized (5) ADHD: Status: Acute Assessment and plan: No primary care provider and is currently not taking any prescription medications. None will be initiated at this time (6) Anemia: Status: Chronic Assessment and plan: Hemoglobin stable 9.1 with no signs of active bleeding most likely anemia of chronic disease Will monitor (7) Chronic hepatitis C without hepatic coma: Status: Acute Assessment and plan: 05/27/19- [facility] [place] [place] Gastro. Katelyn Abbott APRN 05/12/20 HCV viral load undetected 2020- Viral load detected again (8) IV drug abuse: Status: Acute Assessment and plan: no signs of withdrawal, Can have hydroxyzine or clonidine for withdrawal symptoms seen by resource recovery specialist (9) Discharge planning issues: Status: Acute Assessment and plan: Case management will be following for discharge planning, will need 6-8 weeks of treatment DVT prophylaxis enoxaparin daily will contact ID after final on blood culture reported for possible step down to linezolid and possibly levaquin to complete outpatient course with oral medication. will hold off until blood culture report final and inflammatory markers improving. discussed with Dr Perez Subjective Subjective Patient reports: no new complaints, feels better, tolerating liquids well, tolerating a regular diet, voiding w/o difficulty, bowel movement and afebrile; denies shortness of breath Exam Const General: ill appearing (Older appearing than stated age) chronically Nutritional Appearance: average body habitus Orientation: alert, awake and oriented x3 HENMT Head: normal to inspection, normocephalic and atraumatic Eyes General: appearance normal, both eyes and all related structures Sclera: sclerae normal (Nonicteric) Resp Effort & Inspection: normal respiratory effort Auscultation: clear to auscultation bilaterally Cardio Rate: regular rate Rhythm: regular rhythm GI Inspection: normal to inspection Extrem General: abnormal to inspection (Bilateral peripheral edema) Psych Affect: blunted Attitude: cooperative Objective Last Vital Signs Temp 37 C 02/27/23 16:10 Pulse 78 02/27/23 16:10 Resp 14 02/27/23 07:56 BP 121/83 02/27/23 16:10 Pulse Ox 99 02/27/23 16:10 Laboratory Results - last 24 hr 02/27/23 02/27/23 02/27/23 07:45 07:45 07:45 WBC 5.19 RBC 3.74 L Hgb 10.0 L Hct 31.5 L MCV 84 MCH 26.7 L MCHC 31.7 L RDW 14.6 Plt Count 337 MPV 9.3 Immature Gran % 0.2 Neutrophils % 58.7 Lymphocytes % 31.6 Monocytes % 8.1 Eosinophils % 1.0 Basophils % 0.4 Nucleated RBC % 0.0 Absolute Neutrophils 3.05 Absolute Lymphocytes 1.64 Absolute Monocytes 0.42 Absolute Eosinophils 0.05 Absolute Basophils 0.02 ESR > 120 H Sodium 139 Potassium 4.5 Chloride 102 Carbon Dioxide 29.8 Anion Gap 7.2 BUN 16 Creatinine 0.5 L Est GFR (CKD-EPI 2020) 125.36 Glucose 108 H Calcium 9.6 Total Bilirubin 0.2 AST 13 L ALT 21 Alkaline Phosphatase 170 H C-Reactive Protein 0.59 H Total Protein 8.4 H Albumin 3.3 L Random Vancomycin 02/27/23 12:10 WBC RBC Hgb Hct MCV MCH MCHC RDW Plt Count MPV Immature Gran % Neutrophils % Lymphocytes % Monocytes % Eosinophils % Basophils % Nucleated RBC % Absolute Neutrophils Absolute Lymphocytes Absolute Monocytes Absolute Eosinophils Absolute Basophils ESR Sodium Potassium Chloride Carbon Dioxide Anion Gap BUN Creatinine Est GFR (CKD-EPI 2020) Glucose Calcium Total Bilirubin AST ALT Alkaline Phosphatase C-Reactive Protein Total Protein Albumin Random Vancomycin 19.7 Time Spent with Patient Time Spent with Patient: 25-34 minutes Time was spent: preparing to see the patient(eg.review tests), indepentently interpreting results and counseling the patient
[2023-02-28 06:05] VITALS: BP 101/6; PULSE 64; RESP 16; TEMP 36.1; O2SAT 98
[2023-02-28] MEDS: VANCOMYCIN/WATER (PEG) 1.75 GM/350 ML BAG IVPB (06:34)
[2023-02-28 06:48] LABS: Abs Immature Grans 0.02 10^3/uL (0.0-0.06); Absolute Basophil Count 0.02 10^3/uL (0.0-0.2); Absolute Eosinophil Count 0.09 10^3/uL (0.0-0.7); Absolute Lymphocyte Count 2.09 10^3/uL (1.2-3.4); Absolute Monocyte Count 0.68 10^3/uL (0.1-0.8); Absolute Neutrophil Count 4.86 10^3/uL (1.2-6.7); Basophils % 0.3; Eosinophils % 1.2; HCT 31.1 % (36.0-46.0); HGB 9.9 g/dL (11.2-15.7); Immature Grans % 0.3; Lymphocytes % 26.9; MCH 27.2 pg (27.0-33.0); MCHC 31.8 % (32.0-36.0); MCV 85 fL (80-95); MPV 9.5 fL (8.0-11.0); Monocytes % 8.8; Neutrophils % 62.5; Platelet Count 323 10^3/uL (130-400); RBC 3.64 10^6/uL (3.93-5.22); RDW 14.8 % (11.7-14.6); WBC 7.76 10^3/uL (4.4-10.8)
[2023-02-28 07:06] VITALS: BP 104/67; PULSE 66; RESP 16; TEMP 37; O2SAT 98
[2023-02-28 07:11] LABS: ESR 56 mm/hr (0-20)
[2023-02-28 07:21] LABS: ALT 24 U/L (14-59); AST 16 U/L (15-37); Albumin 3.1 g/dL (3.4-5.0); Alkaline Phosphatase 155 U/L (46-116); Anion Gap 9.4 mmol/L (3-11); BUN 21 mg/dL (7-18); Bilirubin, Total 0.2 mg/dL (0.2-1.0); C-Reactive Protein 0.23 mg/dL (0.0-0.3); CO2 27.6 mmol/L (21.0-32.0); CREATININE 0.8 mg/dL (0.55-1.02); Calcium 9.1 mg/dL (8.5-10.1); Chloride 102 mmol/L (98-107); Estimated GFR 98.48 (mL/min/1.73m2); Glucose 103 mg/dL (74-106); Sodium 139 mmol/L (136-145); Total Protein 8.6 g/dL (6.4-8.2)
--- NOTE | 2023-02-28 07:24 | NUR.NOTE ---
Addendum entered by Vida Molina LPN 02/28/23 07:26: Witnessed by Robert Alanis RN Original Note: Nursing Note: Received patient from previous nurse with Vancomycin running at 250ml/hr per MAR ordered for 175ml/hr. Pump was reprogrammed at this time.
[2023-02-28] MEDS: Omeprazole 20 MG CAPCR 40 MG PO (08:23)
[2023-02-28] MEDS: Nicotine 21 MG/24 HR PATCH TD (08:25)
[2023-02-28] MEDS: Acetaminophen 325 MG TAB 650 MG PO (08:38)
[2023-02-28] MEDS: Cyclobenzaprine 10 MG TAB PO (08:38)
[2023-02-28] MEDS: Enoxaparin 40 MG/0.4 ML SYR SC (08:42)
--- NOTE | 2023-02-28 09:35 | PDOC.CMPRO ---
Date of service: 02/28/23 Time of Service: 09:35 Care Management Progress Note Progress Note Text Progress Note Text: S/O: A: 37 year old female admitted to [facility] on P: Ludy's discharge plan is unclear at this time. She may need to remain at [facility] for pin machine tender IV ABX if an appropriate oral regimen is not possible.? CM will follow and continue to assess for discharge needs..
--- NOTE | 2023-02-28 10:52 | W.PM.DS.N ---
Date of service: 02/28/23 Time of Service: 10:52 DS: Diagnosis Discharge Diagnosis (1) MRSA bacteremia: Status: Acute (2) Discitis of lumbosacral region: Status: Acute (3) Psoas muscle abscess: Status: Acute (4) Tobacco use: Status: Acute (5) ADHD: Status: Acute (6) Anemia: Status: Chronic (7) Chronic hepatitis C without hepatic coma: Status: Acute (8) IV drug abuse: Status: Acute Discharge Plan Disposition Patient Disposition: Home Condition: Improving Discharge Details Reason For Visit: Discitis Osteomyelitis Admit Date/Time: 02/22/23 19:06 Admit Provider: Familia Lundberg Attending Provider: Familia Lundberg Primary Care Provider: Zeyad Hall [place] [facility] Course Hospital Course: This is a 37-year-old female patient with a past medical history significant for IV drug abuse who was originally sent to [facility] for further evaluation of an epidural abscess with osteomyelitis discitis and MRSA bacteremia who left there AMA after 5 days. She returned here day 7 stating that she was wanting to be treated now. She was admitted to the hospitalist services we restarted her on vancomycin a repeat MRI does show resolution of her epidural abscess and bilateral psoas muscle abscesses. Her inflammatory markers have been improving. Her blood cultures are negative and there was no evidence of endocarditis by SIMEON at [facility]. She has been working with a monomer recovery supervisor and is committed to sobriety. She does not want remained hospitalized to complete her treatment and it is not felt that discharging her with a PICC line would be prudent. We did discuss oral options which are not ideal or first-line recommendations but she is insisting on a discharge to home. I did agree to trial outpatient treatment with close primary care provider follow-up. We will treat her osteomyelitis/discitis with levofloxacin and her bacteremia with with linezolid. She will continue to have weekly surveillance labs to ensure clearance of her infection. She was advised to return here sooner for new or worsening symptoms. Discharged to home with no services. Discharge discussed with Dr. Perez Home Meds and New Rx's Prescriptions: New levofloxacin 750 mg tablet 750 mg PO DAILY Qty: 45 0RF linezolid 600 mg tablet 600 mg PO BID Qty: 90 0RF Continued hydroxyzine HCl 25 mg tablet 25 mg PO TID-QID PRN (Reason: itching) Qty: 90 3RF ondansetron HCl [Zofran] 4 mg tablet 4 mg PO Q8H PRN (Reason: nausea and vomiting) Qty: 90 3RF ibuprofen 800 mg tablet 800 mg PO Q8H PRN (Reason: pain) Qty: 30 0RF omeprazole 40 mg capsule,delayed release(DR/EC) 40 mg PO DAILY Qty: 90 3RF clonidine HCl 0.1 mg tablet 0.1 mg PO TID Qty: 90 1RF albuterol sulfate [ProAir HFA] 90 mcg/actuation HFA aerosol inhaler 2 puff IH Q6H PRN (Reason: shortness of breath or wheezing) Qty: 18 1RF cyclobenzaprine 10 mg tablet 10 mg PO TID PRN (Reason: muscle spasm) Qty: 90 1RF (DME) BreatheRite MDI Spacer Spacer See Rx Instructions .ROUTE .MEDSUPPLY Qty: 1 0RF Rx Instructions: As directed methocarbamol 500 mg tablet 500 mg PO Q6H PRN (Reason: muscle spasm) Qty: 14 0RF No Action psyllium husk 0.52 gram capsule 0.52 gm PO DAILY citalopram 40 mg tablet 40 mg PO DAILY Qty: 90 3RF aripiprazole 5 mg tablet 5 mg PO DAILY Qty: 90 3RF Spiriva with HandiHaler 18 mcg capsule, w/inhalation device 1 cap IH DAILY Qty: 90 3RF furosemide 20 mg tablet 20 mg PO DAILY Qty: 90 3RF hydrocortisone [Proctosol HC] 2.5 % cream with perineal applicator 1 applic UT QD-BID PRN (Reason: itching) Qty: 30 6RF ranitidine HCl 75 mg tablet 150 mg PO DAILY Rx Instructions: note dated 08/12/19 Bel Abbott APRN [facility] [place] atomoxetine [Strattera] 40 mg capsule 40 mg PO DAILY Qty: 30 1RF fluticasone propion-salmeterol [Advair Diskus] 250-50 mcg/dose blister with device 1 inh IH Q12H Qty: 60 1RF pregabalin 300 mg capsule 300 mg PO BID Qty: 56 1RF trazodone 50 mg tablet 50 mg PO QHS Qty: 90 1RF Discharge Instructions Instructions: Osteomyelitis (DC), Bacteremia (DC) Additional Instructions: Very important to take all medication as directed, even if you feel better. notify your doctor immediately if you have any fever, chills, worsening or new pain, or concerns. you will need weekly surveillance labs, results to be reviewed with primary care provider. Very important to not use any injectable drugs at all. Stand Alone Forms: Nursing Discharge Form Referrals: Zeyad Hall DO [Primary Care Provider] - Activity:: Activity as Tolerated Equipment/Supplies:: No Equipment Needed Diet:: As Tolerated Discharge Orders Discharge Orders: Discharge Order (Routine); Ordered 02/28/23 Ordered By: Gracie Becker Other Ambulatory Orders: Complete Blood Count w/Diff (Routine) Timeframe: 20230304 Location: None Selected Ordered By: Gracie Becker Comprehensive Metabolic Panel (Routine) Timeframe: 20230304 Location: None Selected Ordered By: Gracie Becker ESR (Routine) Timeframe: 20230304 Location: None Selected Ordered By: Gracie Becker C-Reactive Protein (Routine) Timeframe: 20230304 Location: None Selected Ordered By: Gracie Becker Discharge Data Discharge Date/Time-TO BE ENTERED AT DEPARTURE: 02/28/23 14:43 DS: Summary Time Spent with Patient providing and/or coordinating discharge services: Less than 30 minutes Status at Discharge Functional status at discharge: independent ambulation Overall status at discharge: patient is progressing back to baseline Mental Status: mental status grossly normal Speech and Movement: speech and movement normal Mood: congruent mood and labile mood Affect: normal affect Exam Const General: ill appearing (Older appearing than stated age) chronically Nutritional Appearance: average body habitus Orientation: alert, awake and oriented x3 HENMT Head: normal to inspection, normocephalic and atraumatic Eyes General: appearance normal, both eyes and all related structures Sclera: sclerae normal (Nonicteric) Resp Effort & Inspection: normal respiratory effort Auscultation: clear to auscultation bilaterally Cardio Rate: regular rate Rhythm: regular rhythm GI Inspection: normal to inspection Extrem General: abnormal to inspection (Bilateral peripheral edema) Psych Mental Status: mental status grossly normal Speech and Movement: speech and movement normal Mood: congruent mood and labile mood Affect: normal affect Attitude: cooperative DS: Data Vitals/I&O Vitals and I&O: Vital Signs Temperature 37.0 C 02/28/23 07:06 Temperature Source Tympanic 02/28/23 07:06 Pulse 66 02/28/23 07:06 Pulse Rhythm Regular 02/28/23 08:29 Respiratory Rate 16 02/28/23 07:06 Respiratory Effort Normal, Non-Labored 02/28/23 08:29 Respiratory Depth Normal 02/28/23 08:29 Respiratory Pattern Normal 02/28/23 08:29 Blood Pressure 104/67 02/28/23 07:06 Blood Pressure Position Sitting 02/22/23 17:02 Pulse Oximetry 98 02/28/23 07:06 Oxygen Delivery Method Room Air 02/28/23 07:06 Oxygen Flow Rate 0 02/28/23 07:06 Pain Level 2 02/28/23 09:35 Comment RN notified 02/26/23 00:12 Intake & Output 02/27/23 02/27/23 02/28/23 11:59 23:59 11:59 Intake Total 950 / 2150 1200 / 2150 Balance 950 / 2150 1200 / 2150 Intake: IV 350 / 1050 700 / 1050 Oral 600 / 1100 500 / 1100 Other: Comment pt stated i've peed 5 times today pt uses the bathroom independently Voiding Methods Toilet Toilet Data Completed and Pending Labs on day of discharge: Labs from last 24 hours 02/28/23 02/28/23 02/28/23 06:27 06:27 06:27 WBC 7.76 RBC 3.64 L Hgb 9.9 L Hct 31.1 L MCV 85 MCH 27.2 MCHC 31.8 L RDW 14.8 H Plt Count 323 MPV 9.5 Immature Gran % 0.3 Neutrophils % 62.5 Lymphocytes % 26.9 Monocytes % 8.8 Eosinophils % 1.2 Basophils % 0.3 Nucleated RBC % 0.0 Absolute Neutrophils 4.86 Absolute Lymphocytes 2.09 Absolute Monocytes 0.68 Absolute Eosinophils 0.09 Absolute Basophils 0.02 ESR 56 H Sodium 139 Potassium 4.0 Chloride 102 Carbon Dioxide 27.6 Anion Gap 9.4 BUN 21 H Creatinine 0.8 Est GFR (CKD-EPI 2020) 98.48 Glucose 103 Calcium 9.1 Total Bilirubin 0.2 AST 16 ALT 24 Alkaline Phosphatase 155 H C-Reactive Protein 0.23 Total Protein 8.6 H Albumin 3.1 L Random Vancomycin 02/27/23 12:10 WBC RBC Hgb Hct MCV MCH MCHC RDW Plt Count MPV Immature Gran % Neutrophils % Lymphocytes % Monocytes % Eosinophils % Basophils % Nucleated RBC % Absolute Neutrophils Absolute Lymphocytes Absolute Monocytes Absolute Eosinophils Absolute Basophils ESR Sodium Potassium Chloride Carbon Dioxide Anion Gap BUN Creatinine Est GFR (CKD-EPI 2020) Glucose Calcium Total Bilirubin AST ALT Alkaline Phosphatase C-Reactive Protein Total Protein Albumin Random Vancomycin 19.7 PFSH All Active Problems (Updated 02/22/23 @ 20:18 by Gracie Becker NP) Anemia (Chronic) Discharge planning issues (Acute) Psoas muscle abscess (Acute) Acute thoracic myofascial strain (Acute) Acute lumbar myofascial strain (Acute) Osteomyelitis (Acute) Discitis of lumbosacral region (Acute) MRSA bacteremia (Acute) UTI (urinary tract infection) (Acute) Dental caries (Acute) H/O endoscopy (Acute) 06/11/19 [facility] Endoscopy Z line abnl 37 cm from incisors,Grade A reflux esophagitis. Normal stomach and Duodenum. Chronic hepatitis C without hepatic coma (Acute) 05/27/19- [facility] [place] Gastro. Katelyn Abbott, ANDREW 05/12/20 HCV viral load undetected 2020- Viral load detected again Carpal tunnel syndrome of right wrist (Acute) Plantar fasciitis, bilateral (Acute) ADHD (Acute) Family history of ovarian cancer (Acute) Family history of breast cancer in first degree relative (Acute) Family history of colon cancer (Acute) Family history of VT (myocardial infarction) (Acute) Gastroesophageal reflux disease without esophagitis (Acute 11/23/16) Hx of supraventricular tachycardia (Acute 11/23/16) Chronic back pain greater than 3 months duration (Acute 11/23/16) Tobacco use (Acute 11/23/16) Depression (Chronic) from previous record ? bipolar Anxiety (Chronic) Asthma (Chronic) Right ankle pain (Chronic) IV drug abuse (Acute) Polysubstance abuse (Acute) Substance abuse (Acute) Seen in October 2017, cocaine abuse Medical History Abdominal rigidity Carcinoma in situ of uterine cervix Cervical intraepithelial neoplasia grade 2 Chronic pelvic pain in female s/p hyst 2012 for cervical dysplasia. Pt reports chronic pelvic pain since that surgery. Daily headache Elevated LFTs Galactorrhea Hepatic cirrhosis due to chronic hepatitis C infection Hepatitis C Insomnia Irritable bowel syndrome Manifested as constipation Q3d. With meds has improved daily functioning. Leg edema Memory loss Pelvic pain Psychoactive substance abuse Surgical History Colonoscopy - MAC (01/29/17) Endoscopy (12/14/13) Dx Esophagitis. Excision, Cervicle Lymph Nodes H/O laparoscopy (~09/14/13) for LLQ pain. Has PDS suture removed (from previous hysterectomy with USLS. Nl pelvis. Pt mentions second laparoscopy for pelvic pain. Not in [facility] records. History of section History of cholecystectomy History of pacemaker History of tonsillectomy and adenoidectomy (~07/05/11) S/P hysterectomy (09/27/15) Status post laparoscopic hysterectomy (~04/15/13) Total laparoscopic hysterectomy & laparoscopic UteroSacral Vaginal Vault suspensionfor uterine prolapse Family History Father Alcohol abuse Substance abuse Colon cancer Liver cancer Throat cancer Depression Diabetes Heart disease Hypertension Mother Asthma Breast cancer Cervical cancer Depression Hypertension Alcohol abuse Substance abuse Sister Alcohol abuse Substance abuse Depression Sister Alcohol abuse Substance abuse Depression Sister Alcohol abuse Substance abuse Depression Social History Smoking/Tobacco Use Status: Current every day Tobacco Type: cigarettes Years smoked: 13 and e-cigarettes Tobacco: How many years used: 25 Smoking risk assessment performed?: Yes Alcohol Intake: current Alcohol Intake frequency: holidays/special occasions only Drug use: Occasionally Substance use type: marijuana Details: was using 2-3 times a day (Heroin) now down to 1-2 times every other day History of IV Drug Use. was an alcoholic Household members: none Housing: apartment Number of Children: 3 Communication Needs: None current occupation: unemployed What is your relationship status?: How often do you talk on the phone with friends or family?: three or more times per week Panel score (0-1 are the most socially isolated patients): 1 What type of physical activity do you participate in: none Seatbelt use: always Drive intox or ride w/intox pile driver operator: No Working smoke detector in home: Yes Carbon monox detector in home: Yes Do you feel safe at home: Yes Do you feel safe in your relationship?: Yes Victim of physical abuse: No Victim of emotional abuse: No Victim of sexual abuse: No Would you like helpful sources: No Additional Social history: Did use Heroin today at 1300 02/22/23 CT Time Spent with Patient Time Spent with Patient: <45 minutes Time was spent: preparing to see the patient(eg.review tests), ordering medications,tests, procedures, referring, communicating with other health care aid, counseling the patient and care coordination
--- NOTE | 2023-02-28 15:21 | PDOC.CMDIS ---
Date of service: 02/28/23 Time of Service: 15:21 LACE Index Scoring Tool Questions: Length of Stay (in days): 4 - 6 Was the patient admitted via the E.D.?: Yes E.D. Visits: 4 Answers: Total Score: 11 Risk of Readmission: High Risk Care Management Discharge Plan Reason for Hospitalization: MRSA bacteremia, Discitis of lumbosacral region Discharge Plan: Ludy is discharged to the community via private vehicle with friend. She will follow up with community providers and her discharge plan of care as instructed. RX's are transmitted to [facility]. Linezolid required a PA, (determination may take up to 5 days, therefor a 10 day supply was given to Ludy at time of d/c). Ludy plans on staying with friends after discharge and agrees to follow up with [facility]. CM reviewed discharge considerations with CCC/JAY Moran at Dr. Hall's office. Surveillance labs and close community follow up is recommended per hospitalist. Patient/Family Education Needs: Review discharge instructions, limitations, medications and plan to follow up with community providers. Discuss ask me three and goals of self care.
--- NOTE | 2023-02-28 16:11 | PHA.REVIEW2 ---
Pharmacy Admission Review Admission Clinical Review Admission Pharmacy Review: (Updated 02/22/23 @ 20:18 by Gracie Becker NP) Discharge planning issues (Acute) Psoas muscle abscess (Acute) Osteomyelitis (Acute) Discitis of lumbosacral region (Acute) MRSA bacteremia (Acute) Chronic hepatitis C without hepatic coma (Acute) ADHD (Acute) Tobacco use (Acute 11/23/16) IV drug abuse (Acute) lidocaine Allergy (Intermediate, Verified 02/22/23 17:09) Swelling/Edema procaine HCl [From Novocain] Allergy (Intermediate, Verified 02/22/23 17:09) Swelling/Edema red dye Allergy (Mild, Unverified 02/22/23 17:09) Swelling/Edema Penicillins Adverse Reaction (Unknown, Verified 02/22/23 17:09) Nausea control pills Allergy (Severe, Uncoded 02/22/23 17:09) hospitalized Height 5 ft 9 in Weight 62.142 kg Pharmacy Admission Review Renal Dosing Renal Dosing: BUN 21 mg/dL (7-18) H 02/28/23 06:27 Creatinine 0.8 mg/dL (0.55-1.02) 02/28/23 06:27 Medications needing adjustments: Reviewed Anticoagulation Anticoagulation: Hgb 9.9 g/dL (11.2-15.7) L 02/28/23 06:27 Hct 31.1 % (36.0-46.0) L 02/28/23 06:27 Plt Count 323 10^3/uL (130-400) 02/28/23 06:27 Creatinine 0.8 mg/dL (0.55-1.02) 02/28/23 06:27 DVT Prophylaxis: Reviewed Relevant Labs Relevant Labs: ESR 56 mm/hr (0-20) H 02/28/23 06:27 Sodium 139 mmol/L (136-145) 02/28/23 06:27 Potassium 4.0 mmol/L (3.5-5.1) 02/28/23 06:27 Chloride 102 mmol/L (98-107) 02/28/23 06:27 Magnesium 2.1 mg/dL (1.8-2.4) 02/24/23 08:30 C-Reactive Protein 0.23 mg/dL (0.0-0.3) 02/28/23 06:27 Pharmacy Antibiotic Review Relevant Labs: Relevant Labs 02/28/23 06:27 C-Reactive Protein 0.23 Pharmacy Antibiotic Activity: IV to PO Comments: patient switched from vanco to oral levaquin + linezolid at discharge. 10 tabs dispensed to get her through saturday (Prior auth pending). Of note: she does have medications on her home med list that interact w/linezolid (citalopram, trazodone, atomoxetine) tho these do not have any recent fill history (last 07/2022) -- RN checked with patient who states she has not taken them in a while and does not plan on taking them, pt is aware of interaction.
--- NOTE | 2023-02-28 17:09 | NUR.NOTE ---
Nursing Note: Discharge Instructions printed to be mailed to patient. Voicemail left with [facility] requested they schedule a follow up with pt.
== END 2023-02-28 14:43 | disposition home or self-care (01) | DRG 539 ==
LOC: ER 19:23 → MS 20:08
PROVIDERS: Family Medicine; Internal Medicine; Admitting Provider Family Medicine; Emergency Provider Nurse Practitioner Acute Care; PCP Family Medicine; Visit Provider Family Medicine
DX: M46.26 Osteomyelitis of vertebra, lumbar region (principal); G06.2 Extradural and subdural abscess, unspecified; K68.12 Psoas muscle abscess; R78.81 Bacteremia; B95.62 Methicillin resistant Staphylococcus aureus infection as the cause of diseases classified elsewhere; M46.47 Discitis, unspecified, lumbosacral region; F17.210 Nicotine dependence, cigarettes, uncomplicated; F90.9 Attention-deficit hyperactivity disorder, unspecified type; D64.9 Anemia, unspecified; B18.2 Chronic viral hepatitis C; Z59.00 Homelessness unspecified; K21.9 Gastro-esophageal reflux disease without esophagitis; F32.A Depression, unspecified; F41.9 Anxiety disorder, unspecified; J45.909 Unspecified asthma, uncomplicated; F19.10 Other psychoactive substance abuse, uncomplicated; F11.10 Opioid abuse, uncomplicated; K74.69 Other cirrhosis of liver; K58.1 Irritable bowel syndrome with constipation; F10.21 Alcohol dependence, in remission; F12.90 Cannabis use, unspecified, uncomplicated
CPT/HCPCS: 36415; 36569; 72158; 80048; 80053; 84145; 85652; 87040; 87081; 99285; J1650; 80202; 81025; 83735; 85025; 86140; 99223; 99233; 99238; J3490

== ENCOUNTER 2024-05-05 15:13 | Outpatient (CLI) | payer MEDICAID, SELFPAY ==
--- NOTE | 2024-05-05 11:27 | DI.RAD_ITS ---
Exam(s) XR KNEE RT 4V AP,LAT,ANA,PAT EXAM: XR KNEE RT 4V AP,LAT,ANA,PAT CLINICAL HISTORY: Injury from falling on patella S89.91XA INJURY. TECHNIQUE: 2D digital imaging was performed. Three views. COMPARISON: CR XR KNEE RT 4V AP,LAT,ANA,PAT from 05/01/2019 FINDINGS: BONES: No acute fracture is present. No bony destructive lesion is seen. JOINTS: The knee is normally aligned. A joint effusion is seen. The joint spaces are maintained. SOFT TISSUE: Normal. IMPRESSION: Joint effusion. No evidence of fracture. DATA REPOSITORY: RADIATION DOSE DELIVERED:
--- OUTSIDE RECORDS SUMMARY | 2024-05-05 15:17 | XMS_ITS | Encounter Summary ---
[place] [address] Care Team Providers Care Customs Verifier Name Role Phone Zeyad Hall DO Primary Care Provider [phone] Encounter Details Date Type Department Care Team (Late st Contact Info) Description 02/15/2023 Telephone [place] [phone] Stefan Espinal MD [facility] [place] [address] Social History Tobacco Use Types Packs/Day Years Used Date Smoking Tobacco: Every Day Cigarettes 1 13 Smokeless Tobacco: Never Alcohol Use Standard Drinks/Week Comments Yes 0 (1 standard drink = 0.6 oz pur e alcohol) 1 in past 6 months Sex and Gender Information Value Date Recorded Sex Assigned at Not on file Gender Identity Not on file Sexual Orientation Not on file documented as of this encounter Miscellaneous Notes * Telephone Encounter - Stefan Espinal MD - 02/15/2023 12:29 PM EDT I spoke with Dr. Nsah at [facility] regarding this patient Ludy Allen a 37-year-old female IV drug user who presented with several days of low back pain. She reportedly has no focal neuro deficits, though has low back pain with active lower extremity movements. She does not have any saddle anesthesia, no bowel or bladder incontinence. WBC 6.85, ESR 44, CRP 13.5 (upper limit of normal 0.3). 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 Reportedly on the radiology report there is evidence of phlegmon. Providers asking for transfer to our facility for further care. I relayed that given she does not have any current neurologic deficits, we would recommend medical management of this issue with biopsy guided targeted antibiotic therapy. Provider reported that patient has been started on vancomycin and Cipro and there is no IR capability at their hospital. In conjunction with the transfer center who relayed that there were no beds available on the medicine service, we recommended they look elsewhere for medicine admissionwith IR capabilities. All questions were answered, all parties were in agreement. documented in this encounter Plan of Treatment Not on file documented as of this encounter Visit Diagnoses Not on filedocumented in this encounter Care Teams Customs Verifier Relationship Specialty Start Date End Date Zeyad Hall DO [address] [place] [address] PCP - General Family Medicine 04/15/19 documented as of this encounter
--- OUTSIDE RECORDS SUMMARY | 2024-05-05 15:17 | XMS_ITS | Data Portability ---
Author Organization [place] - [employer], , [employer] - [facility] Address [address] [facility] [address] [place] [phone] Assessment Encounter Date Assessment Date Assessment LastModified by Organization Details LastModified Time 03/27/2021 03/27/2021 Telemedicine Information: This telmed (audio + visual) appointment provided a MAT prescription. Time Start: 11:03a; Time End:11:30a Provider Location: home; Patient Location: office Telemedicine Consent Given (verbal): Y The patient's current phase of treatment is Induction phase OUD. Assessment/Plan Ludy is a 35y/o female with hx OUD, AUD, cocaine use, ADHD, anxiety, MDD who presents today for an initial visit. Ludy is transitioning care from [facility] due to difficulty attending daily appointments, as she needed to walk there. She reports she spoke with a nurse at [facility] about her difficulties and was encouraged to reach out to [facility]. OUD : For more detailed substance use history see HPI Reports she has been on 10mg Suboxone through [facility] but has not been there in over a week, has since been buying illicit Suboxone when she can get it (last dose about 3d ago) and heroin if she can't (last use 1.5d ago). AURELIO for [facility] signed and records requested. Currently reports w/d sxs (fatigue, hot and cold, shaky). Reviewed precipitated withdrawal and the importance of waiting until mild-moderate withdrawal before starting on buprenorphine. Counseled pt to take 2mg and wait 1-2 hours, then take 4mg and continue in this fashion until reaching full daily dose. Encouraged pt to call if there are any issues or concerns during this process. Reviewed proper medication administration with pt, including not eating/drinking/s moking for at least 15min before and after dose and holding saliva in mouth until film fully dissolves, then swallowing saliva. Pt voiced understanding and adherence to these guidelines VPMS: - Focalin Rx documented, 20mg BID. Last fill 12/13/20 Housing : lives in apartment by herself Employment : none, looking for work Family : 3 daughters, has no custody or contact at this time. Tobacco use : reports 0.5 to 1 PPD, interested in cutting down. Has patches at home. Encouraged pt to reach out if she needs refill or would like to try alternative NRT (gum, lozenges, etc) Counseling : none at this time PCP : friend suggested someone, is planning to call Bloodwork : Discussed ordered labs and rationale behind required labwork The patient does meet diagnostic criteria for opioid dependence. Will proceed with MAT buprenorphine at recommended dose, see order. Referrals made today include none. A urine drug screen is ordered, with confirmation if positive. See drug screen and medical necessity below. Initial lab studies ordered include HCG (female), CBC with differential, Comprehensive metabolic, Hepatic panel, coag, Hep B, C, and HIV. Education and counseling provided at the [facility] Initial Assessment included: - The patient is counseled re short term goal of harm reduction and the custodial goal of abstinence. - Education re risks and benefits of both MAT options: buprenorphine and naltrexone. - If proceeding with buprenorphine, prior to induction with buprenorphine patient is to abstain from short acting opioids 12-24 hours and long acting opioids 72 hours (methadone < 30 mg/day). - If proceeding with naltrexone, prior to induction with naltrexone the patient is to abstain from any opioids 7-10 days and until provider has deemed UDS appropriate to proceed. - Reviewed Program Expectations at length and medication assisted treatment options. - Education provided re best way to take medication. - Discussed safe keeping of RX including lock box. - Consents and contracts reviewed and signed with patient. - Discussed rationale and recommendation of psychotherapy to support recovery. - Reviewed process of UDS and random visit requirements. - Discussed the expectation for building trusting relationship to promote a successful recovery. - Reviewed that diversion or misuse of medication will not be tolerated and is cause for dismissal from the program. Prescription monitoring program is reviewed. If reviewed, I have identified agents prescribed to the patient in addition to any issued by our program; the patient is counseled regarding any risk of combining sedating agents. Not available 03/27/2021 11:58:52 Plan of Treatment Reminders Order Date Submit Date Provider Last Modified By Organization Details Last Modified Time Details Appointments None recorded. Lab CMP, serum or plasma [address], [address] [place], [address], 13:26:56 CBC w/ diff [address], [address] [place], [address], 13:26:56 gamma-gluta myl transferase (ggt), serum [address], [address] [place], [address], 13:26:57 hepatitis A Ab, total, serum [address], [address] [place], [address], 13:26:57 HIV 1+2 Ab + HIV1 p24 Ag, QL, rapid, immunoassay , serum or plasma or blood [address], [address] [place], [address], 13:26:57 drug screen, urine 2020 [facility], [address] [place], [address], 14:16:40 hepatitis B surface Ab, quantitativ e, serum [address], [address] [place], [address], 13:26:57 hepatitis B core Ab, total, serum [address], [address] [place], [address], 13:26:57 HBsAg (hepatitis B surface Ag), serum [address], [address] [place], [address], 13:26:57 hepatitis C Ab, quantitativ e, serum [address], [address] [place], [address], 13:26:58 hepatitis C virus RNA, quant, PCR, serum or plasma - REFLEX ONLY IF HEP C AB IS POS [address], [address] [place], [address], 13:26:58 hepatitis C virus genotype, PCR, blood - REFLEX ONLY IF HEP C VIRAL LOAD IS DETECTED [address], [address] [place], [address], 13:26:58 Referral None recorded. Procedures None recorded. Surgeries None recorded. Imaging None recorded. Medication Orders Suboxone 2 mg-0.5 mg sublingual film 2020 [facility] #[id number], [address] [place] [address], [id number], 11:34:00 Suboxone 8 mg-2 mg sublingual film 2020 [id number], [address] [place], [place], [phone], 11:34:02 Patient TargetsNo targets recorded. Patient Instructions Encounter Date Encounter Id Patient Instructions Last Modified By Organization Details Last Modified Time 03/27/2021 [id number] Abstain from opiates for 24 hours unless directed by provider; > If already taking buprenorphine, do not take a dose the day of the induction until you are in the office with your provider; > Comfort medications were recommended. If accepted, please take as prescribed to support your ability to abstain from opiates until your buprenorphine induction; > Keep your buprenorphine RX package closed until you are seen by your provider for induction unless otherwise directed; If you have problems abstaining from opiates, please call the office. As part of your individualized treatment plan and program requirement, you will need to bring your correct prescription bottle and all used and unused medication and counseling verification to each appointment; > Agree to participate in counseling and bring counseling verification to each appointment; > Agree to present for random visits; > Agree to not falsify your urine specimens. Not available 03/22/2021 09:02:56 Reason for Referral None Reported. Results Created Date Observation Date Name Description Value Unit Range Abnormal Flag Note LastModifiedBy Organization Detail LastModifiedTime 03/27/20 21 03/27/2021 INITI AL PT SCRN amphetamines Negati ve NG/mL 1,000 Nanci martinez d by ALEX LAKHANI Not Available [facility] [place] [address] [facility] [place], [address], 03/28/2021 14:16:39 03/27/20 21 03/27/2021 INITI AL PT SCRN benzodiazapi ruby Negati ve NG/mL 200 Not Available [facility], [address], 03/28/2021 14:16:39 03/27/20 21 03/27/2021 INITI AL PT SCRN buprenorphin e Positi ve NG/mL 5 Not Available [facility], [address], 03/28/2021 14:16:39 03/27/20 21 03/27/2021 INITI AL PT SCRN cocaine metabolite Positi ve NG/mL 150 abnormal Not Available [facility] [place], [address], 03/28/2021 14:16:39 03/27/20 21 03/27/2021 INITI AL PT SCRN opiates Negati ve NG/mL 300 Not Available [place] [address] [place], [address], 03/28/2021 14:16:39 03/27/20 21 03/27/2021 INITI AL PT SCRN oxycodone Negati ve NG/mL 300 Not Available [place] [address] [place], [address], 03/28/2021 14:16:39 03/27/20 21 03/27/2021 INITI AL PT SCRN fentanyl Positi ve NG/mL 2 abnormal Not Available [place] [address] [place], [address], 03/28/2021 14:16:39 03/27/20 21 03/27/2021 INITI AL PT SCRN ethyl alcohol Negati ve mg/dL 10 Not Available [place] [address] [place], [address], 03/28/2021 14:16:39 03/27/20 21 03/27/2021 INITI AL PT SCRN methadone metabolite Negati ve NG/mL 300 Not Available [place] [address] [place], [address], 03/28/2021 14:16:39 03/27/20 21 03/27/2021 INITI AL PT SCRN urine creatinine 196.2 mg/dL >20 Not Available [place] [address] [place], [address], 03/28/2021 14:16:39 03/27/20 21 03/27/2021 INITI AL PT SCRN urine pH 6.40 4.5-9. 0 Not Available [place] [address] [place], [address], 03/28/2021 14:16:39 03/27/20 21 03/27/2021 INITI AL PT SCRN specific gravity 1.015 1.003- 1.035 Not Available [place] [address] [place], [address], 03/28/2021 14:16:39 03/27/20 21 03/27/2021 8-14 DRUG CLASS ES CONFI RMATI ON buprenorphin e 75.6 NG/mL 20 Nanci martinez d by ALEX LAKHANI Not Available [place] [address] [place], [address], 04/03/2021 13:51:46 03/27/20 21 03/27/2021 8-14 DRUG CLASS ES CONFI RMATI ON norbuprenorp stanley 145.3 NG/mL 50 Not Available [place] [address] [place], [address], 04/03/2021 13:51:46 03/27/20 21 03/27/2021 8-14 DRUG CLASS ES CONFI RMATI ON 6-acetylmorp stanley Negati ve NG/mL 10 Not Available [facility], [address], 04/03/2021 13:51:46 03/27/20 21 03/27/2021 8-14 DRUG CLASS ES CONFI RMATI ON codeine Negati ve NG/mL 50 Not Available [facility], [address], 04/03/2021 13:51:46 03/27/20 21 03/27/2021 8-14 DRUG CLASS ES CONFI RMATI ON hydrocodone Negati ve NG/mL 50 Not Available [facility] [place], [address], 04/03/2021 13:51:46 03/27/20 21 03/27/2021 8-14 DRUG CLASS ES CONFI RMATI ON hydromorphon e Negati ve NG/mL 50 Not Available [facility] [place], [address], 04/03/2021 13:51:46 03/27/20 21 03/27/2021 8-14 DRUG CLASS ES CONFI RMATI ON morphine Negati ve NG/mL 50 Not Available [facility] [place], [address], 04/03/2021 13:51:46 03/27/20 21 03/27/2021 8-14 DRUG CLASS ES CONFI RMATI ON norhydrocodo ne Negati ve NG/mL 100 Not Available [facility], [address], 04/03/2021 13:51:46 03/27/20 21 03/27/2021 8-14 DRUG CLASS ES CONFI RMATI ON noroxycodone Negati ve NG/mL 50 Not Available [facility], [address], 04/03/2021 13:51:46 03/27/20 21 03/27/2021 8-14 DRUG CLASS ES CONFI RMATI ON oxycodone Negati ve NG/mL 25 Not Available [facility], [address], 04/03/2021 13:51:46 03/27/20 21 03/27/2021 8-14 DRUG CLASS ES CONFI RMATI ON oxymorphone Negati ve NG/mL 100 Not Available [facility] [place], [address], 04/03/2021 13:51:46 03/27/20 21 03/27/2021 8-14 DRUG CLASS ES CONFI RMATI ON fentanyl 42.2 NG/mL 20 high Not Available [facility] [place], [address], 04/03/2021 13:51:46 03/27/20 21 03/27/2021 8-14 DRUG CLASS ES CONFI RMATI ON norfentanyl 502.4 NG/mL 20 high Not Available [place] [address] [place], [address], 04/03/2021 13:51:46 03/27/20 21 03/27/2021 8-14 DRUG CLASS ES CONFI RMATI ON benzoylecgon ine OLR(>2 000) NG/mL 100 high Not Available [place] [address] [place], [address], 04/03/2021 13:51:46 03/27/20 21 03/27/2021 8-14 DRUG CLASS ES CONFI RMATI ON amphetamine Negati ve NG/mL 250 Not Available [facility], [address], 04/03/2021 13:51:46 03/27/20 21 03/27/2021 8-14 DRUG CLASS ES CONFI RMATI ON methamphetam ine Negati ve NG/mL 250 Not Available [place] [address] [place], [address], 04/03/2021 13:51:46 03/27/20 21 03/27/2021 8-14 DRUG CLASS ES CONFI RMATI ON mda Negati ve NG/mL 250 Not Available [place] [address] [place], [address], 04/03/2021 13:51:46 03/27/20 21 03/27/2021 8-14 DRUG CLASS ES CONFI RMATI ON alpha-hydrox yalprazolam Negati ve NG/mL 25 Not Available [facility], [address], 04/03/2021 13:51:46 03/27/20 21 03/27/2021 8-14 DRUG CLASS ES CONFI RMATI ON 7-aminoclona zepam Negati ve NG/mL 40 Not Available [place] [address] [place], [address], 04/03/2021 13:51:46 03/27/20 21 03/27/2021 8-14 DRUG CLASS ES CONFI RMATI ON diazepam Negati ve NG/mL 50 Not Available [facility] [place], [address], 04/03/2021 13:51:46 03/27/20 21 03/27/2021 8-14 DRUG CLASS ES CONFI RMATI ON lorazepam Negati ve NG/mL 50 Not Available [facility], [address], 04/03/2021 13:51:46 03/27/20 21 03/27/2021 8-14 DRUG CLASS ES CONFI RMATI ON nordiazepam Negati ve NG/mL 50 Not Available [facility] [place], [address], 04/03/2021 13:51:46 03/27/20 21 03/27/2021 8-14 DRUG CLASS ES CONFI RMATI ON temazepam Negati ve NG/mL 50 Not Available [facility], [address], 04/03/2021 13:51:46 03/27/20 21 03/27/2021 8-14 DRUG CLASS ES CONFI RMATI ON methadone Negati ve NG/mL 250 Not Available [facility] [place], [address], 04/03/2021 13:51:46 03/27/20 21 03/27/2021 8-14 DRUG CLASS ES CONFI RMATI ON EDDP Negati ve NG/mL 100 Not Available [facility] [place], [address], 04/03/2021 13:51:46 03/27/20 21 03/27/2021 8-14 DRUG CLASS ES CONFI RMATI ON normeperidin e Negati ve NG/mL 100 Not Available [facility], [address], 04/03/2021 13:51:46 03/27/20 21 03/27/2021 8-14 DRUG CLASS ES CONFI RMATI ON tramadol Negati ve NG/mL 100 Not Available [place] [address] [place], [address], 04/03/2021 13:51:46 03/27/20 21 03/27/2021 8-14 DRUG CLASS ES CONFI RMATI ON legend Abbrev iation s LOW - Detec rena but unqua ntifi able OLR - Outsi de of linea r range ATR - Addit ional Testi ng Requi red Not Available [place] [address] [address] [place], [address], 04/03/2021 13:51:46 Result Notes None recorded. Problems Name Problem SNOMED Code Status Onset Date Resolution Date Notes Provider Name and Address Organization Details Recorded Time Opioid dependence 89586187 Active 2020 JAYME Villalta [address] [place], [address], [facility] [employer] [facility], 11:07:41 Asthma 852980569 Active 2020 JAYME Villalta [address] [place], [address], [facility] [employer] [facility], 11:07:46 Degeneration of intervertebral disc 65400558 Active 2020 JAYME Villalta [address] [place], [address], [facility] [employer] [facility], 11:07:59 Fibromyalgia 803700313 Active 2020 JAYME Villalta [address] [place], [address], [facility] [employer] [facility], 11:08:10 Chronic pain 27137333 Active 2020 JAYME Villalta [address] [place], [address], [facility] [employer] [facility], 11:08:17 Anxiety 71577627 Active 2020 JAYME Villalta [address] [facility] [place], [address], [facility] [employer] 1 11:08:32 Depressive disorder 68508584 Active 2020 JAYME Villalta [address] [facility] [place], [address], [facility] [employer] [facility] 1 11:08:42 Attention deficit hyperactivity disorder 440047956 Active 2020 JAYME Villalta [address] [facility] [place], [address], [facility] [employer] 1 11:08:52 Alcoholism 8016711 Active 2020 JAYME Villalta [address] [facility] [place], [address], [facility] [employer] [facility] 11:46:31 Nicotine dependence 44572987 Active 2020 JAYME Villalta [address] [facility] [place], [address], [facility] [employer] 1 11:46:39 Cocaine abuse 81334214 Active 2020 JAYME Villalta [address] [place] [address], [place], [address], [facility] [employer] 11:46:50 Problem Notes None recorded. Procedures Surgical History Date Name Laterality Status Provider Name and Address Organization Details Recorded Time 04/03/20 21 30579, G0480, G0481 cancelled Chayito Chu [email or web address] 03/28/2021 09:39:35 03/27/20 21 [address], G0480, G0481 completed Chayito Chu [email or web address] 03/22/2021 09:02:57 Partial hysterectomy completed JAYME Villalta [address] [place] [address], [address], [facility] [employer] 03/27/2021 11:10:55 cholecystectomy completed JAYME Villalta [address] [place] [address], [address], [facility], 03/27/2021 11:11:10 excision of lymph node completed JAYME Villalta [address] [place] [address], [phone], [facility], 03/27/2021 11:11:46 Imaging Results None recorded. Procedure Notes None recorded. Medical Equipment None Reported. Allergies Allergen ID Allergen Name Allergen Category Reaction Reaction Severity Criticality Documentation Date Start Date Code Code System Note Provider Name and Address Organization Details Recorded Time 6446 lidocaine medicatio n Not available Not available Not available 03/27/2021 6387 RxNorm JAYME Villalta [address] [place] [address], [address], [facility], 11:06:51 6447 Medicinal product containin g penicilli n and acting as antibacte rial agent (product) medicatio n Not available Not available Not available 03/27/2021 15652 05 SNOMED JAYME Villalta [address] [place] [address], [phone], [facility], 11:07:09 Medications Name Sig Start Date Stop Date Status Note LastModified by Organization Details LastModified Time clonidine active Not Available Not Starla ilable Not Available hydroxyzine HCl active Not Available Not Available Not Available albuterol sulfate active Not Available Not Available Not Available Advair Diskus active Not Available Not Available Not Available Lyrica active Not Available Not Availa ble Not Available Suboxone 8 mg-[address] 1 film every day by sublingual route for 7 days. 2020 active Not Available Not Available Not Avai lable Suboxone 2 mg-0.[address] 1 film every day by sublingual route for 7 days. 2020 active Not Available Not Available Not Avai lable Vitals Date Recorded Body temperature Oxygen saturation Oxygen saturation in Arterial blood by Pulse oximetry Heart rate Body weight Systolic blood pressure Diastolic blood pressure Provider Name and Address Organization Details Last Updated DateTime 97.8 [degF] 97 % 97 % 89 /min 81459.3 3 g 118 mm[Hg] 68 mm[Hg] Chayito Chu [place] [employer] 10:50:18 Social History Question Answer Notes LastModified by Organizat ion Details LastModified Time Tobacco Smoking Status Current Every Day Smoker JAYME Villalta [address] [place] [address], [phone], [email or web address] 03/27/2021 11:17:26 What Is Your Level Of Alcohol Consumption? Occasional Reports Hx EtOH Misuse Information not available 03/27/2021 *Food Adequate Information no t available 03/27/2021 *Employment None Looking For Work Information not available 03/27/2021 *Job Training/Educat ion/Literacy Not Needed Information not available 03/27/2021 *Legal Status No Legal Issues Inform ation not available 03/27/2021 *Custody Of Dependent Children No Custody 3 Girls In Father's Custody Information not available 03/27/2021 *Childcare Needed No Information not available 03/27/2021 *Concern For Domestic Violence No Information not available 03/27/2021 *Primary Care Provider No Information not available 03/27/2021 *Social Support Network Has Stable Support System Information not available 03/27/2021 *Transportation Issues Yes - Kept Me From Non-medical And Medical Appts Information not available 03/27/2021 *Housing Stable - Safe Apartment, Lives By Self Information not available 03/27/2021 * Not A [place] Information not available 03/27/2021 *Legal Assistance Not Required Information not available 03/27/2021 *Other Medical Issues Yes - Treated Information not available 03/27/2021 *Social Service's Involvement With Dependent Children No Map Maker Involvement Information not available 03/27/2021 At What Age Did You Start Smoking Tobacco? 10 Information not available 03/27/2021 How Much Tobacco Do You Smoke? 1 PPD Information not available 03/27/2021 Sex: Unknown Functional Status None recorded. Mental Status None recorded. Family History Relationship Description Onset Age of this Age Resolved Age Notes LastModified by Organization Details LastModified Time Father Malignant tumor of colon deceas ed Not available 03/27/2021 11:14:53 Sister Depressive disorder Not available 2020 11:15:37 Sister Hypothyroidi sm Not available 2020 11:15:58 Notes:3 sisters Medical History Condition Response Anxiety Disorder Y Cancer N Opioid Abuse Y Depression and/or Other Mood Instability Y Alcohol Dependence Y ADD/ADHD Y Opioid Dependence Y Alcohol Abuse Y Fibromyalgia Y Gynecological History Statement/Question Response Current Control Method Hysterectom y Obstetrics History GPAL:G 6 P 0 0 3 3 Type Value Induced 0 Spontaneous 3 Living 3 Ectopics 0 Total 6 Past Encounters Encounter ID Performer Location Encounter Start Date Encounter Closed Date Diagnosis/Indication Diagnosis SNOMED-CT Code Diagnosis ICD10 Code [id number] JAYME Villalta [facility] [address] [address] 03/27/2021 10:43:27 03/27/2021 11:32:42 Opioid dependence 80900692 F11.20 Nicotine dependence 5629 4008 F17.200 Health Concerns Section Related Observation LastModified by Organization Detai ls LastModified Time None Recorded Concern Status LastModified by Organization Details LastModified Time None Recorded Advance Directives Directive None Recorded Payers Encounter Date Sequence Insurance Name Policy Number Policy Fields Covered Member ID Fields Member ID Guarantor Name 03/27/2021 1 [facility] (MEDICAID) Ludy Allen [id number] Ludy Allen Notes Date Note Type Note Provider Name and Address Organization Details Recorded Time 03/27/2021 text/html HPI Notes: Initi al MAT HPI The patient presents today seeking outpatient treatment for opiate dependence. Current readiness for treatment/stage of change is described as action. Onset of substance dependence, beginning with first substance used and all illicit and/or prescription abuse to date and including current substances: - EtOH: first use age 9-10, reports hx EtOH misuse. Now drinks very occasionally - Marijuana: first use age 9-10 - Opioids: first use age 9-10 with mom, increased use when in [facility], reports smoking primarily and then started IVDU. no use [id number] starting age 20, relapse about 4-5yrs ago. Last use 1.5d ago (IV) - Cocaine: reports occasional use, last use 1.5d ago (IV) - Other substances: occasional inhalants starting age 11-10 Current or most recent route of primary substance use is described as intravenous. The patient reports a history of IV drug use. The patient reports a history of overdose. The patient reports a history of witnessing an overdose. The patient does not need Narcan Rx today and reports understanding of how to use Narcan properly. The patient reports having ever used or been prescribed Methadone. The patient's last exposure to Methadone was end of October or beginning of November The patient reports having ever used or been prescribed Buprenorphine. The patient's last exposure to Buprenorphine was 3d ago Attempts to stop including past and/or most recent: - Inpatient detox: N - Residential and/or Sober Housing: Y - [facility] [place] about 3yrs ago - Periods of sobriety during incarceration: N - Intensive Outpatient Program: N - Partial Hospitalization Program: N - Medication assisted treatment program(s): [facility] Most successful program to date has been buprenorphine. The patient describes individual goals for substance dependence treatment as: stay clean and eventually leave all this behind me JAYME Villalta [address] [place] [address], [id number], [facility] - [place], 03/27/2021 11:59:22 OBGyn Episode No OBEpisode recorded.
--- OUTSIDE RECORDS SUMMARY | 2024-05-05 15:17 | XMS_ITS | Continuity of Care Document ---
Author Organization [facility] Address [address] [place] [address] Encounter LTTL_CA FIN NBR [id number] Date(s): 04/14/23 - 04/14/23 [facility] [address], [place] [address] [place] Encounter Diagnosis Contusion of chest wall with intact skin(Discharge Diagnosis) - 04/14/23 Discharge Disposition: Home f/u External Provider Attending Physician: Jesús Richey MD Admitting Physician: Jesús iRchey MD Allergies, Adverse Reactions, Alerts Substance Reaction Severity Status lidocaine Unknown Active penicillins Unknown Active Novocain Unknown Active control pills Unknown Active Functional Status 04/14/23 Other exposure to Infectious Disease Non e Medications No Known Medications Mental Status 04/14/23 Eye Opening Response [place] Spontaneous ly Best Verbal Response [place] Oriented Best Motor Response Alyson Obeys comman ds Alyson Coma Score 15 Results Laboratory List Name Date Troponin-I High Sensitivity (High Sensit ivityTroponin-I) 04/14/23 Automated Diff 04/14/23 CBC w/ Diff 04/14/23 Comprehensive Metabolic Panel (CMP) 04/14 Troponin-I High Sensitivity (High Sensit ivityTroponin-I) 04/14/23 Most recent to oldest [Reference Range]: 1 2 WBC [4.8-10.8 K/mcL] 5.7 K/mcL (04/14/23 4:45 PM) RBC [4.20-5.40 Million/mcL] 3.37 Million /mcL *LOW* (04/14/23 4:45 PM) Neutro Auto [42.2-75.2 %] 56.7 % (04/14/23 4:45 PM) Lymph Auto [20.5-51.1 %] 29.3 % (04/14/23 4:45 PM) Charlotte Auto [1.7-9.3 %] 13.0 % *HI* (04/14/23 4:45 PM) Basophil Auto [0.0-0.8 %] 0.4 % (04/14/23 4:45 PM) BUN [8-26 mg/dL] 20 mg/dL (04/14/23 4:45 PM) Glucose Level [74-106 mg/dL] 111 mg/dL *HI* (04/14/23 4:45 PM) Potassium Level [3.5-5.1 mmol/L] 3.3 mmo l/L *LOW* (04/14/23 4:45 PM) Baso Absolute [0.0-0.2 K/mcL] 0.0 K/mcL (04/14/23 4:45 PM) MCV [81.0-99.0 fL] 84.0 fL (04/14/23 4:45 PM) AST [15-41 IntlUnit/L] 23 IntlUnit/L (04/14/23 4:45 PM) ALT [14-54 IntlUnit/L] 31 IntlUnit/L (04/14/23 4:45 PM) MCHC [32.0-36.0 g/dL] 31.1 g/dL *LOW* (04/14/23 4:45 PM) Osmolality [275-295 mOsm/kg] 273 mOsm/kg *LOW* (04/14/23 4:45 PM) Sodium Level [134-143 mmol/L] 135 mmol/L (04/14/23 4:45 PM) Lymph Absolute [1.2-3.4 K/mcL] 1.7 K/mcL (04/14/23 4:45 PM) Hct [37.0-47.0 %] 28.3 % *LOW* (04/14/23 4:45 PM) Calcium Level [8.9-10.3 mg/dL] 8.5 mg/dL *LOW* (04/14/23 4:45 PM) Charlotte Absolute [0.1-0.6 K/mcL] 0.7 K/mcL *HI* (04/14/23 4:45 PM) Albumin Level [3.5-5.0 g/dL] 3.0 g/dL *LOW* (04/14/23 4:45 PM) Protein Total [6.5-8.1 g/dL] 8.3 g/dL *HI* (04/14/23 4:45 PM) MCH [27.0-31.0 pg] 26.1 pg *LOW* (04/14/23 4:45 PM) Neutro Absolute [1.4-6.5 K/mcL] 3.2 K/mc L (04/14/23 4:45 PM) Bilirubin Total [0.2-1.2 mg/dL] 0.5 mg/d L (04/14/23 4:45 PM) Hgb [12.0-16.0 g/dL] 8.8 g/dL *LOW* (04/14/23 4:45 PM) Alk Phos [38-130 IntlUnit/L] 312 IntlUni t/L *HI* (04/14/23 4:45 PM) MPV [7.4-10.4 fL] 10.0 fL (04/14/23 4:45 PM) Platelets [130-400 K/mcL] 282 K/mcL (04/14/23 4:45 PM) CO2 [22-32 mmol/L] 25 mmol/L (04/14/23 4:45 PM) Eos Absolute [0.0-0.2 K/mcL] 0.0 K/mcL (04/14/23 4:45 PM) Chloride Level [98-111 mmol/L] 103 mmol/ L (04/14/23 4:45 PM) RDW-CV [11.5-14.5 %] 15.4 % *HI* (04/14/23 4:45 PM) A/G Ratio [1.0-2.5 g/dL] 0.6 g/dL *LOW* (04/14/23 4:45 PM) BUN/Creat Ratio [8.0-20.0] 42.6 *HI* (04/14/23 4:45 PM) Globulin [2.3-3.5 g/dL] 5.3 g/dL *HI* (04/14/23 4:45 PM) Imm Gran Absolute 0.01 *NA* (04/14/23 4:45 PM) Imm Gran Auto [0.0-0.5 %] 0.2 % (04/14/23 4:45 PM) Slide Review Not Indicated (04/14/23 4:45 PM) Creatinine Level [0.44-1.00 mg/dL] 0.47 mg/dL (04/14/23 4:45 PM) Troponin-I HS [<=12 ng/L] 17 ng/L 1 *HI* (04/14/23 7:00 PM) 18 ng/L 2 *HI* (04/14/23 4:45 PM) Anion Gap [3.0-12.0] 7.0 (04/14/23 4:45 PM) Eos, Auto [0.00-3.00 %] 0.40 % (04/14/23 4:45 PM) eGFR CKD-EPI [>=60 mL/min/1.73 m2] 127 m L/min/1.73 m2 (04/14/23 4:45 PM) 1Interpretive Data: The Gerardo ACCESS high-sensitivity Troponin I (hsTNI) 99 percentile cutoffs forhealthy adults are 12 ng/L or less for females and 20 ng/L or less for males. SERIAL MEASUREMENT IS HIGHLY RECOMMENDED for the diagnosis or exclusion of Acute Coronary Syndromes(ACS). Please refer to the High-Sensitivity Troponin Algorithm 2023 for guidance. As with all markers of cardiac injury, elevations of hsTnI do not in and of themselves indicate thepresence of an ischemic mechanism. Many other disease states can be associated with elevations via mechanisms different from those that cause injury in patients with ACS. These include trauma (contusion, ablation, pacing); congestive heart failure; pulmonary embolism; kidney failure; and myocarditis. Clinical judgement is necessary to distinguish patients who have ischemic heart disease from those who do not. 2Interpretive Data: The Gerardo ACCESS high-sensitivity Troponin I (hsTNI) 99 percentile cutoffs forhealthy adults are 12 ng/L or less for females and 20 ng/L or less for males. SERIAL MEASUREMENT IS HIGHLY RECOMMENDED for the diagnosis or exclusion of Acute Coronary Syndromes(ACS). Please refer to the High-Sensitivity Troponin Algorithm 2023 for guidance. As with all markers of cardiac injury, elevations of hsTnI do not in and of themselves indicate thepresence of an ischemic mechanism. Many other disease states can be associated with elevations via mechanisms different from those that cause injury in patients with ACS. These include trauma (contusion, ablation, pacing); congestive heart failure; pulmonary embolism; kidney failure; and myocarditis. Clinical judgement is necessary to distinguish patients who have ischemic heart disease from those who do not. Radiology Reports * Exam Date Time Procedure Performing Provider Status 04/14/23 5:23 PM XR Chest [address]; Gabrielle th (Verified) Notes: (XR Chest 2 Views) Reason For Exam: chest pain;Chest pain XR Chest 2 Views PROCEDURE INFORMATION: Exam: XR Chest Exam date and time: 04/14/2023 5:13 PM Age: 37 years old Clinical indication: Pain; Other: General; Additional info: Chest pain TECHNIQUE: Imaging protocol: Radiologic exam of the chest. Views: 2 views. COMPARISON: No relevant prior studies available. FINDINGS: Lungs: Unremarkable. No consolidation. Pleural spaces: Unremarkable. No pleural effusion. No pneumothorax. Heart/Mediastinum: Unremarkable. No cardiomegaly. Bones/joints: Unremarkable. IMPRESSION: No acute findings. THIS DOCUMENT HAS BEEN ELECTRONICALLY SIGNED BY KELVIN TORRES MD on 04/14/2023 05:32 PM Final Signed by: Kelvin Torres MD Signed (Electronic Signature): 04/14/2023 5:32 pm Vital Signs Most recent to oldest [Reference Range]: 1 2 3 Temperature Temporal Artery [36-38 Deg C] 37 Deg C (04/14/23 4:13 PM) Peripheral Pulse Rate [60-100 bpm] 95 bpm (04/14/23 4:13 PM) Heart Rate Monitored [60-100 bpm] 86 bpm (04/14/23 7:03 PM) 94 bpm (04/14/23 6:41 PM) 90 bpm (04/14/23 6:07 PM) Respiratory Rate [12-24 br/min] 20 br/min (04/14/23 7:03 PM) 34 br/min *HI* (04/14/23 6:41 PM) 27 br/min *HI* (04/14/23 6:07 PM) Blood Pressure [90-140/60-90 mmHg] 113/83mmHg (04/14/23 7:03 PM) 115/85mmHg (04/14/23 6:07 PM) 119/82mmHg (04/14/23 4:13 PM) Mean Arterial Pressure Cuff 93 mmHg (04/14/23 7:03 PM) 93 mmHg (04/14/23 6:07 PM) Weight 66.68 kg (04/14/23 4:13 PM) Weight Dosing 66.68 kg (04/14/23 4:31 PM) Height 175.000 cm (04/14/23 4:13 PM) Height/Length Dosing 175.000 cm (04/14/23 4:31 PM) Body Mass Index 22.000 kg/m2 (04/14/23 4:13 PM) Social History Social History Type Response Tobacco Current everyday tob acco user Tobacco Use:. Sex Hospital Discharge Instructions Patient Education 04/14/2023 18:20:56 Contusion Contusion A contusion is a deep bruise. Contusions are the result of a blunt injury to tissues and muscle fibers under the skin. The injury causes bleeding under the skin. The skin overlying the contusion may turn blue, purple, or yellow. Minor injuries will give you a painless contusion, but more severe injuries cause contusions that may stay painful and swollen for a few weeks. Follow these instructions at home: Pay attention to any changes in your symptoms. Let your health care provider know about them. Take these actions to relieve your pain. Managing pain, stiffness, and swelling ??? Use resting, icing, applying pressure (compression), and raising (elevating) the injured area. This is often called the RICE strategy. ??? Rest the injured area. Return to your normal activities as told by your health care provider. Ask your health care provider what activities are safe for you. ??? If directed, put ice on the injured area: ??? Put ice in a plastic bag. ??? Place a towel between your skin and the bag. ??? Leave the ice on for 20 minutes, 2???3 times per day. ??? If directed, apply light compression to the injured area using an elastic bandage. Make sure the bandage is not wrapped too tightly. Remove and reapply the bandage as directed by your health careprovider. ??? If possible, raise (elevate) the injured area above the level of your heart while you are sitting or lying down. General instructions ??? Take [id number]-[id number] and prescription medicines only as told by your health care provider. ??? Keep all follow-up visits as told by your health care provider. This is important. Contact a health care provider if: ??? Your symptoms do not improve after several days of treatment. ??? Your symptoms get worse. ??? You have difficulty moving the injured area. Get help right away if: ??? You have severe pain. ??? You have numbness in a hand or foot. ??? Your hand or foot turns pale or cold. Summary ??? A contusion is a deep bruise. ??? Contusions are the result of a blunt injury to tissues and muscle fibers under the skin. ??? It is treated with rest, ice, compression, and elevation. You may be given rxsz-yjx-pkocufi medicines for pain. ??? Contact a health care provider if your symptoms do not improve, or get worse. ??? Get help right away if you have severe pain, have numbness, or the area turns pale or cold. This information is not intended to replace advice given to you by your health care provider. Make sure you discuss any questions you have with your health care provider. Document Revised: 06/05/2022 Document Reviewed: 05/17/2022 [employer] Patient Education ?? 2022 [employer]. 04/14/2023 18:20:54 Chest Contusion, Adult Chest Contusion, Adult A chest contusion is a deep bruise on the chest. Contusions are usually the result of a blunt injury to tissues under the skin. The injury can damage the small blood vessels under the skin, which causes bleeding under the skin. The skin over the contusion may turn blue, purple, or yellow. You mightnot have pain with a contusion from a minor injury. A more severe injury may lead to a painful and swollen contusion that may last for weeks. What are the causes? A contusion is usually caused by a blow, trauma, or direct force to your chest. These injuries are often the result of: ??? Motor vehicle crashes. ??? Falls. ??? Bicycle injuries. ??? Contact sport injuries. What increases the risk? You may be at a higher risk for a chest contusion if you play a sport in which contact and falls are common. Football and soccer are common examples of this kind of sport. What are the signs or symptoms? Symptoms of this condition include: ??? Swelling in the chest. ??? Pain and tenderness in your chest. ??? Pain with some movements of your upper torso. ??? Discoloration of your chest. The area may have redness and then turn blue, purple, or yellow. ??? Pain when taking deep breaths. How is this diagnosed? This condition may be diagnosed based on your medical history and a physical exam. You may also have other tests, including: ??? X-ray to check if there were any other injuries, such as broken bones (fractures). ??? CT scan, ultrasound, or MRI if internal injuries are suspected. ??? Pulse oximetry, if you have trouble breathing. This test shows the amount of oxygen in your blood. How is this treated? This condition may be treated with: ??? Rest. ??? Applying ice to the injured area. ??? Deep-breathing exercises to reduce the risk of pneumonia. ??? Oxygen therapy. This may be given if you have trouble breathing or have low oxygen levels. ??? Qenv-dvp-dohrhju medicines for pain control. Follow these instructions at home: Managing pain, stiffness, and swelling ??? If directed, put ice on the injured area. To do this: ??? Put ice in a plastic bag. ??? Place a towel between your skin and the bag. ??? Leave the ice on for 20 minutes, 2???3 times per day. ??? Remove the ice if your skin turns bright red. This is very important. If you cannot feel pain, heat, or cold, you have a greater risk of damage to the area. ??? Take xfiv-efw-islskdx and prescription medicines only as told by your health care provider. General instructions ??? Do not lift anything that is heavier than 10 lb (4.5 kg), or the limit that you are told, untilyour health care provider says that it is safe. ??? Rest as told by your health care provider. Avoid sitting for a long time without moving. ??? Get up to take short walks every 1???2 hours. This is important to improve blood flow and breathing. ??? Ask for help if you feel weak or unsteady. ??? Do deep-breathing exercises if your health care provider tells you to do so. ??? Do not use any products that contain nicotine or tobacco. These products include cigarettes, chewing tobacco, and vaping devices, such as e-cigarettes. If you need help quitting, ask your health care provider. ??? Keep all follow-up visits. This is important. Contact a health care provider if: ??? Your swelling or pain is not relieved with medicines or treatment. ??? You have increased bruising or swelling. ??? You have pain that is getting worse. ??? Your symptoms have not improved after 1 week. Get help right away if: ??? You have a sudden increase in pain. ??? You have difficulty breathing. ??? You have dizziness, weakness, or fainting. ??? You have blood in your urine or stool. ??? You cough up blood or you vomit blood. These symptoms may represent a serious problem that is an emergency. Do not wait to see if the symptoms will go away. Get medical help right away. Call your local emergency services (911 in the [place] Do not drive yourself to the hospital. Summary ??? A chest contusion is a deep bruise to the chest that is usually caused by a blow, trauma, or direct force to the chest. ??? Symptoms of this condition include chest pain, tenderness, swelling, and discoloration. ??? Treatment for a chest contusion may include resting and applying ice to the injured area. ??? Contact a health care provider if you have problems breathing or if your pain does not improve with treatment. This information is not intended to replace advice given to you by your health care provider. Make sure you discuss any questions you have with your health care provider. Document Revised: 10/13/2021 Document Reviewed: 10/13/2021 [employer] Patient Education ?? 2022 [employer] Follow Up Care 04/14/2023 16:13:28 With:Follow up with primary care provider Address:Unknown When:1 month Physician Emergency department Note * JAYME Davis: PERFORM Event Display: ED Note Physician Authored Date: [id number] BEATRIS JEREZ :1985 Age:37 years Sex:Female Visit Date:04/14/2023 Basic Information Time Seen: JAYME Davis / 04/14/2023 16:38 Chief Complaint C/O pain and lump in middle of chest with trouble breathing for 4 days. Last used heroin yesterday and crack today. History Of Present Illness: Patient is a 37 year old female with a history of substance abuse disorder is here for chest pains?? for the past 4 days. States she overdosed 5 days ago and friends??performed CPR. ??No EMS was contacted. ??She explains that the day??after she noticed a substernal??chest pain worse with deep??inhalation. Pains worse with deep inspiration. Afebrile, no known cardiac history Review of Systems: See HPI Physical Exam Vitals & Measurements T:??37?C ??(Temporal Artery)?? HR:??86??(Monitored)?? RR:??20?? BP:??113/83?? SpO2:??96%?? HT:??175.000??cm?? WT:??66.68??kg?? BMI:??22.000?? O2 Therapy:??Room air?? Constitutional: No fevers, chills or diaphoresis. HEENT: Head normocephalic and atraumatic. Neck supple with FROM w/o lymphadenopathy or JVD. Tracheamidline. Respiratory:?? No obvious work of breathing, regular rate. BS equal b/l, clear to auscultation.??Contusion seen over mid sternum with minimal inferior ecchymosis present, TTP over the contusion. Cardiovascular: Heart regular rate and rhythm w/o murmurs, rubs or gallops. No peripheral edema present. GI: normoactive BS. Abdomen soft non tender, nondistended without guarding, rebound or rigidity. NoHSM Extremities: No obvious deformities. FROM. Integumentary: Skin warm and pink. No rashes or ecchymosis present. Neuro: CN III-XII grossly intact. Psychiatric: acting appropriate for age and circumstance. Normal mood without obvious?? affect.?? Medical Decision Making: Patient is a pleasant 37 year old female here for chest pains. Vitals signs obtained and in normal limits. lab work and imaging obtained. Patient has a longstanding history of anemia but she has not seen a PCP in years. EKG obtained with no acute abnormalities. Lab work was consistent with anemia but no other remarkable findings. Troponin 18 then 17 which makes me less concerned about a cardiac cause of this pains. Lungs clear on CXR. Tylenol was given for the pains. I do not completely understand the story behind the CPR but EMS was never contacted and she was notevaluated after. I do not know if she was in cardiac arrest at that time. The pain she is experiencing now is likely from the contusion caused by the CPR attempt. Procedure No Qualifying Data Assessment/Plan 1.??Contusion of chest wall with intact skin??S20.219A Exam reassuring that there is no cardiopulmonary cause of the chest pains. Suspect d/t contusion. Will treat with Tylenol, avoid ibuprofen d/t anemia. closes PCP f/u and ED precautions understood. Ordered: Discharge Patient, 04/14/23 19:56:00 EDT ?? Patient Education Contusion Chest Contusion, Adult Follow Up With When Contact Information Follow up with primary care provider Within 1 month Additional Instructions: Problem List/Past Medical History Ongoing No qualifying data Historical No qualifying data Medication Administration Given Tylenol, 1000 mg, Oral Allergies control pills Novocain lidocaine penicillins Social History Alcohol Never Electronic Cigarette/Vaping Electronic Cigarette Use: Use, within last 90 days. Substance Use Current, Cocaine, Heroin, Daily Tobacco Current everyday tobacco user Tobacco Use:. Diagnostic Results XR Chest 2 Views 04/14/2023 17:33 EDT XR Chest 2 Views ?? 04/14/23 17:13:23 PROCEDURE INFORMATION: Exam: XR Chest Exam date and time: 04/14/2023 5:13 PM Age: 37 years old Clinical indication: Pain; Other: General; Additional info: Chest pain ?? TECHNIQUE: Imaging protocol: Radiologic exam of the chest. Views: 2 views. ?? COMPARISON: No relevant prior studies available. ?? FINDINGS: Lungs: Unremarkable. No consolidation. Pleural spaces: Unremarkable. No pleural effusion. No pneumothorax. Heart/Mediastinum: Unremarkable. No cardiomegaly. Bones/joints: Unremarkable. ?? IMPRESSION: No acute findings. ? THIS DOCUMENT HAS BEEN ELECTRONICALLY SIGNED BY KELVIN TORRES MD on 04/14/2023 05:32 PM ?? Signed By: Kelvin Torres MD Lab Results CBC and Differential?? LATEST RESULTS?? WBC?? 04/14/23 16:45?? 5.7?? RBC?? 04/14/23 16:45?? 3.37 ??Low?? Hgb?? 04/14/23 16:45?? 8.8 ??Low?? Hct?? 04/14/23 16:45?? 28.3 ??Low?? MCV?? 04/14/23 16:45?? 84.0?? MCH?? 04/14/23 16:45?? 26.1 ??Low?? MCHC?? 04/14/23 16:45?? 31.1 ??Low?? RDW-CV?? 04/14/23 16:45?? 15.4 ??High?? Platelets?? 04/14/23 16:45?? 282?? MPV?? 04/14/23 16:45?? 10.0?? Neutro Auto?? 04/14/23 16:45?? 56.7?? Lymph Auto?? 04/14/23 16:45?? 29.3?? Charlotte Auto?? 04/14/23 16:45?? 13.0 ??High?? Eos, Auto?? 04/14/23 16:45?? 0.40?? Basophil Auto?? 04/14/23 16:45?? 0.4?? Imm Gran Auto?? 04/14/23 16:45?? 0.2?? Neutro Absolute?? 04/14/23 16:45?? 3.2?? Lymph Absolute?? 04/14/23 16:45?? 1.7?? Charlotte Absolute?? 04/14/23 16:45?? 0.7 ??High?? Eos Absolute?? 04/14/23 16:45?? 0.0?? Baso Absolute?? 04/14/23 16:45?? 0.0?? Imm Gran Absolute?? 04/14/23 16:45?? 0.01?? Slide Review?? 04/14/23 16:45?? Not Indicated? Routine Chemistry?? LATEST RESULTS?? Sodium Level?? 04/14/23 16:45?? 135?? Potassium Level?? 04/14/23 16:45?? 3.3 ??Low?? Chloride Level?? 04/14/23 16:45?? 103?? CO2?? 04/14/23 16:45?? 25?? Alk Phos?? 04/14/23 16:45?? 312 ??High?? AST?? 04/14/23 16:45?? 23?? ALT?? 04/14/23 16:45?? 31?? BUN?? 04/14/23 16:45?? 20?? Glucose Level?? 04/14/23 16:45?? 111 ??High?? Creatinine Level?? 04/14/23 16:45?? 0.47?? BUN/Creat Ratio?? 04/14/23 16:45?? 42.6 ??High?? eGFR CKD-EPI?? 04/14/23 16:45?? 127?? Calcium Level?? 04/14/23 16:45?? 8.5 ??Low?? Protein Total?? 04/14/23 16:45?? 8.3 ??High?? Albumin Level?? 04/14/23 16:45?? 3.0 ??Low?? Globulin?? 04/14/23 16:45?? 5.3 ??High?? A/G Ratio?? 04/14/23 16:45?? 0.6 ??Low?? Bilirubin Total?? 04/14/23 16:45?? 0.5?? Anion Gap?? 04/14/23 16:45?? 7.0?? Osmolality?? 04/14/23 16:45?? 273 ??Low? Cardiac Isoenzymes?? LATEST RESULTS?? Troponin-I HS?? 04/14/23 19:00?? 17 ??High? Electronically Signed on 04/14/23 11:10 PM JAYME Davis Emergency department Discharge instructions * JAYME Davis: PERFORM Event Display: ED Discharge Information Authored Date: [id number] BEATRIS JEREZ :1985 Age:37 years Sex:Female Visit Date:04/14/2023 Discharge Instructions We would like to thank you for allowing us to assist you with your healthcare needs. The following includes patient education materials and information regarding your injury/illness. Diagnosis from Today's Visit Contusion of chest wall with intact skin Discharge Vitals Temperature??(Temporal Artery) 98.6 ??F (37 ??C) Heart Rate??(Monitored) 86 Respiratory Rate?? 20 Blood Pressure?? 113/83?? Height?? 68.90 in (175.000 cm) Weight?? 147.03 lb (66.68 kg) BMI?? 22.000 Allergies control pills Novocain lidocaine penicillins What to Do Next Instructions from Your Care Team You were seen here today for concerns of chest pains that began after CPR was preformed. Chest xrays were normal. I am concerned about your anemia and I would recommend close follow up with your PCP. You Need to Schedule the Following Appointments Follow Up with??Follow up with primary care provider When:??Within 1 month You were treated today on an emergency basis; it may be hood to contact your primary care provider to notify them of your visit today. You may have been referred to your regular doctor or a specialist, please follow up as instructed. If your condition worsens or you can't get in to see the doctor, contact the Emergency Department. Education Materials Contusion A contusion is a deep bruise. Contusions are the result of a blunt injury to tissues and muscle fibers under the skin. The injury causes bleeding under the skin. The skin overlying the contusion may turn blue, purple, or yellow. Minor injuries will give you a painless contusion, but more severe injuries cause contusions that may stay painful and swollen for a few weeks. Follow these instructions at home: Pay attention to any changes in your symptoms. Let your health care provider know about them. Take these actions to relieve your pain. Managing pain, stiffness, and swelling ? Use resting, icing, applying pressure (compression), and raising (elevating) the injured area. Thisis often called the RICE strategy. ? Rest the injured area. Return to your normal activities as told by your health care provider. Ask your health care provider what activities are safe for you. ? If directed, put ice on the injured area: ? Put ice in a plastic bag. ? Place a towel between your skin and the bag. ? Leave the ice on for 20 minutes, 2???3 times per day. ? If directed, apply light compression to the injured area using an elastic bandage. Make sure the bandage is not wrapped too tightly. Remove and reapply the bandage as directed by your health care provider. ? If possible, raise (elevate) the injured area above the level of your heart while you are sitting or lying down. General instructions ? Take joyv-ply-qqxkbon and prescription medicines only as told by your health care provider. ? Keep all follow-up visits as told by your health care provider. This is important. Contact a health care provider if: ? Your symptoms do not improve after several days of treatment. ? Your symptoms get worse. ? You have difficulty moving the injured area. Get help right away if: ? You have severe pain. ? You have numbness in a hand or foot. ? Your hand or foot turns pale or cold. Summary ? A contusion is a deep bruise. ? Contusions are the result of a blunt injury to tissues and muscle fibers under the skin. ? It is treated with rest, ice, compression, and elevation. You may be given rlit-nnn-gpxlage medicines for pain. ? Contact a health care provider if your symptoms do not improve, or get worse. ? Get help right away if you have severe pain, have numbness, or the area turns pale or cold. This information is not intended to replace advice given to you by your health care provider. Make sure you discuss any questions you have with your health care provider. Document Revised: 06/05/2022 Document Reviewed: 05/17/2022 ElseTrudev Patient Education ?? 2022 Else[employer] Inc. Chest Contusion, Adult A chest contusion is a deep bruise on the chest. Contusions are usually the result of a blunt injury to tissues under the skin. The injury can damage the small blood vessels under the skin, which causes bleeding under the skin. The skin over the contusion may turn blue, purple, or yellow. You mightnot have pain with a contusion from a minor injury. A more severe injury may lead to a painful and swollen contusion that may last for weeks. What are the causes? A contusion is usually caused by a blow, trauma, or direct force to your chest. These injuries are often the result of: ? Motor vehicle crashes. ? Falls. ? Bicycle injuries. ? Contact sport injuries. What increases the risk? You may be at a higher risk for a chest contusion if you play a sport in which contact and falls are common. Football and soccer are common examples of this kind of sport. What are the signs or symptoms? Symptoms of this condition include: ? Swelling in the chest. ? Pain and tenderness in your chest. ? Pain with some movements of your upper torso. ? Discoloration of your chest. The area may have redness and then turn blue, purple, or yellow. ? Pain when taking deep breaths. How is this diagnosed? This condition may be diagnosed based on your medical history and a physical exam. You may also have other tests, including: ? X-ray to check if there were any other injuries, such as broken bones (fractures). ? CT scan, ultrasound, or MRI if internal injuries are suspected. ? Pulse oximetry, if you have trouble breathing. This test shows the amount of oxygen in your blood. How is this treated? This condition may be treated with: ? Rest. ? Applying ice to the injured area. ? Deep-breathing exercises to reduce the risk of pneumonia. ? Oxygen therapy. This may be given if you have trouble breathing or have low oxygen levels. ? Ildd-ewx-lwykznc medicines for pain control. Follow these instructions at home: Managing pain, stiffness, and swelling ? If directed, put ice on the injured area. To do this: ? Put ice in a plastic bag. ? Place a towel between your skin and the bag. ? Leave the ice on for 20 minutes, 2???3 times per day. ? Remove the ice if your skin turns bright red. This is very important. If you cannot feel pain, heat, or cold, you have a greater risk of damage to the area. ? Take odph-auj-pbtsnno and prescription medicines only as told by your health care provider. General instructions ? Do not lift anything that is heavier than 10 lb (4.5 kg), or the limit that you are told, until your health care provider says that it is safe. ? Rest as told by your health care provider. Avoid sitting for a long time without moving. ? Get up to take short walks every 1???2 hours. This is important to improve blood flow and breathing. ? Ask for help if you feel weak or unsteady. ? Do deep-breathing exercises if your health care provider tells you to do so. ? Do not use any products that contain nicotine or tobacco. These products include cigarettes, chewing tobacco, and vaping devices, such as e-cigarettes. If you need help quitting, ask your health careprovider. ? Keep all follow-up visits. This is important. Contact a health care provider if: ? Your swelling or pain is not relieved with medicines or treatment. ? You have increased bruising or swelling. ? You have pain that is getting worse. ? Your symptoms have not improved after 1 week. Get help right away if: ? You have a sudden increase in pain. ? You have difficulty breathing. ? You have dizziness, weakness, or fainting. ? You have blood in your urine or stool. ? You cough up blood or you vomit blood. These symptoms may represent a serious problem that is an emergency. Do not wait to see if the symptoms will go away. Get medical help right away. Call your local emergency services (911 in the [place] Do not drive yourself to the hospital. Summary ? A chest contusion is a deep bruise to the chest that is usually caused by a blow, trauma, or directforce to the chest. ? Symptoms of this condition include chest pain, tenderness, swelling, and discoloration. ? Treatment for a chest contusion may include resting and applying ice to the injured area. ? Contact a health care provider if you have problems breathing or if your pain does not improve withtreatment. This information is not intended to replace advice given to you by your health care provider. Make sure you discuss any questions you have with your health care provider. Document Revised: 10/13/2021 Document Reviewed: 10/13/2021 Elsevier Patient Education ?? 2022 [employer] Tests Performed Radiology XR Chest 2 Views 04/14/2023 17:33 EDT Medications and Immunizations Administered Given Tylenol, 1000 mg, Oral Lab Test Name Test Result Date/Time WBC 5.7 K/mcL 04/14/2023 16:45 EDT RBC 3.37 Million/mcL 04/14/2023 16:45 EDT Hgb 8.8 g/dL 04/14/2023 16:45 EDT Hct 28.3 % 04/14/2023 16:45 EDT MCV 84.0 fL 04/14/2023 16:45 EDT MCH 26.1 pg 04/14/2023 16:45 EDT MCHC 31.1 g/dL 04/14/2023 16:45 EDT RDW-CV 15.4 % 04/14/2023 16:45 EDT Platelets 282 K/mcL 04/14/2023 16:45 EDT MPV 10.0 fL 04/14/2023 16:45 EDT Neutro Auto 56.7 % 04/14/2023 16:45 EDT Lymph Auto 29.3 % 04/14/2023 16:45 EDT Charlotte Auto 13.0 % 04/14/2023 16:45 EDT Eos, Auto 0.40 % 04/14/2023 16:45 EDT Basophil Auto 0.4 % 04/14/2023 16:45 EDT Imm Gran Auto 0.2 % 04/14/2023 16:45 EDT Neutro Absolute 3.2 K/mcL 04/14/2023 16:45 EDT Lymph Absolute 1.7 K/mcL 04/14/2023 16:45 EDT Charlotte Absolute 0.7 K/mcL 04/14/2023 16:45 EDT Eos Absolute 0.0 K/mcL 04/14/2023 16:45 EDT Baso Absolute 0.0 K/mcL 04/14/2023 16:45 EDT Imm Gran Absolute 0.01 04/14/2023 16:45 EDT Slide Review Not Indicated 04/14/2023 16:45 EDT Sodium Level 135 mmol/L 04/14/2023 16:45 EDT Potassium Level 3.3 mmol/L 04/14/2023 16:45 EDT Chloride Level 103 mmol/L 04/14/2023 16:45 EDT CO2 25 mmol/L 04/14/2023 16:45 EDT Alk Phos 312 IntlUnit/L 04/14/2023 16:45 EDT AST 23 IntlUnit/L 04/14/2023 16:45 EDT ALT 31 IntlUnit/L 04/14/2023 16:45 EDT BUN 20 mg/dL 04/14/2023 16:45 EDT Glucose Level 111 mg/dL 04/14/2023 16:45 EDT Creatinine Level 0.47 mg/dL 04/14/2023 16:45 EDT BUN/Creat Ratio 42.6 04/14/2023 16:45 EDT eGFR CKD-EPI 127 mL/min/1.73 m2 04/14/2023 16:45 EDT Calcium Level 8.5 mg/dL 04/14/2023 16:45 EDT Protein Total 8.3 g/dL 04/14/2023 16:45 EDT Albumin Level 3.0 g/dL 04/14/2023 16:45 EDT Globulin 5.3 g/dL 04/14/2023 16:45 EDT A/G Ratio 0.6 g/dL 04/14/2023 16:45 EDT Bilirubin Total 0.5 mg/dL 04/14/2023 16:45 EDT Anion Gap 7.0 04/14/2023 16:45 EDT Osmolality 273 mOsm/kg 04/14/2023 16:45 EDT Troponin-I HS 17 ng/L 04/14/2023 19:00 EDT Patient/Groundskeeping Yardman Signature Patient Name:BEATRIS JEREZ I have received this information and my questions have been answered. Patient/Groundskeeping Yardman Name: Patient/Groundskeeping Yardman Signature: Relationship to Patient: Witness Name/Signature: Date: Electronically Signed on: 04/14/2023 19:56 EDTSigned by:ANA Patient Care team information Care Team Personnel Name: JAYME Davis Position: Physician Member Role: Physician Address: Address: [address] [place] [phone] [place] Name: Jamie Marroquin Position: Nurse Member Role: ED Nurse Care Team Related Persons Name: GORDY MIRZA
--- OUTSIDE RECORDS SUMMARY | 2024-05-05 15:17 | XMS_ITS | Clinical Summary ---
Author Organization [facility] [address] [facility] [place] [address] Care Team Providers Care Chief Clinical Officer Name Role Phone Zeyad Hall DO Primary Care Provider [phone] Allergies Active Allergy Reactions Criticality Noted Date Comments Lidocaine 06/17/2012 Penicillins 11/13/2016 Procaine CIS - facial swelling Unclassified Drug 05/27/2019 Control Pills Medications Medication Sig Dispensed Refills Start Date End Date Status PROAIR HFA 90 mcg/actuation HFA Aerosol Inhaler as needed. 11/21/2018 Active citalopram (CELEXA) 40 mg Tablet 40 mg daily. 0 09/15/2018 Active cloNIDine (CATAPRES) 0.1 mg Tablet 0.1 mg daily. 0 11/24/2018 Active cyclobenzaprine (FLEXERIL) 10 mg Tablet Take 10 mg by mouth Twice daily as needed. Active hydrOXYzine (ATARAX) 25 mg Tablet 25 mg as needed. 11/21/2018 Active nicotine (NICODERM CQ) 14 mg/24 hr Patch 24 hr APPLY TO HAIRLESS SKIN DAILY. ROTATE SKIN SITES 0 11/21/2018 Active omeprazole (PRILOSEC) 40 mg Capsule, Delayed Release(E.C.) 40 mg daily. 0 09/15/2018 Active ondansetron (ZOFRAN-ODT) 4 mg Tablet, Rapid Dissolve Take 4 mg by mouth Every 8 hours as needed. Active pantoprazole (PROTONIX) 20 mg Tablet, Delayed Release (E.C.) Take 40 mg by mouth Daily. Active LYRICA 150 mg Capsule Take 225 mg by mouth 3 times daily. 0 11/25/2018 Active ranitidine (ZANTAC) 150 mg Tablet 150 mg 2 times daily. 11/21/2018 Active traZODone (DESYREL) 50 mg Tablet 50 mg nightly. 11/21/2018 Active fluticasone propion-salmeterol (ADVAIR DISKUS) 250-50 mcg/dose Disk with Device Inhale 1 puff into the lungs every 12 hours. 1 Inhaler 12 12/14/2018 Active MAVYRET 100-40 mg Tablet 01/09/2019 Active ondansetron (ZOFRAN) 4 mg Tablet take 1 tablet by mouth three times a day if needed for nausea and vomiting 0 12/30/2018 Active FOCALIN XR 20 mg Capsule, Multiphasic Rel.50-50 Take 20 mg by mouth daily. 05/25/2019 Active FOCALIN XR 15 mg Capsule, Multiphasic Rel.50-50 Take 15 mg by mouth daily. 0 04/13/2019 Active methadone (DOLOPHINE) 10 mg Tablet Take 50 mg by mouth daily. Active meloxicam (MOBIC) 7.5 mg Tablet Take 1 tablet by mouth daily. Do not take other NSAIDs while taking the this medication. Take with food. 30 tablet 06/03/2019 Active Additional Information Patient not taking.Reported on 03/21/2021 ARIPiprazole (Abilify) 5 mg Tablet Take by mouth. 01/23/2019 Active furosemide (Lasix) 20 mg Tablet TAKE 1 TABLET BY MOUTH DAILY 01/06/2021 Active hydrocortisone 2.5 % Cream Place rectally. 01/06/2021 Active ibuprofen (Advil) 800 mg Tablet Take by mouth. 12/29/2020 Active Psyllium Husk 0.52 gram Capsule Take by mouth. 08/11/2018 Active Spiriva with HandiHaler 18 mcg Capsule, w/Inhalation Device INHALE THE CONTENTS OF 1 CAPSULE VIA INHALATION DEVICE DAILY 01/06/2021 Active pregabalin (LYRICA) 100 mg Capsule Take by mouth. 04/13/2019 Active Cyclobenzap&Irritan t Cntr Irr2 (Comfort Pac-Cyclobenzaprine ) 10 mg Kit Take by mouth. 04/13/2019 Active inhalational spacing device (Grzegorz Aerosol Armstrong Enhancer) Spacer by NOT APPLICABLE route. 12/29/2020 Active sulfamethoxazole-tr imethoprim DS (Bactrim DS) 800-160 mg Tablet TAKE 1 TABLET BY MOUTH TWICE DAILY 12/28/2020 Active ipratropium-albuter oL (COMBIVENT RESPIMAT) 20-100 mcg/actuation Mist Inhale 2 puffs into the lungs every 6 hours as needed for Wheezing. Active Active Problems Problem Noted Date Diagnosed Date Chronic dental caries extending to pulp 07/13/20 20 Overview (07/13/2020): Added automatically from request for surgery [id number] Plantar fasciitis, bilateral 06/03/2019 History of palpitations 12/04/2018 Leg edema 12/04/2018 Syncope 12/04/2018 Encounters Date Type Department Care Team Description 04/20/2024 Transcribe Orders eDH Incoming Referrals [phone] Annetta Casanova, ADDIE Extraction of tooth needed (Primary Dx) from Last 3 Months Immunizations Name Administration Dates Next Due Hepatitis B Unspecified Formulation 07/16/2007 Influenza Vaccine, Whole 04/28/2009 MMR Vaccine LIVE 04/28/2009 Tdap 04/28/2009 Family History Medical History Relation Comments Brain Tumor Father Colorectal Cancer Father Diabetes Father Hypertension Mother Hypothyroidism Mother Relation Status Comments Father Mother Social History Tobacco Use Types Packs/Day Years Used Date Smoking Tobacco: Every Day Cigarettes 1 13 Smokeless Tobacco: Never Tobacco Cessation:Ready to Q uit: No Alcohol Use Standard Drinks/Week Comments Yes 0 (1 standard drink = 0.6 oz pur e alcohol) 1 in past 6 months Sex and Gender Information Value Date Recorded Sex Assigned at Not on file Gender Identity Not on file Sexual Orientation Not on file Last Filed Vital Signs Vital Sign Reading Time Taken Comments Blood Pressure 117/85 08/12/2019 2:13 PM EST Pulse 56 08/12/2019 2:13 PM EST Temperature 36.6 ??C (97.9 ??F) 06/11/2019 1:02 PM ES T Respiratory Rate 16 06/11/2019 2:40 PM EST Oxygen Saturation 97% 06/11/2019 2:40 PM EST Inhaled Oxygen Concentration - - Weight 75.3 kg (166 lb) 03/21/2021 8:16 AM EDT Height 175.3 cm (5' 9) 03/21/2021 8:16 AM EDT Body Mass Index 24.51 03/21/2021 8:16 AM EDT Plan of Treatment Health Maintenance Due Date Last Done Comments HIV screen 10/03/2005 Lipid Screening 10/03/2005 HPV test 10/03/2017 PAP Smear 10/03/2017 Tetanus/Diphtheria/Pertussis Vaccines (2 - Td or Tdap) 04/28/2019 04/28/2009 Covid-19 Vaccine (1 - season) 2024 Influenza (Flu) vaccine (1 o f 1 - Influenza standard series) 04/05/2024 04/28/2009 Hepatitis C Screening Completed 08/12/2019, 019 Procedures Procedure Name Priority Date/Time Associated Diagnosis Comments HC HCV QUANTIFICATION Routine 08/12/2019 2:38 PM EST Chronic hepatitis C without hepatic coma from Last 3 Months or Most Recently Relevant to Health Maintenance Results * Hepatitis C RNA, quantitative, PCR (08/12/2019 2:38 PM EST) HCV Viral Load 86,284 IU/mL [facility] HCV Viral Load Result: 14614 IU/mL Indication for Study: Hepatitis C Infection Analysis: The [employer] RealTime HCV assay is an in vitro reverse casing flusher polymerase chain reaction (RT-PCR)for the quantitation of hepatitis C viral (HCV) RNA in human serum or plasma (EDTA) from HCV-infected individuals. Sample: plasma (0.7 mL minimum volume) Method: [employer] RealTime HCV Assay Linear Range: 12 IU/mL - 100,000,000IU/mL Note: The [employer] RealTime HCV Assay has been approved by the U.S. Food and Drug Administration. [facility] Comment: [VERIFIED DATE]08.17.19 Verified By:Lab Review, Molecular Genetics (Electronic Signature) Blood specimen (specimen) 08/12/2019 2:38 PM EST 08/14/2019 3:29 PM EST Narrative Resulting Agency Comment Spec In Lab Bel Abbott APRN MOLECULAR ORDERABL ES [facility] [place] [address] from Last 3 Months or Most Recently Relevant to Health Maintenance Care Teams Chief Clinical Officer Relationship Specialty Start Date End Date Zeyad Hall DO [address] [place] [address] PCP - General Family Medicine 04/15/19
--- OUTSIDE RECORDS SUMMARY | 2024-05-05 15:17 | XMS_ITS | Data Portability ---
Author Organization [facility] Address [address] [place] [address] Assessment No assessment recorded. Plan of Treatment Reminders Order Date Submit Date Provider Last Modified By Organization Details Last Modified Time Details Appointments None record ed. Lab None record ed. Referral None record ed. Procedures None record ed. Surgeries None record ed. Imaging None record ed. Medication Orders None record ed. Patient TargetsNo targets recorded. Patient InstructionsNo instructions recorded. Reason for Referral None Reported. Problems Name Problem SNOMED Code Status Onset Date Resolution Date Notes Provider Name and Address Organization Details Recorded Time Asthma 641476597 Active 2020 Not Available [facility] 12:04:54 Fibromyalgia 226777579 Active 2020 Not Available [facility] 12:04:54 Depressive disorder 11778759 Active 2020 Not Available [facility] 12:04:54 Attention deficit hyperactivity disorder 157212898 Active 2020 Not Available [facility] 12:04:54 Anxiety 03934079 Active 2020 Not Available [facility] 12:04:55 Nicotine dependence 35608079 Active 2020 Not Available [facility] 12:04:55 Alcoholism 6110025 Active 2020 Not Available [facility] 12:04:55 Opioid dependence 54433045 Active 2020 Not Available [facility] 12:04:55 Degeneration of intervertebra l disc 75883625 Active 2020 Not Available [facility] 12:04:55 Cocaine abuse 99705631 Active 2020 Not Available [facility] 12:04:55 Chronic pain 96802352 Active 2020 Not Available [facility] 12:04:55 Problem Notes None recorded. Medical Equipment None Reported. Allergies Allergen ID Allergen Name Allergen Category Reaction Reaction Severity Criticality Documentation Date Start Date Code Code System Note Provider Name and Address Organization Details Recorded Time 6243 Medicinal product containin g penicilli n and acting as antibacte rial agent (product) medicatio n Not available Not available Not available 08/04/2021 43302 05 SNOMED Not Available [facility] 12:17:24 6246 lidocaine medicatio n Not available Not available Not available 08/04/2021 6387 RxNorm Not Available [facility] 12:17:24 Medications Name Sig Start Date Stop Date Status Note LastModified by Organization Details LastModified Time clonidine 2020 active Not Available Not Available Not Avai lable hydroxyzine HCl 2020 active Not Available Not Available Not Avai lable albuterol sulfate 2020 active Not Available Not Available Not Avai lable Advair Diskus 2020 active Not Available Not Available Not Avai lable Lyrica 2020 active Not Available Not Available Not Avai lable Suboxone 8 mg-[address] 1 film every day by sublingual route for 7 days. active Not Available Not Available No t Available Suboxone 2 mg-0.[address] 1 film every day by sublingual route for 7 days. active Not Available Not Available No t Available Vitals Date Recorded Oxygen saturation Oxygen saturation in Arterial blood by Pulse oximetry Heart rate Body temperature Body weight Systolic blood pressure Diastolic blood pressure Provider Name and Address Organization Details Last Updated DateTime 97 % 97 % 89 /min 97.8 [degF] 47520.3 3 g 118 mm[Hg] 68 mm[Hg] Not Available [facility] 12:02:46 Social History None recorded. Functional Status None recorded. Mental Status None recorded. Family History Nothing Reported Notes:3 sisters Medical History No medical history recorded. Gynecological HistoryNo gynecological history recorded. Obstetrics History GPAL:G 0 P 0 0 0 0 Past Encounters Encounter ID Performer Location Encounter Start Date Encounter Closed Date Diagnosis/Indication Diagnosis SNOMED-CT Code Diagnosis ICD10 Code [id number] [facility] [address] [facility] [address] 03/27/2021 00:00:00 03/27/2021 00:00:00 Health Concerns Section Related Observation LastModified by Organization Detai ls LastModified Time None Recorded Concern Status LastModified by Organization Details LastModified Time None Recorded Advance Directives Directive None Recorded Payers None recorded. Notes Date Note Type Note Provider Name [...] 9-10 with mom, increased use when in retirement, reports smoking primarily and then started IVDU. no use [id number] starting age 20, relapse about 4-5yrs ago. [...] detox: N - Residential and/or Sober Housing: - [facility] about 3yrs ago - Periods of sobriety during incarceration: N - Intensive Outpatient Program: N - Partial Hospitalization Program: N - Medication assisted treatment program(s): Y - [facility] Most successful program to date has been buprenorphine. The patient describes individual goals for substance dependence treatment as: stay clean and eventually leave all this behind me JAYME Villalta [address] [place] [address], [phone], [facility] - [facility] 03/27/2021 11:59:22 OBGyn Episode No OBEpisode recorded.
--- OUTSIDE RECORDS SUMMARY | 2024-05-05 15:17 | XMS_ITS | Encounter Summary ---
[place] [address] Care Team Providers Care Magnet Placer Name Role Phone Zeyad aHll DO Primary Care Provider [phone] Reason for Referral * Consultation (Routine) - Authorized Specialty Diagnoses / Procedures Referred By Francis restrepo Referred To Contact Maxillofacial Surgery Diagnoses Extraction of tooth needed Eval and extract remaining teeth Annetta [place] [address] [facility] Maxillo Surg [address] [place] [phone] Referral ID Status Reason Start Date Expiration Date Visits Requested Visits Authorized [id number] Authorized Consult, Test & Treat 04/20/2024 04/20/2025 1 1 Encounter Details Date Type Department Care Team (Latest Contact Info) Description 04/20/2024 Transcribe Orders eDH Incoming Referrals [phone] Annet[place] [address] Extraction of tooth needed (Primary Dx) Social History Tobacco Use Types Packs/Day Years [...] on file documented as of this encounter Plan of Treatment Scheduled Referrals Name Type Priority Associated Diagnoses Order Schedule Referral to Maxillofacial Surgery Outpatient Referral Routine Extraction Of Tooth Needed Ordered: 04/20/2024 documented as of this encounter Visit Diagnoses Diagnosis Extraction of tooth needed- Primary documented in this encounter Care Teams Magnet Placer Relationship Specialty Start Date End Date Zeyad Hall DO [address] [place] [address] PCP - General Family Medicine 04/15/19 documented as of this encounter
--- OUTSIDE RECORDS SUMMARY | 2024-05-05 15:17 | XMS_ITS | Encounter Summary ---
[place] [address] Care Team Providers Care Cafe Or Restaurant Manager Name Role Phone Zeyad Hall DO Primary Care Provider [phone] Encounter Details Date Type Department Care Team (Late st Contact Info) Description 07/19/2021 Telephone [place] [phone] Gladys Tejada Social History Tobacco Use Types Packs/Day Years [...] encounter Miscellaneous Notes * Telephone Encounter - Gldays Tejada - 07/19/2021 10:01 AM EST Dave, Patient is scheduled to have surgery on 10/16/2021 and the packet has been mailed to the verified address on file. Follow up appointment is as follows: PRN Thank you!! documented in this encounter Plan of Treatment Not on file documented as of this encounter Visit Diagnoses Not on filedocumented in this encounter Care Teams Cafe Or Restaurant Manager Relationship Specialty Start Date End Date Zeyad Hall DO [address] [place] [id number] PCP - General Family Medicine 04/15/19 documented as of this encounter
--- OUTSIDE RECORDS SUMMARY | 2024-05-05 15:17 | XMS_ITS | Encounter Summary ---
Author Organization [facility] [place] [address] Care Team Providers Care Obiee Obia Solution Architect Name Role Phone Rafael Zeyad Raines DO Primary Care Provider [phone] Encounter Details Date Type Department Care Team (Late st Contact Info) Description 02/15/2023 11:15 AM EDT Ancillary Procedure Radiology Library at [facility], [place] [address] Luz Squires MD [facility] [place] [address] Social History Tobacco Use Types Packs/Day Years [...] as of this encounter Plan of Treatment Not on file documented as of this encounter Procedures Procedure Name Priority Date/Time Associated Diagnosis Comments FILM LIBRARY STORAGE ONLY CT SPINE Routine 02/15/2023 11:12 AM EDT documented in this encounter Results * Film Library- Storage Only CT Spine (02/15/2023 11:12 AM EDT) Narrative [facility] - 02/15/2023 11:12 AM EDT This exam is auto-finalizing. It's purpose is for storage only. Luz Squires MD [facility] FILM LIBRARY ORD ERABLES [facility] [place], [place] documented in this encounter Visit Diagnoses Not on filedocumented in this encounter Care Teams Obiee Obia Solution Architect Relationship Specialty Start Date End Date Zeyad Hall DO [address] [place] [address] PCP - General Family Medicine 04/15/19 documented as of this encounter
--- OUTSIDE RECORDS SUMMARY | 2024-05-05 15:18 | XMS_ITS | Encounter Summary ---
[place] [address] Care Team Providers Care Mat Worker Name Role Phone Zeyad Hall DO Primary Care Provider [phone] Encounter Details Date Type Department Care Team (Late st Contact Info) Description 08/12/2019 1:30 PM EST Office [place] [address] Bel Abbott APRN [facility] [place] [address] Chronic hepatitis C without hepatic coma Social History Tobacco Use Types Packs/Day Years [...] on file documented as of this encounter Last Filed Vital Signs Vital Sign Reading Time Taken Comments Blood Pressure 117/85 08/12/2019 2:13 PM EST Pulse 56 08/12/2019 2:13 PM EST Temperature - - Respiratory Rate - - Oxygen Saturation - - Inhaled Oxygen Concentration - - Weight 82.7 kg (182 lb 6.4 oz) 08/12/2019 2:13 P M EST Height 172.7 cm (5' 8.01) 08/12/2019 2:13 PM ES T Body Mass Index 27.72 08/12/2019 2:13 PM EST documented in this encounter Patient Instructions * Patient Instructions* Bel Abbott APRN - 08/12/2019 1:30 PM EST For acid reflux: - Stop Pantoprazole 20mg - Continue Omeprazole 40mg once daily in the morning. Take 30 minutes before breakfast - Continue Ranitidine 150mg once daily in the evening. - Meloxicam can make your stomach issues worse. Please stop when you can. We will recheck your liver tests today, as well as your Hepatitis C viral load to confirm that the virus is gone. documented in this encounter Progress Notes * Bel Abbott APRN - 08/12/2019 1:30 PM EST Hepatology Follow Up Note Patient: Ludy Allen Gender: female : 1985 Provider: Bel Abbott NP Referring Physician: Zeyad Hall DO HISTORY OF PRESENT ILLNESS Ludy Allen is a 33 y.o. year old female with hepatitis C which was treated from February -April 2019 who also had GERD. I first saw her 2 months ago and she returns today for follow up. She had blood work after our last visit which showed that her HCV viral load was undetected 1 monthafter the end of treatment. She also had an EGD last month which shows reflux esophagitis. PAST MEDICAL/SURGICAL HISTORY Hepatitis C - Genotype 3 - Treated with Mavyret x12 weeks 01/2019- 04/[address] Dumont. - She believes she got Hepatitis C from her dad, who had Hepatitis C. She does have a history of IVDU. She was using from 08/200950322-9/2018, and then 14 years prior to that. She OD-ed in December 2017, whichled to her going into recovery. Hx of opioid abuse - on methadone GERD MEDICATIONS Current Outpatient Medications Medication Sig Dispense Refill ??? omeprazole (PRILOSEC) 40 mg Capsule, Delayed Release(E.C.) 40 mg daily. 0 ??? pantoprazole (PROTONIX) 20 mg Tablet, Delayed Release (E.C.) Take 40 mg by mouth Daily. ??? meloxicam (MOBIC) 7.5 mg Tablet Take 1 tablet by mouth daily. Do not take other NSAIDs while taking the this medication. Take with food. 30 tablet 0 ??? FOCALIN XR 20 mg Capsule, Multiphasic Rel.50-50 Take 20 mg by mouth daily. ??? FOCALIN XR 15 mg Capsule, Multiphasic Rel.50-50 Take 15 mg by mouth daily. 0 ??? methadone (DOLOPHINE) 10 mg Tablet Take 50 mg by mouth daily. ??? MAVYRET 100-40 mg Tablet ??? ondansetron (ZOFRAN) 4 mg Tablet take 1 tablet by mouth three times a day if needed for nausea and vomiting 0 ??? fluticasone propion-salmeterol (ADVAIR DISKUS) 250-50 mcg/dose Disk with Device Inhale 1 puff into the lungs every 12 hours. 1 Inhaler 12 ??? PROAIR HFA 90 mcg/actuation HFA Aerosol Inhaler as needed. ??? citalopram (CELEXA) 40 mg Tablet 40 mg daily. 0 ??? cloNIDine (CATAPRES) 0.1 mg Tablet 0.1 mg daily. 0 ??? cyclobenzaprine (FLEXERIL) 10 mg Tablet Take 10 mg by mouth Twice daily as needed. ??? hydrOXYzine (ATARAX) 25 mg Tablet 25 mg as needed. ??? nicotine (NICODERM CQ) 14 mg/24 hr Patch 24 hr APPLY TO HAIRLESS SKIN DAILY. ROTATE SKIN SITES 0 ??? ondansetron (ZOFRAN-ODT) 4 mg Tablet, Rapid Dissolve Take 4 mg by mouth Every 8 hours as needed. ??? LYRICA 150 mg Capsule Take 225 mg by mouth 3 times daily. 0 ??? ranitidine (ZANTAC) 150 mg Tablet 150 mg 2 times daily. ??? traZODone (DESYREL) 50 mg Tablet 50 mg nightly. No current facility-administered medications for this visit. No supplements or vitamins. ALLERGIES Allergies Allergen Reactions ??? Lidocaine ??? Penicillins ??? Procaine CIS - facial swelling ??? Unable To Find [Unclassified Drug] Control Pills SOCIAL HISTORY 3 kids - age 12, 10, 6. Two oldest kids are living with their father. She is trying to get custody. Alcohol: none currently. She used to drink heavily. She first drank when she was 10yo, she hasn't drank significantly since September 2018. Cigarettes: less than a PPD. Trying to quit. FAMILY HISTORY Dad had HCV, believes he has liver cancer Mom was alcoholic, had liver issues. PHYSICAL EXAM Vitals: 08/12/19 1413 BP: 117/85 Pulse: 56 Weight: 82.7 kg (182 lb 6.4 oz) Height: 172.7 cm (5' 8.01) Body mass index is 27.72 kg/m??. Gen: Well appearing, no apparent distress. Neuro: alert and oriented x3, no asterixis or tremor. Lab Results Component Value Date WBC 8.1 05/27/2019 HGB 12.4 05/27/2019 HCT 36.8 05/27/2019 MCV 87.8 05/27/2019 PLATELET 185 05/27/2019 Chemistry Component Value Date/Time NA 137 05/27/2019 1148 K 4.4 05/27/2019 1148 CL 101 05/27/2019 1148 CO2 25 05/27/2019 1148 BUN 12 05/27/2019 1148 CREATININE 0.60 (L) 05/27/2019 1148 Component Value Date/Time CALCIUM 9.2 05/27/2019 1148 ALKPHOS 126 (H) 05/27/2019 1148 AST 47 (H) 05/27/2019 1148 ALT 46 (H) 05/27/2019 1148 BILITOT 0.2 05/27/2019 1148 11/07/18: Fibrosure: F1-2 HCV RNA: 63,000 HCV genotype: 3 Hep A ab: negative Hep b sag: neg Hep B cab: neg Hep B sab: positive HIV: negative Ferritin: 50 05/27/2019 11:48 HCV Viral Load <12 HepB Surface Ab Quant 156.3 HepB Surface Ab Positive HepB Surface Ag Negative Hep B Core Ab Negative Fibroscan Results 05/27/19: Median kPa: 5.4 kPa Mean IQR: 12% (goal is <30 %) Number of valid measurements: 12 (at least 10 required) Number of invalid measurements: 0 Predicted fibrosis stage: F0-1 CAP (dB/m): 342 Estimated steatosis grade: 3/3 % hepatocytes affected: > 66 % RUQ Ultrasound 03/29/15: The liver is of normal echotexture without evidence of focal mass or intrahepatic biliary dilatation. EGD 06/11/2019: Impression: ?- Z-line irregular, 37 cm from the ?incisors. ?- LA Grade A reflux esophagitis. ?- Normal stomach. ?- Normal examined duodenum. ?- No specimens collected. Recommendation: ?Try stopping Meloxicam (NSAID) as ?this can contribute to GI symptoms. ?Need to clarify medications- as ?listed she is on omeprazole, ?pantoprozole and ranitidine. She ?should be on PPI double dose in the ?morning and H2 jac double dose in ?the evening or double dose PPI twice ?daily. ?Patient should bring in her ?medication to provider's office to ?better direct treatment. Ultrasound 08/12/18: 1. Enlarged liver consistent with diffuse, mildly increased echogenicity consistent with chronic liver disease. 2. No ascites or focal hepatic lesion. 3. Normal patent hepatic vasculature. 4. Nonspecific mild splenomegaly. ?? ASSESSMENT/PLAN Ludy Allen is a 33 y.o. female with Hepatitis C and GERD. 1. Hepatitis C. She took 8 weeks of treatment with Mavyret from 02/2019- 04/2019 and her viral load 1month after the end of treatment (05/27/19) was undetected. This is an appropriate course of medication and she appears to have cleared the virus. I would recommend re-checking her viral load now (3 months post- treatment) and again in 3 months to confirm cure. 2. Fibrosis level. Her fibroscan does not show any fibrosis, fibrosure also shows F1 and she does not have any signs in her blood work of advanced fibrosis. Her ultrasound today shows that her liver is enlarged but does not show any signs of cirrhosis. Her spleen measures 13.9cm, and I do not believe this is enlarged due to portal hypertension. 3. GERD. She is taking a number of different anti-acidic medications. Simplified medications as below. Discussed that if she continues to have symptoms that she should contact our office and can see a motility specialist. Plan: For acid reflux: - Stop Pantoprazole 20mg - Continue Omeprazole 40mg once daily in the morning. Take 30 minutes before breakfast - Continue Ranitidine 150mg once daily in the evening. - Meloxicam can make your stomach issues worse. Please stop when you can. - Blood work today to confirm Hepatitis C SVR. Recommend rechecking HCV RNA again in 3 months. Follow up as needed, patient will call if GERD does not improve. Bel Abbott APRN Section of Gastroenterology and [place] [address] Copy: Zeyad Hall DO [address] [facility] [id number] documented in this encounter Plan of Treatment Not on file documented as of this encounter Procedures Procedure Name Priority Date/Time Associated Diagnosis Comments HC HCV QUANTIFICATION Routine 08/12/2019 2:38 PM EST Chronic hepatitis C without hepatic coma HC VENIPUNCTURE Routine 08/12/2019 2:38 PM EST Chronic hepatitis C without hepatic coma documented in this encounter Results * Hepatitis C RNA, quantitative, PCR (08/12/2019 2:38 PM EST) [facility] HCV Viral Load 86,284 IU/mL [facility] HCV Viral Load Result: 24834 IU/mL Indication for Study: Hepatitis C Infection Analysis: The [employer] RealTime HCV assay is an in vitro reverse shaving machine operator polymerase chain reaction (RT-PCR)for the quantitation of [...] ORDERABL ES [facility] [place] [address] * (ABNORMAL) Comprehensive metabolic panel (non-fasting) (08/12/2019 2:38 PM EST) [facility] Glucose 76 65 - 199 mg/dL [facility] Comment:Diabetes: >=200 mg/d L plus symptoms Blood Urea Nitrogen 11 8 - 18 mg/dL [facility] Creatinine 0.48(L) 0.70 - 1.20 mg/dL [facility] Sodium 140 135 - 145 mmol/L [facility] Potassium 4.0 3.5 - 5.0 mmol/L [facility] Comment: Please note: ??Patients with WBC >100,000 may have falsely elevated Potassium levels. ??For accurate Potassium quantification in these patients send serum separator tube (gold top) for subsequent determinations. ??Contact the Clinical Chemistry Laboratory if there are any questions. Chloride 100 98 - 107 mmol/L [facility] Carbon Dioxide 26 22 - 31 mmol/L [facility] Anion Gap 14 5 - 15 mmol/L [facility] Calcium 10.1 8.5 - 10.5 mg/dL [facility] Protein, Total 8.2(H) 6.1 - 8.0 gm/dL [facility] Albumin 4.5 3.2 - 5.2 gm/dL [facility] Aspartate Aminotransferase 239(H) 0 - 30 unit/L [facility] Alanine Aminotransferase 170(H) 0 - 30 unit/L [facility] Alkaline Phosphatase 267(H) 35 - 105 unit/L [facility] Bilirubin, Total 0.3 0.2 - 1.3 mg/dL [facility] Est Glomerular Filtration Rate 131 >=60 mL/min/1. 73 m?? [facility] Comment: The eGFR was calculated using the CKD-EPI equation. As with all creatinine based estimates of kidney function, eGFR values calculated with the CKD-EPI equation are not accurate in patients with acute kidney failure, extremes of body mass or the acutely ill. [email or web address] eGFR 151 >=60 mL/min/1. 73 m?? [facility] Comment: The eGFR was calculated using the CKD-EPI equation. As with all creatinine based estimates of kidney function, eGFR values calculated with the CKD-EPI equation are not accurate in patients with acute kidney failure, extremes of body mass or the acutely ill. [email or web address] Blood specimen (specimen) 08/12/2019 2:38 PM EST 08/12/2019 2:47 PM EST Narrative Resulting Agency Comment Spec In Lab Bel Abbott APRN CHEMISTRY ORDERABL ES [facility] [place] [address] documented in this encounter Visit Diagnoses Diagnosis Chronic hepatitis C without hepatic coma documented in this encounter Care Teams Mat Worker Relationship Specialty Start Date End Date Zeyad Hall DO [address] [place] [address] PCP - General Family Medicine 04/15/19 documented as of this encounter
--- OUTSIDE RECORDS SUMMARY | 2024-05-05 15:18 | XMS_ITS | Encounter Summary ---
[place] [address] Care Team Providers Care Payroll Benefits Clerk Name Role Phone Zeyad Hall DO Primary Care Provider [phone] Reason for Visit * Reason Onset Date Comments Hepatitis C 12/28/2020 Encounter Details Date Type Department Care Team (Late st Contact Info) Description 12/28/2020 Telephone [place] [address] Angie Urban RN Hepatitis C Social History Tobacco Use Types Packs/Day Years [...] encounter Miscellaneous Notes * Telephone Encounter - Angie Urban RN - 12/28/2020 10:02 AM EDT Called new phone number in pt's chart. Call rejected recording, followed by line disconnected. Will send another letter. * Telephone Encounter - Angie Urban RN - 12/28/2020 9:54 AM EDT ----- Message from Bel Abbott APRN sent at 11/09/2020 12:13 PM EDT ----- Regarding: hcv relapse Master Montelongo I was going through old results and missed that this patient had viral relapse after 8weeks of treatment with Mavyret. She was treated in 04/2019 and viral load 1 month after treatment was undetected, but then had a positive viral load 3 months after treatment. Do you mind calling her to let her know that we will need to treat her Hepatitis C again and set up a follow up visit? I'm sorry to ask this of you, I should have picked it up sooner and called her. Thanks Bel documented in this encounter Plan of Treatment Not on file documented as of this encounter Visit Diagnoses Not on filedocumented in this encounter Care Teams Payroll Benefits Clerk Relationship Specialty Start Date End Date Zeyad Hall DO [address] [place] [address] PCP - General Family Medicine 04/15/19 documented as of this encounter
--- OUTSIDE RECORDS SUMMARY | 2024-05-05 15:18 | XMS_ITS | Encounter Summary ---
[place] [address] Care Team Providers Care Spray Painter Name Role Phone Zeyad Hall DO Primary Care Provider [phone] Reason for Referral * Allergy Testing (Routine) - Closed Specialty Diagnoses / Procedures Referred By Francis restrepo Referred To Contact Allergy Diagnoses History of allergic reaction Juice Thompson PA [facility] [place] [address] [facility] Allergy [address] [place] [address] Referral ID Status Reason Start Date Expiration Date V isits Requested Visits Authorized [id number] Closed Consult, Test & Treat 03/21/2021 03/21/2022 1 1 Encounter Details Date Type Department Care Team (Late st Contact Info) Description 03/21/2021 8:00 AM EDT Office Visit [place] [address] Ezequiel Araujo MD [facility] [place] [address] History of allergic reaction; Dental infection Social History Tobacco Use Types Packs/Day Years [...] Sign Reading Time Taken Comments Blood Pressure - - Pulse - - Temperature - - Respiratory Rate - - Oxygen Saturation - - Inhaled Oxygen Concentration - - Weight 75.3 kg (166 lb) 03/21/2021 8:16 AM EDT Height 175.3 cm (5' 9) 03/21/2021 8:16 AM EDT Body Mass Index 24.51 03/21/2021 8:16 AM EDT documented in this encounter Progress Notes * Juice Thompson PA - 03/21/2021 8:00 AM EDT Images from the original note were not included. ORAL-MAXILLOFACIAL SURGERY OUTPATIENT CLINIC INITIAL CONSULTATION VISIT - EXTRACTION Name: Ludy Allen Age/Sex: 35 y.o. female History of Present Illness Ludy Allen is a 35 y.o. female referred by No ref. provider found for consultation regarding dental extraction(s). A complete history of the Ludy 's symptoms and physical signs were reviewed with attention to initial findings and progression, pain, bleeding, swelling, lumps, bumps, drainage, dysphagia, odynophagia, paresthesia, dysarthria and systemic effects. Pertinent notations from today's history: ??? Follow up visit - previously evaluated via telehealth by Dr. Morelos and recommended to have in-person appointment to clarify plan ??? Full mouth extractions ??? Would like to do top teeth first then come back another visit to do bottoms ??? Currently having pain ??? Motrin for pain-reports it does not help ??? One of her teeth are infected, upper right front ??? [facility] - Dr. Casanova ?? Patient notes pain and swelling along gumline right upper teeth for 2-3 days, swollen, no drainage, suspects she needs antibiotics ?? Allergies are notable for lidocaine and procaine. She is unsure of many of the details about this. Reports it occurred around age 13 or 14, and required hospitalization in setting of her face swelling up and not being able to breathe. She reports she is no longer in contact with her motherto obtain further details. ?? She believes her subsequent dental work (root canal of #8 and fillings various teeth) were accomplished without local anesthetic to her knowledge, and instead utilized topical anesthetic and laughing gas ?? Reports she is no longer on methadone, transitioned from this to Suboxone around 1 month ago, remains established with care with [facility] in [facility]. Notes her counselor is Gabby and also sees a nurse who adjusts medication dosing; she is unsure of the name of the prescriber. ?? Reports history of heroin use, last used around 5-6 months ago ?? Denies anticoagulation medication ?? Denies prior osteoporosis treatment, bisphosphonates ?? Denies prior issues with anesthesia ?? Also allergy to penicillin, noting I got really sick and had vomiting. Tolerates clindamycin Past Medical/Social/Dental History No past medical history on file. Patient Active Problem List Diagnosis Code ??? History of palpitations Z87.898 ??? Leg edema R60.0 ??? Syncope R55 ??? Plantar fasciitis, bilateral M72.2 ??? Chronic dental caries extending to pulp K02.9 Social History Tobacco Use ??? Smoking status: Current Every Day Smoker Packs/day: 1.00 Years: 13.00 Pack years: 13.00 Types: Cigarettes ??? Smokeless tobacco: Never Used Substance Use Topics ??? Alcohol use: Yes Comment: 1 in past 6 months ??? ARIPiprazole (Abilify) 5 mg Tablet ??? furosemide (Lasix) 20 mg Tablet ??? hydrocortisone 2.5 % Cream ??? ibuprofen (Advil) 800 mg Tablet ??? Psyllium Husk 0.52 gram Capsule ??? Spiriva with HandiHaler 18 mcg Capsule, w/Inhalation Device ??? pregabalin (LYRICA) 100 mg Capsule ? ? Cyclobenzap&Irritant Cntr Irr2 (Comfort Pac-Cyclobenzaprine) 10 mg Kit ??? inhalational spacing device (Grzegorz Aerosol Wilkes Enhancer) Spacer ??? sulfamethoxazole-trimethoprim DS (Bactrim DS) 800-160 mg Tablet ??? ipratropium-albuteroL (COMBIVENT RESPIMAT) 20-100 mcg/actuation Mist ??? FOCALIN XR 20 mg Capsule, Multiphasic Rel.50-50 ??? FOCALIN XR 15 mg Capsule, Multiphasic Rel.50-50 ??? ondansetron (ZOFRAN) 4 mg Tablet ??? fluticasone propion-salmeterol (ADVAIR DISKUS) 250-50 mcg/dose Disk with Device ??? PROAIR HFA 90 mcg/actuation HFA Aerosol Inhaler ??? citalopram (CELEXA) 40 mg Tablet ??? cloNIDine (CATAPRES) 0.1 mg Tablet ??? hydrOXYzine (ATARAX) 25 mg Tablet ??? omeprazole (PRILOSEC) 40 mg Capsule, Delayed Release(E.C.) ??? ondansetron (ZOFRAN-ODT) 4 mg Tablet, Rapid Dissolve ??? ranitidine (ZANTAC) 150 mg Tablet ??? traZODone (DESYREL) 50 mg Tablet ??? clindamycin (CLEOCIN) 300 mg Capsule ??? meloxicam (MOBIC) 7.5 mg Tablet ??? methadone (DOLOPHINE) 10 mg Tablet ??? MAVYRET 100-40 mg Tablet ??? cyclobenzaprine (FLEXERIL) 10 mg Tablet ??? nicotine (NICODERM CQ) 14 mg/24 hr Patch 24 hr ??? pantoprazole (PROTONIX) 20 mg Tablet, Delayed Release (E.C.) ??? LYRICA 150 mg Capsule Allergies Allergen Reactions ??? Lidocaine ??? Penicillins ??? Procaine CIS - facial swelling ??? Unable To Find [Unclassified Drug] Control Pills Review of Systems Pertinent positive and negative findings discussed above. ROS with attention to cardiac, pulmonary,hepatic, renal, neurologic and dermatologic systems reviewed with relevant findings as noted. Physical Exam Vitals: Height 175.3 cm (5' 9), weight 75.3 kg (166 lb). Body mass index is 24.51 kg/m??. General: No acute distress, pleasant Focused oral exam: ?? No trismus ?? Significantly grossly carious teeth throughout ?? Edema and erythema of buccal and palatal gingiva adjacent teeth #4,5 ?? 1.5 cm region of fluctuance along palatal tissue adjacent teeth #4,5 ?? Midline maxillary palatal torus ?? Intact ROM without trismus Neuro: a/o x3 Neck: soft, supple Psych: appropriate, responds to questions normally Imaging Panorex dated 06/06/2020 demonstrating significant carious involvement as noted at 07/2020 telehealth visit. Personally reviewed and evaluated ASSESSMENT & RECOMMENDATIONS Assessment: -active dental abscess along palatal aspect of teeth #4,5 -multiple carious teeth in patient with history of heroin use recently transitioned to suboxone from methadone In regards to active dental abscess it appeared quite amenable to incision and drainage in clinic. Verbal consent was obtained and utilized 18 gauge needle to incise this. Moderate amount of pus drainage and minimal amount of blood expressed with patient feeling symptomatic improvement. No immediate complication. Provided with gauze. Recommendations/plan: Will plan for extraction of remaining maxillary and mandibular dentition in the setting of extensive dental caries -Prescribed clindamycin in setting of active dental abscess s/p incision/drainage today. -We will refer to supervisor rolling room for evaluation in the setting of possible historical allergy to local anesthetic. She has had various procedures since this point in time and presumably has tolerated someformulation of local anesthetic. -Thought will have to be given to her perioperative medication and analgesic management in setting of prior heroin use, recently transitioned from methadone to suboxone. I encouraged her to discuss this with managing clinic ([facility]). I discussed that we would recommend maximizing NSAIDs/Tylenol, supportive measures, and likely continuing Suboxone. Perhaps her Suboxone dosing could beincreased around the time of the procedure. I did discuss that if any additional opioids are to be prescribed by us that this should be in writing from her to managing clinic. I will send a communication via fax in effort to coordinate this care. Due to procedural need and clinic flow was not able to be seen by Dr. Araujo; encounter and plan reviewed. After discussion of the risks/benefits of local anesthesia vs. IV sedation vs. general anesthesia in the clinical scenario of the patient's presentation, we will opt to plan for general anesthesia inOR ([facility]). Consent forms: The procedure consent form and Adult Acute Opioid Consent were reviewed and signed. NPO instructions were reviewed. Direct review of the findings on clinical and radiographic exam as well as a discussion of the risks and anticipated benefits of the proposed surgical intervention was had. The possibility of bleeding, infection, injury to adjacent teeth, nerves and sinuses was reviewed with specific attention to inferior alveolar and lingual nerves and the potential for tongue and/or lip paresthesia. The unlikely event of jaw fracture during the procedure was discussed as well. Persistent opening or fistula tothe maxillary sinus was also discussed. Ludy Allen was given the opportunity to ask questions regarding the findings on clinical and radiographic examination and the recommended treatment. Preoperative and postoperative managementwas also discussed with specific attention to post operative alteration of diet and physical activity and the proper use of analgesics. We appreciate the opportunity to be involved in Ms. Allen's care. JAYME Kaufman-C - Oral-Maxillofacial Surgery Supervising Physician: Ezequiel Araujo MD,DMD 03/21/2021 10:16 AM This note may have incorporated rxbgn-vb-ceaw technology and though reviewed typographical or syntax errors may remain. documented in this encounter Plan of Treatment Scheduled Referrals Name Type Priority Associated Diagnoses Orde r Schedule Referral to Allergy Outpatient Referral Routine History of allergic reaction Ordered: 03/21/2021 documented as of this encounter Visit Diagnoses Diagnosis History of allergic reaction Other allergy, other than to medicinal agents Dental infection Acute apical periodontitis of pulpal origin documented in this encounter Care Teams Spray Painter Relationship Specialty Start Date End Date Zeyad Hall DO [address] [place] [address] PCP - General Family Medicine 04/15/19 documented as of this encounter
--- OUTSIDE RECORDS SUMMARY | 2024-05-05 15:18 | XMS_ITS | Encounter Summary ---
[place] [address] Care Team Providers Care Test Desk Trouble Locator Name Role Phone Petra Riley APRN Primary Care Provider [phone] Encounter Details Date Type Department Care Team (Late st Contact Info) Description 11/25/2018 Orders [place] [id number] Familia Hartman II Social History Tobacco Use Types Packs/Day Years Used Date Smoking Tobacco: Every Day Cigarettes 0.3 13 Sex and Gender Information Value Date Recorded Sex Assigned at Not on file Gender Identity Not on file Sexual Orientation Not on file documented as of this encounter Plan of Treatment Not on file documented as of this encounter Visit Diagnoses Not on filedocumented in this encounter Care Teams Test Desk Trouble Locator Relationship Specialty Start Date End Date Petra Riley APRN [address] [place], [place] [address] PCP - General Family Medicine 11/18/18 04/14/19 documented as of this encounter
--- OUTSIDE RECORDS SUMMARY | 2024-05-05 15:18 | XMS_ITS | Encounter Summary ---
[place] [address] Care Team Providers Care Admin Dir Name Role Phone Jacky Perez APRN Primary Care Provider [phone] Reason for Visit * Reason Onset Date Comments Results 07/05/2014 Encounter Details Date Type Department Care Team (Late st Contact Info) Description 07/05/2014 Telephone Cardiology at [address] [id number] Wilmar Cerda MD [facility] [place] [address] Results Social History Tobacco Use Types Packs/Day Years Used Date Smoking Tobacco: Every Day Cigarettes 0.3 13 Sex and Gender Information Value Date Recorded Sex Assigned at Not on file Gender Identity Not on file Sexual Orientation Not on file documented as of this encounter Miscellaneous Notes * Telephone Encounter - Federica Bolivar Olu - 07/05/2014 9:45 AM EST Master Urban, Please give the patient a call regarding the results of her Holter monitor. Thanks Federica documented in this encounter Plan of Treatment Not on file documented as of this encounter Visit Diagnoses Not on filedocumented in this encounter Care Teams Admin Dir Relationship Specialty Start Date End Date Jacky Perez APRN [address] [place] [address] [place] [phone] PCP - General 05/20/14 11/17/18 documented as of this encounter
--- OUTSIDE RECORDS SUMMARY | 2024-05-05 15:18 | XMS_ITS | Encounter Summary ---
Author Organization [facility] [place] [address] Care Team Providers Care Sheetfed Press Operator Name Role Phone Zeyad Hall DO Primary Care Provider [phone] Encounter Details Date Type Department Care Team (Latest Contact Info) Description 06/03/2019 7:25 AM EDT - 06/03/2019 11:59 PM EDT Hospital Encounter XRay at [address] [place] [address] Angie Spencer MD [facility] [place] [address] Bilateral foot pain; Plantar fascial fibromatosis of both feet Discharge Disposition: Home Social History Tobacco Use Types Packs/Day Years Used Date Smoking Tobacco: Every Day Cigarettes 1 13 Smokeless Tobacco: Never Alcohol Use Standard Drinks/Week Comments Not Currently 0 (1 standard drink = 0.6 oz pur e alcohol) Sex and Gender Information Value Date Recorded Sex Assigned at Not on file Gender Identity Not on file Sexual Orientation Not on file documented as of this encounter Medications at Time of Discharge Medication Sig Dispensed Refills Start Date End Date ARIPiprazole (Abilify) 5 mg Tablet Take by mouth. 01/23/2019 Psyllium Husk 0.52 gram Capsule Take by mouth. 08/11/2018 pregabalin (LYRICA) 100 mg Capsule Take by mouth. 04/13/2019 Cyclobenzap&Irritant Cntr Irr2 (Comfort Pac-Cyclobenzaprine) 10 mg Kit Take by mouth. 04/13/2019 meloxicam (MOBIC) 7.5 mg Tablet Take 1 tablet by mouth daily. Do not take other NSAIDs while taking the this medication. Take with food. 30 tablet 06/03/2019 FOCALIN XR 20 mg Capsule, Multiphasic Rel.50-50 Take 20 mg by mouth daily. 05/25/2019 FOCALIN XR 15 mg Capsule, Multiphasic Rel.50-50 Take 15 mg by mouth daily. 0 04/13/2019 methadone (DOLOPHINE) 10 mg Tablet Take 50 mg by mouth daily. MAVYRET 100-40 mg Tablet 01/09/2019 ondansetron (ZOFRAN) 4 mg Tablet take 1 tablet by mouth three times a day if needed for nausea and vomiting 0 12/30/2018 fluticasone propion-salmeterol (ADVAIR DISKUS) 250-50 mcg/dose Disk with Device Inhale 1 puff into the lungs every 12 hours. 1 Inhaler 12 12/14/2018 PROAIR HFA 90 mcg/actuation HFA Aerosol Inhaler as needed. 11/21/2018 citalopram (CELEXA) 40 mg Tablet 40 mg daily. 0 09/15/2018 cloNIDine (CATAPRES) 0.1 mg Tablet 0.1 mg daily. 0 11/24/2018 cyclobenzaprine (FLEXERIL) 10 mg Tablet Take 10 mg by mouth Twice daily as needed. hydrOXYzine (ATARAX) 25 mg Tablet 25 mg as needed. 11/21/2018 nicotine (NICODERM CQ) 14 mg/24 hr Patch 24 hr APPLY TO HAIRLESS SKIN DAILY. ROTATE SKIN SITES 0 11/21/2018 omeprazole (PRILOSEC) 40 mg Capsule, Delayed Release(E.C.) 40 mg daily. 0 09/15/2018 ondansetron (ZOFRAN-ODT) 4 mg Tablet, Rapid Dissolve Take 4 mg by mouth Every 8 hours as needed. pantoprazole (PROTONIX) 20 mg Tablet, Delayed Release (E.C.) Take 40 mg by mouth Daily. LYRICA 150 mg Capsule Take 225 mg by mouth 3 times daily. 0 11/25/2018 ranitidine (ZANTAC) 150 mg Tablet 150 mg 2 times daily. 11/21/2018 traZODone (DESYREL) 50 mg Tablet 50 mg nightly. 11/21/2018 buPROPion (WELLBUTRIN XL) 150 mg Tablet Extended Release 24 hr 150 mg 2 times daily. 0 11/30/2018 06/11/2019 documented as of this encounter Plan of Treatment Not on file documented as of this encounter Procedures Procedure Name Priority Date/Time Associated Diagnosis Comments XR ANKLE MIN 3 VIEWS BILAT Routine 06/03/2019 7:57 AM EDT Plantar fascial fibromatosis of both feet XR FOOT 2 VIEWS BILAT Routine 06/03/2019 7:57 AM EDT Bilateral foot pain Plantar fascial fibromatosis of both feet documented in this encounter Results * XR Foot 2 views Bilat (06/03/2019 7:57 AM EDT) Anatomical Region Laterality Modality Foot Bilateral Digital Radiogra phy Impressions 06/03/2019 9:14 AM EDT Bilateral pes planus, without plantar calcaneal spur or calcification along the discretion of the plantar fascia. No evidence of coalition. Thank you for letting us participate in the care of this patient. For questions regarding this report, please contact the number below. ? Narrative 06/03/2019 9:14 AM EDT EXAMINATION: XR ANKLE MIN 3 VIEWS BILAT (GENERIC), XR FOOT 2 VIEWS BILAT CLINICAL HISTORY: PLANTAR FASCIAL FIBROMATOSIS PERFORM BILATERAL ANKLES FOR BILATERAL FOOT PAIN PER MD PROTOCOL TECHNIQUE: 3 (accession [id number]), 2 (accession [id number]) views BILATERAL ankles COMPARISON: None FINDINGS: Weightbearing AP, lateral and oblique views of the RIGHT ankle were obtained. Weightbearing plantar and oblique views of the RIGHT foot were obtained. Bone mineralization is within normal limits. Pes planus, with the plantar arch measuring less than 10 degrees. There is no plantar calcaneal spur or calcification along the distribution of the plantar fascia. No acute fracture or osteochondral lesion. Joint spaces are well-maintained, there is no evidence of coalition. Weightbearing AP, lateral and oblique views of the LEFT ankle were obtained. Weightbearing plantar and oblique views of the LEFT foot were obtained. Bone mineralization is within normal limits. Pes planus, with the plantar arch measuring less than 10 degrees. There is no plantar calcaneal spur or calcification along the distribution of the plantar fascia. No acute fracture or osteochondral lesion. Joint spaces are well-maintained, there is no evidence of coalition. Procedure Note Brenna Marcos MD - 06/03/2019 EXAMINATION: XR ANKLE MIN 3 VIEWS BILAT (GENERIC), XR FOOT 2 VIEWS BILAT CLINICAL HISTORY: PLANTAR FASCIAL FIBROMATOSIS PERFORM BILATERAL ANKLES FOR BILATERAL FOOT PAIN PER MD PROTOCOL TECHNIQUE: 3 (accession [id number]), 2 (accession [id number]) views BILATERAL ankles COMPARISON: None FINDINGS: Weightbearing AP, lateral and oblique views of the RIGHT ankle wereobtained. Weightbearing plantar and oblique views of the RIGHT foot were obtained.Bone mineralization is within normal limits. Pes planus, with the plantararch measuring less than 10 degrees. There is no plantar calcaneal spur or calcification along the distribution of the plantar fascia. No acutefracture or osteochondral lesion. Joint spaces are well-maintained, there is noevidence of coalition. Weightbearing AP, lateral and oblique views of the LEFT ankle wereobtained. Weightbearing plantar and oblique views of the LEFT foot were obtained.Bone mineralization is within normal limits. Pes planus, with the plantararch measuring less than 10 degrees. There is no plantar calcaneal spur or calcification along the distribution of the plantar fascia. No acutefracture or osteochondral lesion. Joint spaces are well-maintained, there is noevidence of coalition. IMPRESSION Bilateral pes planus, without plantar calcaneal spur or calcificationalong the discretion of the plantar fascia. No evidence of coalition. Thank you for letting us participate in the care of this patient. Forquestions regarding this report, please contact the number below. Angie Spencer MD IMG DX ORDERABLES * XR Ankle Min 3 views Bilat (Generic) (06/03/2019 7:57 AM EDT) Anatomical Region Laterality Modality Ankle Bilateral Digital Radiogra phy Impressions 06/03/2019 9:14 AM EDT Bilateral pes planus, without plantar calcaneal spur or calcification along the discretion of the plantar fascia. No evidence of coalition. Thank you for letting us participate in the care of this patient. For questions regarding this report, please contact the number below. ? Narrative 06/03/2019 9:14 AM EDT EXAMINATION: XR ANKLE MIN 3 VIEWS BILAT (GENERIC), XR FOOT 2 VIEWS BILAT CLINICAL HISTORY: PLANTAR FASCIAL FIBROMATOSIS PERFORM BILATERAL ANKLES FOR BILATERAL FOOT PAIN PER MD PROTOCOL TECHNIQUE: 3 (accession [id number]), 2 (accession [id number]) views BILATERAL ankles COMPARISON: None FINDINGS: Weightbearing AP, lateral and oblique views of the RIGHT ankle were obtained. Weightbearing plantar and oblique views of the RIGHT foot were obtained. Bone mineralization is within normal limits. Pes planus, with the plantar arch measuring less than 10 degrees. There is no plantar calcaneal spur or calcification along the distribution of the plantar fascia. No acute fracture or osteochondral lesion. Joint spaces are well-maintained, there is no evidence of coalition. Weightbearing AP, lateral and oblique views of the LEFT ankle were obtained. Weightbearing plantar and oblique views of the LEFT foot were obtained. Bone mineralization is within normal limits. Pes planus, with the plantar arch measuring less than 10 degrees. There is no plantar calcaneal spur or calcification along the distribution of the plantar fascia. No acute fracture or osteochondral lesion. Joint spaces are well-maintained, there is no evidence of coalition. Procedure Note Brenna Marcos MD - 06/03/2019 EXAMINATION: XR ANKLE MIN 3 VIEWS BILAT (GENERIC), XR FOOT 2 VIEWS BILAT CLINICAL HISTORY: PLANTAR FASCIAL FIBROMATOSIS PERFORM BILATERAL ANKLES FOR BILATERAL FOOT PAIN PER MD PROTOCOL TECHNIQUE: 3 (accession [id number]), 2 (accession [id number]) views BILATERAL ankles COMPARISON: None FINDINGS: Weightbearing AP, lateral and oblique views of the RIGHT ankle wereobtained. Weightbearing plantar and oblique views of the RIGHT foot were obtained.Bone mineralization is within normal limits. Pes planus, with the plantararch measuring less than 10 degrees. There is no plantar calcaneal spur or calcification along the distribution of the plantar fascia. No acutefracture or osteochondral lesion. Joint spaces are well-maintained, there is noevidence of coalition. Weightbearing AP, lateral and oblique views of the LEFT ankle wereobtained. Weightbearing plantar and oblique views of the LEFT foot were obtained.Bone mineralization is within normal limits. Pes planus, with the plantararch measuring less than 10 degrees. There is no plantar calcaneal spur or calcification along the distribution of the plantar fascia. No acutefracture or osteochondral lesion. Joint spaces are well-maintained, there is noevidence of coalition. IMPRESSION Bilateral pes planus, without plantar calcaneal spur or calcificationalong the discretion of the plantar fascia. No evidence of coalition. Thank you for letting us participate in the care of this patient. Forquestions regarding this report, please contact the number below. Angie Spencer MD IMG DX ORDERABLES documented in this encounter Visit Diagnoses Diagnosis Bilateral foot pain Pain in limb Plantar fascial fibromatosis of both feet documented in this encounter Care Teams Sheetfed Press Operator Relationship Specialty Start Date End Date Zeyad Hall DO [address] [place] [address] PCP - General Family Medicine 04/15/19 documented as of this encounter
--- OUTSIDE RECORDS SUMMARY | 2024-05-05 15:18 | XMS_ITS | Encounter Summary ---
[place] [address] Care Team Providers Care Screen Printing Press Operator Name Role Phone Petra Riley APRN Primary Care Provider [phone] Encounter Details Date Type Department Care Team (Late st Contact Info) Description 12/04/2018 Orders Only Cardiology at [address] [id number] Nicho Carlton MD [facility] [place] [address] History of palpitations (Primary Dx); Syncope, unspecified syncope type; Leg edema Social History Tobacco Use Types Packs/Day Years Used Date Smoking Tobacco: Every Day Cigarettes 0.3 13 Sex and Gender Information Value Date Recorded Sex Assigned at Not on file Gender Identity Not on file Sexual Orientation Not on file documented as of this encounter Plan of Treatment Not on file documented as of this encounter Results * EKG 12 Lead (12/11/2018 8:24 AM EDT) Ventricular rate 62 BPM MUSE SYSTEM Atrial Rate 62 BPM MUSE SYSTEM P-R Interval 162 ms MUSE SYSTEM QRS Duration 86 ms MUSE SYSTEM Q-T Interval 434 ms MUSE SYSTEM QTC Calculated (Bezet) 440 ms MUSE SYSTEM Calculated P [place] 38 degrees MUSE SYSTEM Calculated R [place] 65 degrees MUSE SYSTEM Calculated T [place] 26 degrees MUSE SYSTEM INTERPRETATION Normal sinus rhythm Normal ECG No previous ECGs available I personally reviewed the tracing and edited the fellows interpretation Confirmed by fellow MD Denise, Ezequiel ([id number]) on 12/11/2018 9:23:20 AM Confirmed by MD DEWITT JOHN ([id number]) on 12/11/2018 9:32:41 AM MUSE SYSTEM 12/11/2018 8:24 AM EDT 12/11/2018 9:32 AM EDT Nicho Carlton MD ECG ORDERABLES MUSE SYSTEM documented in this encounter Visit Diagnoses Diagnosis History of palpitations- Primary Syncope, unspecified syncope type Leg edema Edema documented in this encounter Care Teams Screen Printing Press Operator Relationship Specialty Start Date End Date Petra Riley, HOUSE SUPERINTENDENT [address] [place] [address] PCP - General Family Medicine 11/18/18 04/14/19 documented as of this encounter
--- OUTSIDE RECORDS SUMMARY | 2024-05-05 15:18 | XMS_ITS | Encounter Summary ---
[place] [address] Care Team Providers Care Clinical Statistical Programmer Name Role Phone Zeyad Hall DO Primary Care Provider Encounter Details Date Type Department Care Team (Late st Contact Info) Description 08/12/2019 Orders [place] [address] Bel Abbott APRN [facility] [place] [address] Chronic hepatitis C without hepatic coma Social [...] documented as of this encounter Results * (ABNORMAL) Comprehensive metabolic panel (non-fasting) (08/12/2019 2:38 PM EST) Glucose 76 65 - 199 mg/dL [facility] Comment:Diabetes: >=200 mg/d L plus symptoms Blood Urea Nitrogen 11 8 - 18 mg/dL [facility] Creatinine 0.48(L) 0.70 - 1.20 mg/dL [facility] Sodium 140 135 - 145 mmol/L [facility] Potassium 4.0 3.5 - 5.0 mmol/L [facility] Comment: Please note: ??Patients with WBC >100,000 may have falsely elevated Potassium levels. ??For accurate Potassium quantification in these patients send serum separator tube (gold top) for subsequent determinations. ??Contact the Clinical Chemistry Laboratory if there are any questions. Chloride 100 98 - 107 mmol/L [facility] Carbon Dioxide 26 22 - 31 mmol/L [facility] Anion Gap 14 5 - 15 mmol/L [facility] Calcium 10.1 8.5 - 10.5 mg/dL [facility] Protein, Total 8.2(H) 6.1 - 8.0 gm/dL [facility] Albumin 4.5 3.2 - 5.2 gm/dL [facility] Aspartate Aminotransferase 239(H) 0 - 30 unit/L [facility] Alanine Aminotransferase 170(H) 0 - 30 unit/L [facility] Alkaline Phosphatase 267(H) 35 - 105 unit/L [facility] Bilirubin, Total 0.3 0.2 - 1.3 mg/dL [facility] Est Glomerular Filtration Rate 131 >=60 mL/min/1. 73 m?? [facility] Comment: The eGFR was calculated using the CKD-EPI equation. As with all creatinine based estimates of kidney function, eGFR values calculated with the CKD-EPI equation are not accurate in patients with acute kidney failure, extremes of body mass or the acutely ill. [email or web address] eGFR 151 >=60 mL/min/1. 73 m?? [facility] Comment: The eGFR was calculated using the CKD-EPI equation. As with all creatinine based estimates of kidney function, eGFR values calculated with the CKD-EPI equation are not accurate in patients with acute kidney failure, extremes of body mass or the acutely ill. [email or web address] Blood specimen (specimen) 08/12/2019 2:38 PM EST 08/12/2019 2:47 PM EST Narrative Resulting Agency Comment Spec In Lab Bel Abbott ANDREW CHEMISTRY ORDERABL ES Performing Organization Address [facility] Co de Phone Number [facility] [place] [address] * Hepatitis C RNA, quantitative, PCR (08/12/2019 2:38 PM EST) HCV Viral Load 86,284 IU/mL [facility] HCV Viral Load Result: 96030 IU/mL Indication for Study: Hepatitis C Infection Analysis: The [employer] RealTime HCV assay is an in vitro reverse stripping machine operator polymerase chain reaction (RT-PCR)for the quantitation of hepatitis C viral (HCV) RNA in human serum or plasma (EDTA) from HCV-infected individuals. Sample: plasma (0.7 mL minimum volume) Method: [employer] RealTime HCV Assay Linear Range: 12 IU/mL - 100,000,000IU/mL Note: The [employer] RealTime HCV Assay has been approved by the U.S. Food and Drug Administration. [facility] Comment: [VERIFIED DATE]08.17.19 Verified By:Lab Review, Molecular Genetics (Electronic Signature) Blood specimen (specimen) 08/12/2019 2:38 PM EST 08/14/2019 3:29 PM EST Narrative Resulting Agency Comment Spec In Lab Bel Abbott ANDREW MOLECULAR ORDERABL ES Performing Organization Address [facility] Co de Phone Number [facility] [place] [address] documented in this encounter Visit Diagnoses Diagnosis Chronic hepatitis C without hepatic coma documented in this encounter Care Teams Clinical Statistical Programmer Relationship Specialty Start Date End Date Zeyad Hall DO [address] [place] [address] PCP - General Family Medicine 04/15/19 documented as of this encounter
--- OUTSIDE RECORDS SUMMARY | 2024-05-05 15:18 | XMS_ITS | Encounter Summary ---
Author Organization [facility] [place] [address] Care Team Providers Care Patient Safety Tech Name Role Phone AnaEscelena MORALES Primary Care Provider [phone] Encounter Details Date Type Department Care Team (Late st Contact Info) Description 11/30/2016 Ancillary Procedure Radiology Library at [facility] [place] [phone] Bel Abbott APRN [facility] [place] [address] Social History Tobacco Use Types Packs/Day Years [...] Diagnosis Comments FILM LIBRARY STORAGE ONLY CT ABDOMEN AND PELVIS Routine 11/30/2016 12:00 AM EDT documented in this encounter Results * Film Library- Storage Only CT Abdomen & Pelvis (11/30/2016 12:00 AM EDT) Narrative CAPRICE - 05/27/2019 2:33 PM EDT This exam is auto-finalizing. It's purpose is for storage only. Bel Abbott APRN IMG FILM LIBRARY O RDERABLES [facility] [place] documented in this encounter Visit Diagnoses Not on filedocumented in this encounter Care Teams Patient Safety Tech Relationship Specialty Start Date End Date Jacky Perez APRN [address] [place] [address] [place] [phone] PCP - General 05/20/14 11/17/18 documented as of this encounter
--- OUTSIDE RECORDS SUMMARY | 2024-05-05 15:18 | XMS_ITS | Encounter Summary ---
[place] [address] Care Team Providers Care Automation Control Technician Name Role Phone Petra Riley APRN Primary Care Provider [phone] Reason for Visit * Reason Comments Asthma * Consultation (Routine) - Specialty Diagnoses / Procedures Referred By Contluzma t Referred To Contact Pulmonology Diagnoses ASTHMA, MODERATE PERSISTENT Petra Riley APRN [address] [place] [address] [facility] [address] [place] [address] Referral ID Status Reason Start Date Expiration Date V isits Requested Visits Authorized [id number] Consult, Test & Treat Connection [facility] 11/24/2018 11/24/2019 6 6 Encounter Details Date Type Department Care Team (Late st Contact Info) Description 12/11/2018 10:00 AM EDT Office [place] [address] Kelvin Munoz MD [facility] [place] [id number] Mild intermittent asthma without complication Social History Tobacco Use Types Packs/Day Years Used Date Smoking Tobacco: Every Day Cigarettes 0.5 13 Smokeless Tobacco: Never Sex and Gender Information Value Date Recorded Sex Assigned at Not on file Gender Identity Not on file Sexual Orientation Not on file documented as of this encounter Last Filed Vital Signs Vital Sign Reading Time Taken Comments Blood Pressure - - Pulse - - Temperature - - Respiratory Rate - - Oxygen Saturation - - Inhaled Oxygen Concentration - - Weight 84.8 kg (187 lb) 12/11/2018 10:39 AM EDT Height 173 cm (5' 8.11) 12/11/2018 10:39 AM EDT Body Mass Index 28.34 12/11/2018 10:39 AM EDT documented in this encounter Progress Notes * Kelvin Munoz MD - 12/11/2018 10:00 AM EDT [facility] Section of Pulmonary Medicine Outpatient Consultation Date of Encounter: 12/14/2018 Referring Provider: Petra Riley Aprn [address] [place] [address] PCP: Petra Riley APRN Reason for Consult: I was asked to evaluate this patient for poorly controlled asthma. I have personally interviewed and examined the patient. I have independently viewed her radiographic studies, pulmonary function testing and laboratory data. Background/HPI / Current Symptoms: Patient is a 33 yo woman with history of asthma, history of IVDA and hep C and cirrhosis who is referred for evaluation of poorly controlled asthma. Patient is actively smoking. She smokes 2 PPD since age 10. According to the patient she has had dyspnea, and wheezing. He last hospitalization for asthma was two years ago. Her medications is albuterol and Flovent. On her last CBC, her eosinophil count was 0.0. Her spirometry today shows a mild restriction and FeNO of < 5 ppb. Review of Systems: A total of 10 systems were reviewed and were negative other than as listed below: Past Medical History: Hepatitis C Active smoking Past Surgical History: No past surgical history on file. Medications: Current Outpatient Medications Medication Sig Dispense Refill ??? PROAIR HFA 90 mcg/actuation HFA Aerosol Inhaler as needed. ??? buPROPion (WELLBUTRIN XL) 150 mg Tablet Extended Release 24 hr 150 mg 2 times daily. 0 ??? citalopram (CELEXA) 40 mg Tablet 40 mg daily. 0 ??? cloNIDine (CATAPRES) 0.1 mg Tablet 0.1 mg daily. 0 ??? cyclobenzaprine (FLEXERIL) 10 mg Tablet Take 10 mg by mouth Twice daily as needed. ??? FLOVENT HFA 110 mcg/actuation HFA Aerosol Inhaler 110 mcg 4 times daily. ??? hydrOXYzine (ATARAX) 25 mg Tablet 25 mg as needed. ??? nicotine (NICODERM CQ) 14 mg/24 hr Patch 24 hr APPLY TO HAIRLESS SKIN DAILY. ROTATE SKIN SITES 0 ??? omeprazole (PRILOSEC) 40 mg Capsule, Delayed Release(E.C.) 40 mg daily. 0 ??? ondansetron (ZOFRAN-ODT) 4 mg Tablet, Rapid Dissolve Take 4 mg by mouth Every 8 hours as needed. ??? pantoprazole (PROTONIX) 20 mg Tablet, Delayed Release (E.C.) Take 40 mg by mouth Daily. ??? LYRICA 150 mg Capsule 150 mg 3 times daily. 0 ??? ranitidine (ZANTAC) 150 mg Tablet 150 mg 2 times daily. ??? traZODone (DESYREL) 50 mg Tablet 50 mg nightly. No current facility-administered medications for this visit. Allergies: Lidocaine; Penicillins; and Procaine Immunizations: Immunization History Administered Date(s) Administered ??? Hepatitis B Vaccine, unspecified formulation 07/16/2007 ??? Influenza Vaccine, Whole 04/28/2009 ??? MMR Vaccine, Live 04/28/2009 ??? Tdap Vaccine 04/28/2009 Social History: Social History Tobacco Use ??? Smoking status: Current Every Day Smoker Packs/day: 0.50 Years: 13.00 Pack years: 6.50 Types: Cigarettes ??? Smokeless tobacco: Never Used Substance Use Topics ??? Alcohol use: Not on file ??? Drug use: Not on file Family History: Family History Problem Relation Age of Onset ??? Hypertension Mother ??? Hypothyroidism Mother ??? Brain Tumor Father ??? Diabetes Father ??? Colorectal Cancer Father Examination: Ht 173 cm (5' 8.11) Wt 84.8 kg (187 lb) BMI 28.34 kg/m?? General: WD/WN in no distress HEENT: PERRLA; EOMI; No cervical lymphadenopathy, Oropharynx clear Resp: Mild exp wheeze No crackles CV: RRR; S1 + S2; no murmurs GI: Normal BS; Abdomen soft and non-tender, no organomegaly Skin: No rash Extremities: No clubbing, no cyanosis, no edema MSK: Calves soft and non tender Neurologic: CN's intact, no focat deficits, normal gait Psych: Normal mood and affect Labs: Lab Results Component Value Date WBC 6.2 12/11/2018 HGB 13.4 12/11/2018 HCT 39.8 12/11/2018 PLATELET 152 12/11/2018 Assessment: This is a 33 yo woman, active smoker with a mild intermittent asthma. Her FeNO is < 5 ppb. On her last CBC she had no eosinophilia. Plan: Will check a repeat CBC with diff, serum IgE levels Stop Flovent, start advair Follow up: 3 months Thank you for the referral Patient was seen for a total of 45 minutes, with 35 minutes of that time spent in discussion with the patient regarding his current clinical condition, test results, and further management. Kelvin Munoz MD Pulmonary and Critical Care Medicine Pager #[phone] documented in this encounter Plan of Treatment Not on file documented as of this encounter Procedures Procedure Name Priority Date/Time Associated Diagnosis Comments IMMUNOGLOBULIN E (IGE) Routine 9 11:45 AM EDT Mild intermittent asthma without complication HEMOGRAM Routine 12/11/2018 11:45 AM EDT Mild intermittent asthma without complication DIFFERENTIAL, AUTOMATED Routine 12/11/2018 11:45 AM EDT Mild intermittent asthma without complication CBC (WITH DIFF) Routine 12/11/2018 11:45 AM EDT Mild intermittent asthma without complication documented in this encounter Results * Differential, Automated (12/11/2018 11:45 AM EDT) Neutrophil % 38.1 % [facility] Neutrophil Absolute 2.37 1.70 - 6.10 x10(3)/[facility] Lymph % 51.0 % [facility] Lymphocytes Abs 3.2 0.9 - 3.2 x10(3)/[facility] Monocyte % 9.8 % [facility] Monocyte Abs 0.6 0.3 - 0.9 x10(3)/[facility] Eos % 0.6 % [facility] Eosinophils Abs 0.0 0.0 - 0.4 x10(3)/[facility] Basophil % 0.3 % [facility] Baso Absolute 0.0 0.0 - 0.1 x10(3)/[facility] Immature Gran % 0.20 % [facility] Comment: Immature granulocytes(IG's)percentage and absolute count will include metamyelocytes, myelocytes, and promyelocytes. Blood smears from CBCs yielding IG's will be scanned manually for concordance. If this scan disagrees with the automated IG or if promyelocytes are noted, a manual differential will be performed. Immature Gran Absolute 0.01 0.00 - 0.04 x10(3)/[facility] Blood specimen (specimen) 12/11/2018 11:45 AM EDT 12/11/2018 11:52 AM EDT Narrative Resulting Agency Comment Spec In Lab Kelvin Munoz MD HEMATOLOGY ORDERABL ES [facility] [place] [address] * Hemogram (12/11/2018 11:45 AM EDT) Pathologist [facility] White Blood Cell 6.2 4.0 - 9.5 x10(3)/[facility] Red Blood Cell 4.51 4.00 - 5.21 x10(6)/[facility] Hemoglobin 13.4 11.7 - 15.5 gm/dL [facility] Hematocrit 39.8 35.7 - 45.8 % [facility] Mean Cell Volume 88.2 82.6 - 94.4 fL [facility] Mean Cell Hemoglobin 29.7 27.1 - 32.0 pg [facility] Mean Cell Hemoglobin Concentration 33.7 31.7 - 35.0 gm/dL [facility] Platelet 152 145 - 357 x10(3)/[facility] RDW Standard Deviation 42.1 37.0 - 46.0 fL [facility] RDW coefficient of variation 12.9 11.5 - 14.1 % [facility] Mean Platelet Volume 11.9 7.6 - 12.9 fL [facility] NRBC% auto 0.0 % [facility] NRBC Absolute 0.000 0.000 - 0.000 x10(3)/[facility] Blood specimen (specimen) 12/11/2018 11:45 AM EDT 12/11/2018 11:52 AM EDT Narrative Resulting Agency Comment Spec In Lab Kelvin Munoz MD HEMATOLOGY ORDERABL ES [facility] [place] [address] * Immunoglobulin E (IgE) (12/11/2018 11:45 AM EDT) IgE, Total 28 <=101 kU/L [facility] Comment: Pediatric age-specific reference ranges are reflected in result ranges. Adult reference ranges: <25 kU/L ??Normal 25-100 kU/L Equivocal >100 kU/L ??Elevated Blood specimen (specimen) 12/11/2018 11:45 AM EDT 12/11/2018 2:04 PM EDT Narrative Resulting Agency Comment Spec In Lab Kelvin Munoz MD IMMUNOLOGY ORDERABL ES [facility] [place] [address] documented in this encounter Visit Diagnoses Diagnosis Mild intermittent asthma without complication Unspecified asthma documented in this encounter Care Teams Automation Control Technician Relationship Specialty Start Date End Date Petra Riley, HOSPICE BEREAVEMENT COORDINATOR [address] [facility] [place] [address] PCP - General Family Medicine 11/18/18 04/14/19 documented as of this encounter
--- OUTSIDE RECORDS SUMMARY | 2024-05-05 15:18 | XMS_ITS | Encounter Summary ---
[place] [address] Care Team Providers Care [employer] Administrator Name Role Phone Petra Riley APRN Primary Care Provider [phone] Reason for Referral * Diagnostic Test (Routine) - Closed Specialty Diagnoses / Procedures Referred By Contac t Referred To Contact Cardiology Diagnoses Syncope, unspecified syncope type History of palpitations Leg edema Procedures Echocardiogram Transthoracic(Leb) Bulmaro Kaplan MD [facility] [place] [address] [facility] [place] [address] Referral ID Status Reason Start Date Expiration Date V isits Requested Visits Authorized [id number] Closed Specialty Service Requested 01/05/2019 04/05/2019 1 1 Reason for Visit * Diagnostic Test (Routine) - Closed Specialty Diagnoses / Procedures Referred By Contac t Referred To Contact Cardiology Diagnoses Syncope, unspecified syncope type History of palpitations Leg edema Procedures Echocardiogram Transthoracic(Leb) Bulmaro Kaplan MD [facility] [place] [address] [facility] [place] [address] Referral ID Status Reason Start Date Expiration Date V isits Requested Visits Authorized [id number] Closed Specialty Service Requested 01/05/2019 04/05/2019 1 1 Encounter Details Date Type Department Care Team (Latest Contact Info) Description 01/16/2019 10:20 AM EDT - 01/16/2019 11:59 PM EDT Hospital Encounter Non-Invasive Cardiology Lab Count Includes [facility] [address] Nicho Carlton MD [facility] [place] [address] Syncope, unspecified syncope type; History of palpitations; Leg edema Discharge Disposition: Home Social History Tobacco Use Types Packs/Day Years Used Date Smoking Tobacco: Every Day Cigarettes 1 13 Smokeless Tobacco: Never Sex and Gender Information Value Date Recorded Sex Assigned at Not on file Gender Identity Not on file Sexual Orientation Not on file documented as of this encounter Medications at Time of Discharge Medication Sig Dispensed Refills Start Date End Date Psyllium Husk 0.52 gram Capsule Take by mouth. 08/11/2018 MAVYRET 100-40 mg Tablet 01/09/2019 ondansetron (ZOFRAN) [...] 50 mg Tablet 50 mg nightly. 11/21/2018 tiotropium (SPIRIVA WITH HANDIHALER) 18 mcg Capsule, w/Inhalation Device Inhale 1 capsule into the lungs daily for 30 days. 30 capsule 5 01/12/2019 02/11/2019 buPROPion (WELLBUTRIN XL) 150 mg Tablet Extended Release 24 hr 150 mg 2 times daily. 0 11/30/2018 06/11/2019 documented as of this encounter Plan of Treatment Not on file documented as of this encounter Procedures Procedure Name Priority Date/Time Associated Diagnosis Comments ECHO COMPLETE Routine 01/16/2019 1:08 PM EDT Syncope, unspecified syncope type History of palpitations Leg edema documented in this encounter Results * ECHO COMPLETE (01/16/2019 1:08 PM EDT) [facility] EF 64 HEARTLAB SYSTEM Anatomical Region Laterality Modality Other 01/16/2019 Narrative 01/16/2019 1:13 PM EDT Procedure: ?Transthoracic Echocardiogram Patient: ?SOLITARIO Paula ?? (Age): 1985(33y) Med Rec#: ? [id number] ?Sex: ?F ? Site Loc: ? [facility] ?Ht / Wt: ??175(cm)/83(kg) Pt. Loc: ?Echo Lab ?BSA: ?1.99 Study Date: ?? 01/16/2019 ?Pt. Type: Outpatient Tape: ? Referring: Nicho Carlton ([id number]) Referring: ILDEFONSO Reading: Anthony Kumar ([id number]) Promotions Assistant: Dejan Puentes Diagnosis: *Syncope and collapse (R55) *Personal history of other specified conditions (Z87.898) *Localized edema (R60.0) Rhythm: ? Sinus BP: ? 110/60 SUMMARY: 1. There is normal global left ventricular systolic function. ??The quantitative left ventricular ejection fraction by biplane Cunningham's method is 64%. ??There are no left ventricular segmental wall motion abnormalities. 2. The right ventricle is normal in size. Right ventricular global systolic function is normal. 3. The cardiac valves appear structurally and functionally normal. 4. See remainder of report for additional findings. Findings ? : Study Quality: ? Adequate Left Ventricle: ? The left ventricular chamber size is normal. ?Left ventricular wall thickness is normal. ?There is normal global left ventricular systolic function. ?The quantitative left ventricular ejection fraction by biplane Cunningham's method is 64%. ?There are no left ventricular segmental wall motion abnormalities. ?Left ventricular diastolic function is normal. Left Atrium: ? The left atrium is normal in size. ?No atrial septal defect is visualized. Right Ventricle: ? The right ventricle is normal in size. ?Right ventricular global systolic function is normal. ?The estimated pulmonary artery systolic pressure is 20 mmHg. ?The estimated right atrial pressure is 3 mmHg. Right Atrium: ? The right atrium is normal in size. Aortic Valve: ? The aortic valve is tricuspid. ?Systolic excursion of the aortic valve is normal. ?There is no evidence of aortic valve stenosis. ?There is no evidence of aortic regurgitation. Mitral Valve: ? There is borderline mitral valve prolapse. ?There is no evidence of mitral stenosis. ?There is trace mitral regurgitation present. Tricuspid Valve: ? The tricuspid valve leaflets are morphologically normal. ?There is trace tricuspid regurgitation present. Pulmonic Valve: ? The pulmonic valve appears normal. ?There is trace pulmonic regurgitation present. Pericardium: ? The pericardium appears normal and there is no evidence of a pericardial effusion. Aorta: ? The aortic root is normal in size. ?The ascending aorta is normal in size. ?The aortic arch is normal in size. ?The left main coronary artery is visualized and originates normally from the aorta. ?The right coronary artery is visualized and originates normally from the aorta. Pulmonary Artery: ? The main pulmonary artery appears normal. Venous: ? The inferior vena cava appears normal in size. ?There is a greater than 50% respiratory change in the inferior vena cava dimension. Misc: ? See remainder of report for additional findings. ?Two-dimensional echo, spectral Doppler and color Doppler performed. Chambers 2D ?Value ?Units (Range) ? RVIDd ??Base ? 3.6 ?cm ? IVSd (2D) ? 0.8 ?cm ? LVPWd (2D) ?0.8 ?cm ? IVS:LVPW ratio (2D) 1 ?ratio ? RWT (2D) ?0.3 ?ratio ? RWT PW (2D) ? 0.3 ?ratio ? LVIDd (2D) ?4.9 ?cm ? LVIDs (2D) ?3 ?cm ? LVIDd (2D) index ?2.4 ?cm/m2 ? LVIDs (2D) index ?1.5 ?cm/m2 ? LV FS (2D) ?38 ? % ? EF Teichholz (2D) ?? 68 ? % ? Ao root diameter (2D3.5 ?cm (2.1 - 3.6) ? Ascending Ao ?3.4 ?cm (2 - 3.5) ? Aortic arch ? 2.7 ?cm ? Volumes/Mass ?Value ?Units (Range) ? LA Area 4 CH ?16 ? cm2 (<21) ? RA AREA 4CH ? 17 ? cm2 ? LA ESV BP (MOD) inde24.4 ? ml/m2 ? LV ESV SP 4CH (MOD) 33 ? ml ? LV ESV SP 2CH (MOD) 30.9 ? ml ? LV EDV BP ? 91 ? ml ? LV ESV BP ? 33.2 ? ml ? LV EDV BP index ? 45.7 ? ml/m2 ? LV ESV BP index ? 16.7 ? ml/m2 ? BP EF (MOD) ? 64 ? % ? LV mass (2D) ?119.8 ?g ? LV mass (2D) index ??60.2 ? g/m2 ? Diastolic/Systolic Function ?Value ?Units (Range) ? MV E-wave Vmax ?0.9 ?m/sec ? MV deceleration [id number] ?msec ? MV A-wave Vmax ?0.5 ?m/sec ? MV E:A ratio ?1.8 ?ratio ? P. vein S-wave Vmax 0.6 ?m/sec ? P. vein D-wave Vmax 0.5 ?m/sec ? P. vein S:D Vmax rat1 ?ratio ? LV septal e' Vmax ?? 0.1 ?m/sec ? LV lateral e' Vmax ??0.2 ?m/sec ? LV average e' Vmax ??0.1 ?m/sec ? LV E:e' septal ratio8.5 ?ratio ? LV E:e' lateral rati6.2 ?ratio ? LV average E:e' rati7.2 ?ratio ? Tricuspid Valve ?Value ?Units (Range) ? TAPSE ? 2.4 ?cm ? RV lateral s' Vmax ??0.1 ?m/sec ? TR Vmax ? 2.1 ?m/sec ? TR peak gradient ?17 ? mmHg ? RAP ? 3 ?mmHg ? RVSP ?20 ? mmHg ? Pulmonic Valve/Qp:Qs ?Value ?Units (Range) ? CO end-diastolic Vma1 ?m/sec ? PA end-diastolic pre7.2 ?mmHg ? Wall Motion: Segment Name ?Rest ? Base-Anteroseptal ?? Normal ? Base-Anterior ? Normal ? Base-Anterolateral ??Normal ? Base-Posterolateral Normal ? Base-Inferior ? Normal ? Base-Inferoseptal ?? Normal ? Mid-Anteroseptal ?Normal ? Mid-Anterior ?Normal ? Mid-Anterolateral ?? Normal ? Mid-Posterolateral ??Normal ? Mid-Inferior ?Normal ? Mid-Inferoseptal ?Normal ? [place]-Septal ? Normal ? [place]-Anterior ? Normal ? [place]-Lateral ?Normal ? [place]-Inferior ? Normal ? [place]-Tip ?Normal ? This report has been electronically signed by: Anthony Kumar M.D. ? 01/16/2019 13:13:04 Images reviewed and interpretation verified [facility] Cardiac Ultrasound Laboratory Procedure Note Anthony Kumar MD - 01/16/2019 Procedure: Transthoracic Echocardiogram Patient: SOLITARIO Paula (Age): 1985(33y) Med Rec#: [id number] Sex: F Site Loc: [facility] Ht / Wt: 175(cm)/83(kg) Pt. Loc: Echo Lab BSA: 1.99 Study Date: 01/16/2019 Pt. Type: Outpatient Tape: Referring: Nicho Carlton ([id number]) Referring: ILDEFONSO Reading: Anthony Kumar ([id number]) Promotions Assistant: Dejan Puentes Diagnosis: *Syncope and collapse (R55) *Personal history of other specified conditions (Z87.898) *Localized edema (R60.0) Rhythm: Sinus BP: 110/60 SUMMARY: 1. There is normal global left ventricular systolic function. The quantitative left ventricular ejection fraction by biplane Cunningham's method is 64%. There are no left ventricular segmental wall motion abnormalities. 2. The right ventricle is normal in size. Right ventricular global systolic function is normal. 3. The cardiac valves appear structurally and functionally normal. 4. See remainder of report for additional findings. Findings : Study Quality: Adequate Left Ventricle: The left ventricular chamber size is normal. Left ventricular wall thickness is normal. There is normal global left ventricular systolic function. The quantitative left ventricular ejection fraction by biplane Cunninhgam's method is 64%. There are no left ventricular segmental wall motion abnormalities. Left ventricular diastolic function is normal. Left Atrium: The left atrium is normal in size. No atrial septal defect is visualized. Right Ventricle: The right ventricle is normal in size. Right ventricular global systolic function is normal. The estimated pulmonary artery systolic pressure is 20 mmHg. The estimated right atrial pressure is 3 mmHg. Right Atrium: The right atrium is normal in size. Aortic Valve: The aortic valve is tricuspid. Systolic excursion of the aortic valve is normal. There is no evidence of aortic valve stenosis. There is no evidence of aortic regurgitation. Mitral Valve: There is borderline mitral valve prolapse. There is no evidence of mitral stenosis. There is trace mitral regurgitation present. Tricuspid Valve: The tricuspid valve leaflets are morphologically normal. There is trace tricuspid regurgitation present. Pulmonic Valve: The pulmonic valve appears normal. There is trace pulmonic regurgitation present. Pericardium: The pericardium appears normal and there is no evidence of a pericardial effusion. Aorta: The aortic root is normal in size. The ascending aorta is normal in size. The aortic arch is normal in size. The left main coronary artery is visualized and originates normally from the aorta. The right coronary artery is visualized and originates normally from the aorta. Pulmonary Artery: The main pulmonary artery appears normal. Venous: The inferior vena cava appears normal in size. There is a greater than 50% respiratory change in the inferior vena cava dimension. Misc: See remainder of report for additional findings. Two-dimensional echo, spectral Doppler and color Doppler performed. Chambers 2D Value Units (Range) RVIDd Base 3.6 cm IVSd (2D) 0.8 cm LVPWd (2D) 0.8 cm IVS:LVPW ratio (2D) 1 ratio RWT (2D) 0.3 ratio RWT PW (2D) 0.3 ratio LVIDd (2D) 4.9 cm LVIDs (2D) 3 cm LVIDd (2D) index 2.4 cm/m2 LVIDs (2D) index 1.5 cm/m2 LV FS (2D) 38 % EF Teichholz (2D) 68 % Ao root diameter (2D3.5 cm (2.1 - 3.6) Ascending Ao 3.4 cm (2 - 3.5) Aortic arch 2.7 cm Volumes/Mass Value Units (Range) LA Area 4 CH 16 cm2 (<21) RA AREA 4CH 17 cm2 LA ESV BP (MOD) inde24.4 ml/m2 LV ESV SP 4CH (MOD) 33 ml LV ESV SP 2CH (MOD) 30.9 ml LV EDV BP 91 ml LV ESV BP 33.2 ml LV EDV BP index 45.7 ml/m2 LV ESV BP index 16.7 ml/m2 BP EF (MOD) 64 % LV mass (2D) 119.8 g LV mass (2D) index 60.2 g/m2 Diastolic/Systolic Function Value Units (Range) MV E-wave Vmax 0.9 m/sec MV deceleration [id number] msec MV A-wave Vmax 0.5 m/sec MV E:A ratio 1.8 ratio P. vein S-wave Vmax 0.6 m/sec P. vein D-wave Vmax 0.5 m/sec P. vein S:D Vmax rat1 ratio LV septal e' Vmax 0.1 m/sec LV lateral e' Vmax 0.2 m/sec LV average e' Vmax 0.1 m/sec LV E:e' septal ratio8.5 ratio LV E:e' lateral rati6.2 ratio LV average E:e' rati7.2 ratio Tricuspid Valve Value Units (Range) TAPSE 2.4 cm RV lateral s' Vmax 0.1 m/sec TR Vmax 2.1 m/sec TR peak gradient 17 mmHg RAP 3 mmHg RVSP 20 mmHg Pulmonic Valve/Qp:Qs Value Units (Range) CO end-diastolic Vma1 m/sec PA end-diastolic pre7.2 mmHg Wall Motion: Segment Name Rest Base-Anteroseptal Normal Base-Anterior Normal Base-Anterolateral Normal Base-Posterolateral Normal Base-Inferior Normal Base-Inferoseptal Normal Mid-Anteroseptal Normal Mid-Anterior Normal Mid-Anterolateral Normal Mid-Posterolateral Normal Mid-Inferior Normal Mid-Inferoseptal Normal [place]-Septal Normal [place]-Anterior Normal [place]-Lateral Normal [place]-Inferior Normal [place]-Tip Normal This report has been electronically signed by: Anthony Kumar M.D. 01/16/2019 13:13:04 Images reviewed and interpretation verified [facility] Cardiac Ultrasound Laboratory Nicho Carlton MD ECHO ORDERABLES documented in this encounter Visit Diagnoses Diagnosis Syncope, unspecified syncope type History of palpitations Leg edema Edema documented in this encounter Care Teams [employer] Administrator Relationship Specialty Start Date End Date Petra Riley, ANDRE[address] [place] [address] PCP - General Family Medicine 11/18/18 04/14/19 documented as of this encounter
--- OUTSIDE RECORDS SUMMARY | 2024-05-05 15:18 | XMS_ITS | Encounter Summary ---
[place] [address] Care Team Providers Care Instrument Maintenance Supervisor Name Role Phone Zeyad Hall DO Primary Care Provider [phone] Encounter Details Date Type Department Care Team (Latest Contact Info) Description 06/11/2019 12:07 PM EST - 06/11/2019 2:53 PM EST Hospital En[place] [id number] Lucy Goodman MD [facility] [place] [address] Discharge Disposition: Home Social History Tobacco Use [...] Sign Reading Time Taken Comments Blood Pressure 114/69 06/11/2019 2:40 PM EST Pulse 71 06/11/2019 1:02 PM EST Temperature 36.6 ??C (97.9 ??F) 06/11/2019 1:02 PM ES T Respiratory Rate 16 06/11/2019 2:40 PM EST Oxygen Saturation 97% 06/11/2019 2:40 PM EST Inhaled Oxygen Concentration - - Weight - - Height - - Body Mass Index - - documented in this encounter Discharge Instructions * Discharge Instructions* Sis Ya RN - 06/11/2019 2:26 PM EST UPPER GI ENDOSCOPY WHAT TO EXPECT AFTER THE PROCEDURE After the test you may feel a little more gassy or bloated than usual, this is normal. ACTIVITY Because of the sedation that you received Your judgement and reaction time are affected ?? Go home and rest quietly for the remainder of the day. You may resume your normal activities tomorrow. ?? Change from one position to the next slowly. You may lose your balance unexpectedly Be careful on stairs, as you may be unsteady on your feet. FOR THE NEXT 24 HRS ?? DO NOT DRIVE OR OPERATE ANY MACHINERY ?? DO NOT DRINK ALCOHOLIC BEVERAGES ?? DO NOT SIGN LEGAL DOCUMENTS ?? If you are a smoker: DO NOT SMOKE WHILE YOU ARE ALONE Diet ?? Start by eating small portions of foods that ordinarily will not upset your stomach. Be gentle with what you choose to start with. ?? Drink plenty of fluids ( unless otherwise told not to) Medications You may have a mild sore throat. Ice chips, popsicles, over the counter throat lozenges or spray may help numb your throat. This procedure should not cause a fever. IV SITE-- slight redness or tenderness is normal, you can use warm compresses if you get concerned.If the tenderness +/or redness increases or foul drainage and a red streak occurs, please contact your PCP immediately. WHEN SHOULD YOU CALL FOR HELP? Call 911 anytime you think that you need emergency care. For example, call if: You passed out (lost consciousness). You cough up blood. You vomit blood or what looks like coffee grounds. You pass maroon or very bloody stools. Call your healthcare provider or seek immediate medical attention if: You have trouble swallowing. You have belly pain. Your stools are black or tarlike or have streaks of blood. You are sick to your stomach or cannot keep fluids down. Watch closely for changes in your health, and be sure to contact your doctor IF Your throat still hurts after a day or two You do not get better as expected. Saturday-Saturday Same Day Endo [phone] 7a-8p Otherwise contact [phone] and ask to speak to the oil and gas recruiter stone gang sawyer Follow-up care is a gomez part of your treatment and safety. Be sure to make and go to all appointments, and call your doctor if you are having problems. Instructions have been reviewed and patient expresses understanding documented in this encounter Medications at Time of Discharge [...] 50 mg Tablet 50 mg nightly. 11/21/2018 documented as of this encounter H&P Notes * Lucy Goodman MD - 06/11/2019 1:01 PM EST Gastroenterology and Hepatology Pre-Procedure History and Physical Exam Procedure: EGD: Indication: gerd Patient Active Problem List Diagnosis Code ??? History of palpitations Z87.898 ??? Leg edema R60.0 ??? Syncope R55 ??? Plantar fasciitis, bilateral M72.2 EXAM: HEENT: Airway examined, oropharynx clear Mallampati Score: II (soft palate, uvula, fauces visible) LUNGS: Clear to auscultation HEART: Regular rate and rhythm, normal S1, S2 ABDOMEN: Normal bowel sounds, soft, non tender, non distended, A/P Proceed with the planned endoscopic procedure. ASA 2 - Patient with mild systemic disease with no functional limitations Sedation Plan: anesthesia Risks and benefits of the procedure explained to the patient. Consent signed. documented in this encounter Plan of Treatment Not on file documented as of this encounter Procedures Procedure Name Priority Date/Time Associated Diagnosis Comments Upper GI Endoscopy, Diagnostic ([id number]) 06/11/2019 2:06 PM EST Gastroesophageal reflux disease, esophagitis presence not specified UPPER GI ENDOSCOPY Routine 06/11/2019 1: 27 PM EST documented in this encounter Results * UPPER GI ENDOSCOPY (06/11/2019 1:27 PM EST) UPPER GI ENDOSCOPY [facility] Endoscopy Procedure Date: 06/11/2019 1:27 PM ? Patient Name: Ludy Allen ? Date of : 1985 ? Age: 33 ? Order #: [id number] ? Instrument Name: [id number] ? Procedure: ? Upper GI endoscopy Indications: ? Heartburn, Nausea with vomiting Providers: ? Lucy Goodman MD, Conrad Ott ? [place] Referring : ?Zeyad Hall, DO Medicines: ? Propofol per Anesthesia Complications: ? No immediate complications. Procedure: ? Pre-Anesthesia Assessment: ? - Prior to the procedure, a History ? and Physical was performed, and ? patient medications, allergies and ? sensitivities were reviewed. The ? patient's tolerance of previous ? anesthesia was reviewed. ? - The risks and benefits of the ? procedure and the sedation options ? and risks were discussed with the ? patient. All questions were answered ? and informed consent was obtained. ? The procedure, indications, benefits, ? risks and alternatives were explained ? to the patient. Specifically ? discussed were potential ? complications including, but not ? limited to, bleeding, perforation, ? infection, missing a cancer, and ? adverse medication reactions. The ? Endoscope was introduced through the ? mouth, and advanced to the third part ? of duodenum. The patient tolerated ? the procedure well. The upper GI ? endoscopy was accomplished without ? difficulty. The patient tolerated the ? procedure well. ? Findings: ? The Z-line was irregular and was found 37 cm from the ? incisors. ? LA Grade A (one or more mucosal breaks less than 5 ? mm, not extending between tops of 2 mucosal folds) ? esophagitis was found- single small linear erosion. ? The entire examined stomach was normal. ? The examined duodenum was normal. ? Moderate Sedation: ? Not applicable - See Anesthesia documentation Impression: ?- Z-line irregular, 37 cm from the ? incisors. ? - LA Grade A reflux esophagitis. ? - Normal stomach. ? - Normal examined duodenum. ? - No specimens collected. Recommendation: ?Try stopping Meloxicam (NSAID) as ? this can contribute to GI symptoms. ? Need to clarify medications- as ? listed she is on omeprazole, ? pantoprozole and ranitidine. She ? should be on PPI double dose in the ? morning and H2 jac double dose in ? the evening or double dose PPI twice ? daily. ? Patient should bring in her ? medication to provider's office to ? better direct treatment. ? Attending Participation: ? I personally performed the entire procedure. ? I was present during the intraservice time as ? documented by the sedation RN. ? Lucy Goodman MD 06/11/2019 2:21:27 PM This report has been signed electronically. Number of Addenda: 0 Note Initiated On: 06/11/2019 1:27 PM PROVATION 06/11/2019 1:27 PM EST Zeyad Hall DO GENERAL SURGICAL ORD ERABLES PROVATION documented in this encounter Visit Diagnoses Not on filedocumented in this encounter Active and Recently Administered Medications Times are shown in EST. Continuous Medication Order 06/09/2019 06/10/2019 06/11/2019 lactated ringers infusion (CANCELED) 100 mL/hr, Intravenous, CONTINUOUS, Starting on Cristina 06/11/19 at 1315, Until Cristina 06/11/19 at 1445, Endoscopy (Day of Procedure) 1401 (New Bag - Prov ider: Sarita Lynn CRNA)1422 (Anesthesia Volume Adjustment - Provider: Sarita Lynn CRNA) documented in this encounter Care Teams Instrument Maintenance Supervisor Relationship Specialty Start Date End Date Zeyad Hall DO [address] [place] [address] PCP - General Family Medicine 04/15/19 documented as of this encounter
--- OUTSIDE RECORDS SUMMARY | 2024-05-05 15:18 | XMS_ITS | Encounter Summary ---
Author Organization [facility] [place] [address] Care Team Providers Care Philosophy Professor Name Role Phone Petra Riley APRN Primary Care Provider [phone] Encounter Details Date Type Department Care Team (Late st Contact Info) Description 11/25/2018 [place] [address] Shirley Gonzalez MD [facility] [place] [address] Asthma, unspecified asthma severity, unspecified whether complicated, unspecified whether persistent (Primary Dx) Social History Tobacco Use Types Packs/Day Years Used Date Smoking Tobacco: Every Day Cigarettes 0.3 13 Sex and Gender Information Value Date Recorded Sex Assigned at Not on file Gender Identity Not on file Sexual Orientation Not on file documented as of this encounter Plan of Treatment Not on file documented as of this encounter Results * Pulmonary Function Testing (12/11/2018 3:31 PM EDT) Narrative Jered Taylor MD - 12/11/2018 3:31 PM EDT Jered Taylor MD ? 12/11/2018 ??3:31 PM Spirometry: FVC is decreased FEV1 is decreased FEV1 / FVC ratio is normal Lung Volumes: Not performed. Diffusion: Not performed. Oxygen Saturation: Not performed. FeNO Testing: The FeNO in ppb for this patient at today's visit was ??<5 ppb Interpretation: This study is consistent with a restrictive pattern. Restrictive lung disease can not be confirmed without lung volumes. A FeNO <25 ppb suggests that eosinophilic airway inflammation, and by inference, clinical responsiveness to corticosteroids, is less likely. Jered Taylor MD, 12/11/2018, 3:31 PM Pulmonary & Critical Care Shirley Gonzalez MD PFT ORDERABLES documented in this encounter Visit Diagnoses Diagnosis Asthma, unspecified asthma severity, unspecified whether complicated, unspecified whether persistent- Primary Asthma, unspecified asthma severity, unspecified whether complicated, unspecified whether persistent documented in this encounter Care Teams Philosophy Professor Relationship Specialty Start Date End Date Petra Riley, ASSISTANT PROFESSOR OF ARCHAEOLOGY [address] [facility] [place] [address] PCP - General Family Medicine 11/18/18 04/14/19 documented as of this encounter
--- OUTSIDE RECORDS SUMMARY | 2024-05-05 15:18 | XMS_ITS | Encounter Summary ---
[place] [address] Care Team Providers Care Manager City Name Role Phone Zeyad Hall DO Primary Care Provider [phone] Reason for Visit * Reason Comments Medication Refill Encounter Details Date Type Department Care Team (Late st Contact Info) Description 11/13/2019 [place] [address] Nathalia Joshua MD [facility] [address] [place] [address] Social History Tobacco Use Types Packs/Day Years [...] on filedocumented in this encounter Care Teams Manager City Relationship Specialty Start Date End Date Zeyad Hall DO [address] [place] [id number] PCP - General Family Medicine 04/15/19 documented as of this encounter
--- OUTSIDE RECORDS SUMMARY | 2024-05-05 15:18 | XMS_ITS | Encounter Summary ---
[place] [address] Care Team Providers Care Him Coder Name Role Phone Jacky Perez APRN Primary Care Provider [phone] Reason for Visit * Reason Onset Date Comments Other 05/12/2015 Holter monitor r esults please Encounter Details Date Type Department Care Team (Late st Contact Info) Description 05/12/2015 Telephone Cardiology at [address] [phone] Wilmar Cerda MD [facility] [place] [address] Other (Holter monitor results please) Social History Tobacco Use Types Packs/Day Years Used Date Smoking Tobacco: Every Day Cigarettes 0.3 13 Sex and Gender Information Value Date Recorded Sex Assigned at Not on file Gender Identity Not on file Sexual Orientation Not on file documented as of this encounter Miscellaneous Notes * Telephone Encounter - Wilmar Cerda - 05/12/2015 1:39 PM EDT Called pt back to give results of echo and holter which were done almost a year prior. They were normal. She did not answer her phone on multiple attempts but the voicemail message indicated it was her phone so I left a message reporting the normal results. Should she continue to have symptoms, sheshould follow with her PCP. Prior attempts to reach her were unsuccessful because the phone number listed in her chart is incorrect. The one she provided today ([phone]) is correct and should be changed in eDH. * Telephone Encounter - Ivonne Bean - 05/12/2015 11:44 AM EDT Patient called and would like to get the results of her Holter monitor done June 2014. She saidshe is still having problems. Thank you. Her phone # [phone]. documented in this encounter Plan of Treatment Not on file documented as of this encounter Visit Diagnoses Not on filedocumented in this encounter Care Teams Him Coder Relationship Specialty Start Date End Date Jacky Perez APRN [address] [place] [address] [place] [id number] PCP - General 05/20/14 11/17/18 documented as of this encounter
--- OUTSIDE RECORDS SUMMARY | 2024-05-05 15:18 | XMS_ITS | Encounter Summary ---
Author Organization [facility] [place] [address] Care Team Providers Care Lien Searcher Name Role Phone Zeyad Hall DO Primary Care Provider [phone] Encounter Details Date Type Department Care Team (Latest Contact Info) Description 08/12/2019 10:29 AM EST - 08/12/2019 11:59 PM [facility] Hospital En[place] [phone] Bel Artis, COMMUNITY [employer] [facility] [place] [address] Chronic hepatitis C without hepatic coma Discharge Disposition: Home Social History Tobacco Use [...] nightly. 11/21/2018 documented as of this encounter Plan of Treatment Not on file documented as of this encounter Procedures Procedure Name Priority Date/Time Associated Diagnosis Comments US ABDOMEN VASCULAR LIMITED - HEPATOLOGY PROTOCOL Routine 08/12/2019 11:06 AM EST Chronic hepatitis C without hepatic coma documented in this encounter Results * US Abdomen Vascular Limited Hepatology Protocol (08/12/2019 11:06 AM EST) Anatomical Region Laterality Modality Abdomen Ultrasound 08/12/2019 11:0 4 AM EST Impressions 08/12/2019 12:16 PM EST 1. ??Enlarged liver consistent with diffuse, mildly increased echogenicity consistent with chronic liver disease. 2. ??No ascites or focal hepatic lesion. 3. ??Normal patent hepatic vasculature. 4. ??Nonspecific mild splenomegaly. I have personally reviewed the image(s) and the resident's interpretation and agree with the findings, Augusto Loya at 08/12/2019 12:09 PM Thank you for letting us participate in the care of this patient. For questions regarding this report, please contact the number below. Electronically signed by: Augusto Loya, [facility] ([phone]), at 08/12/2019 12:09 PM ? Augusto Loya, Staff Physician Electronically Signed Final Report ?? 08/12/2019 12:16 pm Narrative 08/12/2019 12:16 PM EST Abdominal ? (Signed Final 08/12/2019 12:16 pm) PATIENT INFO: ID #: ? [id number] ?: ??[birth year] (33 yrs) Name: ? LUDY JEREZ ?Visit Date: 08/12/2019 11:04 am PERFORMED BY: Performed By: ? Rachelle Rosaroi RDMS Attending: ?Vincenzo YOO, Augusto Schofield Resident: ? Finesse YOO, Wilmar Joe Referred By: ?BEL Olu STEFF Location: ? [place] SERVICE(S) PROVIDED: ??[facility] - Hepatology Protocol- Abdominal ?[id number], [id number] ??Limited Survey with Vascular - Single Organ or ??Quadrant - [id number] INDICATIONS: ??Hepatitis c, evaluate for signs of cirrhosis ??including splenomegaly. Hx of edema, ??evaluate for portal vein thrombus ------ LIVER: ------ Right Lobe ? 20.8 ?? cm Length: Echogenicity/Echotexture: ?? Diffusely Echogenic Portal Veins: ?Hepatopetal Hepatic Veins: ?? Normal flow HEPATIC-PORTAL DUPLEX: ? PSV ? Waveform ? (cm/s) Main Portal ? 35.7 ?Patent Vein: Right Portal ?Patent Vein: Left Portal ? Patent Vein: TIPS SPECTRAL DOPPLER: ? PSV ?(cm/s) Main Portal ? 35.7 Vein: GALLBLADDER: Cholelithiasis: ?Surgically absent BILIARY TRACT: Intrahepatic Ducts: ?? Normal Extrahepatic Ducts: ?? Normal Common Duct Size: ? 8.0 ? mm ------- SPLEEN: ------- Size (cm) ?L: ??13.9 ?AP: ??4.1 ? TV: ??4.7 Vol (ml): ?140.2 Comment ? Splenomegaly- mild : Procedure Note Augusto Loya MD - 08/12/2019 Abdominal (Signed Final 08/12/2019 12:16 pm) PATIENT INFO: ID #: [id number] : [birth year] (33 yrs) Name: LUDY JEREZ Visit Date: 08/12/2019 11:04 am PERFORMED BY: Performed By: Rachelle Rosario RDMS Attending: Augusto Loya MD Resident: Wilmar Kilpatrick MD Referred By: BEL ARTIS Location: [place] [facility] Hep[facility] Protocol- Abdominal [id number], [id number] Limited Survey with Vascular - Single Organ or Quadrant - [id number] INDICATIONS: Hepatitis c, evaluate for signs of cirrhosis including splenomegaly. Hx of edema, evaluate for portal vein thrombus ------ LIVER: ------ Right Lobe 20.8 cm Length: Echogenicity/Echotexture: Diffusely Echogenic Portal Veins: Hepatopetal Hepatic Veins: Normal flow HEPATIC-PORTAL DUPLEX: PSV Waveform (cm/s) Main Portal 35.7 Patent Vein: Right Portal Patent Vein: Left Portal Patent Vein: TIPS SPECTRAL DOPPLER: PSV (cm/s) Main Portal 35.7 Vein: GALLBLADDER: Cholelithiasis: Surgically absent BILIARY TRACT: Intrahepatic Ducts: Normal Extrahepatic Ducts: Normal Common Duct Size: 8.0 mm ------- SPLEEN: ------- Size (cm) L: 13.9 AP: 4.1 TV: 4.7 Vol (ml): 140.2 Comment Splenomegaly- mild : IMPRESSION 1. Enlarged liver consistent with diffuse, mildly increased echogenicity consistent with chronic liver disease. 2. No ascites or focal hepatic lesion. 3. Normal patent hepatic vasculature. 4. Nonspecific mild splenomegaly. I have personally reviewed the image(s) and the resident's interpretation and agree with the findings, Augusto Loya at 08/12/2019 12:09 PM Thank you for letting us participate in the care of this patient. For questions regarding this report, please contact the number below. Electronically signed by: Augusto Loya [facility] ([phone]), at 08/12/2019 12:09 PM Augusto Loya, Staff Physician Electronically Signed Final Report 08/12/2019 12:16 pm Bel Artis APRN IMG US GEN ORDERAB LES documented in this encounter Visit Diagnoses Diagnosis Chronic hepatitis C without hepatic coma documented in this encounter Care Teams Lien Searcher Relationship Specialty Start Date End Date Zeyad Hall DO [address] [place] [address] PCP - General Family Medicine 04/15/19 documented as of this encounter
--- OUTSIDE RECORDS SUMMARY | 2024-05-05 15:18 | XMS_ITS | Encounter Summary ---
Author Organization [facility] [place] [address] Care Team Providers Care Bereavement Counselor Name Role Phone Petra Riley APRN Primary Care Provider [phone] Reason for Visit * Reason Comments Follow-up Encounter Details Date Type Department Care Team (Late st Contact Info) Description 01/12/2019 4:30 PM EDT Office Visit Pul[facility]ology at [facility] [place] [phone] Kelvin Munoz MD [facility] [address] Intermittent asthma without complication, unspecified asthma severity; Nicotine dependence in remission, unspecified nicotine product type Social History Tobacco Use Types Packs/Day Years Used Date Smoking Tobacco: Every Day Cigarettes 1 13 Smokeless Tobacco: Never Sex and Gender Information Value Date Recorded Sex Assigned at Not on file Gender Identity Not on file Sexual Orientation Not on file documented as of this encounter Last Filed Vital Signs Vital Sign Reading Time Taken Comments Blood Pressure 105/54 01/12/2019 4:29 PM EDT Pulse 76 01/12/2019 4:29 PM EDT Temperature - - Respiratory Rate 16 01/12/2019 4:29 PM EDT Oxygen Saturation 97% 01/12/2019 4:29 PM EDT Inhaled Oxygen Concentration - - Weight 83.5 kg (184 lb) 01/12/2019 4:29 PM EDT Height 175.3 cm (5' 9) 01/12/2019 4:29 PM EDT Body Mass Index 27.17 01/12/2019 4:29 PM EDT documented in this encounter Progress Notes * Kelvin Munoz MD - 01/12/2019 4:30 PM EDT [facility] Section of Pulmonary Medicine Outpatient Progress Note Date of Encounter: 01/12/2019 Referring Provider: Petra Riley Aprn [address] [place] [address] PCP: Petra Riley APRN I have personally interviewed and examined the patient. I have independently viewed her radiographic studies, pulmonary function testing and laboratory data. Background: Patient is a 33 yo woman with history of asthma, history of IVDA and hep C and cirrhosis who is referred for evaluation of poorly controlled asthma. Patient is actively smoking. She smokes 2 PPD since age 10. According to the patient she has had dyspnea, and wheezing. He last hospitalization for asthma was two years ago. On her last CBC, her eosinophil count was 0.0. Her spirometry today shows a mild restriction and FeNO of < 5 ppb. Her IgE was 28. Last visit she was started on advair. Current Symptoms: She state that her symptoms have not significantly improved. She is still smoking. Review of Systems: A total of 10 systems were reviewed and were negative other than as listed below: Medications: Current Outpatient Medications Medication Sig Dispense Refill ??? MAVYRET 100-40 mg Tablet ??? ondansetron [...] mg Tablet 25 mg as needed. ??? omeprazole (PRILOSEC) 40 mg Capsule, Delayed [...] (DESYREL) 50 mg Tablet 50 mg nightly. ??? tiotropium (SPIRIVA WITH HANDIHALER) 18 mcg Capsule, w/Inhalation Device Inhale 1 capsule into the lungs daily for 30 days. 30 capsule 5 ??? nicotine (NICODERM CQ) 14 mg/24 hr Patch 24 hr APPLY TO HAIRLESS SKIN DAILY. ROTATE SKIN SITES 0 No current facility-administered medications for this visit. Examination: BP 105/54 Pulse 76 Resp 16 Ht 175.3 cm (5' 9) Wt 83.5 kg (184 lb) SpO2 97% BMI 27.17 kg/m?? General: WD/WN in no distress HEENT: PERRLA; EOMI; No cervical lymphadenopathy, Oropharynx clear Resp: CTA B/L No crackles or wheeze CV: RRR; S1 + S2; no murmurs [...] HCT 39.8 12/11/2018 PLATELET 152 12/11/2018 Assessment: 33 yo woman, active smoker with poorly controlled asthma. Based on her IgE levels, FeNO and no evidence of eosinophilia, doubt she would respond to ICSs. She is actively smoking which I think it is contributing the most to her symptoms. Plan: Smoke cessation Start spiriva Continue with advair and albuterol for now. Follow up: 3 Months Kelvin Munoz MD Pulmonary and Critical Care Medicine Pager #[phone] documented in this encounter Plan of Treatment Not on file documented as of this encounter Visit Diagnoses Diagnosis Intermittent asthma without complication, unspecified asthma severity Nicotine dependence in remission, unspecified nicotine product type documented in this encounter Care Teams Bereavement Counselor Relationship Specialty Start Date End Date Petra Riley, OLIVE PICKER [address] [place] [address] PCP - General Family Medicine 11/18/18 04/14/19 documented as of this encounter
--- OUTSIDE RECORDS SUMMARY | 2024-05-05 15:18 | XMS_ITS | Encounter Summary ---
[place] [address] Care Team Providers Care Manager Engagement Name Role Phone Zeyad Hall DO Primary Care Provider [phone] Reason for Visit * Consultation (Routine) - Specialty Diagnoses / Procedures Referred By Francis restrepo Referred To Contact Gastroenterology Diagnoses HX OF HEP C Zeyad Hall DO [address] [place] [address] [facility] [address] [address] [place] [address] Referral ID Status Reason Start Date Expiration Date V isits Requested Visits Authorized [id number] Consult, Test & Treat Connection Center 04/15/2019 04/14/2020 1 1 Encounter Details Date Type Department Care Team ([facility] st Contact Info) Description 05/27/2019 9:00 AM EDT Office [place] [phone] Bel Artis APRN [facility] [place] [address] Chronic hepatitis C without hepatic coma; Gastroesophageal reflux disease, esophagitis presence not specified Social History Tobacco Use Types Packs/Day Years Used Date Smoking Tobacco: Every Day Cigarettes 1 13 Smokeless Tobacco: Never Sex and Gender Information Value Date Recorded Sex Assigned at Not on file Gender Identity Not on file Sexual Orientation Not on file documented as of this encounter Last Filed Vital Signs Vital Sign Reading Time Taken Comments Blood Pressure 106/66 05/27/2019 9:15 AM EDT Pulse 86 05/27/2019 9:15 AM EDT Temperature - - Respiratory Rate - - Oxygen Saturation - - Inhaled Oxygen Concentration - - Weight 86.8 kg (191 lb 6.4 oz) 05/27/2019 9:15 A M EDT Height 175.3 cm (5' 9) 05/27/2019 9:15 AM EDT Body Mass Index 28.26 05/27/2019 9:15 AM EDT documented in this encounter Patient Instructions * Patient Instructions* Bel Artis APRN - 05/27/2019 9:00 AM EDT Plan: - Blood work today - 3L - Schedule ultrasound of your liver and a follow up visit on the same day - Schedule upper endoscopy - Stop Pantoprazone 40mg. Take Omeprazole 40mg every day 30 minutes before you eat breakfast. documented in this encounter Progress Notes * Bel Artis APRN - 05/27/2019 9:00 AM EDT HEPATOLOGY NEW PATIENT CONSULTATION Ludy Allen 1985 ORAL SURGEON: BEL ARTIS APRN PCP: Zeyad Hall DO Requesting Provider: REASON FOR CONSULTATION Hepatitis C, heartburn, nausea HISTORY OF PRESENT ILLNESS Ludy Allen is a 33 y.o. year old female with hepatitis C which was first diagnosed when she was in rehab in December 2017. She also has problems with her esophagus and stomach She was prescribed 12 weeks of Mavyret through her PCP this summer and took the 12 week course but states it didn't work. I don't have the blood work confiming continued viremia. She started Mavyret in January or February, took it every day for 12 weeks and had blood work done half way through treatment, and then again at the end of treatment. She states that at the end of treatment Hepatitis C virus was still detected. She didn't miss any doses. Set an alarm on her phone. She saw Dr. Dumont in [facility], was told she had cirrhosis. She gets periods of edema, mostly with fluid retention in her legs. She was initially told this could be from her heart, but she had aechocardiogram in January which did not show any cardiac abnormalities. She believes she got Hepatitis C from her dad, who had Hepatitis C. She does have a history of IVDU. She was using from -12/2017, and then 14 years prior to that. She OD-ed in December 2017, which led to her going into recovery. She has had a relapse with injecting Gabapentin, but no other hard drugs, and has been completely sober for 2 months. She was told she had esophagus issues and stomach issues.She often vomits after eating, that has been the case for years. She is on nausea medication for years. She is also on a number of acid blocking medications. She still gets heartburn, nearly every day. She takes Pantoprazole and Omeprazole and Ranitidine. She has had a few EGDs, last one was 3 years ago. ROS: Constitutional: no fatigue, fever, chills, no change in weight >10lbs in last 6 months Eye: no visual changes ENT: no URI symptoms Cardio: no chest pain, palpitations Resp: no cough, no SOB GI: see HPI. No blood in stools or hematemesis : no dysuria Integumentary: no new rashes, no easy bruising Musculoskeletal: no new joint pains, swelling of ankles or legs Neuro: no new numbness, weakness in extremities PAST MEDICAL/SURGICAL HISTORY Hepatitis C - Genotype 3 - Treated with Mavyret x12 weeks 01/2019- 04/2019 Hx of opioid abuse - on methadone GERD MEDICATIONS Outpatient Medications Marked as Taking for the 05/27/19 encounter (Office Visit) with Bel Artis APRN Medication Sig Dispense Refill ??? FOCALIN XR 20 mg Capsule, Multiphasic [...] mouth Daily. ??? LYRICA 150 mg Capsule Take 225 mg by mouth 3 times daily. 0 ??? ranitidine (ZANTAC) 150 mg Tablet 150 mg 2 times daily. ??? traZODone (DESYREL) 50 mg Tablet 50 mg nightly. No supplements or vitamins. ALLERGIES Allergies Allergen [...] alcoholic, had liver issues. PHYSICAL EXAM Vitals: 05/27/19 0915 BP: 106/66 BP Location (NBP): Right arm Patient Position: Sitting BP Cuff Sizes: Adult (25-34 cm) Pulse: 86 Weight: 86.8 kg (191 lb 6.4 oz) Height: 175.3 cm (5' 9) Body mass index is 28.26 kg/m??. Gen: Well appearing, no apparent distress. Skin: no spider angiomata, no palmar erythema, no jaundice. Open lesion on chin HEENT: Sclerae anicteric, pupils equal, round, react to light. Pharynx unremarkable. Neck is supple, no adenopathy, no thyromegaly. Chest is clear. Heart: Regular rate and rhythm. Normal S1, S2, no murmurs. Abdomen: Normal bowel sounds; soft, non distended. No obvious hepatosplenomegaly. No evidence of ascites Extremities: No edema. Neuro: alert and oriented x3, no asterixis or tremor. Lab Results Component Value Date WBC 6.2 12/11/2018 HGB 13.4 12/11/2018 HCT 39.8 12/11/2018 MCV 88.2 12/11/2018 PLATELET 152 12/11/2018 11/07/18: Fibrosure: F1-2 HCV RNA: 63,000 HCV genotype: 3 Hep A ab: negative Hep b sag: neg Hep B cab: neg Hep B sab: positive HIV: negative Ferritin: 50 Fibroscan Results: Median kPa: 5.4 kPa Mean IQR: 12% (goal is <30 %) Number of valid measurements: 12 (at least 10 required) Number of invalid measurements: 0 Predicted fibrosis stage: F0-1 CAP (dB/m): 342 Estimated steatosis grade: 3/3 % hepatocytes affected: > 66 % RUQ Ultrasound 03/29/15: The liver is of normal echotexture without evidence of focal mass or intrahepatic biliary dilatation. ASSESSMENT/PLAN Ludy Allen is a 33 y.o. female with Hepatitis C and suspected GERD. She reports to have taken 12 weeks of Mavyret for treatment of her Hepatitis C, however did not reach sustained viral response, although I do not have her records regarding this. If she did take 12 weeks of Mavyret, and took every dose, I would expect her to clear the virus, as technically she should only require 8 weeksof Mavyret. I will check her viral load today. If she will has the virus, she will require a different regimen, likely with Vosevi, and we will want to make sure she is set up for success prior to starting this treatment. Specifically, I would want to minimize or tightly control the use of acid bloc roosevelt medications as these affect the absorption of Sofosbuvir, a main component of Vosevi. Her fibroscan today does not show any fibrosis and her fibrosure prior to HCV treatment showed onlystage 1-2 fibrosis. I do not believe she has cirrhosis. I am not sure as to the cause of her reported edema. She did not have edema on exam today I will get updated blood work today as well as an ultrasound to evaluate for signs of cirrhosis. Regarding her acid reflux, it is interesting that she reports reflux symptoms when taking two PPI and an H2 jac and I wonder if her symptoms could be due to something else. Plan to do an EGD to further evaluate. I do not think there is any benefit to taking two PPIs, so plan to stop Pantoprazole and take only Omeprazole. Plan: - Blood work today - Ultrasound next available with follow up visit on same day - EGD with anesthesia next available for uncontrolled GERD, nausea - Stop pantoprazole. Continue Omeprazole 40mg once a day. Take 30 minutes prior to breakfast. Bel Artis APRN Section of Gastroenterology [place] [address] Copy: Zeyad Hall DO [address] [facility] [id number] documented in this encounter Plan of Treatment Scheduled Orders Name Type Priority Associated Diagnoses Orde r Schedule UPPER GI ENDOSCOPY Procedures Routine Gastroesophageal reflux disease, esophagitis presence not specified Ordered: 05/27/2019 documented as of this encounter Procedures Procedure Name Priority Date/Time Associated Diagnosis Comments HEMOGRAM Routine 05/27/2019 11:48 AM EDT Chronic hepatitis C without hepatic coma DIFFERENTIAL, AUTOMATED Routine 05/27/20 11:48 AM EDT Chronic hepatitis C without hepatic coma HC IRON BINDING CAPACITY Routine 05/27/2019 11:48 AM EDT Chronic hepatitis C without hepatic coma HC HEPATITIS B CORE AB Routine 9 11:48 AM EDT Chronic hepatitis C without hepatic coma HC HCV QUANTIFICATION Routine 05/27/2019 11:48 AM EDT Chronic hepatitis C without hepatic coma HC HEPATITIS B SURFACE AB Routine 05/27/2019 11:48 AM EDT Chronic hepatitis C without hepatic coma HC HEPATITIS B SURFACE AG Routine 05/27/2019 11:48 AM EDT Chronic hepatitis C without hepatic coma HC VENIPUNCTURE Routine 05/27/2019 11:48 AM EDT Chronic hepatitis C without hepatic coma HC CBC,PLT & AUTO DIFF Routine 9 11:48 AM EDT Chronic hepatitis C without hepatic coma HC FERRITIN, SERUM Routine 05/27/2019 11 :48 AM EDT Chronic hepatitis C without hepatic coma COMPREHENSIVE METABOLIC PANEL Routine 05/27/2019 11:48 AM EDT Chronic hepatitis C without hepatic coma documented in this encounter Results * (ABNORMAL) Differential, Automated (05/27/2019 11:48 AM EDT) Neutrophil % 44.7 % [facility] Neutrophil Absolute 3.61 1.70 - 6.10 x10(3)/mc L [facility] Lymph % 47.1 % [facility] Lymphocytes Abs 3.8(H) 0.9 - 3.2 x10(3)/mc L [facility] Monocyte % 7.3 % [facility] Monocyte Abs 0.6 0.3 - 0.9 x10(3)/mc L [facility] Eos % 0.6 % [facility] Eosinophils Abs 0.0 0.0 - 0.4 x10(3)/mc L [facility] Basophil % 0.2 % [facility] Baso Absolute 0.0 0.0 - 0.1 x10(3)/[facility] Immature Gran % 0.10 % [facility] Comment: Immature granulocytes(IG's)percentage and absolute count will include metamyelocytes, myelocytes, and promyelocytes. Blood smears from CBCs yielding IG's will be scanned manually for concordance. If this scan disagrees with the automated IG or if promyelocytes are noted, a manual differential will be performed. Immature Gran Absolute 0.01 0.00 - 0.04 x10(3)/[facility] Blood specimen (specimen) 05/27/2019 11:48 AM EDT 05/27/2019 11:54 AM EDT Narrative Resulting Agency Comment Spec In Lab Bel Artis APRN HEMATOLOGY ORDERAB LES Performing Organization Address City/State/[facility] Co de Phone Number [facility] [place] [address] * Hemogram (05/27/2019 11:48 AM EDT) White Blood Cell 8.1 4.0 - 9.5 x10(3)/[facility] Red Blood Cell 4.19 4.00 - 5.21 x10(6)/[facility] Hemoglobin 12.4 11.7 - 15.5 gm/dL [facility] Hematocrit 36.8 35.7 - 45.8 % [facility] Mean Cell Volume 87.8 82.6 - 94.4 fL [facility] Mean Cell Hemoglobin 29.6 27.1 - 32.0 pg [facility] Mean Cell Hemoglobin Concentration 33.7 31.7 - 35.0 gm/dL [facility] Platelet 185 145 - 357 x10(3)/[facility] RDW Standard Deviation 41.1 37.0 - 46.0 fL [facility] RDW coefficient of variation 12.7 11.5 - 14.1 % [facility] Mean Platelet Volume 12.0 7.6 - 12.9 fL [facility] NRBC% auto 0.0 % [facility] NRBC Absolute 0.000 0.000 - 0.000 x10(3)/mcL [facility] Blood specimen (specimen) 05/27/2019 11:48 AM EDT 05/27/2019 11:54 AM EDT Narrative Resulting Agency Comment Spec In Lab Bel Artis ANDREW HEMATOLOGY ORDERAB LES Performing Organization Address [facility] Co de Phone Number [facility] [place] [address] * (ABNORMAL) Prothrombin Time (05/27/2019 11:48 AM EDT) Prothrombin Time 12.6(H) 9.4 - 12.5 sec [facility] International Normalization Ratio 1.1 [facility] Comment: An INR <2.0 indicates adequate procoagulant activity for hemostasis in most patients without underlying bleeding disorders, though the INR may not adequately reflect hemostatic capacity in patients with liver disease and synthetic impairment. The recommended target INR range for therapeutic anticoagulation is 2.0 ? 3.0 for most applications, though lower and higher ranges may be appropriate depending on clinical circumstances. Blood specimen (specimen) 05/27/2019 11:48 AM EDT 05/27/2019 11:54 AM EDT Narrative Resulting Agency Comment Spec In Lab Bel Olu Milena MORALES HEMATOLOGY ORDERAB LES Performing Organization Address [facility] Co de Phone Number [facility] [place] [address] * Hepatitis B Surface Antigen (05/27/2019 11:48 AM EDT) Hepatitis B Surface Antigen Negative Negative [facility] Blood specimen (specimen) 05/27/2019 11:48 AM EDT 05/27/2019 11:53 AM EDT Narrative Resulting Agency Comment Spec In Lab Bel Artis TIRE SORTER CHEMISTRY ORDERABL ES Performing Organization Address [facility] Co de Phone Number [facility] [place] [address] * Hepatitis B Core Antibody, Total (05/27/2019 11:48 AM EDT) Hepatitis B Core Antibody Negative Negative [facility] Blood specimen (specimen) 05/27/2019 11:48 AM EDT 05/27/2019 11:53 AM EDT Narrative Resulting Agency Comment Spec In Lab Bel Artis TIRE SORTER CHEMISTRY ORDERABL ES Performing Organization Address [facility] Phone Number [facility] [place] [address] * Hepatitis B Surface Antibody (05/27/2019 11:48 AM EDT) Pathologist [facility] Hepatitis B Surface Antibody, Quantitative 156.3 IU/L [facility] Comment: HepB Surface Ab Quant: Unvaccinated: < 8.5 IU/L Vaccinated: > 11.5 IU/L Hepatitis B Surface Antibody Positive [facility] Comment: Patient is considered to be immune to HBV infection. Expected Results: Vaccinated: Positive Unvaccinated: Negative Blood specimen (specimen) 05/27/2019 11:48 AM EDT 05/27/2019 11:53 AM EDT Narrative Resulting Agency Comment Spec In Lab Bel Artis TIRE SORTER CHEMISTRY ORDERABL ES Performing Organization Address [facility] Co de Phone Number [facility] [place] [address] * Hepatitis C RNA, quantitative, PCR (05/27/2019 11:48 AM EDT) HCV Viral Load <12 IU/mL [facility] HCV Viral Load Result: <12 IU/mL (Target Not Detected) Indication for Study: Hepatitis C Infection Analysis: The [employer] RealTime HCV assay is an in vitro reverse insole and outsole preparer polymerase chain reaction (RT-PCR)for the quantitation of hepatitis C viral (HCV) RNA in human serum or plasma (EDTA) from HCV-infected individuals. Sample: plasma (0.7 mL minimum volume) Method: [employer] RealTime HCV Assay Linear Range: 12 IU/mL - 100,000,000IU/mL Note: The [employer] RealTime HCV Assay has been approved by the U.S. Food and Drug Administration. [facility] Comment: [VERIFIED DATE]06.02.19 Verified By:Yenny Hurst (Electronic Signature) Blood specimen (specimen) 05/27/2019 11:48 AM EDT 06/01/2019 8:53 AM EDT Narrative Resulting Agency Comment Spec In Lab Bel Artis APRN MOLECULAR ORDERABL ES Performing Organization Address [facility] Co de Phone Number [facility] [place] [address] * Ferritin (05/27/2019 11:48 AM EDT) Pathologist [facility] Ferritin 67 15 - 150 ng/mL [facility] Comment: Pediatric reference ranges not verified at [facility], interpret with caution. Reference ranges for females greater than 50 years of age approach values for men, i.e., 30-400 ng/mL. Blood specimen (specimen) 05/27/2019 11:48 AM EDT 05/27/2019 11:53 AM EDT Narrative Resulting Agency Comment Spec In Lab Bel Artis APRN CHEMISTRY ORDERABL ES Performing Organization Address [facility] Co de Phone Number [facility] [place] [address] * (ABNORMAL) Iron and TIBC (05/27/2019 11:48 AM EDT) [facility] Iron 57 30 - 150 mcg/dL [facility] TIBC 295 250 - 450 mcg/dL [facility] Iron Saturation 19(L) 20 - 50 % [facility] Blood specimen (specimen) 05/27/2019 11:48 AM EDT 05/27/2019 11:53 AM EDT Narrative Resulting Agency Comment Spec In Lab Bel Artis APRN CHEMISTRY ORDERABL ES [facility] [place] [address] * (ABNORMAL) Comprehensive metabolic panel (non-fasting) (05/27/2019 11:48 AM EDT) Glucose 111 65 - 199 mg/dL [facility] Comment:Diabetes: >=200 mg/d L plus symptoms Blood Urea Nitrogen 12 8 - 18 mg/dL [facility] Creatinine 0.60(L) 0.70 - 1.20 mg/dL [facility] Sodium 137 135 - 145 mmol/L [facility] Potassium 4.4 3.5 - 5.0 mmol/L [facility] Comment: Please note: ??Patients with WBC >100,000 may have falsely elevated Potassium levels. ??For accurate Potassium quantification in these patients send serum separator tube (gold top) for subsequent determinations. ??Contact the Clinical Chemistry Laboratory if there are any questions. Chloride 101 98 - 107 mmol/L [facility] Carbon Dioxide 25 22 - 31 mmol/L [facility] Anion Gap 11 5 - 15 mmol/L [facility] Calcium 9.2 8.5 - 10.5 mg/dL [facility] Protein, Total 7.5 6.1 - 8.0 gm/dL [facility] Albumin 4.4 3.2 - 5.2 gm/dL [facility] Aspartate Aminotransferase 47(H) 0 - 30 unit/L [facility] Alanine Aminotransferase 46(H) 0 - 30 unit/L [facility] Alkaline Phosphatase 126(H) 35 - 105 unit/L [facility] Bilirubin, Total 0.2 0.2 - 1.3 mg/dL [facility] Comment:result rechecked-emma Est Glomerular Filtration Rate 121 >=60 mL/min/1. 73 m?? [facility] Comment: The eGFR was calculated using the CKD-EPI equation. As with all creatinine based estimates of kidney function, eGFR values calculated with the CKD-EPI equation are not accurate in patients with acute kidney failure, extremes of body mass or the acutely ill. [email or web address] eGFR 141 >=60 mL/min/1. 73 m?? [facility] Comment: The eGFR was calculated using the CKD-EPI equation. As with all creatinine based estimates of kidney function, eGFR values calculated with the CKD-EPI equation are not accurate in patients with acute kidney failure, extremes of body mass or the acutely ill. [email or web address] Blood specimen (specimen) 05/27/2019 11:48 AM EDT 05/27/2019 11:53 AM EDT Narrative Resulting Agency Comment Spec In Lab Bel Artis APRN CHEMISTRY ORDERABL ES [facility] [place] [phone] documented in this encounter Visit Diagnoses Diagnosis Chronic hepatitis C without hepatic coma Gastroesophageal reflux disease, esophagitis presence not specified documented in this encounter Care Teams Manager Engagement Relationship Specialty Start Date End Date Zeyad Hall DO [address] [place] [address] PCP - General Family Medicine 04/15/19 documented as of this encounter
--- OUTSIDE RECORDS SUMMARY | 2024-05-05 15:18 | XMS_ITS | Encounter Summary ---
[place] [address] Care Team Providers Care Polishing Wheel Repairer Name Role Phone Zeyad Hall DO Primary Care Provider [phone] Encounter Details Date Type Department Care Team (Late st Contact Info) Description 07/13/2020 Orders Only [place] [address] Ezequiel Araujo MD [facility] [place] [address] Chronic dental caries extending to pulp Social History Tobacco Use Types Packs/Day Years [...] as of this encounter Visit Diagnoses Diagnosis Chronic dental caries extending to pulp Dental caries extending into pulp documented in this encounter Care Teams Polishing Wheel Repairer Relationship Specialty Start Date End Date Zeyad Hall DO [address] [place] [id number] PCP - General Family Medicine 04/15/19 documented as of this encounter
--- OUTSIDE RECORDS SUMMARY | 2024-05-05 15:18 | XMS_ITS | Encounter Summary ---
[place] [address] Care Team Providers Care Utility Gelatin Maker Name Role Phone Zeyad Hall DO Primary Care Provider Encounter Details Date Type Department Care Team (Late st Contact Info) Description 06/11/2019 1:00 PM EST - 06/11/2019 1:30 PM EST [place] [phone] Lucy Goodman MD [facility] [place] [address] EGD, UPPER GI ENDOSCOPY (WRVU 2.09) Social History Tobacco Use Types Packs/Day Years [...] Taken Comments Blood Pressure - - Pulse 71 06/11/2019 1:02 PM EST Temperature 36.6 ??C (97.9 ??F) 06/11/2019 1:02 PM ES T Respiratory Rate 16 06/11/2019 1:02 PM EST Oxygen Saturation 93% 06/11/2019 1:02 PM EST Inhaled Oxygen Concentration - - [...] better as expected. Saturday-Saturday Same Day Endo [phone] Otherwise contact [phone] and ask to speak to the patient support specialist conveyor tender Follow-up care is a gomez part of [...] Associated Diagnosis Comments Upper GI Endoscopy, Diagnostic (14139) 06/11/2019 2:06 PM EST Gastroesophageal reflux disease, esophagitis presence not specified UPPER GI ENDOSCOPY Routine 06/11/2019 1: 27 PM EST documented in this encounter Results * UPPER GI ENDOSCOPY (06/11/2019 1:27 PM EST) UPPER GI ENDOSCOPY [facility] Endoscopy Procedure Date: 06/11/2019 1:27 PM ? Patient Name: Ludy Allen ? Date of : 1985 ? Age: 33 ? Order #: [id number] ? Instrument Name: [id number] ? Procedure: ? Upper GI endoscopy Indications: ? Heartburn, Nausea with vomiting Providers: ? Lucy Goodman MD, Conrad Ott ? Hackett Referring MD: ?Zeyad Hall, DO Medicines: ? Propofol per [...] EST Zeyad Hall DO [facility] documented in this encounter Visit Diagnoses Diagnosis Gastroesophageal reflux disease, esophagitis presence not specified documented in this encounter Active and Recently Administered [...] CRNA) documented in this encounter Care Teams Utility Gelatin Maker Relationship Specialty Start Date End Date Zeyad Hall DO [address] [place] [address] PCP - General Family Medicine 04/15/19 documented as of this encounter
--- OUTSIDE RECORDS SUMMARY | 2024-05-05 15:18 | XMS_ITS | Encounter Summary ---
Author Organization [facility] [place] [address] Care Team Providers Care Government Affairs Specialist Name Role Phone Zeyad Hall DO Primary Care Provider [phone] Reason for Visit * Consultation (Routine) - Closed Specialty Diagnoses / Procedures Referred By Francis restrepo Referred To Contact Maxillofacial Surgery Diagnoses evaluate teeth full mouth extractions06/06/20 PANO in chart [place] [address] [facility] Maxillo Surg [address] [place] [phone] Referral ID Status Reason Start Date Expiration Date Visits Re quested Visits Authorized [id number] Closed 06/23/2020 06/23/2021 1 1 Encounter Details Date Type Department Care Team (Late st Contact Info) Description 07/12/2020 9:00 AM EST TH Visit (TeleHealth) [place] [address] Asher Morelos MD [facility] ORAL AND [place] [address] Carious teeth Social History Tobacco Use Types Packs/Day Years [...] on file documented as of this encounter Progress Notes * Asher Morelos MD - 07/12/2020 9:00 AM EST Oral & Maxillofacial Surgery Extraction Consult performed via phone call on telehealth. Patient voiced was trembling and somewhat difficult to understand with a slow and somewhat garbled speech. Ludy Allen is a 34 y.o. female who is referred to us by Dr. Annetta Casanova for consultation regarding dental extractions specifically the extraction of all remaining upper and lower teeth which are extensively involved with carious lesions. Most of her pain is on the upper and lower right side. A complete history of the Ludy 's symptoms and physical signs were reviewed with attention to initial findings and progression, pain, bleeding, swelling, lumps, bumps, drainage, dysphagia, odynophagia, paresthesia, dysarthria and systemic effects. Pertinent notations from today's history: ?? Patient has had a long history of dental discomfort most extensively over the past month with swelling on the right side and has been given a course of 6 days of antibiotic. She cannot recall the specific medication. She has numerous allergies to medicines including local anesthetics and indicates that she would require a general anesthetic for any type of oral involvement. ? During the consultation her speech was somewhat garbled and slow. Suspect she had recently awoken but her diction did not seem to improve with time. ? She indicates that she now has swelling on the right side including lymph nodes in the right neck and ear discomfort on the right side. She had previously undergone some sort of neck dissection onthe left side with excision of lymph nodes-I can see the vascular clips on Panorex radiograph but she was uncertain of the specific outcome. She was also uncertain of the reason for the excision of the lymph nodes and subsequent findings. ? Other surgical procedures have involved a hysterectomy in 2013 and cholecystectomy in 2017. She indicates that in both instances she was slow to recover and had significant discomfort. These were performed in [facility]. She also commented on a slipped disc in her back with moderate spine de generative changes. ? The neck procedure was performed at [facility] and I will review the chart to check on any specifics that are available. She has been seen in the GI clinic extensively with liver disease. She was found to have an enlarged liver. An INR in the chart in May 2019 demonstrates 1.1 and a PT at that time was 12.6; no more recent coag studies are available. She has had a history in the past of IV drug abuse from August to December 2017 which subsequently led to overdose in December 2017 and subsequent attempts at recovery. She is on a [facility]adone program [facility] and sees Gabby. Their phone number is [phone]. Her dose is at 30mg/day having been weaned down from 150 mg. The 150 mg was at 1.5 years ago when she started therapy and since that time she has weaned down significantly as noted. Past Medical and Dental History: No past medical history on file. The following statements are taken from the assessment aspect of her note from [facility] In the GI clinic in August of this year. ?? 1. Hepatitis C. She took 8 weeks of treatment with Mavyret from 02/2019- 04/2019 and her viral load 1month after the end of treatment (05/27/19) was undetected. This is an appropriate course of medication and she appears to have cleared the virus. I would recommend re-checking her viral load now (3 months post- treatment) and again in 3 months to confirm cure. ?? 2. Fibrosis level. Her fibroscan does not show any fibrosis, fibrosure also shows F1 and she does not have any signs in her blood work of advanced fibrosis. Her ultrasound today shows that her liver is enlarged but does not show any signs of cirrhosis. Her spleen measures 13.9cm, and I do not believe this is enlarged due to portal hypertension. ?? 3. GERD. She is taking a number of different anti-acidic medications. Simplified medications as below. Discussed that if she continues to have symptoms that she should contact our office and can see a motility specialist. When being prepped for endoscopy in 2019 she was given an ASA III from anesthesia; tolerated sedation well from my review. Patient Active Problem List Diagnosis Code ??? History of palpitations Z87.898 ??? Leg edema R60.0 ??? Syncope R55 ??? Plantar fasciitis, bilateral M72.2 ??? meloxicam (MOBIC) 7.5 mg Tablet ??? FOCALIN XR 20 mg Capsule, Multiphasic Rel.50-50 ??? FOCALIN XR 15 mg Capsule, Multiphasic Rel.50-50 ??? methadone (DOLOPHINE) 10 mg Tablet ??? MAVYRET 100-40 mg Tablet ??? ondansetron (ZOFRAN) 4 mg Tablet ??? fluticasone propion-salmeterol (ADVAIR DISKUS) 250-50 mcg/dose Disk with Device ??? PROAIR HFA 90 mcg/actuation HFA Aerosol Inhaler ??? citalopram (CELEXA) 40 mg Tablet ??? cloNIDine (CATAPRES) 0.1 mg Tablet ??? cyclobenzaprine (FLEXERIL) 10 mg Tablet ??? hydrOXYzine (ATARAX) 25 mg Tablet ??? nicotine (NICODERM CQ) 14 mg/24 hr Patch 24 hr ??? omeprazole (PRILOSEC) 40 mg Capsule, Delayed Release(E.C.) ??? ondansetron (ZOFRAN-ODT) 4 mg Tablet, Rapid Dissolve ??? pantoprazole (PROTONIX) 20 mg Tablet, Delayed Release (E.C.) ??? LYRICA 150 mg Capsule ??? ranitidine (ZANTAC) 150 mg Tablet ??? traZODone (DESYREL) 50 mg Tablet Allergies Allergen Reactions ??? Lidocaine ??? Penicillins ??? Procaine CIS - facial swelling ??? Unable To Find [Unclassified Drug] Control Pills Patient indicates that local anesthesia of any type used intraorally does not work. ROS with attention to cardiac, pulmonary, hepatic, renal, neurologic and dermatologic systems reviewed with relevant findings as noted. Physical Exam: Very slow and garbled speech. Height 5 feet 9 inches; weight 167 pounds. Patient indicates that shehas no difficulty opening or closing her mouth but that her teeth are extremely painful and she hasswelling on the right side of her neck. She denies dysphagia at the present time or odynophagia. She indicates that she definitely cannot walk up a flight of stairs without getting short of breath. She had pulmonary function tests couple of years ago that appear to be within normal limits. She was also worked up for palpitations and chest discomfort. Holter monitoring was unremarkable. Symptoms were felt to be GI related as best I can tell reviewing her chart. She is on a host of medicationsfor Gerd and GI distress. Radiographic Examination: A Panorex demonstrates very low-lying maxillary sinuses and significant dental carious lesions involving the entire dentition in the maxilla and the mandible. Roots are longand tortuous and divergent in the maxilla. The teeth involved are her teeth numbers 2, 4, 6, 7 8, 9, 10, 11, 12, 13, 14 and 15 in the maxilla and teeth numbers 19 through 31 in the mandible. Impression: 34-year-old with multiple carious teeth in the upper and the lower jaw with most of herpain emanating from the upper and lower right sides with a history significant for gastrointestinaldysfunction as well as opioid abuse presently on methadone. Recommendations and Plans: Very complex case since her speech today was slow and a bit garbled (seeabove). Her responses were slow and her oral surgical needs are extensive and both in the maxilla and mandible with a hx of slow recovery from other surgeries. Consider main OR but would rely on anesthesia review of record to see if she is a candidate for the OSC. Her pain tolerance is low and she complains mainly regarding the upper and lower right side. Perhaps the procedure could be staged butthere is significant disease bilaterally. Anticipated benefits and potential risks of the surgical intervention discussed were carefully reviewed with the patient and including but not limited to bleeding, infection, soft tissue dehiscence, delayed wound healing, nerve paresthesias and palsies, sinus injuries, injuries to adjacent tissues both hard and soft and possible need for additional surgery. Questions regarding the proposed intervention were encouraged and answered. Time Statement: Forty minutes was spent with Ludy all of which involved direct discussion regarding the clinical findings on today's exam, their implications and need for review. Treatment where indicated as well as alternatives, benefits and risks were reviewed and questions encouraged. The patient was asked to contact us if there were further concerns in the interim. Still uncertain as to the findings in the left neck. Would need anesthesia assessment and maybe discussion with patient so that they can determine which is more appropriate - OSC vs MAIN OR documented in this encounter Plan of Treatment Not on file documented as of this encounter Visit Diagnoses Diagnosis Carious teeth Unspecified dental caries documented in this encounter Care Teams Government Affairs Specialist Relationship Specialty Start Date End Date Zeyad Hall DO [address] [place] [address] PCP - General Family Medicine 04/15/19 documented as of this encounter
--- OUTSIDE RECORDS SUMMARY | 2024-05-05 15:18 | XMS_ITS | Encounter Summary ---
Author Organization [facility] [place] [address] Care Team Providers Care Eye Surgeon Name Role Phone Zeyad Hall DO Primary Care Provider [phone] Reason for Visit * Reason Comments Bilateral Foot Pain Bilat plantar fascia l fibromatosis * Consultation (Routine) - Specialty Diagnoses / Procedures Referred By Contac t Referred To Contact Orthopaedics Diagnoses Plantar fascial fibromatosis PLANTAR FASCIAL FIBROMATOSIS, BILAT Zeyad Hall DO [address] [place] [address] [facility] Orthopaedics [address] [place] [phone] Referral ID Status Reason Start Date Expiration Date V isits Requested Visits Authorized [id number] Consult, [facility] PCP Updated and/or Approved 05/08/2019 05/07/2020 1 1 Encounter Details Date Type Department Care Team (Late st Contact Info) Description 06/03/2019 8:00 AM EDT Office [place] [phone] Angie [place] MD [facility] [address] Plantar fasciitis, bilateral Social History Tobacco Use Types Packs/Day Years [...] Sign Reading Time Taken Comments Blood Pressure 105/64 06/03/2019 8:17 AM EDT Pulse 57 06/03/2019 8:17 AM EDT Temperature - - Respiratory Rate - - Oxygen Saturation - - Inhaled Oxygen Concentration - - Weight 85.3 kg (188 lb 1.6 oz) 06/03/2019 8:17 A M EDT Height 172.8 cm (5' 8.03) 06/03/2019 8:17 AM ED T Body Mass Index 28.57 06/03/2019 8:17 AM EDT documented in this encounter Progress Notes * Nathalia Joshua MD - 06/03/2019 8:00 AM EDT Orthopaedic Surgery Clinic Note Ludy Allen is a 33 y.o. female who presents to see us in consultation today at the requestof: Zeyad Hall, DO [address] [place] [address] Chief Complaint: Bilateral foot pain History of Present Illness: Patient is a pleasant 33-year-old female who presents to clinic today for bilateral plantar foot pain as well as right lateral ankle pain. The patient notes that this is been going on for a number ofyears. She first noticed it probably around 7 years ago but has had progressively worsening plantarfoot pain. She notes the pain is worse in the morning. She does endorse occasional swelling in her feet as well. She also notes a history of occasional right ankle sprains most recently about a year ago. She has some mild pain anterolaterally at that ankle. The patient has tried ice and heat with some improvement. She notes that her pain, which is worse in the morning, can be somewhat improved wit h walking throughout the day. She has also been given inserts previously which she notes helped. The pain is currently present but is not limiting her from doing any of her usual daily activities. Past Medical History: Patient Active Problem List Diagnosis Code ??? History of palpitations Z87.898 ??? Leg edema R60.0 ??? Syncope R55 ADHD, COPD, depression, back pain Past Surgical History: History reviewed. No pertinent surgical history. Review of Systems: complete 10 system ROS performed with pertinent findings above. Allergies: Allergies Allergen Reactions ??? Lidocaine ??? Penicillins ??? Procaine CIS - facial swelling ??? Unable To Find [Unclassified Drug] Control Pills Medications: Current Outpatient Medications on File Prior to Visit Medication Sig Dispense Refill ??? FOCALIN XR [...] 50 mg nightly. No current facility-administered medications on file prior to visit. Social History: Social History Socioeconomic History ??? Marital status: Single Spouse name: Not on file ??? Number of children: Not on file ??? Years of education: Not on file ??? Highest education level: Not on file Occupational History ??? Not on file Social Needs ??? Financial resource strain: Not on file ??? Food insecurity: Worry: Not on file Inability: Not on file ??? Transportation needs: Medical: Not on file Non-medical: Not on file Tobacco Use ??? Smoking status: Current Every Day Smoker Packs/day: 1.00 Years: 13.00 Pack years: 13.00 Types: Cigarettes ??? Smokeless tobacco: Never Used Substance and Sexual Activity ??? Alcohol use: Not Currently ??? Drug use: Never ??? Sexual activity: Not on file Lifestyle ??? Physical activity: Days per week: Not on file Minutes per session: Not on file ??? Stress: Not on file Relationships ??? Social connections: Talks on phone: Not on file Gets together: Not on file Attends mosque service: Not on file Active member of club or organization: Not on file Attends meetings of clubs or organizations: Not on file Relationship status: Not on file ??? Intimate partner violence: Fear of current or ex partner: Not on file Emotionally abused: Not on file Physically abused: Not on file Forced sexual activity: Not on file Other Topics Concern ??? Not on file Social History Narrative ??? Not on file Objective: Temp: -- Heart Rate: [57] Resp: -- BP: (105)/(64) SpO2: -- Heart Rate from SpO2: -- General: NAD, well appearing, alert and oriented, responds appropriately to questions On standing examination: On the right there is mild fixed valgus of about 5 degrees on the right and 10 degrees on the left.Bilateral pes planus. Passive ROM: Painless passive ROM from 15 degrees of dorsiflexion to 50 degrees of plantarflexion Normal passive ROM of subtalar joint and TN joint. No pain with passive movement of the subtalar and TN joints Focused examination of right foot/ankle: Skin intact, no erythema. zen noted at anterolateral ankle. Mild TTP about anterolateral ankle ligaments. Minimal TTP over peroneals. Tight gastrocnemius TTP plantarlyy over the arch and proximal plantar fascia at calcaneus. No significant pain with resisted eversion or inversion Grossly neurovascularly intact in foot and ankle. Brisk capillary refill distally Palpable DP/PT pulses Focused examination of left foot/ankle: No significant pain with resisted eversion or inversion TTP plantarlyy over the arch and proximal plantar fascia at calcaneus. Grossly neurovascularly intact in foot and ankle. Brisk capillary refill distally Palpable DP/PT pulses Imaging: XR of the bilateral feet and ankle reviewed: No evidence of acute fracture or dislocation. Symmetric mortise bilaterally. Tibiotlar joint space preserved. Bilateral pes planus. Impression: Bilateral plantar fasciitis R>L Hx of multiple right ankle sprains with mild right anterolateral ankle pain Bilateral pes planus Plan: We discussed with the patient regarding natural history and potential interventions for plantar fasciitis. Patient was provided with stretching program and instructed on the number of stretches to doat least 6 times a day. Patient was also provided with a prescription for meloxicam to help with inf lammation. We discussed with the patient that a majority of cases of plantar fasciitis to improve on their own with stretching but that in some cases a formal physical therapy program may be necessary. We also provided the paitent with gel heel inserts to help improve her plantar pain symptoms. We will plan to see the patient back in approximately 8 weeks for repeat clinical evaluation. If she continues to have difficulty with her plantar fasciitis, we will will consider physical therapy at that time. Nathalia Joshua MD [facility] Orthopaedic Surgery Orthopaedic Surgery PGY-3 * Angie [place] MD - 06/03/2019 8:00 AM EDT Patient was seen and evaluated on 06/03/19 with Nathalia Joshua MD, PGY3. I have discussed the case with the resident and reviewed the findings and plan as dictated in the resident note. I agree with the findings and plan as dictated in the note. My impression is that Ms. Milford has bilateral plantar fasciitis. Treatment protocol and prognosis were discussed at length. We discussed that this is a self-limited condition that resolves and well over 95% of patients without surgery. Mainstays of treatment include a gastroc and plantar fasciastretching regimen, avoidance of barefoot walking, icing, and a daily anti-inflammatory. We also discussed the use of heel cushions. Stretching exercises were demonstrated to the patient in clinic today and she was able to perform them under direct supervision. We have prescribed her a once daily anti-inflammatory. She was also given a pair of heel cushions. We will see her back in clinic in 8 weeks. If there is no change, we will consider formal referral to physical therapy documented in this encounter Plan of Treatment Not on file documented as of this encounter Visit Diagnoses Diagnosis Plantar fasciitis, bilateral Plantar fascial fibromatosis documented in this encounter Care Teams Eye Surgeon Relationship Specialty Start Date End Date Zeyad Hall DO [address] [place] [address] PCP - General Family Medicine 04/15/19 documented as of this encounter
--- OUTSIDE RECORDS SUMMARY | 2024-05-05 15:18 | XMS_ITS | Encounter Summary ---
[place] [address] Care Team Providers Care Sweep Press Operator Name Role Phone Jacky Perez APRN Primary Care Provider [phone] Encounter Details Date Type Department Care Team (Latest Contact Info) Description 06/25/2014 4:00 PM EST - 06/25/2014 11:59 PM EST Hospital Encounter Non-Invasive [place] [address] MATERNITY FLOOR SUPERVISOR, CM Palpitations Discharge Disposition: Home Social History Tobacco Use [...] Procedure Name Priority Date/Time Associated Diagnosis Comments HOLTER MONITOR 48 HOUR Routine 06/25/2014 5:14 PM EST Palpitations documented in this encounter Results * Holter Monitor 48hr (06/25/2014 5:14 PM EST) Anatomical Region Laterality Modality Other Narrative 07/02/2014 1:05 PM EST HOLTER MONITOR Hookup Date: June 25, 2014 Monitor duration: 48 hours Predominant rhythm: Sinus Average heart rate: 82 beats per minute Minimum sinus rate: 51 beats per minute at 3 AM Maximum sinus rate: 171 beats per minute at 11:14 AM Atrial ectopy: Rare (less than 0.1%) 44 single APCs, 0 APC couplets, 2 APC triplets (the fastest at 109 beats per minute) No runs of SVT Ventricular ectopy: Very rare (less than 0.1%) 5 single VPCs, 0 VPC couplets, 0 VPC triplets No runs of ventricular tachycardia: Bradycardia: There were no significant pauses. Symptoms: dizziness, nausea, shortness of breath, chest pain/discomfort, fatigue, sweaty, and lightheadedness, heart racing, and headache were all reported during sinus rhythm at a variety of heart rates. Angel Luis Garcia MD CARDIAC SERVICES ORD [facility] documented in this encounter Visit Diagnoses Diagnosis Palpitations documented in this encounter Care Teams Sweep Press Operator Relationship Specialty Start Date End Date Jacky Perez APRN [address] [place] [address] [place] [id number] PCP - General 05/20/14 11/17/18 documented as of this encounter
--- OUTSIDE RECORDS SUMMARY | 2024-05-05 15:18 | XMS_ITS | Encounter Summary ---
[place] [address] Care Team Providers Care Claim Technician Name Role Phone Petra Riley APRN Primary Care Provider [phone] Encounter Details Date Type Department Care Team (Latest Contact Info) Description 12/11/2018 9:00 AM EDT - 12/11/2018 9:29 AM EDT Hospital [place] [phone] Asthma, unspecified asthma severity, unspecified whether complicated, unspecified whether persistent Discharge Disposition: Home Social History Tobacco Use [...] 0.52 gram Capsule Take by mouth. 08/11/2018 fluticasone propion-salmeterol (ADVAIR DISKUS) 250-50 mcg/dose Disk [...] mg 2 times daily. 0 11/30/2018 06/11/2019 FLOVENT HFA 110 mcg/actuation HFA Aerosol Inhaler 110 mcg 4 times daily. 11/21/2018 12/14/2018 documented as of this encounter Procedure Notes * Jered Taylor MD - 12/11/2018 3:31 PM EDTAssociated Order(s): PULMONARY FUNCTION TEST Spirometry: FVC is decreased FEV1 is decreased FEV1 / FVC ratio is normal Lung Volumes: Not performed. Diffusion: Not performed. Oxygen Saturation: Not performed. FeNO Testing: The FeNO in ppb for this patient at today's visit was <5 ppb Interpretation: This study is consistent with a restrictive pattern. Restrictive lung disease can not be confirmed without lung volumes. A FeNO <25 ppb suggests that eosinophilic airway inflammation, and by inference, clinical responsiveness to corticosteroids, is less likely. Jered Taylor MD, 12/11/2018, 3:31 PM Pulmonary & Critical Care documented in this encounter Plan of Treatment Not on file documented as of this encounter Procedures Procedure Name Priority Date/Time Associated Diagnosis Comments COMMON PULMONARY FUNCTION TEST Routine 12/11/2018 3:31 PM EDT Asthma, unspecified asthma severity, unspecified whether complicated, unspecified whether persistent documented in this encounter Results * Pulmonary Function Testing [...] persistent documented in this encounter Care Teams Claim Technician Relationship Specialty Start Date End Date Petra Riley, [employer] [address] [place] [address] PCP - General Family Medicine 11/18/18 04/14/19 documented as of this encounter
--- OUTSIDE RECORDS SUMMARY | 2024-05-05 15:18 | XMS_ITS | Encounter Summary ---
[place] [address] Care Team Providers Care Labor Gang Supervisor Name Role Phone Zeyad Hall DO Primary Care Provider [phone] Encounter Details Date Type Department Care Team (Late st Contact Info) Description 07/21/2020 Telephone [place] [phone] Ally Fam Social History Tobacco Use Types Packs/Day Years [...] encounter Miscellaneous Notes * Telephone Encounter - Ally Fam - 07/21/2020 3:24 PM EST [facility] is calling to make you aware of a scheduled appointment on 09/06/20 . Please [phone] to confirm the appointment. Future Appointments Date Time Provider Department Center 09/06/2020 11:30 AM Ezequiel Araujo MD [facility] documented in this encounter Plan of Treatment Not on file documented as of this encounter Visit Diagnoses Not on filedocumented in this encounter Care Teams Labor Gang Supervisor Relationship Specialty Start Date End Date Zeyad Hall DO [address] [place] [id number] PCP - General Family Medicine 04/15/19 documented as of this encounter
--- OUTSIDE RECORDS SUMMARY | 2024-05-05 15:18 | XMS_ITS | Encounter Summary ---
[place] [address] Care Team Providers Care Sports Manager Name Role Phone Petra Riley APRN Primary Care Provider [phone] Reason for Referral * Diagnostic Test (Routine) - Closed Specialty Diagnoses / Procedures Referred By Contac t Referred To Contact Cardiology Diagnoses Syncope, unspecified syncope type History of palpitations Procedures Bulmaro Metz MD [facility] [place] [address] [facility] Cardiology [address] [place] [phone] Referral ID Status Reason Start Date Expiration Date V isits Requested Visits Authorized [id number] Closed Specialty Service Requested 12/11/2018 12/11/2019 1 1 * Diagnostic Test (Routine) - Closed Specialty Diagnoses / Procedures Referred By Contac t Referred To Contact Cardiology Diagnoses Syncope, unspecified syncope type History of palpitations Leg edema Procedures Echocardiogram Transthoracic(Leb) Bulmaro Kaplan MD [facility] [place] [address] [facility] [place] [address] Referral ID Status Reason Start Date Expiration Date V isits Requested Visits Authorized [id number] Closed Specialty Service Requested 01/05/2019 04/05/2019 1 1 Reason for Visit * Consultation (Routine) - Specialty Diagnoses / Procedures Referred By Francis restrepo Referred To Contact Cardiology Diagnoses Leg Edema Petra Riley, [employer] [employer] [address] [place] [address] Nicho Carlton MD [facility] [place] [address] Referral ID Status Reason Start Date Expiration Date V isits Requested Visits Authorized [id number] Evaluate and Treat Connection Center 11/18/2018 11/18/2019 6 6 Encounter Details Date Type Department Care Team (Late st Contact Info) Description 12/11/2018 8:00 AM EDT Office Visit Cardiology at [address] [phone] Nicho Carlton MD [facility] [place] [address] Bulmaro Kaplan MD [facility] [place] [address] Syncope, unspecified syncope type; History of palpitations; Leg edema Social History Tobacco Use Types Packs/Day Years Used Date Smoking Tobacco: Every Day Cigarettes 0.5 13 Smokeless Tobacco: Never Sex and Gender Information Value Date Recorded Sex Assigned at Not on file Gender Identity Not on file Sexual Orientation Not on file documented as of this encounter Last Filed Vital Signs Vital Sign Reading Time Taken Comments Blood Pressure 114/70 12/11/2018 8:09 AM EDT Pulse 78 12/11/2018 8:09 AM EDT Temperature - - Respiratory Rate - - Oxygen Saturation 96% 12/11/2018 8:09 AM EDT Inhaled Oxygen Concentration - - Weight 85.3 kg (188 lb) 12/11/2018 8:09 AM EDT Height 175.3 cm (5' 9) 12/11/2018 8:09 AM EDT Body Mass Index 27.76 12/11/2018 8:09 AM EDT documented in this encounter Progress Notes * Nicho Carlton MD - 12/11/2018 8:00 AM EDT STAFF ADDENDUM I had the pleasure of seeing this patient with Dr. Kaplan. I agree with the physical exam, assessment, and plan as outlined in the fellow's note below. Briefly, this is a 33 yr old woman with hepatitis C and a history of IV drug use referred for evaluation of LE edema. Prior CV evaluation includes a benign Holter in 2013 and a benign TTE in 2014. Based on the history provided by the patient, her edema sounds mild and likely consistent with dependent edema. Symptoms are worse in the morning, after prolonged standing, or in hot weather and better after elevation. We discussed conservative measures for managing lower extremity edema including compression stockings, elevation, and salt restriction. We also discussed other possible albeit less likely etiologies including underlying liver disease given her history of hep C versus right-sided valve disease given her history of IV drug use. Will evaluate for structural or valvular disease with an echocardiogram. Agree with a Zio for further evaluation of palpitations. Nicho Carlton MD, FACP, FACC Section of Cardiovascular Medicine [facility] Hotbed Lever Operatorable bodied tankerman [employer] [facility] * RosauraHannahshala Rodriguez - 12/11/2018 8:00 AM EDT Cardiology Clinic Note (New Patient) December 11, 2018 Name: Ludy Allen Gender: female : 1985 Age: 33 y.o. Date of Service: December 11, 2018 Attending Physician Nicho Carlton MD Reason for Referral/Follow up: Referred to cardiology clinic for evaluation of pedal edema and palpitations. Had a ER visit about 4 weeks ago in [facility] with mildly elevated pro-BNP of 444 (ULN 300). Patient Active Problem List Diagnosis ??? History of palpitations ??? Leg edema ??? Syncope History of Presenting Illness: Ludy Allen is a 33 y.o. old female with prior history of IVDU and hepatitis C who is currently being evaluated by gastroenterology for treatment options for the same. About 4 years ago, patient was evaluated by cardiology for palpitations and syncope and at that time had normal ECG, 48 hour holter and echocardiogram. Since then, over the last one year, she reports that she has had several episodes of syncope. The history is not very clear and patient was unable to give me a consistent history and kept changing the stories. She says that at times in the park and while cooking, she passed out and EMS was called and between [facility] and once in [facility], she was evaluated in ERs and was told that she has a heart problem and otherwise did not need any intervention at that time other than lifestyle changes. She was asked to use compression stockings and low salt diet and keeping the feet elevated. During her last month's visit to ER at [facility], apparently she had an echocardiogram in the ER and was told that she has valve problems and that she needed to be seen by cardiologyand hence the referral. At any point, she was never started on diuretics. I spoke with Vane, oneof her treatment social workers on the phone. She says that there were times when they heard similar conversations but there was no documentation about echo that was sent to us. I suspect that she could have had a bedside limited echo by ER physician. Patient denies orthopnea or PND. She denies chest pain or chest tightness. She admits to dry cough on and off. She denies sputum production. There is no family history of SCD. Allergies:Lidocaine; Penicillins; and Procaine Home Medications: Current Outpatient Medications: ??? PROAIR HFA 90 mcg/actuation HFA Aerosol Inhaler, as needed., Disp: , Rfl: ??? buPROPion (WELLBUTRIN XL) 150 mg Tablet Extended Release 24 hr, 150 mg 2 times daily., Disp: , Rfl: 0 ??? citalopram (CELEXA) 40 mg Tablet, 40 mg daily., Disp: , Rfl: 0 ??? cloNIDine (CATAPRES) 0.1 mg Tablet, 0.1 mg daily., Disp: , Rfl: 0 ??? cyclobenzaprine (FLEXERIL) 10 mg Tablet, Take 10 mg by mouth Twice daily as needed., Disp: , Rfl: ??? FLOVENT HFA 110 mcg/actuation HFA Aerosol Inhaler, 110 mcg 4 times daily., Disp: , Rfl: ??? hydrOXYzine (ATARAX) 25 mg Tablet, 25 mg as needed., Disp: , Rfl: ??? omeprazole (PRILOSEC) 40 mg Capsule, Delayed Release(E.C.), 40 mg daily., Disp: , Rfl: 0 ??? ondansetron (ZOFRAN-ODT) 4 mg Tablet, Rapid Dissolve, Take 4 mg by mouth Every 8 hours as needed., Disp: , Rfl: ??? pantoprazole (PROTONIX) 20 mg Tablet, Delayed Release (E.C.), Take 40 mg by mouth Daily., Disp:, Rfl: ??? LYRICA 150 mg Capsule, 150 mg 3 times daily., Disp: , Rfl: 0 ??? ranitidine (ZANTAC) 150 mg Tablet, 150 mg 2 times daily., Disp: , Rfl: ??? traZODone (DESYREL) 50 mg Tablet, 50 mg nightly., Disp: , Rfl: ??? nicotine (NICODERM CQ) 14 mg/24 hr Patch 24 hr, APPLY TO HAIRLESS SKIN DAILY. ROTATE SKIN SITES, Disp: , Rfl: 0 Past Medical History: 1. Hepatitis C in the setting of prior IVDU 2. Nicotine addiction 3. Depression 4. Chronic Back pain 5. Cervical Ca s/p SYED Family History Problem Relation Age of Onset ??? Hypertension Mother ??? Hypothyroidism Mother ??? Brain Tumor Father ??? Diabetes Father ??? Colorectal Cancer Father Social History Socioeconomic History ??? Marital status: [...] and Sexual Activity ??? Alcohol use: Not on file ??? Drug use: Not on file ??? Sexual activity: Not on file Lifestyle ??? Physical activity: Days per week: Not on file Minutes per session: Not on file ??? Stress: Not on file Relationships ??? Social connections: Talks on phone: Not on file Gets together: Not on file Attends jew service: Not on file Active member of [...] Social History Narrative ??? Not on file Physical Exam: Most Recent Vitals: 12/11/18 0809 BP: 114/70 Pulse: 78 SpO2: 96% Gen/Constitutional: Alert, appears comfortable. HEENT: RONALD, EOMI, No conjunctival pallor or scleral icterus Cardiac/CVS: RRR S1 S2 No murmurs Pulm/Chest: Clear, No creps or ronchi. Abd/GI: No tenderness, not distended, soft, BS present, no organomegaly Musculoskeletal: No edema, Pulses palpable, no calf tenderness Neuro/BUSINESS RISK ANALYST: AAO x 3, No evident deficits Skin/Integumentary: There are healing ulcers on the chest. Tattoos on legs and arm. Labs: Recent Results (from the past 72 hour(s)) EKG 12 Lead Result Value Ref Range Ventricular rate 62 BPM Atrial Rate 62 BPM P-R Interval 162 ms QRS Duration 86 ms Q-T Interval 434 ms QTC Calculated (Bezet) 440 ms Calculated P Hershey 38 degrees Calculated R Hershey 65 degrees Calculated T Hershey 26 degrees INTERPRETATION Normal sinus rhythm Normal ECG No previous ECGs available Labs from 11/2018 from [facility] reviewed as scanned. LFTs mildly abnormal with ALT of 160 and pro BNP of444. Rest of the labs normal. Impression and Recommendations: Ms Ludy Allen is a 33 year old woman with no significant cardiac history who is referred to cardiology clinic for evaluation of palpitations, pedal edema and recurrent syncope. Her history surrounding the syncopal episodes is vague and I could not link that to be cardiogenic even though itcannot be ruled out. At this time she does not have any edema or never really had any signs of decompensated heart failure. Will arrange for a ziopatch and echocardiogram here and will follow up oncewe have the data. 1. Pedal Edema: - Suspect dependent edema and partially could be secondary to liver cirrhosis. - No reason to start diuretics at this time. - Encouraged to continue compression stockings and to try to quit smoking. Pt plans to quit, this coming Saturday12/15/18. - Follow up after TTE and ziopatch data. Patient was seen and evaluated along with Dr Carlton. Bulmaro Kaplan MD December 11, 2018 8:50 AM documented in this encounter Plan of Treatment Not on file documented as of this encounter Procedures Procedure Name Priority Date/Time Associated Diagnosis Comments EKG 12-LEAD Routine 12/11/2018 8:24 AM EDT Syncope, unspecified syncope type History of palpitations Leg edema documented in this encounter Results * ECHO COMPLETE (01/16/2019 1:08 PM EDT) EF 64 HEARTLAB SYSTEM Anatomical Region Laterality Modality Other 01/16/2019 Narrative 01/16/2019 1:13 PM EDT Procedure: ?Transthoracic Echocardiogram Patient: ?SOLITARIO Paula ?? (Age): 1985(33y) Med Rec#: ? [id number] ?Sex: ?F ? Site Loc: ? [facility] ?Ht / Wt: ??175(cm)/83(kg) Pt. Loc: ?Echo Lab ?BSA: ?1.99 Study Date: ?? 01/16/2019 ?Pt. Type: Outpatient Tape: ? Referring: Nicho Carlton ([id number]) Referring: ILDEFONSO Reading: Anthony Kumar ([id number]) Swatch Clerk: Dejan Puentes Diagnosis: *Syncope and collapse (R55) [...] E-wave Vmax ?0.9 ?m/sec ? MV deceleration [id number] ?msec ? MV A-wave Vmax ?0.5 ?m/sec [...] ? Pulmonic Valve/Qp:Qs ?Value ?Units (Range) ? SD end-diastolic Vma1 ?m/sec ? PA end-diastolic pre7.2 ?mmHg ? Wall Motion: Segment Name ?Rest ? Base-Anteroseptal ?? Normal ? Base-Anterior ? Normal ? Base-Anterolateral ??Normal ? Base-Posterolateral Normal ? Base-Inferior ? Normal ? Base-Inferoseptal ?? Normal ? Mid-Anteroseptal ?Normal ? Mid-Anterior ?Normal ? Mid-Anterolateral ?? Normal ? Mid-Posterolateral ??Normal ? Mid-Inferior ?Normal ? Mid-Inferoseptal ?Normal ? Brady-Septal ? Normal ? Brady-Anterior ? Normal ? Brady-Lateral ?Normal ? Brady-Inferior ? Normal ? Brady-Tip ?Normal ? This report has been electronically signed by: Anthony Kumar M.D. ? 01/16/2019 13:13:04 Images reviewed and interpretation verified [facility] Cardiac Ultrasound Laboratory Procedure Note Anthony Kumar MD - 01/16/2019 Procedure: Transthoracic Echocardiogram Patient: SOLITARIO Paula (Age): 1985(33y) Med Rec#: [id number] Sex: F Site Loc: [facility] Ht / Wt: 175(cm)/83(kg) Pt. Loc: Echo Lab BSA: 1.99 Study Date: 01/16/2019 Pt. Type: Outpatient Tape: Referring: Nicho CarltonVaughn ([id number]) Referring: ILDEFONSO Reading: Anthony Kumar Olu ([id number]) Swatch Clerk: Dejan Puentes Diagnosis: *Syncope and collapse (R55) [...] MV E-wave Vmax 0.9 m/sec MV deceleration [id number] msec MV A-wave Vmax 0.5 m/sec MV [...] 20 mmHg Pulmonic Valve/Qp:Qs Value Units (Range) SD end-diastolic Vma1 m/sec PA end-diastolic pre7.2 mmHg Wall Motion: Segment Name Rest Base-Anteroseptal Normal Base-Anterior Normal Base-Anterolateral Normal Base-Posterolateral Normal Base-Inferior Normal Base-Inferoseptal Normal Mid-Anteroseptal Normal Mid-Anterior Normal Mid-Anterolateral Normal Mid-Posterolateral Normal Mid-Inferior Normal Mid-Inferoseptal Normal Brady-Septal Normal Brady-Anterior Normal Brady-Lateral Normal Brady-Inferior Normal Brady-Tip Normal This report has been electronically signed by: Anthony Kumar M.D. 01/16/2019 13:13:04 Images reviewed and interpretation verified [facility] Cardiac Ultrasound Laboratory Nicho Carlton MD ECHO ORDERABLES * Ziopatch (12/11/2018 10:19 AM EDT) Anatomical Region Laterality Modality Other Narrative 01/14/2019 3:36 PM EDT Cardiac Electrophysiology Zio Monitor Study Initiated: ??11 Dec 2018 Duration: ?? 13 days 6 hours (after removal of ~18 hours of artifact) Indication: Syncope and collapse Result: The overall sinus rhythm rate range was 47-169/minute, and averaged 83/minute. The predominant underlying rhythm throughout the monitoring period was conducted sinus rhythm. The slowest heart rates tended to occur overnight, when also the least amount of heart rate variation tended to be manifest. No pauses >3 seconds were seen, and there was no high grade atrioventricular conduction block reported or observed at normal sinus rates. There was a <1.0% burden of isolated ectopic supraventricular beats detected; no couplets, triplets, nor runs were detected. There was a <<1.0% burden of isolated ectopic ventricular beats detected, and 1 triplet was detected as well. There were no ventricular runs detected. The patient wrote in no timed diary entries for symptoms. There were 4 patient-triggered events that corresponded to sinus rhythm 79-92/minute. Conclusion: This monitor study was remarkable for sinus rhythm and a low overall burden of ectopy. No substantial abnormalities were identified during the ~2 weeks of monitoring that would provide a likely explanation for syncope due to a dysrhythmia. ____ Interpreted by Edwin Joy MD, [facility] Nicho Carlton MD CARDIAC SERVICES O RDERABLES * EKG 12 Lead (12/11/2018 8:24 AM EDT) Ventricular rate 62 BPM MUSE SYSTEM Atrial Rate 62 BPM MUSE SYSTEM P-R Interval 162 ms MUSE SYSTEM QRS Duration 86 ms MUSE SYSTEM Q-T Interval 434 ms MUSE SYSTEM QTC Calculated (Bezet) 440 ms MUSE SYSTEM Calculated P Hershey 38 degrees MUSE SYSTEM Calculated R Hershey 65 degrees MUSE SYSTEM Calculated T Hershey 26 degrees MUSE SYSTEM INTERPRETATION Normal sinus rhythm Normal ECG No previous ECGs available I personally reviewed the tracing and edited the fellows interpretation Confirmed by fellow MD Denise, Ezequiel ([id number]) on 12/11/2018 9:23:20 AM Confirmed by MD ESDRAS, SASCHA ([id number]) on 12/11/2018 9:32:41 AM MUSE SYSTEM 12/11/2018 8:24 AM EDT 12/11/2018 9:32 AM EDT Nicho Carlton MD ECG ORDERABLES MUSE SYSTEM documented in this encounter Visit Diagnoses Diagnosis Syncope, unspecified syncope type History of palpitations Leg edema Edema Syncope, unspecified syncope type History of palpitations Syncope, unspecified syncope type History of palpitations Leg edema Edema documented in this encounter Care Teams Sports Manager Relationship Specialty Start Date End Date AshleyPetra galarza, [employer] [employer] [address] [place] [address] PCP - General Family Medicine 11/18/18 04/14/19 documented as of this encounter
--- OUTSIDE RECORDS SUMMARY | 2024-05-05 15:18 | XMS_ITS | Encounter Summary ---
[place] [address] Care Team Providers Care Architect Marine Name Role Phone Zeyad Hall DO Primary Care Provider [phone] Encounter Details Date Type Department Care Team (Late st Contact Info) Description 07/07/2019 Orders [place] [address] Bel Artis APRN [facility] [place] [address] Chronic hepatitis C without hepatic coma Social [...] documented as of this encounter Results * US Abdomen Vascular [...] report, please contact the number below. ? Augusto Loya, Staff Physician Electronically Signed Final Report ?? 08/12/2019 12:16 pm Narrative 08/12/2019 12:16 PM EST Abdominal ? (Signed Final 08/12/2019 12:16 pm) PATIENT INFO: ID #: ? [id number] ?: ??[birth year] (33 yrs) Name: ? LUDY Paula SOLITARIO ?Visit Date: 08/12/2019 11:04 am PERFORMED BY: Performed By: ? Rachelle Rosario RDMS Attending: ?Vincenzo YOO, Augusto Schofield Resident: ? Wilmar Kilpatrick MD Referred By: ?BEL ARTIS Location: ? [place] SERVICE(S) PROVIDED: ??UABDLIM - Hepatology Protocol- Abdominal ?[id number], [id number] ??Limited Survey with Vascular - Single Organ or ??Quadrant - [id number] INDICATIONS: ??Hepatitis c, evaluate for signs of [...] 08/12/2019 12:16 pm) PATIENT INFO: ID #: [id number] : [birth year] (33 yrs) Name: LUDY JEREZ Visit Date: 08/12/2019 11:04 am PERFORMED BY: Performed By: Rachelle Rosario RDMS Attending: Augusto Loya MD Resident: Wilmar Kilpatrick MD Referred By: BEL ARTIS Location: [place] SERVICE(S) PROVIDED: UABDLIM - Hepatology Protocol- Abdominal 65980, [address]405 Limited Survey with Vascular - Single Organ or Quadrant - [id number] INDICATIONS: Hepatitis c, evaluate for signs of [...] this report, please contact the number below. Augusto Loya, Staff Physician Electronically Signed Final Report 08/12/2019 12:16 pm Bel Artis APRN IMG US GEN ORDERAB LES documented in this encounter Visit Diagnoses Diagnosis Chronic hepatitis C without hepatic coma Chronic hepatitis C without hepatic coma documented in this encounter Care Teams Architect Marine Relationship Specialty Start Date End Date Zeyad Hall DO [address] [place] [address] PCP - General Family Medicine 04/15/19 documented as of this encounter
--- OUTSIDE RECORDS SUMMARY | 2024-05-05 15:18 | XMS_ITS | Encounter Summary ---
[place] [address] Care Team Providers Care Social Media Sr Strategy Manager Name Role Phone Jacky Perez APRN Primary Care Provider [phone] Encounter Details Date Type Department Care Team (Late st Contact Info) Description 06/25/2014 4:00 PM EST Office Visit Cardiology at [address] [address] Angel Luis Garcia MD [facility] [place] [address] Palpitations Discharge Disposition: Home Social History Tobacco Use Types Packs/Day Years Used Date Smoking Tobacco: Every Day Cigarettes 0.3 13 Tobacco Cessation:Ready to Q uit: No Sex and Gender Information Value Date Recorded Sex Assigned at Not on file Gender Identity Not on file Sexual Orientation Not on file documented as of this encounter Last Filed Vital Signs Vital Sign Reading Time Taken Comments Blood Pressure 102/68 06/25/2014 3:02 PM EST Pulse 80 06/25/2014 3:02 PM EST Temperature - - Respiratory Rate - - Oxygen Saturation 100% 06/25/2014 3:02 PM EST Inhaled Oxygen Concentration - - Weight 67.6 kg (149 lb) 06/25/2014 3:02 PM EST Height 175.3 cm (5' 9) 06/25/2014 3:02 PM EST Body Mass Index 22 06/25/2014 3:02 PM EST documented in this encounter Progress Notes * Angel Luis Garcia MD - 06/25/2014 4:18 PM EST Images from the original note were not included. CARDIOLOGY STAFF ADDENDUM: This patient was seen today and personally interviewed and examined. Agree with documentation by Wilmar Cerda MD, which I have reviewed and independently confirmed. 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 She has a long-standing history of heart rhythm issues and was apparently worked up at [facility] sometime in the last 7 years. We don't have any of this data available. There is some question about whether she may have had an SVT although this is not documented in conjunction with this visit. She was briefly treated with metoprolol but did not find this helpful. She is currently having multiple episodes per day during which she develops a rapid heart rate, severe stabbing chest pain, lightheadedness, etc. She has passed out a number of times over the years. Her last episode of syncope who was in conjunction with palpitations and occurred last November. She denies use ofany recreational drugs, does not drink caffeine, and smokes approximately 6 cigarettes per day. Shedrinks only minimal alcohol. EXAM: Examination was relatively unremarkable. She is a normally developed young woman in no acute distress. Her skin color was normal. Her vital signs are as follows:BP 102/68 Pulse 80 Ht 175.3 cm (5' 9) Wt 67.586 kg (149 lb) BMI 21.99 kg/m2 SpO2 100% She had no jugular venous distention. Her lungs were clear. Her cardiac exam revealed a regular rhythm without murmurs, rubs, or gallops. ASSESSMENT: Although this woman has an extra day number of symptoms and this [place] history evaluation, it clearly seems as though she is experiencing palpitations, whether benign or not. It is conceivable that her symptoms are anxiety related but I consider this diagnosis of exclusion. It is concerning that she is having syncopal episodes and we need to rule out structural heart disease. PLAN: 1. Holter monitor to be applied today 2. Schedule echocardiogram to occur at time of a follow-up appointment in the next 3-4 weeks Angel Luis Garcia MD, FA, FAC * Wilmar Cerda - 06/25/2014 3:39 PM EST Ludy Allen presents today for consultation regarding palpitations, syncope. The patient is a 28 y.o.female with PMH notable for SVT, referred after being seen in the [facility] ED 3 weeks ago after an episode of presyncope and palpitations. The patient reports she has had similar symptoms on and off or the last 7 years. She has had a prior work-up at [facility] which reportedly yeilded a diagnosis of SVT per [facility] records. The patient is uncertain of the exact diagnosis and we have no records available to us at this time. She was put on metoprolol, [place] She did not think it helped and her symptoms didn't change when she was on the medication. At this time, episodes occur most days of the week. Seem like they are increasing in frequency. Shetypically has one a day, in the evenings. They can be brought on by activity, seem worse with more exertion. 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 The episodes last anywhere from minutes to hours, can even be up to a day.She describes them as characterized by chest discomfort, shortnessof breath, blurry vision and lightheaded. The chest discomfort is retrosternal, sharp and stabbing,non- radiating. The lightheadedness is the primary complaint, and she reports she has occasionally passed out (estimates 10 times in the last 7 years). She has never had a traumatic injury or MVA. Most of the time she is able to continue working or caring for her 3 children The episodes typically fade away after a period of minutes to hours. When she has been evaluated in the ED multiple times and they tell her its her heart, avoid alcohol and heavy activity. ROS as above, otherwise: + fatigue, generalized weakness, dizziness/LH, excessive sweating, difficulty swallowing, frequent cough, abdominal pain, constipation, dry mouth, blurred vision, double vision, fever, depression, anxiety, unintended weight loss, bone pain, frequent urination. - blood in BM, diarrhea, suicidal thoughts, painful urination, rash. There are no active problems to display for this patient. Current Outpatient Prescriptions on File Prior to Visit Medication Sig Dispense Refill ??? [DISCONTINUED] ciprofloxacin (CIPRO) 500 mg tablet 500 MG = 1 Tablet(s), PO, Twice daily ??? [DISCONTINUED] LEVONORGESTREL (MIRENA IU) No current facility-administered medications on file prior to visit. Allergies Allergen Reactions ??? Procaine CIS - facial swelling Family history Father alive at age 52, has heart disease (2 MIs) Mother alive, HTN no heart disease No other heart disease that she know of Social history Lives in [place] 3 kids, single mom Works paining and lead abatement Tobacco use: 6 cig/daily Alcohol use: rare Denies illicit drug use Physical Exam: Filed Vitals: 06/25/14 1502 BP: 102/68 Pulse: 80 Well appearing young F, NAD MMM JVP below clavicle at 30* PMI at MCL 5th IC space. Regular rate and rhythm. No m/r/g appreciated Lungs clear to auscultation b/l Wwp, no cyanosis or edema. 2+ radial and dp pulses. Neuro grossly intact Problem list: 1. Palpitations 2. Syncope 3. Assessment and Recommendations: 28 yo F who presents in consultation for palpitaitons. She has a reported history of SVT, although we do not have records at this time. There is much about her presentation suggesting that her symptoms are anxiety related, but with a previous diagnosis of arrhythmia, repeat Holter monitoring is indicated. Also, given her self-reported incidence of multiple syncopal episodes she should have an echocardiogram at least once to rule out structural heart disease. - holter study - echocardiogram - f/u with me following echocardiogram. The patient was seen and discussed with Dr. Garcia at the time of their visit documented in this encounter Plan of Treatment Not on file documented as of this encounter Results * Echocardiogram Transthoracic(Leb) (08/11/2014 1:30 PM EST) EF 65 HEARTAmbature SYSTEM Anatomical Region Laterality Modality Other 08/11/2014 Narrative 08/11/2014 2:53 PM EST Procedure: ? Transthoracic Echocardiogram Patient: ? SOLITARIO Paula ?(Age): 1985(28) Med Rec#: ?[id number] ? Sex: ?F ? Site Loc: ?[facility] [place] ? Ht / Wt: ??175(cm)/66(kg) Pt. Loc: ? Echo Lab ? BSA: ?1.79 Study Date: ?08/11/2014 ? Pt. Type: Outpatient Tape: ? Referring: Angel Luis Garcia Investment Banking Manager: Kasia Marinelli [facility] Interpreting Fellow: Robel Garg ??([id number]) Interpreting Fellow: George Barraza ??([id number]) Diagnosis: ??Syncope (780.2) ??Palpitations (785.1) CPT Code(s): ??Echo Full (80964), ??Spectral Doppler (57265), ??Color Doppler (96474), Indication(s): ??Syncope Rhythm: Sinus HR ?BP 66 ?107/51 ?? SUMMARY: 1. Left ventricular chamber size, wall thickness, global and segmental systolic function are within normal limits. Ejection fraction is estimated to be 65%. There is no evidence of LVOT obstruction. 2. Right ventricular chamber size, wall thickness, and systolic function are within normal limits. No pulmonary hypertension is noted. 3. The left atrium is mildly dilated by volume index but not by area. The right atrium is normal in size. 4. There is no hemodynamically significant valve disease. 5. The pericardium appears normal and there is no evidence of a pericardial effusion. FINDINGS: Left Ventricle ?Left ventricular chamber size, wall thickness, global and segmental systolic function are within normal limits. Ejection fraction is estimated to be 65%. ?There is no evidence of LVOT obstruction. ?Doppler assessment is consistent with normal left sided filling pressure. Left Atrium ?The left atrium is mildly dilated. 29 ml/m2. ?No atrial septal defect is visualized. Right Ventricle ?Right ventricular chamber size, wall thickness, and systolic function are within normal limits. ?No pulmonary hypertension is noted. ?The estimated pulmonary artery systolic pressure is 24 mmHg. ?The estimated right atrial pressure is 3 mmHg. Right Atrium ?The right atrium is normal in size. Aortic Valve ?The aortic valve is trileaflet. The leaflets are thin with normal excursion. There is no aortic stenosis or regurgitation present. Mitral Valve ?The mitral valve appears normal in structure and function. ?There is no evidence of mitral valve leaflet prolapse. ?There is trace mitral regurgitation present. Tricuspid Valve ?The tricuspid valve appears normal in structure and function. ?There is trace tricuspid regurgitation present. Pulmonic Valve ?The pulmonic valve appears normal in structure and function. Pericardium ?The pericardium appears normal and there is no evidence of a pericardial effusion. Aorta ?The aortic root is normal in size. ?The ascending aorta is normal in size. ?The left main coronary artery is visualized and originates normally from the aorta. ?The right coronary artery is visualized and originates normally from the aorta. ?There is no evidence of coarctation of the aorta. Pulmonary Artery ?The main pulmonary artery appears normal. Venous ?The inferior vena cava appears normal in size. ?There is a greater than 50% respiratory change in the inferior vena cava dimension. Misc ?There is no hemodynamically significant valve disease. ?See remainder of report for additional findings. ?Two-dimensional echo, spectral Doppler and color Doppler performed. Wall Motion: Segment Name ?Rest ? Base-Anteroseptal ?? Normal ? Base-Anterior ? Normal ? Base-Anterolateral ??Normal ? Base-Posterolateral Normal ? Base-Inferior ? Normal ? Base-Inferoseptal ?? Normal ? Mid-Anteroseptal ?Normal ? Mid-Anterior ?Normal ? Mid-Anterolateral ?? Normal ? Mid-Posterolateral ??Normal ? Mid-Inferior ?Normal ? Mid-Inferoseptal ?Normal ? Cornelia-Septal ? Normal ? Cornelia-Anterior ? Normal ? Cornelia-Lateral ?Normal ? Cornelia-Inferior ? Normal ? Cornelia-Tip ?Normal ? Chambers ?Value ?Units (Range) ? LV EF Est ? 65 ? % (55 to 80) ? LVIDd 2D ?4.8 ?cm ? LVIDs 2D ?3 ?cm ? LVFS 2D ? 38 ? % ? LA area ? 18 ? cm2 (<21) ? RA area ? 13 ? cm2 (<18) ? Ao root ? 2.8 ?cm (2.1 to 3.6) ? Asc Ao ?2.9 ?cm (2 to 3.5) ? Mitral Valve ?Value ?Units (Range) ? E peak ?1 ?m/sec ? E/A ratio ? 2 ?ratio ? MVDT ?284 ?msec ? E1 ?0.16 ? m/sec ? E/E1 ?6 ?ratio ? Tricuspid/Pulmonic Valves ?Value ?Units (Range) ? TR peak hilary ? 2.3 ?m/sec ? RAP ? 3 ?mmHg ? RVSP/PASP ? 24 ? mmHg ? This report has been electronically signed by: Rich Caro M.D. ? 08/11/2014 14:51:29 Images reviewed and interpretation verified [facility] Procedure Note Rich Caro MD - 08/11/2014 Procedure: Transthoracic Echocardiogram Patient: SOLITARIO Paula DOB(Age): 1985(28) Med Rec#: [id number] Sex: F Site Loc: [facility] [place] Ht / Wt: 175(cm)/66(kg) Pt. Loc: Echo Lab BSA: 1.79 Study Date: 08/11/2014 Pt. Type: Outpatient Tape: Referring: Angel Luis Garcia Investment Banking Manager: Kasia Marinelli [facility] Interpreting Fellow: Robel Garg ([id number]) Interpreting Fellow: George Barraza ([id number]) Diagnosis: Syncope (780.2) Palpitations (785.1) CPT Code(s): Echo Full (70583), Spectral Doppler (63814), Color Doppler (23474), Indication(s): Syncope Rhythm: Sinus HR BP 66 107/51 SUMMARY: 1. Left ventricular chamber size, wall thickness, global and segmental systolic function are within normal limits. Ejection fraction is estimated to be 65%. There is no evidence of LVOT obstruction. 2. Right ventricular chamber size, wall thickness, and systolic function are within normal limits. No pulmonary hypertension is noted. 3. The left atrium is mildly dilated by volume index but not by area. The right atrium is normal in size. 4. There is no hemodynamically significant valve disease. 5. The pericardium appears normal and there is no evidence of a pericardial effusion. FINDINGS: Left Ventricle Left ventricular chamber size, wall thickness, global and segmental systolic function are within normal limits. Ejection fraction is estimated to be 65%. There is no evidence of LVOT obstruction. Doppler assessment is consistent with normal left sided filling pressure. Left Atrium The left atrium is mildly dilated. 29 ml/m2. No atrial septal defect is visualized. Right Ventricle Right ventricular chamber size, wall thickness, and systolic function are within normal limits. No pulmonary hypertension is noted. The estimated pulmonary artery systolic pressure is 24 mmHg. The estimated right atrial pressure is 3 mmHg. Right Atrium The right atrium is normal in size. Aortic Valve The aortic valve is trileaflet. The leaflets are thin with normal excursion. There is no aortic stenosis or regurgitation present. Mitral Valve The mitral valve appears normal in structure and function. There is no evidence of mitral valve leaflet prolapse. There is trace mitral regurgitation present. Tricuspid Valve The tricuspid valve appears normal in structure and function. There is trace tricuspid regurgitation present. Pulmonic Valve The pulmonic valve appears normal in structure and function. Pericardium The pericardium appears normal and there is no evidence of a pericardial effusion. Aorta The aortic root is normal in size. The ascending aorta is normal in size. The left main coronary artery is visualized and originates normally from the aorta. The right coronary artery is visualized and originates normally from the aorta. There is no evidence of coarctation of the aorta. Pulmonary Artery The main pulmonary artery appears normal. Venous The inferior vena cava appears normal in size. There is a greater than 50% respiratory change in the inferior vena cava dimension. Misc There is no hemodynamically significant valve disease. See remainder of report for additional findings. Two-dimensional echo, spectral Doppler and color Doppler performed. Wall Motion: Segment Name Rest Base-Anteroseptal Normal Base-Anterior Normal Base-Anterolateral Normal Base-Posterolateral Normal Base-Inferior Normal Base-Inferoseptal Normal Mid-Anteroseptal Normal Mid-Anterior Normal Mid-Anterolateral Normal Mid-Posterolateral Normal Mid-Inferior Normal Mid-Inferoseptal Normal Cornelia-Septal Normal Cornelia-Anterior Normal Cornelia-Lateral Normal Cornelia-Inferior Normal Cornelia-Tip Normal Chambers Value Units (Range) LV EF Est 65 % (55 to 80) LVIDd 2D 4.8 cm LVIDs 2D 3 cm LVFS 2D 38 % LA area 18 cm2 (<21) RA area 13 cm2 (<18) Ao root 2.8 cm (2.1 to 3.6) Asc Ao 2.9 cm (2 to 3.5) Mitral Valve Value Units (Range) E peak 1 m/sec E/A ratio 2 ratio MVDT 284 msec E1 0.16 m/sec E/E1 6 ratio Tricuspid/Pulmonic Valves Value Units (Range) TR peak hilary 2.3 m/sec RAP 3 mmHg RVSP/PASP 24 mmHg This report has been electronically signed by: Kayleen Caro M.D. 08/11/2014 14:51:29 Images reviewed and interpretation verified [facility] Angel Luis Garcia MD ECHO ORDERABLES * Holter Monitor 48hr (06/25/2014 5:14 PM [...] Angel Luis Garcia MD [facility] documented in this encounter Visit Diagnoses Diagnosis Palpitations Palpitations Palpitations documented in this encounter Care Teams Social Media Sr Strategy Manager Relationship Specialty Start Date End Date Jacky Perez APRN [address] [place] [address] [place] [id number] PCP - General 05/20/14 11/17/18 documented as of this encounter
--- OUTSIDE RECORDS SUMMARY | 2024-05-05 15:18 | XMS_ITS | Encounter Summary ---
[place] [address] Care Team Providers Care Pattern Layout Worker Name Role Phone Zeyad Hall DO Primary Care Provider [phone] Encounter Details Date Type Department Care Team (Late st Contact Info) Description 06/11/2019 2:05 PM EST Anesthesia [place] [address] Meghna Valdez MD [facility] [place] [address] Sarita Lynn CRNA [facility] [place] [address] Anesthesia Record Procedure Summary Procedure Name Responsible Anesthesiologist Anesthesia Start Time Anesthesia Stop Time EGD, UPPER GI ENDOSCOPY (WRVU 2.09) (Trunk) Meghna Valdez MD 06/11/19 1405 06/11/19 1422 Events Date Time Event Comment 06/11/2019 1300 1405 AN Verify 1405 Start 1405 An Start Data 1410 An Induction 1412 Anesthesia Ready 1413 Procedure Start 1417 an stop data 1422 Recovery or ICU Handoff Jayleen ent care was transferred to the destination unit staff after review of the patient's medical history, current anesthetic/surgical status and plan, according to the Provider Handoff Checklist. 1422 Stop Meds Name Total Propofol 120 mg Propofol INF 81.04 mg lactated ringers infusion 100 mL * Agents Name O2 Air N2O O2 Auxiliary Flowmeter 1 * Blood No blood administrations on file. Lines, Drains, and Airways Type Details Placement Removal (RETIRED) Peripheral IV Line - Single Lumen 06/11/19; 1357; other (see comments) (Left inner ankle ); [id number] catheter system; 24 gauge; B KYLE Lynn ; distraction; 5; multiple attempts, including with US. Inserted in ankle ; 06/11/19; 1445 06/11/19 1357 by Sarita Lynn CRNA 06/11/19 1445 by iSs Ya RN documented in this encounter Social History Tobacco Use Types Packs/Day Years [...] on file documented as of this encounter OR Notes * Anesthesia Postprocedure Evaluation - Meghna Valdez MD - 06/11/2019 2:35 PM EST Department of Anesthesiology Post-procedure Note Patient: Ludy Allen Procedure Summary Date: 06/11/19 Room / Location: [facility] ENDO 4 / [facility] ENDOSCOPY Anesthesia Start: 1405 Anesthesia Stop: 142 Procedure: EGD, UPPER GI ENDOSCOPY (N/A Trunk) Diagnosis: Gastroesophageal reflux disease, esophagitis presence not specified (uncontrolled GERD, nausea (anesthesia consult)) Surgeon: Lucy Goodman MD Responsible Provider: Meghna Valdez MD Anesthesia Type: MAC ASA Status: 3 All Anesthesia Providers: Anesthesiologist: Meghna Valdez MD TOUR COORDINATOR: Sarita Lynn CRNA Vitals Value Taken Time BP 94/55 06/11/2019 2:30 PM Temp Pulse Resp 16 06/11/2019 2:20 PM SpO2 97 % 06/11/2019 2:34 PM Pain Level 0 06/11/2019 2:20 PM Vitals shown include unvalidated device data. Patient Location: PACU/[facility] Level of Consciousness: Awake and Alert Pain Management: Satisfactory Analgesia PONV: None Cardiovascular Status: At Baseline and Hemodynamically Stable Respiratory Status: At Baseline and Room Air Postoperative Fluid Status: Intravascular EUvolemia Possible Anesthetic Complications: NONE apparent at time of evaluation Final Primary Anesthesia Type: MAC (The anesthetic type performed was the same as planned.) Comments: MEGHNA VALDEZ MD * Anesthesia Preprocedure Evaluation - Meghna Valdez MD - 06/11/2019 12:56 PM EST Images from the original note were not included. Pre-Anesthesia Evaluation for: Ludy Allen a 33 y.o. female. Procedure(s): EGD, UPPER GI ENDOSCOPY Patient Active Problem List Diagnosis ??? Plantar fasciitis, bilateral ??? History of palpitations ??? Leg edema ??? Syncope History reviewed. No pertinent past medical history. History reviewed. No pertinent surgical history. Social History Tobacco Use ??? Smoking status: Current Every Day Smoker Packs/day: 1.00 Years: 13.00 Pack years: 13.00 Types: Cigarettes ??? Smokeless tobacco: Never Used Substance Use Topics ??? Alcohol use: Not Currently Social History Substance and Sexual Activity Drug Use Never Allergies Allergen Reactions ??? Lidocaine ??? Penicillins ??? Procaine CIS - facial swelling ??? Unable To Find [Unclassified Drug] Control Pills Medications: MAR and/or home medications have been reviewed. Physical Exam: There were no vitals filed for this visit. There is no height or weight on file to calculate BMI. Airway Assessment: Mallampati: II TM distance: >3 FB Neck ROM: full Cardiovascular Assessment: cardiovascular exam normal Pulmonary Assessment: pulmonary exam normal Dental Assessment: Comment: Generally poor dentition, decayed, broken, missing teeth Misc Assessment: Patient is wearing No contact(s). IV access: Peripheral line Anesthesia Plan: ASA 3 MAC, with a(n) intravenous induction 33 year old female for EGD to evaluate GERD Hep C treated Current smoker On suboxone Lidocaine allergy Sleep apnea does not use O2 or CPAP Plan propofol sedation Region - Other Informed Consent: Anesthetic plan and risks discussed with patient. Plan discussed with TOUR COORDINATOR. PAT Clinic Note documented in this encounter Plan of Treatment Not on file documented as of this encounter Visit Diagnoses Not on filedocumented in this encounter Administered Medications Inactive Administered Medications - up to 3 most recent administrations Medication Order MAR Action Action Date Dose Rate Site lactated ringers infusion 100 mL/hr, Intravenous, CONTINUOUS, Starting on Cristina 06/11/19 at 1315, Until Cristina 06/11/19 at 1445, Endoscopy (Day of Procedure) New Bag 06/11/2019 2:01 PM EST propofol (DIPRIVAN) 10 mg/mL bolus injection (Anesthesia) PRN, Starting on Cristina 06/11/19 at 1410, Until Cristina 06/11/19 at 1422, Anesthesia Intra-op Given 06/11/2019 2:12 PM EST 20 mg Given 06/11/2019 2:11 PM EST 40 mg Given 06/11/2019 2:10 PM EST 60 mg propofol (DIPRIVAN) infusion CONTINUOUS PRN, Starting on Cristina 06/11/19 at 1410, Until Cristina 06/11/19 at 1422, Anesthesia Intra-op, Routine Rate/Dose Change 06/11/2019 2:13 PM EST 250 mcg/kg/min 128 mL/hr New Bag 06/11/2019 2:10 PM EST 150 mcg/kg/min 76.8 mL/h r documented in this encounter Care Teams Pattern Layout Worker Relationship Specialty Start Date End Date Zeyad Hall DO [address] [place] [address] PCP - General Family Medicine 04/15/19 documented as of this encounter
--- OUTSIDE RECORDS SUMMARY | 2024-05-05 15:18 | XMS_ITS | Encounter Summary ---
[place] [address] Care Team Providers Care Organic Preparation Analyst Name Role Phone Zeyad Hall DO Primary Care Provider [phone] Encounter Details Date Type Department Care Team (Late st Contact Info) Description 04/27/2009 Orders Only Obstetrics [place] [address] Marilu De Leon, [facility] DR OBSTETRICS & [place] [address] Social History Tobacco Use Types Packs/Day Years Used Date Smoking Tobacco: Never Assessed Sex and Gender Information Value Date Recorded Sex Assigned at Not on file Gender Identity Not on file Sexual Orientation Not on file documented as of this encounter Plan of Treatment Not on file documented as of this encounter Procedures Procedure Name Priority Date/Time Associated Diagnosis Comments SURGICAL PATHOLOGY REPORT Routine 04/27/2009 10:45 AM EDT documented in this encounter Results * Surgical Pathology Report (04/27/2009 10:45 AM EDT) Surgical Pathology Report [id number] ? Location: BP; BP06; A The signing pathologist has (i) examined the relevant preparation(s) for the specimen(s) and (ii) rendered or confirmed the diagnosis(es). . ?Pathology Surgical Pathology Final Report Clinical Information Specimen Submitted: A - Placenta Clinical History: after at 36 6/7 weeks spontaneous delivery of placenta with ? cotyledon missing. Clinical Diagnosis: Not provided Gross Description Labeled/Fixative: ? Labeled with the patient's name, fresh. Qty/Size/Weight: ?One, 15.0 x 14.0 x 3.3 cm, 462 g. Tissue Description: ?? Johnson, discoid placenta. ?? Membranes: ? The membranes are partially cloudy, ?yellow-meadows with a 75% circummarginate ?insertion. ?? Cord: ?42.0 x 1.2 cm; three vessels; marginal ?insertion. ?? Surface: ? [place]-meadows to meadows-purple with areas of ?superficial, li-white plaque. ?? Maternal Surface: ??Appears loose and centrally disrupted with a ?possible central cotyledon absent. ?? Parenchyma: ?The specimen is serially sectioned at 0.5-cm ?to 1.0-cm intervals. ??Sections show a ?homogeneous spongy, red-meadows parenchyma with ?no discrete lesions. Sections/Processing : ??Sections are submitted as follows: ??(1) ?umbilical cord; (2) rolled membranes; (3) surface; (4) maternal surface. ??(R4) ??vms/EJR Microscopic Description Slides reviewed, microscopic description not recorded. Diagnosis Third trimester placenta, cord and membranes: Negative for chorioamnionitis or funisitis. Placenta disrupted with a possible central cotyledon absent. CR-0 05/02/09 KO 05/02/09 Verified by: ? Katherine Chowdary MD ?Pathologist ?(Electronic Signature) The attending pathologist whose signature appears on this report has reviewed all diagnostic slides and has edited the gross and/or microscopic portion of the report in rendering the final pathologic diagnosis. [facility] 04/27/2009 10:4 5 AM EDT Marilu De Leon CNM PATHOLOGY/CYTOLOGY ORDERABLES Performing Organization Address City/State/[facility] Co de Phone Number [facility] documented in this encounter Visit Diagnoses Not on filedocumented in this encounter Care Teams Organic Preparation Analyst Relationship Specialty Start Date End Date Zeyad Hall DO [address] [place] [address] PCP - General Family Medicine 04/15/19 documented as of this encounter
--- OUTSIDE RECORDS SUMMARY | 2024-05-05 15:18 | XMS_ITS | Encounter Summary ---
Author Organization [facility] [place] [address] Care Team Providers Care Track Leader Name Role Phone Jacky Perez APRN Primary Care Provider [phone] Encounter Details Date Type Department Care Team (Latest Contact Info) Description 08/11/2014 12:24 PM EST - 08/11/2014 11:59 PM EST Hospital Encounter Non-[place] [id number] CARDIO, ECHO SIXTY MIN APPT None Angel Luis Garcia MD [facility] [address] Palpitations Discharge Disposition: Home Social History Tobacco [...] Procedure Name Priority Date/Time Associated Diagnosis Comments ECHOCARDIOGRAM TRANSTHORACIC Routine 08/11/2014 1:30 PM EST Palpitations documented in this encounter Results * Echocardiogram Transthoracic(Leb) (08/11/2014 1:30 PM EST) EF 65 [employer] Anatomical Region Laterality Modality Other 08/11/2014 Narrative 08/11/2014 2:53 PM EST Procedure: ? Transthoracic Echocardiogram Patient: ? SOLITARIO Paula ?(Age): 1985(28) Med Rec#: ?[id number] ? Sex: ?F ? Site Loc: ?[facility] ? Ht / Wt: ??175(cm)/66(kg) Pt. Loc: ? Echo Lab ? BSA: ?1.79 Study Date: ?08/11/2014 ? Pt. Type: Outpatient Tape: ? Referring: Angel Luis Garcia [employer] Teacher: Kasia Marinelli [facility] Interpreting Fellow: Robel Garg ??([id number]) Interpreting Fellow: George Barraza ??([id number]) Diagnosis: ??Syncope (780.2) ??Palpitations (785.1) CPT Code(s): ??Echo Full (46426), ??Spectral Doppler (02298), ??Color Doppler (10466), Indication(s): ??Syncope Rhythm: Sinus HR ?BP 66 [...] ? Mid-Inferior ?Normal ? Mid-Inferoseptal ?Normal ? [place]-Septal ? Normal ? [place]-Anterior ? Normal ? [place]-Lateral ?Normal ? [place]-Inferior ? Normal ? [place]-Tip ?Normal ? Chambers ?Value ?Units (Range) ? [...] 08/11/2014 14:51:29 Images reviewed and interpretation verified [facility] Cardiac Ultrasound Laboratory Procedure Note Rich Caro MD - 08/11/2014 Procedure: Transthoracic Echocardiogram Patient: SOLITARIO Paula DOB(Age): 1985(28) Med Rec#: [id number] Sex: F Site Loc: [facility] Ht / Wt: 175(cm)/66(kg) Pt. Loc: Echo Lab BSA: 1.79 Study Date: 08/11/2014 Pt. Type: Outpatient Tape: Referring: Angel Luis Garcia [employer] Teacher: Kasia Marinelli [facility] Interpreting Fellow: Robel Garg ([id number]) Interpreting Fellow: George Barraza ([id number]) Diagnosis: Syncope (780.2) Palpitations (785.1) CPT Code(s): Echo Full (20350), Spectral Doppler (20996), Color Doppler (09310), Indication(s): Syncope Rhythm: Sinus HR BP 66 [...] Normal Mid-Posterolateral Normal Mid-Inferior Normal Mid-Inferoseptal Normal [place]-Septal Normal [place]-Anterior Normal [place]-Lateral Normal [place]-Inferior Normal [place]-Tip Normal Chambers Value Units (Range) LV EF [...] This report has been electronically signed by: Lennie Caro M.D. 08/11/2014 14:51:29 Images reviewed and interpretation verified [facility] Cardiac Ultrasound Laboratory Angel Luis Garcia MD ECHO ORDERABLES documented in this encounter Visit Diagnoses Diagnosis Palpitations documented in this encounter Care Teams Track Leader Relationship Specialty Start Date End Date Jacky Perez APRN [address] [place] [address] [place] [address] PCP - General 05/20/14 11/17/18 documented as of this encounter
--- OUTSIDE RECORDS SUMMARY | 2024-05-05 15:18 | XMS_ITS | Encounter Summary ---
[place] [address] Care Team Providers Care Clinical Support Manager Name Role Phone Petra Riley APRN Primary Care Provider Reason for Referral * Diagnostic Test (Routine) - Closed Specialty Diagnoses / Procedures Referred By Contac t Referred To Contact Cardiology Diagnoses Syncope, unspecified syncope type History of palpitations Procedures Bulmaro Metz MD [facility] [place] [address] [facility] [address] [place] [phone] Referral ID Status Reason Start Date Expiration Date V isits Requested Visits Authorized [id number] Closed Specialty Service Requested 12/11/2018 12/11/2019 1 1 Reason for Visit * Diagnostic Test (Routine) - Closed Specialty Diagnoses / Procedures Referred By Contac t Referred To Contact Cardiology Diagnoses Syncope, unspecified syncope type History of palpitations Procedures Bulmaro Metz MD [facility] [place] [address] [facility] [address] [place] [phone] Referral ID Status Reason Start Date Expiration Date V isits Requested Visits Authorized [id number] Closed Specialty Service Requested 12/11/2018 12/11/2019 1 1 Encounter Details Date Type Department Care Team (Latest Contact Info) Description 12/11/2018 9:30 AM EDT - 12/11/2018 11:59 PM EDT Hospital Encounter Non-Invasive [facility]iology Lab [facility] [place] [address] Nicho Carlton MD [facility] [place] [address] Syncope, unspecified syncope type; History of palpitations Discharge Disposition: Home Social History Tobacco Use [...] 11/21/2018 12/14/2018 documented as of this encounter Plan of Treatment Not on file documented as of this encounter Procedures Procedure Name Priority Date/Time Associated Diagnosis Comments ZIOPATCH Routine 12/11/2018 10:19 AM EDT Syncope, unspecified syncope type History of palpitations documented in this encounter Results * Ziopatch (12/11/2018 10:19 AM EDT) Anatomical [...] dysrhythmia. ____ Interpreted by Edwin Joy MD, [facility] Nicho Carlton MD [facility] documented in this encounter Visit Diagnoses Diagnosis Syncope, unspecified syncope type History of palpitations documented in this encounter Care Teams Clinical Support Manager Relationship Specialty Start Date End Date Osvaldo Petra, [employer] [address] [place] [address] PCP - General Family Medicine 11/18/18 04/14/19 documented as of this encounter
== END 2024-05-05 15:33 ==
LOC: DI 15:14
PROVIDERS: PCP Family Medicine; Visit Provider Family Medicine
DX: S89.91XA Unspecified injury of right lower leg, initial encounter (principal); X58.XXXA Exposure to other specified factors, initial encounter
CPT/HCPCS: 73564

== ENCOUNTER 2024-08-23 16:33 | Emergency (ER) | payer MEDICAID, SELFPAY ==
[2024-08-23 16:35] VITALS: BP 107/46; PULSE 98; RESP 16; TEMP 36.6; O2SAT 98
--- NOTE | 2024-08-23 16:45 | DI.RAD_ITS ---
Exam(s) XR ANKLE RT COMPLETE EXAM: XR ANKLE RT COMPLETE CLINICAL HISTORY: right ankle pain, twisted. TECHNIQUE: 2D digital imaging was performed. Three views. COMPARISON: CR XR ANKLE RT COMPLETE from 08/24/2021 FINDINGS: BONES: No acute fracture is present. No bony destructive lesion is seen. JOINTS: The ankle mortise is normally aligned. SOFT TISSUE: Marked lateral soft tissue swelling. IMPRESSION: Soft tissue swelling. DATA REPOSITORY: RADIATION DOSE DELIVERED:
--- NOTE | 2024-08-23 17:05 | ED.GENADUL_ITS ---
Discharge Plan Disposition Patient Disposition: Home Condition: Stable Discharge Details Clinical Impression: Ankle sprain Primary Care Provider: Zeyad Hall ED Provider: Haylee Snow Home Meds and New Rx's Prescriptions: Continued ondansetron HCl 4 mg tablet 4 mg PO Q8H PRN (Reason: nausea and vomiting) Qty: 90 3RF naproxen 500 mg tablet 500 mg PO BID PRN (Reason: pain) Qty: 60 0RF citalopram 40 mg tablet 40 mg PO DAILY Qty: 90 3RF aripiprazole 5 mg tablet 5 mg PO DAILY Qty: 90 3RF hydroxyzine HCl 25 mg tablet 25 mg PO TID-QID PRN (Reason: itching) Qty: 90 3RF atomoxetine [Strattera] 40 mg capsule 40 mg PO DAILY Qty: 30 1RF clonidine HCl 0.1 mg tablet 0.1 mg PO TID Qty: 90 1RF (DME) BreatheRite MDI Spacer Spacer See Rx Instructions .ROUTE .MEDSUPPLY Qty: 1 0RF Rx Instructions: As directed albuterol sulfate 90 mcg/actuation HFA aerosol inhaler 2 puff IH Q6H PRN (Reason: shortness of breath or wheezing) Qty: 18 1RF cyclobenzaprine 10 mg tablet 10 mg PO TID PRN (Reason: muscle spasm) Qty: 90 1RF divalproex 250 mg tablet,delayed release (DR/EC) 250 mg PO BID Qty: 180 0RF fluticasone propion-salmeterol [Advair Diskus] 250-50 mcg/dose blister with device 1 inh IH Q12H Qty: 60 1RF furosemide 20 mg tablet 20 mg PO DAILY PRN (Reason: edema) Qty: 90 3RF omeprazole 40 mg capsule,delayed release(DR/EC) 40 mg PO DAILY Qty: 90 3RF pregabalin 300 mg capsule 300 mg PO BID Qty: 56 1RF psyllium husk 0.52 gram capsule 0.52 g PO DAILY Qty: 90 3RF tiotropium bromide [Spiriva with HandiHaler] 18 mcg capsule, w/inhalation device 1 cap IH DAILY Qty: 90 3RF trazodone 50 mg tablet 50 mg PO QHS Qty: 90 1RF methocarbamol 500 mg tablet 500 mg PO Q6H PRN (Reason: muscle spasm) Qty: 14 0RF Discharge Instructions Instructions: Ankle Sprain ED Additional Instructions: Use your boot and crutches as needed for ambulation Please follow-up with your primary care physician in 1 week with persistent pain Please return earlier should you have fever, chills, worsening pain, or should any new concerns arise Referrals: Zeyad Hall DO [Primary Care Provider] - Discharge Data Discharge Date/Time-TO BE ENTERED AT DEPARTURE: 08/23/24 17:49 HPI General Date/Time Provider Initiated Documentation: 08/23/24 16:50 . HPI Narrative: 38-year-old female presents with injury to ankle several days prior to arrival. States she twisted it while running denies any additional injuries. Denies any pain to her knee or chance of . Denies strength or sensation change. Related Data Home Medications ?Medication ?Instructions ?Recorded ?Confirmed aripiprazole 5 mg tablet 5 mg PO DAILY #90 tabs 01/06/21 08/23/24 citalopram 40 mg tablet 40 mg PO DAILY #90 tabs 01/06/21 08/23/24 hydroxyzine HCl 25 mg tablet 25 mg PO TID-QID PRN itching #90 01/06/21 08/23/24 tabs atomoxetine 40 mg capsule 40 mg PO DAILY #30 caps 05/11/21 08/23/24 (Strattera) clonidine HCl 0.1 mg tablet 0.1 mg PO TID #90 tabs 05/11/21 08/23/24 methocarbamol 500 mg tablet 500 mg PO Q6H PRN muscle spasm #14 05/27/21 08/23/24 tabs inhalational spacing device #1 ea 07/25/21 08/23/24 (BreatheRite MDI Spacer) ondansetron HCl 4 mg tablet 4 mg PO Q8H PRN nausea and 11/01/23 08/23/24 vomiting #90 tabs naproxen 500 mg tablet 500 mg PO BID PRN pain #60 tabs 05/05/24 08/23/24 albuterol sulfate 90 mcg/actuation 2 puff inhalation Q6H PRN 05/07/24 08/23/24 aerosol inhaler shortness of breath or wheezing #18 grams cyclobenzaprine 10 mg tablet 10 mg PO TID PRN muscle spasm #90 05/07/24 08/23/24 tabs divalproex 250 mg tablet,delayed 250 mg PO BID #180 tabs 05/07/24 08/23/24 release fluticasone 250 mcg-salmeterol 50 1 inh inhalation Q12H #60 ea 05/07/24 08/23/24 mcg/dose blistr powdr for inhalation (Advair Diskus) furosemide 20 mg tablet 20 mg PO DAILY PRN edema #90 tabs 05/07/24 08/23/24 omeprazole 40 mg capsule,delayed 40 mg PO DAILY #90 caps 05/07/24 08/23/24 release pregabalin 300 mg capsule 300 mg PO BID #56 caps 05/07/24 08/23/24 psyllium husk 0.52 gram capsule 0.52 g PO DAILY #90 caps 05/07/24 08/23/24 tiotropium bromide 18 mcg capsule 1 cap inhalation DAILY #90 05/07/24 08/23/24 with inhalation device (Spiriva inhalations with HandiHaler) trazodone 50 mg tablet 50 mg PO QHS #90 tabs 05/07/24 08/23/24 Previous Rx's ?Medication ?Instructions ?Recorded aripiprazole 5 mg tablet 5 mg PO DAILY #90 tabs 01/06/21 citalopram 40 mg tablet 40 mg PO DAILY #90 tabs 01/06/21 hydroxyzine HCl 25 mg tablet 25 mg PO TID-QID PRN itching #90 01/06/21 tabs atomoxetine 40 mg capsule 40 mg PO DAILY #30 caps 05/11/21 (Strattera) clonidine HCl 0.1 mg tablet 0.1 mg PO TID #90 tabs 05/11/21 methocarbamol 500 mg tablet 500 mg PO Q6H PRN muscle spasm #14 05/27/21 tabs inhalational spacing device #1 ea 07/25/21 (BreatheRite MDI Spacer) ondansetron HCl 4 mg tablet 4 mg PO Q8H PRN nausea and 11/01/23 vomiting #90 tabs naproxen 500 mg tablet 500 mg PO BID PRN pain #60 tabs 05/05/24 albuterol sulfate 90 mcg/actuation 2 puff inhalation Q6H PRN 05/07/24 aerosol inhaler shortness of breath or wheezing #18 grams cyclobenzaprine 10 mg tablet 10 mg PO TID PRN muscle spasm #90 05/07/24 tabs divalproex 250 mg tablet,delayed 250 mg PO BID #180 tabs 05/07/24 release fluticasone 250 mcg-salmeterol 50 1 inh inhalation Q12H #60 ea 05/07/24 mcg/dose blistr powdr for inhalation (Advair Diskus) furosemide 20 mg tablet 20 mg PO DAILY PRN edema #90 tabs 05/07/24 omeprazole 40 mg capsule,delayed 40 mg PO DAILY #90 caps 05/07/24 release pregabalin 300 mg capsule 300 mg PO BID #56 caps 05/07/24 psyllium husk 0.52 gram capsule 0.52 g PO DAILY #90 caps 05/07/24 tiotropium bromide 18 mcg capsule 1 cap inhalation DAILY #90 05/07/24 with inhalation device (Spiriva inhalations with HandiHaler) trazodone 50 mg tablet 50 mg PO QHS #90 tabs 05/07/24 Allergies Allergy/AdvReac Type Severity Reaction Status Date / Time lidocaine Allergy Intermediate Swelling/Ed Verified 08/23/24 16:37 rome procaine HCl (From Novocain) Allergy Intermediate Swelling/Ed Verified 08/23/24 16:37 rome red dye Allergy Mild Swelling/Ed Unverified 08/23/24 16:37 rome Penicillins AdvReac Unknown Nausea Verified 08/23/24 16:37 control pills Allergy Severe hospitalize Uncoded 08/23/24 16:37 d General Stated Complaint: Orthopedic THONG: 4 Course Vital Signs Vital signs: Vital Signs Temperature 36.6 C 08/23/24 16:35 Pulse 98 H 08/23/24 16:35 Respiratory Rate 16 08/23/24 16:35 Blood Pressure 107/46 L 08/23/24 16:35 Pulse Oximetry 98 08/23/24 16:35 Temperature 36.6 C 08/23/24 16:35 Pulse 98 H 08/23/24 16:35 Respiratory Rate 16 08/23/24 16:35 Blood Pressure 107/46 L 08/23/24 16:35 Pulse Oximetry 98 08/23/24 16:35 Medical Decision Making 38-year-old female presenting after twisting her ankle several days prior to arrival. X-ray per my review does not show evidence of acute abnormality aside from soft tissue swelling, pending radiology interpretation. Boot and crutches were supplied. Neurovascularly intact. Return precautions reviewed and patient expressed understanding Quality:SDOH Health Related Social Needs: No Data to Display PFSH All Active Problems (Updated 08/23/24 @ 17:28 by JAYME Bearden) Ankle sprain (Acute) Injury of knee, right (Acute) Bipolar 1 disorder (Acute) Anemia (Chronic) Discharge planning issues (Acute) Psoas muscle abscess (Acute) Acute thoracic myofascial strain (Acute) Acute lumbar myofascial strain (Acute) Osteomyelitis (Acute) Discitis of lumbosacral region (Acute) MRSA bacteremia (Acute) UTI (urinary tract infection) (Acute) Dental caries (Acute) H/O endoscopy (Acute) 06/11/19 [facility] Endoscopy Z line abnl 37 cm from incisors,Grade A reflux esophagitis. Normal stomach and Duodenum. Chronic hepatitis C without hepatic coma (Acute) 05/27/19- [facility] G[facility]. Katelyn Abbott APRN 05/12/20 HCV viral load undetected 2020- Viral load detected again Carpal tunnel syndrome of right wrist (Acute) Plantar fasciitis, bilateral (Acute) ADHD (Acute) Family history of ovarian cancer (Acute) Family history of breast cancer in first degree relative (Acute) Family history of colon cancer (Acute) Family history of RI (myocardial infarction) (Acute) Gastroesophageal reflux disease without esophagitis (Acute 11/23/16) Hx of supraventricular tachycardia (Acute 11/23/16) Chronic back pain greater than 3 months duration (Acute 11/23/16) Tobacco use (Acute 11/23/16) Depression (Chronic) from previous record ? bipolar Anxiety (Chronic) Asthma (Chronic) Right ankle pain (Chronic) IV drug abuse (Acute) Polysubstance abuse (Acute) Substance abuse (Acute) Seen in October 2017, cocaine abuse Medical History Abdominal rigidity Carcinoma in situ of uterine cervix Cervical intraepithelial neoplasia grade 2 Chronic pelvic pain in female s/p hyst 2012 for cervical dysplasia. Pt reports chronic pelvic pain since that surgery. Daily headache Elevated LFTs Galactorrhea Hepatic cirrhosis due to chronic hepatitis C infection Hepatitis C Insomnia Irritable bowel syndrome Manifested as constipation Q3d. With meds has improved daily functioning. Leg edema Memory loss Pelvic pain Psychoactive substance abuse Surgical History Colonoscopy - MAC (01/29/17) Endoscopy (12/14/13) Dx Esophagitis. Excision, Cervicle Lymph Nodes H/O laparoscopy (~09/14/13) for LLQ pain. Has PDS suture removed (from previous hysterectomy with USLS. Nl pelvis. Pt mentions second laparoscopy for pelvic pain. Not in [facility] records. History of section History of cholecystectomy History of pacemaker History of tonsillectomy and adenoidectomy (~07/05/11) S/P hysterectomy (09/27/15) Status post laparoscopic hysterectomy (~04/15/13) Total laparoscopic hysterectomy & laparoscopic UteroSacral Vaginal Vault suspensionfor uterine prolapse Family History Father Alcohol abuse Substance abuse Colon cancer Liver cancer Throat cancer Depression Diabetes Heart disease Hypertension Mother Asthma Breast cancer Cervical cancer Depression Hypertension Alcohol abuse Substance abuse Sister Alcohol abuse Substance abuse Depression Sister Alcohol abuse Substance abuse Depression Sister Alcohol abuse Substance abuse Depression Social History Smoking/Tobacco Use Status: Current every day Tobacco Type: cigarettes Years smoked: 13 and e-cigarettes Tobacco: How many years used: 25 Smoking risk assessment performed?: Yes Alcohol Intake: current Alcohol Intake frequency: holidays/special occasions only Drug use: Occasionally Substance use type: marijuana Details: was using 2-3 times a day (Heroin) now down to 1-2 times every other day History of IV Drug Use. was an alcoholic Household members: none Housing: apartment Number of Children: 3 Communication Needs: None current occupation: unemployed What is your relationship status?: How often do you talk on the phone with friends or family?: three or more times per week Panel score (0-1 are the most socially isolated patients): 1 What type of physical activity do you participate in: none Seatbelt use: always Drive intox or ride w/intox medical driver: No Working smoke detector in home: Yes Carbon monox detector in home: Yes Do you feel safe at home: Yes Do you feel safe in your relationship?: Yes Victim of physical abuse: No Victim of emotional abuse: No Victim of sexual abuse: No Would you like helpful sources: No Additional Social history: Did use Heroin today at 1300 02/22/[address]
--- NOTE | 2024-08-23 17:25 | DI.VRAD_ITS ---
PROCEDURE INFORMATION: Exam: XR Right Ankle Exam date and time: 08/23/2024 5:12 PM Age: 38 years old Clinical indication: Other: Twisted, pain TECHNIQUE: Imaging protocol: Radiologic exam of the right ankle. Views: 3 or more views. COMPARISON: CR XR ANKLE RT COMPLETE 08/24/2021 1:23 PM FINDINGS: Bones/joints: Three views of the right ankle reveal no acute fracture or dislocation. Soft tissues: There is prominent soft tissue swelling over the lateral malleolus. IMPRESSION: Prominent soft tissue swelling over the lateral malleolus. No acute fracture or dislocation seen in the right ankle. Dictated and Authenticated by: Shahzad De La O MD. Ordering:KATYA Leach MD
[2024-08-23 17:50] VITALS: BP 107/60; PULSE 94; RESP 16; TEMP 36.6; O2SAT 98
== END 2024-08-23 17:49 | disposition home or self-care (01) ==
PROVIDERS: Emergency Provider Physician Assistant; PCP Family Medicine
DX: S93.401A Sprain of unspecified ligament of right ankle, initial encounter (principal); X58.XXXA Exposure to other specified factors, initial encounter
CPT/HCPCS: 99283; 73610

== ENCOUNTER 2024-10-26 14:49 | Outpatient (REF) | payer MEDICAID, SELFPAY ==
[2024-10-26 16:40] LABS: *AMPHETAMINES SCREEN URINE Negative (Negative); *BARBITURATES SCREEN URINE Negative (Negative); *BENZODIAZEPINES SCREEN URINE Negative (Negative); Cannabinoids THC Positive (Negative); Cocaine Screen,Urine Positive (Negative); METHADONE URINE SCREEN Negative (Negative); OPIATES URINE SCREEN Negative (Negative)
[2024-10-26 16:41] LABS: Tricyclic Antidepressants Negative (Negative)
[2024-10-29 12:09] LABS: Buprenorphine 70.4 ng/mL (Cutoff: 5.0); Norbuprenorphine 588.4 ng/mL (Cutoff: 2.5)
[2024-11-12 08:59] LABS: Naloxone Confirmation Total Ur 66 ng/mL
== END 2024-10-26 14:50 | disposition home or self-care (01) ==
LOC: LBN 14:49
PROVIDERS: PCP Family Medicine; Visit Provider Emergency Medicine
DX: F11.20 Opioid dependence, uncomplicated (principal)
CPT/HCPCS: 80307; 80348

== ENCOUNTER 2024-12-15 16:18 | Emergency (ER) | payer MEDICAID, SELFPAY ==
[2024-12-15 16:24] VITALS: BP 117/72; PULSE 76; RESP 18; TEMP 36.6; O2SAT 97
--- NOTE | 2024-12-15 17:25 | ED.GENADUL_ITS ---
Discharge Plan Disposition Patient Disposition: Home Condition: Stable Discharge Details Clinical Impression: Broken or cracked tooth, nontraumatic, Pain due to dental caries Primary Care Provider: Zeyad Hall ED Provider: Carmen Conner Home Meds and New Rx's Prescriptions: New clindamycin HCl 150 mg capsule 450 mg PO TID 7 Days Qty: 63 0RF No Action ondansetron HCl 4 mg tablet 4 mg PO Q8H PRN (Reason: nausea and vomiting) Qty: 90 3RF naproxen 500 mg tablet 500 mg PO BID PRN (Reason: pain) Qty: 60 0RF citalopram 40 mg tablet 40 mg PO DAILY Qty: 90 3RF aripiprazole 5 mg tablet 5 mg PO DAILY Qty: 90 3RF hydroxyzine HCl 25 mg tablet 25 mg PO TID-QID PRN (Reason: itching) Qty: 90 3RF atomoxetine [Strattera] 40 mg capsule 40 mg PO DAILY Qty: 30 1RF clonidine HCl 0.1 mg tablet 0.1 mg PO TID Qty: 90 1RF (DME) BreatheRite MDI Spacer Spacer See Rx Instructions .ROUTE .MEDSUPPLY Qty: 1 0RF Rx Instructions: As directed albuterol sulfate 90 mcg/actuation HFA aerosol inhaler 2 puff IH Q6H PRN (Reason: shortness of breath or wheezing) Qty: 18 1RF cyclobenzaprine 10 mg tablet 10 mg PO TID PRN (Reason: muscle spasm) Qty: 90 1RF divalproex 250 mg tablet,delayed release (DR/EC) 250 mg PO BID Qty: 180 0RF fluticasone propion-salmeterol [Advair Diskus] 250-50 mcg/dose blister with device 1 inh IH Q12H Qty: 60 1RF furosemide 20 mg tablet 20 mg PO DAILY PRN (Reason: edema) Qty: 90 3RF omeprazole 40 mg capsule,delayed release(DR/EC) 40 mg PO DAILY Qty: 90 3RF pregabalin 300 mg capsule 300 mg PO BID Qty: 56 1RF psyllium husk 0.52 gram capsule 0.52 g PO DAILY Qty: 90 3RF tiotropium bromide [Spiriva with HandiHaler] 18 mcg capsule, w/inhalation device 1 cap IH DAILY Qty: 90 3RF trazodone 50 mg tablet 50 mg PO QHS Qty: 90 1RF methocarbamol 500 mg tablet 500 mg PO Q6H PRN (Reason: muscle spasm) Qty: 14 0RF buprenorphine-naloxone [Suboxone] 12-3 mg film 2 film sublingual DAILY Patient Comments: PLACE 2 FILMS UNDER THE TONGUE DAILY FOR 3 DAYS Discharge Instructions Instructions: Dental Pain (DC) Additional Instructions: You were seen in the emergency department today for evaluation of a broken tooth with dental pain and concern for infection. You do have evidence of dental decay and were started on antibiotics. Please take this medication 3 times per day until it is gone, even if you start to feel better. Additionally, while taking this medication you should take a probiotic or eat a live culture yogurt to protect your gut markus. You need to make an appointment with a dentist for definitive management of this broken tooth, and please follow-up with your primary care provider in the next few days to discuss this visit and any symp toms that change, worsen, or persist. Thank you for allowing us to be part of your care. HPI General Mode of arrival: ambulatory . Date/Time Provider Initiated Documentation: 12/15/24 16:32 . Limitations to Documentation: no limitations . Information obtained by: patient and old records reviewed . HPI Narrative: This is a 39-year-old female patient with a past medical history significant for bipolar, polysubstance use disorder, and asthma who is presenting for evaluation of dental pain. The patient states that a few days ago she thinks she broke her left molar, and has been having pain on both the upper and lower aspects. She has poor dentition at baseline, has been trying to manage her symptoms at home with Tylenol and ibuprofen, but noticed that the pain seems to be swelling to her upper jaw, prompting her to seek care. She states that she has not had fevers or chills, but chewing food does cause worsening of the pain. She is not having difficulty swallowing, moving her neck, and has not noted changes in her vision or pain in the ocular region. This is an isolated complaint and the patient has otherwise been in her normal state of health. Related Data Home Medications ?Medication ?Instructions ?Recorded ?Confirmed aripiprazole 5 mg tablet 5 mg PO DAILY #90 tabs 01/06/21 12/15/24 citalopram 40 mg tablet 40 mg PO DAILY #90 tabs 01/06/21 12/15/24 hydroxyzine HCl 25 mg tablet 25 mg PO TID-QID PRN itching #90 01/06/21 12/15/24 tabs atomoxetine 40 mg capsule 40 mg PO DAILY #30 caps 05/11/21 12/15/24 (Strattera) clonidine HCl 0.1 mg tablet 0.1 mg PO TID #90 tabs 05/11/21 12/15/24 methocarbamol 500 mg tablet 500 mg PO Q6H PRN muscle spasm #14 05/27/21 12/15/24 tabs inhalational spacing device #1 ea 07/25/21 08/23/24 (BreatheRite MDI Spacer) ondansetron HCl 4 mg tablet 4 mg PO Q8H PRN nausea and 11/01/23 12/15/24 vomiting #90 tabs naproxen 500 mg tablet 500 mg PO BID PRN pain #60 tabs 05/05/24 12/15/24 albuterol sulfate 90 mcg/actuation 2 puff inhalation Q6H PRN 05/07/24 12/15/24 aerosol inhaler shortness of breath or wheezing #18 grams cyclobenzaprine 10 mg tablet 10 mg PO TID PRN muscle spasm #90 05/07/24 12/15/24 tabs divalproex 250 mg tablet,delayed 250 mg PO BID #180 tabs 05/07/24 12/15/24 release fluticasone 250 mcg-salmeterol 50 1 inh inhalation Q12H #60 ea 05/07/24 12/15/24 mcg/dose blistr powdr for inhalation (Advair Diskus) furosemide 20 mg tablet 20 mg PO DAILY PRN edema #90 tabs 05/07/24 12/15/24 omeprazole 40 mg capsule,delayed 40 mg PO DAILY #90 caps 05/07/24 12/15/24 release pregabalin 300 mg capsule 300 mg PO BID #56 caps 05/07/24 12/15/24 psyllium husk 0.52 gram capsule 0.52 g PO DAILY #90 caps 05/07/24 12/15/24 tiotropium bromide 18 mcg capsule 1 cap inhalation DAILY #90 05/07/24 12/15/24 with inhalation device (Spiriva inhalations with HandiHaler) trazodone 50 mg tablet 50 mg PO QHS #90 tabs 05/07/24 12/15/24 buprenorphine 12 mg-naloxone 3 mg 2 film sublingual DAILY 12/15/24 12/15/24 sublingual film (Suboxone) clindamycin HCl 150 mg capsule 450 mg (3 x 150 mg) PO TID 7 days 12/15/24 #63 caps Previous Rx's ?Medication ?Instructions ?Recorded aripiprazole 5 mg tablet 5 mg PO DAILY #90 tabs 01/06/21 citalopram 40 mg tablet 40 mg PO DAILY #90 tabs 01/06/21 hydroxyzine HCl 25 mg tablet 25 mg PO TID-QID PRN itching #90 01/06/21 tabs atomoxetine 40 mg capsule 40 mg PO DAILY #30 caps 05/11/21 (Strattera) clonidine HCl 0.1 mg tablet 0.1 mg PO TID #90 tabs 05/11/21 methocarbamol 500 mg tablet 500 mg PO Q6H PRN muscle spasm #14 05/27/21 tabs inhalational spacing device #1 ea 07/25/21 (BreatheRite MDI Spacer) ondansetron HCl 4 mg tablet 4 mg PO Q8H PRN nausea and 11/01/23 vomiting #90 tabs naproxen 500 mg tablet 500 mg PO BID PRN pain #60 tabs 05/05/24 albuterol sulfate 90 mcg/actuation 2 puff inhalation Q6H PRN 05/07/24 aerosol inhaler shortness of breath or wheezing #18 grams cyclobenzaprine 10 mg tablet 10 mg PO TID PRN muscle spasm #90 05/07/24 tabs divalproex 250 mg tablet,delayed 250 mg PO BID #180 tabs 05/07/24 release fluticasone 250 mcg-salmeterol 50 1 inh inhalation Q12H #60 ea 05/07/24 mcg/dose blistr powdr for inhalation (Advair Diskus) furosemide 20 mg tablet 20 mg PO DAILY PRN edema #90 tabs 05/07/24 omeprazole 40 mg capsule,delayed 40 mg PO DAILY #90 caps 05/07/24 release pregabalin 300 mg capsule 300 mg PO BID #56 caps 05/07/24 psyllium husk 0.52 gram capsule 0.52 g PO DAILY #90 caps 05/07/24 tiotropium bromide 18 mcg capsule 1 cap inhalation DAILY #90 05/07/24 with inhalation device (Spiriva inhalations with HandiHaler) trazodone 50 mg tablet 50 mg PO QHS #90 tabs 05/07/24 clindamycin HCl 150 mg capsule 450 mg (3 x 150 mg) PO TID 7 days 12/15/24 #63 caps Allergies Allergy/AdvReac Type Severity Reaction Status Date / Time lidocaine Allergy Intermediate Swelling/Ed Verified 12/15/24 16:28 rome procaine HCl (From Novocain) Allergy Intermediate Swelling/Ed Verified 12/15/24 16:28 rome red dye Allergy Mild Swelling/Ed Unverified 12/15/24 16:28 rome Penicillins AdvReac Unknown Nausea Verified 12/15/24 16:28 control pills Allergy Severe hospitalize Uncoded 12/15/24 16:28 d General Stated Complaint: DentalOral THONG: 4 Exam Narrative Exam Narrative: Gen: Awake and alert, in no apparent distress HEENT: Non-icteric sclera, PERRL, EOMs full and without entrapment. The patient has extensive dental carry disease with crumbling and broken teeth, no periapical abscesses or dental abscesses noted, though the patient does have redness of the gums and the area of the left lower premolar/first molar. Neck: Supple, full range of motion and no difficulty with swallowing, no trismus Lungs: No apparent respiratory distress, normal respiratory effort. CV: Appears well perfused Abdomen: Non-distended MSK: Moves 4 extremities without apparent limitation in ROM Skin: Visualized skin without rashes, cyanosis. Neuro: Normal Gait, no obvious focal deficits or facial asymmetry. Speaks in full, clear sentences. Psych: Appropriate for situation. Course Vital Signs Vital signs: Vital Signs Temperature 36.6 C 12/15/24 16:24 Pulse 76 12/15/24 16:24 Respiratory Rate 18 12/15/24 16:24 Blood Pressure 117/72 12/15/24 16:24 Pulse Oximetry 97 12/15/24 16:24 Temperature 36.6 C 12/15/24 16:24 Temperature Source Tympanic 12/15/24 16:24 Pulse 76 12/15/24 16:24 Respiratory Rate 18 12/15/24 16:24 Blood Pressure 117/72 12/15/24 16:24 Pulse Oximetry 97 12/15/24 16:24 Oxygen Delivery Method Room Air 12/15/24 16:24 Oxygen Flow Rate 0 12/15/24 16:24 Medical Decision Making This is a 39-year-old female patient presenting for evaluation of dental pain. Differential includes but is not limited to broken tooth, dental infection, considered dental abscess though none are apparent on my physical examination. Dental carry disease was considered, though the patient is reassuringly without evidence on my physical examination for deep space abscess, Sebas's angina, or other emergent systemic infections. At this time, I do not see an indication to proceed with advanced imaging or laboratory studies. I provided the patient with a dose of Tylenol and ibuprofen, and given her history of allergy to penicillins started her on a course of clindamycin. I did job placement counselor the patient on probiotic use and or live cultured yogurt to prevent GI upset and C. difficile. The patient will reach out to her dentist to schedule an appointment for definitive management. At this time, the patient has had a full medical evaluation and is safe for discharge to home. They are hemodynamically stable, ambulatory, and tolerating PO. They are understanding of the follow-up plan and return precautions. They left our facility without incident. Carmen Conner MD Medical Records Medical records reviewed: Yes I reviewed the patient's medical records. Quality:SDOH Health Related Social Needs: No Data to Display PFSH All Active Problems (Updated 12/15/24 @ 17:26 by Carmen Conner MD) Pain due to dental caries (Acute) Broken or cracked tooth, nontraumatic (Acute) Injury of knee, right (Acute) Bipolar 1 disorder (Acute) Anemia (Chronic) Discharge planning issues (Acute) Psoas muscle abscess (Acute) Acute thoracic myofascial strain (Acute) Acute lumbar myofascial strain (Acute) Osteomyelitis (Acute) Discitis of lumbosacral region (Acute) MRSA bacteremia (Acute) UTI (urinary tract infection) (Acute) Dental caries (Acute) H/O endoscopy (Acute) 06/11/19 [facility] [place] Endoscopy Z line abnl 37 cm from incisors,Grade A reflux esophagitis. Normal stomach and Duodenum. Chronic hepatitis C without hepatic coma (Acute) 05/27/19- [facility] [place] Gastro. Katelyn Abbott APRN 05/12/20 HCV viral load undetected 2021- Viral load detected again Carpal tunnel syndrome of right wrist (Acute) Plantar fasciitis, bilateral (Acute) ADHD (Acute) Family history of ovarian cancer (Acute) Family history of breast cancer in first degree relative (Acute) Family history of colon cancer (Acute) Family history of GA (myocardial infarction) (Acute) Gastroesophageal reflux disease without esophagitis (Acute 11/23/16) Hx of supraventricular tachycardia (Acute 11/23/16) Chronic back pain greater than 3 months duration (Acute 11/23/16) Tobacco use (Acute 11/23/16) Depression (Chronic) from previous record ? bipolar Anxiety (Chronic) Asthma (Chronic) Right ankle pain (Chronic) IV drug abuse (Acute) Polysubstance abuse (Acute) Substance abuse (Acute) Seen in October 2017, cocaine abuse Medical History Abdominal rigidity Carcinoma in situ of uterine cervix Cervical intraepithelial neoplasia grade 2 Chronic pelvic pain in female s/p hyst 2012 for cervical dysplasia. Pt reports chronic pelvic pain since that surgery. Daily headache Elevated LFTs Galactorrhea Hepatic cirrhosis due to chronic hepatitis C infection Hepatitis C Insomnia Irritable bowel syndrome Manifested as constipation Q3d. With meds has improved daily functioning. Leg edema Memory loss Pelvic pain Psychoactive substance abuse Surgical History Colonoscopy - MAC (01/29/17) Endoscopy (12/14/13) Dx Esophagitis. Excision, Cervicle Lymph Nodes H/O laparoscopy (~09/14/13) for LLQ pain. Has PDS suture removed (from previous hysterectomy with USLS. Nl pelvis. Pt mentions second laparoscopy for pelvic pain. Not in [facility] records. History of section History of cholecystectomy History of pacemaker History of tonsillectomy and adenoidectomy (~07/05/11) S/P hysterectomy (09/27/15) Status post laparoscopic hysterectomy (~04/15/13) Total laparoscopic hysterectomy & laparoscopic UteroSacral Vaginal Vault suspensionfor uterine prolapse Family History Father Alcohol abuse Substance abuse Colon cancer Liver cancer Throat cancer Depression Diabetes Heart disease Hypertension Mother Asthma Breast cancer Cervical cancer Depression Hypertension Alcohol abuse Substance abuse Sister Alcohol abuse Substance abuse Depression Sister Alcohol abuse Substance abuse Depression Sister Alcohol abuse Substance abuse Depression Social History Smoking/Tobacco Use Status: Current every day Tobacco Type: cigarettes Years smoked: 13 and e-cigarettes Tobacco: How many years used: 25 Smoking risk assessment performed?: Yes Alcohol Intake: current Alcohol Intake frequency: holidays/special occasions only Drug use: Occasionally Substance use type: marijuana and crack/cocaine Details: Sober from Heroin and crack/cocaine x1 month 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
[2024-12-15] MEDS: Ibuprofen 600 MG TAB PO (17:39)
[2024-12-15] MEDS: Clindamycin 150 MG CAP, 12 CAPS/BTL 450 MG PO (17:39)
[2024-12-15] MEDS: Acetaminophen 500 MG TAB 1000 MG PO (17:39)
[2024-12-15 17:43] VITALS: BP 117/72; PULSE 76; RESP 18; TEMP 36.6; O2SAT 97
== END 2024-12-15 17:44 | disposition home or self-care (01) ==
PROVIDERS: Emergency Provider Emergency Medicine; PCP Family Medicine
DX: R68.84 Jaw pain (principal); K03.81 Cracked tooth
CPT/HCPCS: 99283 ×2